=== PATIENT | female | born 1945 | race Caucasian/White ===

== ENCOUNTER → 2023-05-02 09:58 | Outpatient (REF) | payer OTHER, SELFPAY | LOC: HWRAD 09:58 | PROVIDERS: ATTENDING PHYSICIAN Internal Medicine Gastroenterology; FAMILY PHYSICIAN Family Medicine | DX: Z86.010 Personal history of colon polyps (principal) | CPT/HCPCS: 74261 ==

== ENCOUNTER 2023-11-13 16:24 | Emergency (ER) | payer OTHER, SELFPAY ==
[2023-11-13 16:24] VITALS: BMI 27.8
[2023-11-13 16:26] VITALS: BP 142/65
[2023-11-13 17:31] LABS: % Basophils 0.5 % (0-2); % Eosinophils 1.9 % (0-6); % Immature Granulocytes 0.4 % (0-0.5); % Lymphocytes 13.2 % (20.5-51.1); % Monocytes 11.1 % (1.7-9.3); % Neutrophils 72.9 % (42.2-75.2); Absolute Eosinophils 0.2 10^3/uL (0-0.7); Absolute Lymphocytes 1.1 10^3/uL (1.2-3.4); Absolute Monocytes 0.9 10^3/uL (0.1-0.6); Absolute Neutrophils 5.8 10^3/uL (1.4-6.5); Hematocrit 42.3 % (37.0-47.0); Hemoglobin 14.8 g/dL (12.0-16.0); Mean Corpuscular Volume 94.2 fL (81.0-99.0); Mean Platelet Volume 9.8 fL (7.4-10.4); Nucleated Red Blood Cells % 0 %; Platelet Count 271 10^3/uL (130-400); Red Blood Cell Count 4.49 10^6/uL (4.20-5.40); Red Cell Dist. Width 13.4 % (11.5-14.5)
[2023-11-13 17:45] LABS: INR 2.34; PT 25.5 Sec (11.4-14.6)
[2023-11-13 17:49] LABS: ALT (SGPT) 33 U/L (0-35); AST (SGOT) 46 U/L (14-36); Albumin 4.8 g/dl (3.5-5.0); Alkaline Phosphatase 160 U/L (38-126); Blood Urea Nitrogen 30 mg/dl (7-17); Calcium 9.7 mg/dl (8.4-10.2); Carbon Dioxide 32 mmol/L (22-30); Chloride 94 mmol/L (98-107); Estimated Creatinine Clearance 32 ml/min; Glucose 100 mg/dl (70-99); Potassium 4.8 mmol/L (3.5-5.1); Sodium 139 mmol/L (135-145); Total Bilirubin 1.2 mg/dl (0.2-1.3); Total Protein 7.6 g/dl (6.3-8.2); eGFR 46.33
[2023-11-13 17:52] LABS: NT-proBNP 2400 pg/ml
[2023-11-13 18:00] VITALS: BP 130/47
[2023-11-13 18:30] VITALS: BP 130/47
--- NOTE | 2023-11-13 23:07 | ED.MUSCINJ ---
HPI-Injury
General
Chief Complaint: Musculo-Skeletal Complaint
Source: patient and family
Exam Limitations: none
Time Seen by Provider: 11/13/23 16:37
Nursing documentation reviewed up to this point in time: agreed with
History of Present Illness-Injury
Is this injury a work related problem?: No
Is pt an associate of [facility]/[place]?: No
Initial Injury comments:
Patient to ED for eval of pain and swelling to her right knee. States she had a trip and fall 1 week ago. Fell onto right knee on carpeted floor. Developed a hematoma and swelling to site but improved as week progressed. States this week she
had her INR checked and it was greater than 5. TOld to hold coumadin x 5 days. Sustained another trip and fall yesterday and now has increased swelling and bruising to her right knee. She was evaluated at today and sent to ED for further
workup. NO fx on xray. No other complaints. No history of head injury.
Past History
Past History
ED Past Medical History: Arrthythmia (Atrial fib), Asthma, CHF, GERD, Seizures, Valvular disease, Hypothyroidism, Psychiatric (Depression) and Other (Migraines, pulmonary embolism, sleep apnea, PNA, Pul Hypertension, rheumatic heart disease,
H-pylori, renal calculus)
ED Past Surgical History: Cardiac (Pacemaker, Tricuspid and mitral replaced, Ablation for SVT), Cholecystectomy and Other (Abdominal wall abscess, IVC filter)
Social History
Tobacco: Non-smoker
Alcohol: None
Drug: None
Personal:
Living: alone
Employment: Retired
Family History
Family History: Other
Review of Systems
Review of Systems
Allergies reviewed?: Yes
All Other Systems: ROS reviewed and negative except as documented in HPI and ROS
Constitutional: Reports no symptoms
EENT: Reports no symptoms
Respiratory: Reports no symptoms
Cardiac: Reports no symptoms
ABD/GI: Reports no symptoms
Musculoskeletal: Reports joint pain (Pain bruising and swelling to right knee)
Skin: Reports other (swelling and bruising to right knee)
Neurological: Reports no symptoms
Psychiatric: Reports no symptoms
Musculoskeletal Injury Exam
Musculoskeletal Injury Exam
Right Knee:
Pain with Movement?: Moderate
Tender to palpation?: Moderate
Soft tissue swelling?: Moderate
External deformity and angulation?: None
Contusion?: Moderate
Hematoma-local bleeding into tissue?: Moderate
Strain- Sprain- Tear (Connective tissue injury)?: Moderate
Crepitus with movement?: No
Joint instability?: No
Malalignment/deformity?: No
Range of motion: Limited
Distal skin color and temperature: normal-warm & good color
Capillary Refill: normal
Normal distal neurovascular exam?: Yes
Peripheral Pulses: posterior tibial (right): 3+ and dorsalis pedis (right): 3+
Phy Exam
General Physical Exam
General Presentation: well appearing and no apparent distress
General age: appears stated age
General Skin: warm and dry
General Habitus: normal
General Mental: alert
Neurological Exam
Neurological Exam: alert, oriented x3, CN II-XII intact, no motor deficits, no sensory deficits and speech normal
Musculoskeletal Exam
Musculoskeletal Exam: neuro vasc intact and other (Swelling and bruising to right ant. knee. No evidence of compartment syndrome to RLE. Limited bending due to swelling. No fx on xray. Uriah wrap and knee immobilizer applied.)
Skin Exam
Skin Exam: warm/dry and no rash
Psychiatric Exam
Psychiatric Exam: normal mood/affect
Injury Course
Orders/Labs/Results
Orders:
Orders
11/13/23 17:23
Electrocardiogram (*1) Urgent
Reason for Study: Fatigue / Weakness
11/13/23 17:24
EKG- Treatment ONCE
11/13/23 17:25
Complete Blood Count/With Diff Urgent
Comprehensive Metabolic Panel Urgent
Pro-BNP [NT-proBNP] Urgent
Prothrombin Time Urgent
11/13/23 18:13
Uriah Wrap Right-Treatment ONCE
Knee Immobilizer Right-Treatme ONCE
Abnormal Lab Results
11/13/23
17:25
MCH 33.0 H pg
(27.0-31.0)
Absolute Lymphs (auto) 1.1 L 10^3/uL
(1.2-3.4)
Absolute Monos (auto) 0.9 H 10^3/uL
(0.1-0.6)
Lymphocytes % 13.2 L %
(20.5-51.1)
Monocytes % 11.1 H %
(1.7-9.3)
PT 25.5 H Sec
(11.4-14.6)
Chloride 94 L mmol/L
(98-107)
Carbon Dioxide 32 H mmol/L
(22-30)
BUN 30 H mg/dl
(7-17)
Creatinine 1.2 H mg/dL
(0.6-1.0)
Glucose 100 H mg/dl
(70-99)
AST 46 H U/L
(14-36)
Alkaline Phosphatase 160 H U/L
(38-126)
11/13/23 17:25
11/13/23 17:25
*Radiology
Radiology exam reviewed: radiology read reviewed
*Pulse Oximetry
Patient hypoxic: no
*Critical Care Note
Total Time (30-74mins, 75-104mins- exclusive of procedures): Not Applicable
ED Attending Note
-
Portions of this chart may have been created with voice recognition software.� Occasional wrong word or��sound alike� substitutions may have occurred due to the inherent limitations of voice recognition software.
Discharge Plan
Departure
Patient Disposition: Home (Routine Discharge)
Date of Disposition: 11/13/23
Time of Disposition: 18:14
Patient with high blood pressure during this ER visit?: No
Condition: Good
Covid-19: Not Applicable
Discharge Problem:
Contusion of knee, Hematoma and contusion
Instructions: Knee Immobilizer (DC), Hematoma, RICE Therapy
Prescriptions:
No Action
levothyroxine 88 MCG tablet
88 mcg PO DAILY
digoxin 0.125 MG tablet
0.125 mg PO SUTUTHSA@1200
albuterol sulfate [Ventolin HFA] 90 MCG/PUFF HFA aerosol inhaler
2 puff inhalation R Q6HPRN PRN (Reason: SOB)
omeprazole 40 MG capsule,delayed release(DR/EC)
40 mg PO DAILY
Arnuity Ellipta 100 MCG blister with device
1 inh inhalation R DAILY
allopurinol 100 mg tablet
100 mg PO QPM
aspirin 81 mg Tablet,Delayed Release (Dr/Ec)
81 mg PO DAILY
calcium carbonate [Calcium 600] 600 mg calcium (1,500 mg) Tablet
600 mg PO DAILY
colchicine 0.6 mg Tablet
0.6 mg PO DAILY
cholecalciferol (vitamin D3) 50 mcg (2,000 unit) Tablet
50 mcg PO DAILY
warfarin 1 mg tablet
1.5 mg PO QPM
torsemide 20 mg tablet
20 mg PO DAILY Qty: 0 0RF
potassium chloride [Klor-Con M20] 20 MEQ tablet,ER particles/crystals
1 meq PO DAILY Qty: 0 0RF
Activity Restrictions/Additional Instructions:
FOllow up with your family doctor. Please have your kidney function labs repeated next week.
Interventions
Interventions:
*Risk Screen - Suicide Last Done: 11/13/23 18:54
*General Assessment Last Done: 11/13/23 18:54
*Neglect/Abuse Screening Last Done: 11/13/23 18:54
ED- Fall Risk Assessment Last Done: 11/13/23 16:50
*ED COVID-19 Vaccine History Last Done: 11/13/23 18:54
*Nursing Disposition Last Done: 11/13/23 18:54
ED-Musculoskeletal Assessment Last Done: 11/13/23 16:50
Discharge Date and Time
Discharge Date/Time: 11/13/23 18:57
Print Language: ARABIC
== END 2023-11-13 18:57 | disposition home or self-care (01) ==
LOC: EMR 16:24
PROVIDERS: Nurse Practitioner; EMERGENCY PHYSICIAN Emergency Medicine; FAMILY PHYSICIAN Family Medicine
DX: S80.01XA Contusion of right knee, initial encounter (principal); W01.0XXA Fall on same level from slipping, tripping and stumbling without subsequent striking against object, initial encounter; Z79.01 Long term (current) use of anticoagulants
CPT/HCPCS: 99284; 29505; 80053; 83880; 85025; 85610; 93005

== ENCOUNTER → 2023-12-09 08:07 | Outpatient (REF) | payer OTHER, SELFPAY | LOC: RCS 08:07 | PROVIDERS: ATTENDING PHYSICIAN Internal Medicine Cardiovascular Disease; FAMILY PHYSICIAN Family Medicine | DX: I35.0 Nonrheumatic aortic (valve) stenosis (principal) | CPT/HCPCS: 93306 ==

== ENCOUNTER → 2024-01-09 15:47 | Outpatient (REF) | payer OTHER, SELFPAY | LOC: WDC 15:47 | PROVIDERS: ATTENDING PHYSICIAN Family Medicine | DX: Z12.31 Encounter for screening mammogram for malignant neoplasm of breast (principal) | CPT/HCPCS: 77063; 77067 ==

== ENCOUNTER → 2024-04-27 16:35 | Outpatient (REF) | payer OTHER, SELFPAY ==
[2024-04-27 17:54] LABS: INR 2.87
[2024-04-27 17:55] LABS: Blood Urea Nitrogen 35 mg/dl (7-17); Calcium 9.3 mg/dl (8.4-10.2); Carbon Dioxide 30 mmol/L (22-30); Chloride 96 mmol/L (98-107); Glucose 91 mg/dl (70-99); Potassium 4.3 mmol/L (3.5-5.1); Sodium 137 mmol/L (135-145); eGFR 51.43
[2024-04-27 18:01] LABS: % Basophils 0.9 % (0-2); % Eosinophils 3.4 % (0-6); % Immature Granulocytes 0.4 % (0-0.5); % Lymphocytes 15.8 % (20.5-51.1); % Neutrophils 68.5 % (42.2-75.2); Absolute Basophils 0.1 10^3/uL (0-0.2); Absolute Eosinophils 0.2 10^3/uL (0-0.7); Absolute Lymphocytes 0.9 10^3/uL (1.2-3.4); Absolute Monocytes 0.6 10^3/uL (0.1-0.6); Absolute Neutrophils 3.9 10^3/uL (1.4-6.5); Hematocrit 40.4 % (37.0-47.0); Hemoglobin 13.6 g/dL (12.0-16.0); Mean Corp Hgb Conc. 33.7 g/dL (33.0-37.0); Mean Corpuscular Hgb 33.1 pg (27.0-31.0); Mean Corpuscular Volume 98.3 fL (81.0-99.0); Mean Platelet Volume 9.9 fL (7.4-10.4); Nucleated Red Blood Cells % 0 %; Platelet Count 245 10^3/uL (130-400); Red Blood Cell Count 4.11 10^6/uL (4.20-5.40); Red Cell Dist. Width 14.3 % (11.5-14.5); White Blood Cell Count 5.6 10^3/uL (4.8-10.8)
== END ==
LOC: RAD 16:35
PROVIDERS: ATTENDING PHYSICIAN Hospitalist
DX: M25.462 Effusion, left knee (principal); Z79.01 Long term (current) use of anticoagulants
CPT/HCPCS: 36415; 73701; 80048; 85025; 85610; Q9967

== ENCOUNTER 2024-06-14 12:33 | Emergency (ER) | payer OTHER, SELFPAY ==
[2024-06-14 12:37] VITALS: BP 140/56; BMI 26.9
[2024-06-14 12:40] VITALS: BP 140/56
[2024-06-14 13:01] VITALS: BP 130/60
--- NOTE | 2024-06-14 13:01 | ED.GENMED ---
History of Present Illness
General
Chief Complaint: Swelling
Source: patient
Exam Limitations: none
Time Seen by Provider: 06/14/24 12:43
Nursing documentation reviewed up to this point in time: agreed with
History of Present Illness
History of Present Illness:
The patient is a pleasant 78-year-old female on Coumadin for heart valve replacement and A-fib, who reports left knee pain that developed last night and has been constant. Patient reports it is painful to bear weight on her left leg and to bend at
her left knee. Patient denies recent trauma. She reports that about 3 months ago she did fall and hit that knee but otherwise there has been no trauma since then. She denies fever and rash.
Past History
Past History
ED Past Medical History: Arrthythmia (Atrial fib), Asthma, CHF, GERD, Seizures, Valvular disease, Hypothyroidism, Psychiatric (Depression) and Other (Migraines, pulmonary embolism, sleep apnea, PNA, Pul Hypertension, rheumatic heart disease,
H-pylori, renal calculus)
ED Past Surgical History: Cardiac (Pacemaker, Tricuspid and mitral replaced, Ablation for SVT), Cholecystectomy and Other (Abdominal wall abscess, IVC filter)
Social History
Tobacco: Non-smoker
Alcohol: None
Drug: None
Personal:
Living: alone
Employment: Retired
Family History
Family History: Other
Review of Systems
Review of Systems
Allergies reviewed?: Yes
All Other Systems: ROS reviewed and negative except as documented in HPI and ROS
Constitutional: Reports no symptoms
EENT: Reports no symptoms
Respiratory: Reports no symptoms
Cardiac: Reports no symptoms
ABD/GI: Reports no symptoms
: Reports no symptoms
Musculoskeletal: Reports joint pain and joint swelling
Skin: Reports no symptoms
Neurological: Reports no symptoms
Endocrine: Reports no symptoms
Hematologic/Lymphatic: Reports no symptoms
Psychiatric: Reports no symptoms
Phy Exam
Physical Exam
Physical Exam:
Physical Exam
General: no apparent distress, not acutely ill
Neck: supple. no meningeal signs. normal psoterior pharynx
Heart: s1/s2 regular rate and rhythm, murmur present
Lungs: no acute respiratory distress. clear bilaterally
Abdomen: Soft, nontender
Neuro: alert and oriented. no focal neurological deficits. 5 out of 5 strength in all extremities. Equal sensation in legs bilaterally
Skin: No warmth or skin erythema of left knee area.
Psychiatric: well kept. interactive and cooperative
Extremities: Extensive varicose veins of bilateral lower extremities. Strong pulses in bilateral feet. Left knee has a small effusion, however, no deformity of left knee. No warmth or no erythema of left knee. Patient has
pain with flexion at left knee. Patient has mild tenderness of left calf. No tenderness of right lower extremity. No ecchymoses of left knee or left lower extremity
Scores
Heart Failure Risk
Heart Failure Risk Score: Not Applicable
Course
Orders/Labs/Results
Orders:
Orders
06/14/24 13:01
US Legs, Left [US Periph Venous LOWER Ext LT] Urgent
Comment:
Reason For Exam: left knee swelling
06/14/24 13:02
Knee, Left 4 or More Views [CR Knee - Left 4 Or More View*] Urgent
Comment:
Reason For Exam: left knee swelling, atraumatic
06/14/24 13:05
Tramadol HCl [Ultram] 75 mg PO NOW STA
06/14/24 13:06
Complete Blood Count/With Diff Urgent
ESR [Erythrocyte Sed Rate] Urgent
PTT Urgent
Prothrombin Time Urgent
06/14/24 13:35
Comprehensive Metabolic Panel Urgent
Uric Acid Urgent
06/14/24 14:04
C-Reactive Protein Urgent
06/14/24 15:23
Oxycodone [Roxicodone] 5 mg PO NOW STA
Abnormal Lab Results
06/14/24 06/14/24
13:06 14:04
RBC 4.08 L 10^6/uL
(4.20-5.40)
MCV 100.0 H fL
(81.0-99.0)
MCH 33.3 H pg
(27.0-31.0)
Absolute Lymphs (auto) 0.6 L 10^3/uL
(1.2-3.4)
Neutrophils % 80.3 H %
(42.2-75.2)
Lymphocytes % 8.6 L %
(20.5-51.1)
PT 38.9 H Sec
(11.4-14.6)
APTT 52.6 H Sec
(23.4-35.0)
C-Reactive Protein 20.90 H mg/L
(0.0-10.00)
06/14/24 13:06
Vital Signs
Initial and Last Documented VS:
Initial Vital Signs
Temp Pulse Resp BP Pulse Ox
98.7 F 74 16 140/56 96
06/14/24 12:37 06/14/24 12:37 06/14/24 12:37 06/14/24 12:37 06/14/24 12:37
Last Documented Vital Signs
Temp Pulse Resp BP Pulse Ox
98.7 F 71 15 130/60 93
06/14/24 12:37 06/14/24 13:30 06/14/24 13:30 06/14/24 13:01 06/14/24 13:30
MDM/Problems Addressed
Differential Diagnosis Includes:
Acute gouty arthritis of left knee, osteoarthritis of left knee, septic joint of left knee, spontaneous hemarthrosis of left knee due to Coumadin use, left leg DVT
MDM/Problems Addressed:
Patient presents with acute left knee pain
Chronic conditions affecting care:
Given patient is on chronic anticoagulation so she could have a spontaneous hemarthrosis of left knee
Acute Exacerbation and/or Progression of Chronic Illness:
Patient is acutely hypertensive, however, there is no sign of stroke or CHF. I suspect that she is in pain and is anxious
Acute Exacerbation and/or Progression of Chronic Illness: HTN
*Radiology
Radiology exam reviewed: preliminary read by ED provider (Left knee x-ray reviewed by me. No acute fracture. Effusion seen.) and radiology read reviewed
*Pulse Oximetry
Patient hypoxic: no
*EKG
Interpreted by ED Provider?: NA
*Truck Driver Instructor Interpretation
Rate: Truck Driver Instructor- N/A
*Critical Care Note
Total Time (30-74mins, 75-104mins- exclusive of procedures): Not Applicable
Data Reviewed
Review of Other/Old Records Reveals: Radiology Studies (CAT scan reviewed from April 2024 of patient's left knee which showed mild to moderate effusion)
Patient Management
Social determinants of health affecting care: Living situation and Strong social support
Update Note
Update Note:
Patient's left knee continues to not be warm or red. She has no fever. She has no elevated white blood cell count. It is very doubtful she has a septic joint given how she looks clinically. Patient may have a joint effusion from osteoarthritis.
Additionally, it is possible that she has a a small amount of bleeding within the joint space due to being on Coumadin. Patient will be encouraged to ice and elevate her left leg. Patient will also be placed in an Uriah wrap around her left knee.
Patient reports that she has had a wood setter in the past that she could call for follow-up.
ED Attending Note
-
Portions of this chart may have been created with voice recognition software.� Occasional wrong word or��sound alike� substitutions may have occurred due to the inherent limitations of voice recognition software.
Discharge Plan
Departure
Patient Disposition: Home (Routine Discharge)
Date of Disposition: 06/14/24
Time of Disposition: 16:05
Patient with high blood pressure during this ER visit?: Yes
Condition: Good
Covid-19: Not Applicable
Discharge Problem:
Effusion of left knee joint
Instructions: Swollen Joints, BLOOD PRESSURE
Prescriptions:
New
oxycodone 5 mg tablet
5 mg PO TID PRN (Reason: Pain) Qty: 7 0RF
No Action
levothyroxine 88 MCG tablet
88 mcg PO DAILY
digoxin 0.125 MG tablet
0.125 mg PO SUTUTHSA@1200
albuterol sulfate [Ventolin HFA] 90 MCG/PUFF HFA aerosol inhaler
2 puff inhalation R Q6HPRN PRN (Reason: SOB)
omeprazole 40 MG capsule,delayed release(DR/EC)
40 mg PO DAILY
Arnuity Ellipta 100 MCG blister with device
1 inh inhalation R DAILY
allopurinol 100 mg tablet
100 mg PO QPM
aspirin 81 mg Tablet,Delayed Release (Dr/Ec)
81 mg PO DAILY
calcium carbonate [Calcium 600] 600 mg calcium (1,500 mg) Tablet
600 mg PO DAILY
colchicine 0.6 mg Tablet
0.6 mg PO DAILY
cholecalciferol (vitamin D3) 50 mcg (2,000 unit) Tablet
50 mcg PO DAILY
warfarin 1 mg tablet
1.5 mg PO QPM
torsemide 20 mg tablet
20 mg PO DAILY Qty: 0 0RF
potassium chloride [Klor-Con M20] 20 MEQ tablet,ER particles/crystals
1 meq PO DAILY Qty: 0 0RF
Referrals:
Salima Alanis MD [Active] - (If you are unable to get in touch with your own wood setter, please give Dr. Alanis's office a call to try to set up an appointment)
Geneva Angelo MD [Family Provider] -
Activity Restrictions/Additional Instructions:
Elevate and apply an ice pack multiple times a day to your left leg to help reduce pain and swelling. Please call and follow-up with your wood setter soon as possible. Return for any redness of the left knee or fever.
Interventions
Interventions:
*Risk Screen - Suicide Last Done: 06/14/24 12:37
*General Assessment Last Done: 06/14/24 12:37
*Neglect/Abuse Screening Last Done: 06/14/24 12:37
*ED COVID-19 Vaccine History Last Done: 06/14/24 12:37
ED- Cardiac Assessment Last Done: 06/14/24 12:46
ED- Pulmonary Assessment Last Done: 06/14/24 12:46
ED-Skin Assessment Last Done: 06/14/24 12:46
Discharge Date and Time
Print Language: THAI
[2024-06-14] MEDS: ULTRAM 75 MG PO (13:16)
[2024-06-14 13:21] LABS: % Basophils 0.8 % (0-2); % Eosinophils 0.9 % (0-6); % Immature Granulocytes 0.2 % (0-0.5); % Lymphocytes 8.6 % (20.5-51.1); % Monocytes 9.2 % (1.7-9.3); % Neutrophils 80.3 % (42.2-75.2); Absolute Basophils 0.1 10^3/uL (0-0.2); Absolute Eosinophils 0.1 10^3/uL (0-0.7); Absolute Lymphocytes 0.6 10^3/uL (1.2-3.4); Absolute Monocytes 0.6 10^3/uL (0.1-0.6); Absolute Neutrophils 5.3 10^3/uL (1.4-6.5); Hematocrit 40.8 % (37.0-47.0); Hemoglobin 13.6 g/dL (12.0-16.0); Mean Corp Hgb Conc. 33.3 g/dL (33.0-37.0); Mean Corpuscular Hgb 33.3 pg (27.0-31.0); Mean Platelet Volume 10.3 fL (7.4-10.4); Nucleated Red Blood Cells % 0 %; Platelet Count 196 10^3/uL (130-400); Red Blood Cell Count 4.08 10^6/uL (4.20-5.40); Red Cell Dist. Width 14.1 % (11.5-14.5); White Blood Cell Count 6.5 10^3/uL (4.8-10.8)
[2024-06-14 13:29] LABS: Erythrocyte Sed Rate 15 mm/hour (0-20)
[2024-06-14 13:32] LABS: INR 3.96; PT 38.9 Sec (11.4-14.6)
[2024-06-14 13:33] LABS: APTT 52.6 Sec (23.4-35.0)
[2024-06-14 15:00] VITALS: BP 138/46
[2024-06-14] MEDS: ROXICODONE 5 MG PO (15:37)
[2024-06-14 16:00] VITALS: BP 135/54
[2024-06-14 20:18] LABS: ALT (SGPT) 20 U/L (0-35); AST (SGOT) 36 U/L (14-36); Albumin 4.1 g/dl (3.5-5.0); Alkaline Phosphatase 120 U/L (38-126); Blood Urea Nitrogen 20 mg/dl (7-17); Calcium 8.9 mg/dl (8.4-10.2); Carbon Dioxide 33 mmol/L (22-30); Chloride 103 mmol/L (98-107); Estimated Creatinine Clearance 38 ml/min; Glucose 102 mg/dl (70-99); Potassium 4.7 mmol/L (3.5-5.1); Sodium 140 mmol/L (135-145); Total Bilirubin 1.1 mg/dl (0.2-1.3); Total Protein 6.8 g/dl (6.3-8.2); Uric Acid 3.9 mg/dl (2.5-6.2); eGFR 57.66
== END 2024-06-14 17:16 | disposition home or self-care (01) ==
LOC: EMR 12:33
PROVIDERS: EMERGENCY PHYSICIAN Emergency Medicine; FAMILY PHYSICIAN Hospitalist
DX: M25.462 Effusion, left knee (principal); R03.0 Elevated blood-pressure reading, without diagnosis of hypertension; I48.91 Unspecified atrial fibrillation
CPT/HCPCS: 99285; 73564; 80053; 84550; 85025; 85610; 85652; 85730; 86140; 93971

== ENCOUNTER 2024-06-16 08:51 | Emergency (ER) | payer OTHER, SELFPAY ==
[2024-06-16 08:52] VITALS: BP 130/60
--- NOTE | 2024-06-16 10:18 | ED.GENMED ---
History of Present Illness
General
Chief Complaint: Musculo-Skeletal Complaint
Source: patient, records and family
Exam Limitations: none
Time Seen by Provider: 06/16/24 09:43
Nursing documentation reviewed up to this point in time: agreed with
History of Present Illness
History of Present Illness:
78-year-old female with history as noted presents to the emergency room with her daughter for evaluation of left knee pain and swelling. Patient has had recurrent knee pain and swelling in the left knee for the past few months since a fall in
January. She is on Coumadin for atrial fibrillation. She says that this episode started 3 days ago (Tuesday night) when she started to notice pain and swelling in the left knee. She denies any recent fall or trauma. She says that she had
trouble sleeping Tuesday night into morning due to the pain and so she came to the emergency room 06/14/24 for evaluation. At that time she had an x-ray of the knee which showed a joint effusion. She had a DVT study which was negative.
It was felt that joint effusion could be from osteoarthritis or spontaneous hemarthrosis given that she is on Coumadin. Recommended for conservative measures. Despite these measures pain and swelling has persisted which prompted return visit to
the emergency room. She denies any fevers or chills. She denies any other joint pains or swelling. She said she has a distant history of gout in her right ankle.
Past History
Past History
ED Past Medical History: Arrthythmia (Atrial fib), Asthma, CHF, GERD, Seizures, Valvular disease, Hypothyroidism, Psychiatric (Depression) and Other (Migraines, pulmonary embolism, sleep apnea, PNA, Pul Hypertension, rheumatic heart disease,
H-pylori, renal calculus)
ED Past Surgical History: Cardiac (Pacemaker, Tricuspid and mitral replaced, Ablation for SVT), Cholecystectomy and Other (Abdominal wall abscess, IVC filter)
Social History
Tobacco: Non-smoker
Alcohol: None
Drug: None
Personal:
Living: alone
Employment: Retired
Family History
Family History: Other
Review of Systems
Review of Systems
All Other Systems: ROS reviewed and negative except as documented in HPI and ROS
Constitutional: Denies fever or chills
Cardiac: Denies chest pain
Musculoskeletal: Reports joint pain and joint swelling
Phy Exam
Physical Exam
Physical Exam:
General: Well appearing and non-toxic
HEENT: protecting airway
Neck: appears supple
CV: No evidence of cyanosis
Resp: No accessory muscle use
Abd: Non-distended
Extremities: Patient has suprapatellar left knee effusion; he has no tenderness of the patella or along the medial or lateral joint line, no tenderness in the popliteal region, no erythema of the joint, no warmth of the joint; no significant edema
in the left calf or calf tenderness, good strong distal pulses right lower extremity DP and PT; right lower extremity shows no knee effusion or other acute abnormalities
Neuro: Alert
Psych: Normal affect
Skin: Intact
Scores
Heart Failure Risk
Heart Failure Risk Score: Not Applicable
Heart Score for Chest Pain Patients
STEMI patient?: Not applicable
Withdrawal Assessment of Alcohol
Withdrawal Assessment Completed?: Not applicable
Course
Orders/Labs/Results
Orders:
Orders
06/16/24 10:17
Body Fluid Cell Count Urgent
What is the Body Fluid: joint
Date Specimen was Collected: 06/16/24
Time Specimen was Collected: 09:53
Comment: with DIFF
Body Fluid Crystals Urgent
What is the Body Fluid: joint
Date Specimen was Collected: 06/16/24
Time Specimen was Collected: 09:53
Body Fluid Glucose Urgent
Fluid Source: Other
Other Source: left knee
Date Specimen was Collected: 06/16/24
Time Specimen was Collected: 09:53
CRP [C-Reactive Protein] Urgent
Complete Blood Count/With Diff Urgent
Comprehensive Metabolic Panel Urgent
ESR [Erythrocyte Sed Rate] Urgent
Prothrombin Time Urgent
Uric Acid Urgent
Fluid Culture with Gram Stain Urgent
PEGGY Source: Joint Fluid
Specimen Description:
Date Specimen was Collected: 06/16/24
Time Specimen was Collected: 09:53
Abnormal Lab Results
06/16/24
10:17
RBC 3.96 L 10^6/uL
(4.20-5.40)
MCV 99.5 H fL
(81.0-99.0)
MCH 32.8 H pg
(27.0-31.0)
Absolute Lymphs (auto) 0.9 L 10^3/uL
(1.2-3.4)
Absolute Monos (auto) 0.8 H 10^3/uL
(0.1-0.6)
Lymphocytes % 12.2 L %
(20.5-51.1)
Monocytes % 11.2 H %
(1.7-9.3)
ESR 26 H mm/hour
(0-20)
PT 41.4 H Sec
(11.4-14.6)
BUN 28 H mg/dl
(7-17)
Creatinine 1.3 H mg/dL
(0.6-1.0)
Glucose 102 H mg/dl
(70-99)
AST 198 H U/L
(14-36)
ALT 216 H U/L
(0-35)
Alkaline Phosphatase 231 H U/L
(38-126)
C-Reactive Protein 30.00 H mg/L
(0.0-10.00)
06/16/24 10:17
06/16/24 10:17
Vital Signs
Initial and Last Documented VS:
Initial Vital Signs
Temp Pulse Resp BP Pulse Ox
36.4 C 92 16 130/60 98
06/16/24 08:52 06/16/24 08:52 06/16/24 08:52 06/16/24 08:52 06/16/24 08:52
Last Documented Vital Signs
Temp Pulse Resp BP Pulse Ox
36.4 C 92 16 114/42 93
06/16/24 08:52 06/16/24 08:52 06/16/24 08:52 06/16/24 11:00 06/16/24 11:30
Procedures
Incision/Drainage/Joint Aspiration
Left Knee:
Anethesia: 1% Lidocaine with Epi
Preparation: cleaned with Betadine
Type of procedure: aspiration
Nature of site: other (joint effusion)
How much fluid was obtained?: number in mls (30)
Fluid description: bloody
Treatment: bandaid applied
MDM/Problems Addressed
Differential Diagnosis Includes:
Septic arthritis, inflammatory arthritis (gout/pseudogout), osteoarthritis, hemarthrosis
MDM/Problems Addressed:
78-year-old female returns to the emergency room with left knee pain and swelling in the absence of acute trauma. She is on Coumadin for A-fib. He does have distant history of gout. No fever, well-appearing patient. Physical exam as
above�notably no warmth or erythema of the joint. She had DVT study and x-ray 2 days ago�no DVT, x-ray showed joint effusion no acute abnormalities otherwise. Check labs including a CBC with ESR/CRP, uric acid level, INR. Proceed with
arthrocentesis to rule out septic arthritis. Hold on repeat imaging. Reassess after the above.
Labs reviewed: CBC shows no leukocytosis, inflammatory markers marginal, CMP shows mild CORI and no other clinically significant abnormalities. Joint fluid analysis shows WBC less than 2000 with negative Gram stain, negative fluid analysis.
Inconsistent with diagnosis of septic arthritis. Suspect spontaneous hemarthrosis. Her INR is 4.39 today. Advised to hold Coumadin tonight. Compression, ice, elevation. Tylenol as needed will prescribe oxycodone for breakthrough pain.
Follow-up with PCP and orthopedist. Patient comfortable this plan. All questions answered.
Chronic conditions affecting care:
A-fib on Coumadin
*Radiology
Radiology exam reviewed: radiology read reviewed (Reviewed reports from prior visit)
*Pulse Oximetry
Patient hypoxic: no
*Critical Care Note
Total Time (30-74mins, 75-104mins- exclusive of procedures): Not Applicable
Data Reviewed
Source: patient, records and family
ED Attending Note
-
Portions of this chart may have been created with voice recognition software.� Occasional wrong word or��sound alike� substitutions may have occurred due to the inherent limitations of voice recognition software.
Discharge Plan
Departure
Patient Disposition: Home (Routine Discharge)
Date of Disposition: 06/16/24
Time of Disposition: 11:57
Patient with high blood pressure during this ER visit?: No
Discharge Problem:
Hemarthrosis
Instructions: Hemarthrosis (DC)
Prescriptions:
New
oxycodone 5 mg tablet
5 mg PO TID PRN (Reason: Pain) Qty: 14 0RF
No Action
levothyroxine 88 MCG tablet
88 mcg PO DAILY
digoxin 0.125 MG tablet
0.125 mg PO SUTUTHSA@1200
albuterol sulfate [Ventolin HFA] 90 MCG/PUFF HFA aerosol inhaler
2 puff inhalation R Q6HPRN PRN (Reason: SOB)
omeprazole 40 MG capsule,delayed release(DR/EC)
40 mg PO DAILY
Arnuity Ellipta 100 MCG blister with device
1 inh inhalation R DAILY
allopurinol 100 mg tablet
100 mg PO QPM
aspirin 81 mg Tablet,Delayed Release (Dr/Ec)
81 mg PO DAILY
calcium carbonate [Calcium 600] 600 mg calcium (1,500 mg) Tablet
600 mg PO DAILY
colchicine 0.6 mg Tablet
0.6 mg PO DAILY
cholecalciferol (vitamin D3) 50 mcg (2,000 unit) Tablet
50 mcg PO DAILY
warfarin 1 mg tablet
1.5 mg PO QPM
torsemide 20 mg tablet
20 mg PO DAILY Qty: 0 0RF
potassium chloride [Klor-Con M20] 20 MEQ tablet,ER particles/crystals
1 meq PO DAILY Qty: 0 0RF
oxycodone 5 mg tablet
5 mg PO TID PRN (Reason: Pain) Qty: 7 0RF
Referrals:
Geneva Angelo MD [Family Provider] - Follow up in 5-7 days
Dean Clayton MD [Active] - Call in 1-3 days for appt (Orthopedist)
Activity Restrictions/Additional Instructions:
Thank you for visiting the Emergency Department at [facility].
1. Please schedule a follow up appointment as directed. Call first thing tomorrow morning to make an appointment.
2. If indicated, please take your medications as instructed and indicated on discharge paperwork.
3. If any of your symptoms do not improve, or persist, or become more severe within 6-12 hours, please return to the emergency department for further care.
4. Please return to the emergency department if you develop a headache, neck pain/stiffness, fever greater than 100.4F, chest pain, shortness of breath, persistent nausea, vomiting, slurred speech, difficulty walking, numbness/tingling, weakness,
signs of infection or any other symptoms that are worrisome to you.
Please call [phone] if you have any questions.
Interventions
Interventions:
*Risk Screen - Suicide Last Done: 06/16/24 08:57
*General Assessment Last Done: 06/16/24 10:23
*Neglect/Abuse Screening Last Done: 06/16/24 08:57
*ED- Fall Risk Assessment Last Done: 06/16/24 10:23
*ED COVID-19 Vaccine History Last Done: 06/16/24 10:23
ED-Musculoskeletal Assessment Last Done: 06/16/24 10:23
Discharge Date and Time
Print Language: [place]
[2024-06-16 10:24] VITALS: BP 105/50
[2024-06-16 10:49] LABS: Body Fluid Glucose 87 mg/dl
[2024-06-16 11:00] VITALS: BP 114/42
[2024-06-16 11:01] LABS: Body Fluid Polymorphonuclear 78.1 %; Body Fluid WBC 1820 /CUMM
[2024-06-16 11:02] LABS: Body Fluid Mononuclear 21.9 %
[2024-06-16 11:11] LABS: INR 4.39; PT 41.4 Sec (11.4-14.6)
[2024-06-16 11:41] LABS: Body Fluid Second Tech HB
[2024-06-16 11:44] LABS: Erythrocyte Sed Rate 26 mm/hour (0-20)
[2024-06-16 11:48] LABS: % Basophils 0.7 % (0-2); % Eosinophils 3.2 % (0-6); % Immature Granulocytes 0.4 % (0-0.5); % Lymphocytes 12.2 % (20.5-51.1); % Monocytes 11.2 % (1.7-9.3); % Neutrophils 72.3 % (42.2-75.2); Absolute Basophils 0.1 10^3/uL (0-0.2); Absolute Eosinophils 0.2 10^3/uL (0-0.7); Absolute Lymphocytes 0.9 10^3/uL (1.2-3.4); Absolute Monocytes 0.8 10^3/uL (0.1-0.6); Hematocrit 39.4 % (37.0-47.0); Mean Corpuscular Hgb 32.8 pg (27.0-31.0); Mean Corpuscular Volume 99.5 fL (81.0-99.0); Mean Platelet Volume 10.3 fL (7.4-10.4); Nucleated Red Blood Cells % 0 %; Platelet Count 194 10^3/uL (130-400); Red Blood Cell Count 3.96 10^6/uL (4.20-5.40); Red Cell Dist. Width 14.2 % (11.5-14.5)
[2024-06-16 11:50] LABS: ALT (SGPT) 216 U/L (0-35); AST (SGOT) 198 U/L (14-36); Alkaline Phosphatase 231 U/L (38-126); Blood Urea Nitrogen 28 mg/dl (7-17); Carbon Dioxide 30 mmol/L (22-30); Chloride 101 mmol/L (98-107); Glucose 102 mg/dl (70-99); Potassium 4.4 mmol/L (3.5-5.1); Sodium 138 mmol/L (135-145); Total Bilirubin 0.9 mg/dl (0.2-1.3); Total Protein 6.6 g/dl (6.3-8.2); eGFR 42.09
== END 2024-06-16 12:35 | disposition home or self-care (01) ==
LOC: EMR 08:51
PROVIDERS: EMERGENCY PHYSICIAN Emergency Medicine; FAMILY PHYSICIAN Hospitalist
DX: M25.062 Hemarthrosis, left knee (principal); I11.0 Hypertensive heart disease with heart failure; I50.9 Heart failure, unspecified; E03.9 Hypothyroidism, unspecified; G47.30 Sleep apnea, unspecified; I48.91 Unspecified atrial fibrillation; J45.909 Unspecified asthma, uncomplicated; I27.20 Pulmonary hypertension, unspecified; Z79.01 Long term (current) use of anticoagulants; Z86.711 Personal history of pulmonary embolism; Z87.442 Personal history of urinary calculi; Z90.49 Acquired absence of other specified parts of digestive tract; Z95.0 Presence of cardiac pacemaker
CPT/HCPCS: 99283; 80053; 82945; 84550; 85025; 85610; 85652; 86140; 87015; 87070; 87205; 89051; 89060

== ENCOUNTER 2024-06-25 08:27 | Inpatient (IN) | payer OTHER, SELFPAY ==
[2024-06-22 13:41] VITALS: BP 159/68
--- NOTE | 2024-06-22 15:02 | ED.GENMED ---
History of Present Illness
General
Chief Complaint: Musculo-Skeletal Complaint
Source: patient and records
Exam Limitations: none
Time Seen by Provider: 06/22/24 14:40
Nursing documentation reviewed up to this point in time: agreed with
History of Present Illness
History of Present Illness:
78-year-old female with history as documented presents to the ER at once again for evaluation of left knee pain and swelling. This is patient's third emergency room visit with the symptoms. Previously seen and diagnosed with spontaneous
hemarthrosis had therapeutic arthrocentesis but joint effusion reaccumulated shortly thereafter. She has been home with assistance from her daughter, today was making her bed and says that she once again felt a pop in her knee and started having
significant pain and swelling thereafter. Unable to ambulate due to pain and so she came back to the emergency room. She is on Coumadin has history of A-fib and artificial tricuspid and mitral valve, sees Dr. Justin Dave for cardiology.
Past History
Past History
ED Past Medical History: Arrthythmia (Atrial fib), Asthma, CHF, GERD, Seizures, Valvular disease, Hypothyroidism, Psychiatric (Depression) and Other (Migraines, pulmonary embolism, sleep apnea, PNA, Pul Hypertension, rheumatic heart disease,
H-pylori, renal calculus)
ED Past Surgical History: Cardiac (Pacemaker, Tricuspid and mitral replaced, Ablation for SVT), Cholecystectomy and Other (Abdominal wall abscess, IVC filter)
Social History
Tobacco: Non-smoker
Alcohol: None
Drug: None
Personal:
Living: alone
Employment: Retired
Family History
Family History: Other
Review of Systems
Review of Systems
All Other Systems: ROS reviewed and negative except as documented in HPI and ROS
Musculoskeletal: Reports joint pain and joint swelling
Phy Exam
Physical Exam
Physical Exam:
General: Well appearing and non-toxic
HEENT: protecting airway
Neck: appears supple
CV: No evidence of cyanosis
Resp: No accessory muscle use
Abd: Non-distended
Extremities: Patient has bruising both medial and lateral aspect of the left knee; patient has large left knee effusion; tenderness along the joint line bilaterally, no tenderness in the popliteal region, no erythema of the joint, no warmth of the
joint; no significant edema in the left calf or calf tenderness, good strong distal pulses right lower extremity DP and PT; right lower extremity shows no knee effusion or other acute abnormalities
Neuro: Alert
Psych: Normal affect
Skin: Intact
Scores
Heart Failure Risk
Heart Failure Risk Score: Not Applicable
Heart Score for Chest Pain Patients
STEMI patient?: Not applicable
Withdrawal Assessment of Alcohol
Withdrawal Assessment Completed?: Not applicable
Course
Orders/Labs/Results
Orders:
Orders
06/22/24 15:01
Case Management Consult ONCE
Case Management Consult: Jail Placement
Knee Immobilizer Left-Treatmen ONCE
Pt Eval And Treat Urgent
Treatment: NWB LLE
Activity Level: With Assistance
06/22/24 15:30
Oxycodone [Roxicodone] 5 mg PO NOW STA
06/22/24 15:46
Prothrombin Time Urgent
Abnormal Lab Results
06/22/24
15:46
PT 34.6 H Sec
(11.4-14.6)
Vital Signs
Initial and Last Documented VS:
Initial Vital Signs
Temp Pulse Resp BP Pulse Ox
36.4 C 84 18 159/68 98
06/22/24 13:41 06/22/24 13:41 06/22/24 13:41 06/22/24 13:41 06/22/24 13:41
Last Documented Vital Signs
Temp Pulse Resp BP Pulse Ox
36.4 C 84 18 159/68 98
06/22/24 13:41 06/22/24 13:41 06/22/24 13:41 06/22/24 13:41 06/22/24 13:41
MDM/Problems Addressed
Differential Diagnosis Includes:
Recurrent hemarthrosis�spontaneous versus traumatic
MDM/Problems Addressed:
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 Vitals and exam as above. Hesitant to repeat therapeutic
arthrocentesis�previously reaccumulated relatively quickly after therapeutic arthrocentesis and in my judgment risk of infection with repeated procedure outweigh benefits. Hold off on additional imaging without any traumatic mechanism and with
normal x-rays recently. Discussed case with orthopedics recommended conservative measures, rest. I think at this point we will plan to place in a knee immobilizer, nonweightbearing left lower extremity. Treat symptomatically. Ice and elevation.
She will need placement in rehab. Discussed with PT and case management.
PT recommending rehab. Case management assessed patient and unfortunately unable to place out of the emergency room this evening. Will admit for monitoring pending placement in rehab. Discussed with hospitalist.
Chronic conditions affecting care:
Cardiac history on Coumadin complicates hemarthrosis
Acute Exacerbation and/or Progression of Chronic Illness: HTN
*Pulse Oximetry
Patient hypoxic: no
*Critical Care Note
Total Time (30-74mins, 75-104mins- exclusive of procedures): Not Applicable
Data Reviewed
Source: patient and records
Patient Management
Discussion with other providers: Hospitalist (Discussed with hospitalist), Bowstring Maker (Discussed with orthopedist) and Other (Discussed with telecommunication lines repairer)
Escalation/DeEscalation of care consider admission/obs:
Admission indicated
ED Attending Note
-
Portions of this chart may have been created with voice recognition software.� Occasional wrong word or��sound alike� substitutions may have occurred due to the inherent limitations of voice recognition software.
Discharge Plan
Departure
Patient Disposition: Admit
Date of Disposition: 06/22/24
Time of Disposition: 15:35
Admit to doctor: Cathryn
Presentation/result/management discussed w/ accepting MD/DO: Hospitalist
Discharge Problem:
Hemarthrosis of left knee
Prescriptions:
No Action
levothyroxine 88 MCG tablet
88 mcg PO DAILY
digoxin 0.125 MG tablet
0.125 mg PO SUTUTHSA@1200
albuterol sulfate [Ventolin HFA] 90 MCG/PUFF HFA aerosol inhaler
2 puff inhalation R Q6HPRN PRN (Reason: SOB)
omeprazole 40 MG capsule,delayed release(DR/EC)
40 mg PO DAILY
Arnuity Ellipta 100 MCG blister with device
1 inh inhalation R DAILY
allopurinol 100 mg tablet
100 mg PO QPM
aspirin 81 mg Tablet,Delayed Release (Dr/Ec)
81 mg PO DAILY
calcium carbonate [Calcium 600] 600 mg calcium (1,500 mg) Tablet
600 mg PO DAILY
colchicine 0.6 mg Tablet
0.6 mg PO DAILY
cholecalciferol (vitamin D3) 50 mcg (2,000 unit) Tablet
50 mcg PO DAILY
warfarin 1 mg tablet
1.5 mg PO QPM
torsemide 20 mg tablet
20 mg PO DAILY Qty: 0 0RF
potassium chloride [Klor-Con M20] 20 MEQ tablet,ER particles/crystals
1 meq PO DAILY Qty: 0 0RF
oxycodone 5 mg tablet
5 mg PO TID PRN (Reason: Pain) Qty: 7 0RF
oxycodone 5 mg tablet
5 mg PO TID PRN (Reason: Pain) Qty: 14 0RF
Referrals:
Geneva Angelo MD [Family Provider] -
Interventions
Interventions:
*Risk Screen - Suicide Last Done: 06/22/24 13:41
*General Assessment Last Done: 06/22/24 13:41
*Neglect/Abuse Screening Last Done: 06/22/24 13:41
ED-Musculoskeletal Assessment Last Done: 06/22/24 14:10
Discharge Date and Time
Print Language: [place]
[2024-06-22] MEDS: ROXICODONE 5 MG PO ×2 (15:38→21:42)
[2024-06-22 16:09] LABS: INR 3.46; PT 34.6 Sec (11.4-14.6)
--- NOTE | 2024-06-22 16:38 | HPS.HSE ---
Addendum entered and electronically signed by Christopher Bryant MD 06/22/24 18:49:
I saw and examined the patient.
The SALES RECEPTIONIST or PA's note was reviewed and I agree with the note.
Comment:
78-year-old female with extensive history including atrial fibrillation, asthma, CHF, GERD, seizure, valve disease, hypothyroidism, depression, history of sleep apnea, PE, rheumatic heart disease, H. pylori, tricuspid and mitral replacement,
cholecystectomy, IVC filter now presents for left knee pain and swelling.� Patient did have similar symptoms of spontaneous hemarthrosis and had therapeutic arthrocentesis although joint effusion reaccumulated soon after.� Patient felt a pop in her
knee today, with subsequent pain and swelling.� Patient was able to ambulate due to pain and therefore prompted hospital evaluation.� Patient is on Coumadin for blood thinners and history of atrial fibrillation and artificial tricuspid and mitral
valve disease.� Patient otherwise mildly hypertensive with blood pressure 139/68, pulse 84, afebrile, respiratory rate 18, 98% on room air.� INR 3.46.� Mild still pending.� Plan�can obtain pulmonary imaging in acute setting, ED had discussed with
orthopedics, recommended conservative measures, rest. �Plan: Imaging; knee immobilizer, nonweightbearing left lower extremity, ice, elevation, placement. F/u ortho outpt. continue coumadin for appropriate INR range
Original Note:
Family Physician
-
Family Physician: Geneva Angelo MD
Chief Complaint
-
left knee pain and swelling
History of Present Illness
Patient is a 78-year-old female with past medical history significant for HFpEF with RV dysfunction, anemia, permanent atrial fibrillation/atrial tachycardia with history of ablation 2011, sinus syndrome status post pacemaker, restrictive lung
disease and obstructive sleep apnea on CPAP who presented to [facility] ED for evaluation of left knee pain and swelling. Patient with previous diagnosis of spontaneous hemarthrosis had therapeutic arthrocentesis but joint effusion reaccumulated shortly
thereafter. Patient reports making bed this morning when she felt a 'pop' in the knee and observed swelling start. Patient states she is unable to ambulate and weight bear to that leg related to the pain.
Medical History
Past Medical History
Past Medical History: Reports Other
Additional Past Medical History:
Saint Arturo mechanical mitral valve
HFpEF with RV dysfunction
Mild aortic stenosis
Mild tricuspid stenosis/severe tricuspid regurgitation
Pulmonary hypertension
Anemia
Permanent atrial fibrillation/atrial tachycardia with history of ablation 2011
Sinus syndrome status post pacemaker
History of PE and IVC filter
Restrictive lung disease
Hypothyroidism
Gout
Obstructive sleep apnea on CPAP
Lymphedema/venous insufficiency/varicose veins
History of rheumatic heart disease
Past Surgical History: Reports Other
Additional Past Surgical History:
Mechanical Saint Arturo mitral valve replacement 2002
cardiac catheterization
cardiac pacemaker 2010 and 2015
laparoscopic cholecystectomy 2019
cataract surgery
vein stripping
tubal ligation
IVC filter placement
A. fib/A. tach ablation 2011
exploration of an abdominal wall abscess on
Social History
Tobacco: Non-smoker
Alcohol: None
Drug: None
Personal: Single
Living: With Family
Family History
Family History: Not pertinent
Allergies / Home Medications
Allergies reflects when Allergies were last updated in [employer].
Home Medications with original date entered in [employer]
Allergy/Medication List:
Allergies
Allergy/AdvReac Type Severity Reaction Status Date / Time
adhesive Allergy redness Verified 06/22/24 13:40
and itching
amiodarone Allergy pulmonary Verified 06/22/24 13:40
issues
dofetilide Allergy SEE BELOW Verified 06/22/24 13:40
enoxaparin [From Lovenox] Allergy excessive Verified 06/22/24 13:40
bleeding
sotalol [Sotalol] Allergy dizziness Verified 06/22/24 13:40
Home Medications
levothyroxine 88 mcg tablet 88 mcg PO DAILY Thyroid 05/18/12
digoxin 125 mcg (0.125 mg) tablet 0.125 mg PO SUTUTHSA@1200 Heart Failure 07/05/14
albuterol sulfate 90 mcg/actuation aerosol inhaler (Ventolin HFA) 2 puff inhalation R Q6HPRN PRN SOB 08/09/16
omeprazole 40 mg capsule,delayed release 40 mg PO DAILY Gastrointestinal issue 02/17/18
fluticasone furoate 100 mcg/actuation blister powder for inhalation (Arnuity Ellipta) 1 inh inhalation R DAILY Lung/breathing issues 04/13/19
calcium carbonate (Calcium 600) 600 mg PO DAILY Supplement 02/11/22
cholecalciferol (vitamin D3) 50 mcg (2,000 unit) tablet 50 mcg PO DAILY Supplement 02/11/22
colchicine 0.6 mg tablet 0.6 mg PO DAILY Gout 02/11/22
warfarin 1 mg tablet 2 mg PO QPM Blood clot prevention/tx 04/12/22
potassium chloride 20 mEq tablet,extended release(part/cryst) (Klor-Con M) 1 meq (0.05 x 20 mEq) PO DAILY Electrolyte Repletion #0 tabs 04/15/22
torsemide 20 mg tablet 20 mg PO DAILY Heart Failure #0 tabs 04/15/22
carvedilol 3.125 mg tablet 3.125 mg PO DAILY 06/22/24
famotidine 40 mg tablet 40 mg PO DAILY 06/22/24
metolazone 2.5 mg tablet 2.5 mg PO DAILY 06/22/24
spironolactone 25 mg tablet (Aldactone) 25 mg PO DAILY 06/22/24
venlafaxine 75 mg tablet 75 mg PO DAILY 06/22/24
Review of Systems
-
History Source: Patient
Constitutional: Reports No Symptoms
EENT: Reports No Symptoms
Respiratory: Reports No Symptoms
Cardiac: Reports No Symptoms
Abdomen/GI: Reports No Symptoms
: Reports No Symptoms
Musculoskeletal: Reports Joint Pain (left knee ) and Joint Swelling (left knee )
Skin: Reports No Symptoms
Neurological: Reports No Symptoms
Endocrine: Reports No Symptoms
Hematologic/Lymphatic: Reports No Symptoms
Psych: Reports No Symptoms
Physical Exam
Vital Signs
Vital Signs
Temp Pulse Resp BP Pulse Ox
97.6 F 84 18 159/68 98
06/22/24 13:41 06/22/24 13:41 06/22/24 13:41 06/22/24 13:41 06/22/24 13:41
Physical Exam
General: Well Developed, Well Nourished, No Apparent Distress and Conversant
HEENT: NormoCephalic, Moist mucous membranes, Atraumatic, [place] Conjunctivae, Nose Appears Normal and Ears Appear Normal
Respiratory: Clear
Cardiac: S1/S2 and Regular Rhythm; No Murmur or Rub
Breast: Deferred by me
GI: Soft, Non Tender, Non Distended and Normal Bowel Sounds; No Organomegaly
Rectal: Deferred by Provider
Genito-urinary: Deferred by me
Musculoskeletal: No Clubbing, No Cyanosis and Edema, Left Lower Extremity (left knee edema and left knee tender)
Skin: No Rash
Neuro: Awake, Alert, AO x 3 and Nonfocal/grossly intact
Psych: Anxious and Depressed
Laboratory Results
-
Laboratory Results
PT 34.6 Sec (11.4-14.6) H 06/22/24 15:46
INR 3.46 06/22/24 15:46
Data Reviewed
-
Lab Data: Labs Reviewed by me
Impression/Plan
-
IMPRESSION/PLAN:
#left knee pain
spontaneous hemarthrosis with therapeutic arthrocentesis
left knee x-ray: pending
- Admit to med/surg
- case management consult
- PT consult
#Saint Arturo mechanical mitral valve
patient reports INR goal 2.5-3.0, follow with Dr. Dave cardiology
- INR daily
- continue Coumadin
#HFpEF with RV dysfunction
ECHO (12/09/2023): 1. Normal left ventricular size and wall thickness with apical, inferoapical, mid and apical anterior, mid and apical septal, and apical lateral hypokinesis, EF 50-55%
2. Mechanical Saint Arturo mitral valve with peak/mean gradient of 18 and 6 mmHg with mild mitral regurgitation and dilated left atrium
3. Moderate to severe aortic stenosis, peak/mean gradient 34/21 mmHg, aortic valve area 0.9 cm 2 with mild aortic regurgitation
4. Right ventricular hypertrophy with RV hypokinesis, pacing wire, normal RV size, dilated left atrium bioprosthetic tricuspid valve with moderate tricuspid regurgitation,
peak and mean gradients 13/8 mmHg with pulmonary artery systolic pressure 50-55 mmHg
- daily weights
- continue carvedilol, digoxin, spironolactone and torsemide
#Anemia
Hgb 12.3, Hct 37.1
- monitor H/H
#Permanent atrial fibrillation/atrial tachycardia
with history of ablation 2011
- continue carvedilol and Coumadin
#Restrictive lung disease
- continue Albuterol and Ellipta
#Hypothyroidism
- continue levothyroxine
#Gout
Churn Drill Operator recently stopped Allopurinol
- continue colchicine
#Obstructive sleep apnea on CPAP
Code status: full code
DVT prophylaxis: Coumadin
--- NOTE | 2024-06-22 17:04 | CM ---
Addendum entered by Lizette Diamond 06/22/24 17:16:
[employer]AT[employer] form explained; form signed @ 1632
Original Note:
Met with patient in the ED; initial assessment completed
pharmacy verified: [facility] @ [address], [place] [employer]
Lives alone in a 1st floor apartment; but currently staying at daughter's home; 1st floor set up; sleeping in recliner
PLOF: reported she was independent w/ ADLs and ambulated with a rolling walker
NO SNF utilization history; HH/VN for PT with [facility] in the past
Explained that PT recommended SNF when stable for discharge; patient agreeable; facility options reviewed; preferences identified and referrals sent
Plan: discharge to SNF pending bed availability and AUTH approval
[2024-06-22] MEDS: TYLENOL 1000 MG PO (17:06)
[2024-06-22 17:41] LABS: APTT 60.4 Sec (23.4-35.0)
[2024-06-22 17:54] VITALS: BMI 27.5
[2024-06-22 18:00] VITALS: BP 155/58
[2024-06-22 18:07] LABS: Hematocrit 37.1 % (37.0-47.0); Hemoglobin 12.3 g/dL (12.0-16.0); Mean Corp Hgb Conc. 33.2 g/dL (33.0-37.0); Mean Corpuscular Hgb 33.4 pg (27.0-31.0); Mean Corpuscular Volume 100.8 fL (81.0-99.0); Mean Platelet Volume 9.9 fL (7.4-10.4); Platelet Count 225 10^3/uL (130-400); Red Blood Cell Count 3.68 10^6/uL (4.20-5.40); Red Cell Dist. Width 14.2 % (11.5-14.5)
[2024-06-22 18:23] LABS: ALT (SGPT) 49 U/L (0-35); AST (SGOT) 39 U/L (14-36); Albumin 4.4 g/dl (3.5-5.0); Alkaline Phosphatase 216 U/L (38-126); Blood Urea Nitrogen 23 mg/dl (7-17); Calcium 8.8 mg/dl (8.4-10.2); Carbon Dioxide 30 mmol/L (22-30); Chloride 100 mmol/L (98-107); Direct Bilirubin 0.3 mg/dl (0.0-0.4); Estimated Creatinine Clearance 41 ml/min; Glucose 103 mg/dl (70-99); Potassium 4.6 mmol/L (3.5-5.1); Sodium 139 mmol/L (135-145); Total Bilirubin 1.2 mg/dl (0.2-1.3); Total Protein 6.9 g/dl (6.3-8.2); eGFR > 60.00
[2024-06-22 20:00] VITALS: BP 147/59; BMI 28.1
[2024-06-22] MEDS: COUMADIN 2 MG PO (21:39)
[2024-06-22] MEDS: TYLENOL 650 MG PO (21:42)
[2024-06-22 22:05] VITALS: PULSE 78
[2024-06-22 22:52] VITALS: BMI 28.1
[2024-06-22 23:23] VITALS: BP 139/57
[2024-06-23 06:00] VITALS: BMI 27.8
[2024-06-23] MEDS: SYNTHROID 88 MCG PO (06:05)
[2024-06-23] MEDS: FLOVENT 44 MCG INHALER 2 PUFF INH ×2 (07:29→19:38)
[2024-06-23 07:31] LABS: Hematocrit 30.2 % (37.0-47.0); Hemoglobin 10.2 g/dL (12.0-16.0); Mean Corp Hgb Conc. 33.8 g/dL (33.0-37.0); Mean Corpuscular Hgb 33.6 pg (27.0-31.0); Mean Corpuscular Volume 99.3 fL (81.0-99.0); Mean Platelet Volume 9.8 fL (7.4-10.4); Platelet Count 233 10^3/uL (130-400); Red Blood Cell Count 3.04 10^6/uL (4.20-5.40); Red Cell Dist. Width 14.3 % (11.5-14.5); White Blood Cell Count 6.5 10^3/uL (4.8-10.8)
--- NOTE | 2024-06-23 07:32 | PTCARENOTE ---
Patient arrived from ED to floor. Patient oriented to room, call wyman within reach, bed in lowest position. Will continue to monitor.
[2024-06-23 07:40] LABS: INR 3.69; PT 36.3 Sec (11.4-14.6)
[2024-06-23 08:02] VITALS: BP 118/58
[2024-06-23] MEDS: PROTONIX 40 MG PO (08:14)
[2024-06-23] MEDS: KCL 20 MEQ PO (08:15)
[2024-06-23] MEDS: COLCHICINE 0.6 MG PO (08:15)
[2024-06-23] MEDS: DEMADEX 20 MG PO ×2 (08:15→16:26)
[2024-06-23] MEDS: VITAMIN D3 (cholecalciferol) 50 MCG PO (08:15)
[2024-06-23] MEDS: PEPCID 20 MG PO (08:15)
[2024-06-23] MEDS: EFFEXOR 75 MG PO (08:15)
[2024-06-23] MEDS: ZAROXOLYN 2.5 MG PO (08:16)
[2024-06-23] MEDS: OSCAL CAL 500 500 MG PO (08:16)
[2024-06-23] MEDS: ALDACTONE 12.5 MG PO (08:16)
[2024-06-23] MEDS: COREG 3.125 MG PO (08:16)
[2024-06-23] MEDS: ROXICODONE 5 MG PO ×2 (09:26→14:39)
[2024-06-23] MEDS: MORPHINE SULFATE 1 MG IV (12:07)
[2024-06-23] MEDS: LANOXIN 125 MCG PO (12:12)
--- NOTE | 2024-06-23 13:44 | W.PN.HOSP.TC ---
Today's Communication/Plan
-
reduce coumadin dosing
placement
pain control
RLE US
Assessment / Plan
Assessment / Plan
Physical Exam
General: Well Developed, Well Nourished, No Apparent Distress and Conversant
HEENT: NormoCephalic, Moist mucous membranes, Atraumatic, [place] Conjunctivae, Nose Appears Normal and Ears Appear Normal
Respiratory: Clear
Cardiac: S1/S2 and Regular Rhythm; No Murmur or Rub
Breast: Deferred by me
GI: Soft, Non Tender, Non Distended and Normal Bowel Sounds; No Organomegaly
Rectal: Deferred by Provider
Genito-urinary: Deferred by me
Musculoskeletal: No Clubbing, No Cyanosis and Edema, Left Lower Extremity (left knee edema and left knee tender) immobilizer in place
Skin: No Rash
Neuro: Awake, Alert, AO x 3 and Nonfocal/grossly intact
Psych: Anxious and Depressed
#Left knee pain
#Spontaneous hemarthrosis status post therapeutic arthrocentesis, recurrent effusion
� No evidence of fracture, moderate joint effusion, slightly decreased in size from prior neck�spoke to orthopedics, conservative management at this time
� Would at this point avoid recurrent arthrocentesis due to risk of infection
� Knee immobilizer
� Nonweightbearing left lower extremity
� Ice
�elevation
�PT/OT
��follow-up Ortho outpatient for possible intra-articular steroids
� Reduce Coumadin dosing for goal INR
#Saint Arturo mechanical mitral valve
#Supratherapeutic INR
- INR goal 2.5-3.0 - Confirmed with Cardiology, follows with Dr. Dave cardiology
- INR daily
- Reduce Coumadin
- continue Coumadin
- Would strongly prefer not to hold anticoagulation. And if anticoagulation were held, she would need heparin bridging.
#HFpEF with RV dysfunction
- daily weights
- continue carvedilol, digoxin, spironolactone and torsemide
-RLE US
-may need to be placed on increased dose of diuretic
#Anemia, Chronic
monitor and replete
#Permanent atrial fibrillation/atrial tachycardia
with history of ablation 2011
- continue carvedilol and Coumadin
#Restrictive lung disease
- continue Albuterol and Ellipta
#Hypothyroidism
- continue levothyroxine
#Gout
Plumber'S Assistant recently stopped Allopurinol
- continue colchicine
#Obstructive sleep apnea on CPAP
Code status: full code
DVT prophylaxis: Coumadin
Anticipated Discharge: 24 - 48 hours
Subjective/Interval History
-
Date of Service: June 23, 2024
Still with pain in the knee, no other acute events overnight
Objective Data
-
Labs:
Laboratory Results
06/23/24
06:53
WBC 6.5
Hgb 10.2 L
Hct 30.2 L
Plt Count 233
PT 36.3 H
INR 3.69
APTT 78.0 H
Vital Signs:
Vital Signs
Temp Pulse Resp BP Pulse Ox
98.1 F 80 21 118/58 94
06/23/24 08:02 06/23/24 12:12 06/23/24 08:02 06/23/24 08:02 06/23/24 08:02
I&O
06/22/24 06/23/24 06/24/24
06:59 06:59 06:59
Intake Total 960 / 960
Balance 960 / 960
Review of Systems
-
History Source: Patient
All other systems: Not reviewed unless documented
Physical Exam
-
General: No Apparent Distress
HEENT: Moist Mucous Membranes and PERRLA
Respiratory: Clear to Auscultation
Cardiac: Regular Rhythm and S1/S2; Negative Murmur, Rub or JVD
GI: Soft, Nontender, Nondistended and Normal Bowel Sounds
Musculoskeletal: No Clubbing, No Cyanosis and No Edema
Neuro: Awake, Alert, Oriented, No Motor Deficits and Nonfocal/Grossly Intact
Data Reviewed
-
Diagnostic Radiology: Report Reviewed by me
Labs: Labs Reviewed by me
--- NOTE | 2024-06-23 14:47 | CM ---
PT rec SNF
Referrals sent in [facility], await responses for acceptance
will need auth
PLAN: SNF, awaiting acceptance, pending bed availability, will need auth
--- NOTE | 2024-06-23 14:55 | CM ---
Patient seen at bedside.
IA completed
Lives in 2 story home with , 2 steps to enter, 7 steps to bedroom
PLOF: wALKER
DME: Walker, wheelchair, cane, grab bars throughout house
[facility] in past, [facility] in past
PT/OT to eval
PCP: Chilango Hinkle
Pharmacy: [facility]
PLAN: await PT/OT NATHANAEL pemberton to follow for needs
[2024-06-23 15:55] VITALS: BP 118/56
[2024-06-23] MEDS: MORPHINE SULFATE 2 MG IV ×2 (16:32→20:45)
[2024-06-23] MEDS: COUMADIN 1.5 MG PO (17:58)
[2024-06-23 23:00] VITALS: BP 119/52
[2024-06-24 06:00] VITALS: BMI 27.9
[2024-06-24] MEDS: SYNTHROID 88 MCG PO (06:08)
[2024-06-24] MEDS: MORPHINE SULFATE 2 MG IV ×2 (06:10→10:36)
[2024-06-24] MEDS: FLOVENT 44 MCG INHALER 2 PUFF INH ×2 (07:36→19:35)
[2024-06-24 07:57] LABS: ALT (SGPT) 111 U/L (0-35); AST (SGOT) 134 U/L (14-36); Albumin 3.9 g/dl (3.5-5.0); Alkaline Phosphatase 285 U/L (38-126); Blood Urea Nitrogen 24 mg/dl (7-17); Calcium 8.7 mg/dl (8.4-10.2); Carbon Dioxide 30 mmol/L (22-30); Chloride 99 mmol/L (98-107); Estimated Creatinine Clearance 37 ml/min; Glucose 111 mg/dl (70-99); Potassium 3.7 mmol/L (3.5-5.1); Sodium 138 mmol/L (135-145); Total Bilirubin 1.2 mg/dl (0.2-1.3); Total Protein 6.4 g/dl (6.3-8.2); eGFR 57.66
[2024-06-24 08:26] LABS: Hematocrit 26.3 % (37.0-47.0); Hemoglobin 8.8 g/dL (12.0-16.0); Mean Corp Hgb Conc. 33.5 g/dL (33.0-37.0); Mean Corpuscular Hgb 33.2 pg (27.0-31.0); Mean Corpuscular Volume 99.2 fL (81.0-99.0); Mean Platelet Volume 10.1 fL (7.4-10.4); Platelet Count 290 10^3/uL (130-400); Red Blood Cell Count 2.65 10^6/uL (4.20-5.40); Red Cell Dist. Width 14.2 % (11.5-14.5); White Blood Cell Count 8.2 10^3/uL (4.8-10.8)
[2024-06-24 08:33] VITALS: BP 115/45
[2024-06-24] MEDS: VITAMIN D3 (cholecalciferol) 50 MCG PO (09:53)
[2024-06-24] MEDS: PEPCID 20 MG PO (09:53)
[2024-06-24] MEDS: PROTONIX 40 MG PO (09:53)
[2024-06-24] MEDS: ALDACTONE 12.5 MG PO (09:54)
[2024-06-24] MEDS: EFFEXOR 75 MG PO (09:54)
[2024-06-24] MEDS: OSCAL CAL 500 500 MG PO (09:54)
[2024-06-24] MEDS: COREG 3.125 MG PO (09:54)
[2024-06-24] MEDS: DEMADEX 20 MG PO (09:54)
[2024-06-24] MEDS: KCL 20 MEQ PO (09:55)
[2024-06-24] MEDS: COLCHICINE PO (09:55)
[2024-06-24] MEDS: ZAROXOLYN 2.5 MG PO (09:56)
[2024-06-24 11:07] LABS: INR 3.11; PT 31.9 Sec (11.4-14.6)
[2024-06-24] MEDS: LANOXIN 125 MCG PO (12:46)
--- NOTE | 2024-06-24 13:51 | W.PN.HOSP.TC ---
Today's Communication/Plan
-
IV lasix
pain control, conservative measures for knee
Assessment / Plan
Assessment / Plan
Physical Exam
General: Well Developed, Well Nourished, No Apparent Distress and Conversant
HEENT: NormoCephalic, Moist mucous membranes, Atraumatic, [place] Conjunctivae, Nose Appears Normal and Ears Appear Normal
Respiratory: Clear
Cardiac: S1/S2 and Regular Rhythm; No Murmur or Rub
Breast: Deferred by me
GI: Soft, Non Tender, Non Distended and Normal Bowel Sounds; No Organomegaly
Rectal: Deferred by Provider
Genito-urinary: Deferred by me
Musculoskeletal: No Clubbing, No Cyanosis and Edema, Left Lower Extremity (left knee edema and left knee tender) immobilizer in place
Skin: No Rash
Neuro: Awake, Alert, AO x 3 and Nonfocal/grossly intact
Psych: Anxious and Depressed
#Left knee pain
#Spontaneous hemarthrosis status post therapeutic arthrocentesis, recurrent effusion
� No evidence of fracture, moderate joint effusion, slightly decreased in size from prior neck�spoke to orthopedics, conservative management at this time
� Would at this point avoid recurrent arthrocentesis due to risk of infection
� Knee immobilizer
� Nonweightbearing left lower extremity
� Ice
�elevation
�PT/OT
��follow-up Ortho outpatient for possible intra-articular steroids
� Reduce Coumadin dosing for goal INR
#Saint Arturo mechanical mitral valve
#Supratherapeutic INR
- INR goal 2.5-3.0 - Confirmed with Cardiology, follows with Dr. Dave cardiology
- INR daily
- Reduce Coumadin dosing
- Would strongly prefer not to hold anticoagulation. And if anticoagulation were held, she would need heparin bridging.
#Acute HFpEF with RV dysfunction
#LE edema
- daily weights
- continue carvedilol, digoxin, spironolactone; hold torsemide while on IV lasix
-RLE US - no dvt
-Initiate 40mg IV Lasix daily
#Anemia, Chronic
monitor and replete
#Permanent atrial fibrillation/atrial tachycardia
with history of ablation 2011
- continue carvedilol and Coumadin
#Restrictive lung disease
- continue Albuterol and Ellipta
#Hypothyroidism
- continue levothyroxine
#Gout
Client Resolution Specialist recently stopped Allopurinol
- continue colchicine
#Obstructive sleep apnea on CPAP
Code status: full code
DVT prophylaxis: Coumadin
Anticipated Discharge: 24 - 48 hours
Subjective/Interval History
-
Date of Service: June 24, 2024
still with left knee pain
Objective Data
-
Labs:
Laboratory Results
06/24/24 06/24/24
06:51 10:38
WBC 8.2
Hgb 8.8 L
Hct 26.3 L
Plt Count 290 D
PT 31.9 H
INR 3.11
Sodium 138
Potassium 3.7
Chloride 99
Carbon Dioxide 30
BUN 24 H
Creatinine 1.0
Glucose 111 H
Calcium 8.7
Total Bilirubin 1.2
AST 134 H
ALT 111 H
Alkaline Phosphatase 285 H
Vital Signs:
Vital Signs
Temp Pulse Resp BP Pulse Ox
97.9 F 75 19 115/45 92
06/24/24 08:33 06/24/24 12:46 06/24/24 08:33 06/24/24 08:33 06/24/24 08:33
I&O
06/23/24 06/24/24 06/25/24
06:59 06:59 06:59
Intake Total 960 / 960 1200 / 1200
Output Total 300 / 300
Balance 960 / 960 900 / 900
Review of Systems
-
History Source: Patient
All other systems: Not reviewed unless documented
Data Reviewed
-
Diagnostic Radiology: Report Reviewed by me
Labs: Labs Reviewed by me
[2024-06-24] MEDS: LASIX 40 MG IV (14:22)
[2024-06-24 16:07] VITALS: BP 113/47
--- NOTE | 2024-06-24 16:47 | PTCARENOTE ---
patient continues with left knee pain, less edema and less tenderness per patient. PRN Morphine administered this am (see MAY) with good relief, tolerating diet, but intake poor, turns with assist x1, left knee in immobilizer, vss, will continue to
monitor.
[2024-06-24] MEDS: COUMADIN 1.5 MG PO (17:23)
[2024-06-24 23:32] VITALS: BP 128/46
[2024-06-25 03:43] VITALS: BP 105/57
[2024-06-25 06:00] VITALS: BMI 27.6
[2024-06-25 06:34] LABS: Hematocrit 23.9 % (37.0-47.0); Hemoglobin 8.2 g/dL (12.0-16.0); Mean Corp Hgb Conc. 34.3 g/dL (33.0-37.0); Mean Corpuscular Hgb 33.5 pg (27.0-31.0); Mean Corpuscular Volume 97.6 fL (81.0-99.0); Mean Platelet Volume 9.9 fL (7.4-10.4); Platelet Count 298 10^3/uL (130-400); Red Blood Cell Count 2.45 10^6/uL (4.20-5.40); Red Cell Dist. Width 14.2 % (11.5-14.5); White Blood Cell Count 9.3 10^3/uL (4.8-10.8)
[2024-06-25 06:47] LABS: INR 3.99; PT 38.5 Sec (11.4-14.6)
[2024-06-25] MEDS: SYNTHROID 88 MCG PO (06:52)
[2024-06-25 07:18] LABS: ALT (SGPT) 96 U/L (0-35); AST (SGOT) 85 U/L (14-36); Alkaline Phosphatase 292 U/L (38-126); Blood Urea Nitrogen 41 mg/dl (7-17); Calcium 8.8 mg/dl (8.4-10.2); Carbon Dioxide 28 mmol/L (22-30); Chloride 97 mmol/L (98-107); Estimated Creatinine Clearance 25 ml/min; Glucose 115 mg/dl (70-99); Potassium 3.5 mmol/L (3.5-5.1); Sodium 136 mmol/L (135-145); Total Protein 6.4 g/dl (6.3-8.2); eGFR 35.45
[2024-06-25] MEDS: FLOVENT 44 MCG INHALER 2 PUFF INH ×2 (07:42→19:18)
[2024-06-25 07:44] VITALS: BP 114/45
[2024-06-25] MEDS: ROXICODONE 5 MG PO ×2 (07:54→12:03)
[2024-06-25] MEDS: PROTONIX 40 MG PO (07:55)
[2024-06-25] MEDS: OSCAL CAL 500 500 MG PO (07:56)
[2024-06-25] MEDS: KCL 20 MEQ PO (07:56)
[2024-06-25] MEDS: PEPCID 20 MG PO (07:56)
[2024-06-25] MEDS: ZAROXOLYN 2.5 MG PO (07:56)
[2024-06-25] MEDS: EFFEXOR 75 MG PO (07:56)
[2024-06-25] MEDS: VITAMIN D3 (cholecalciferol) 50 MCG PO (07:56)
[2024-06-25] MEDS: ALDACTONE 12.5 MG PO (07:57)
[2024-06-25] MEDS: LASIX 40 MG IV (07:57)
[2024-06-25] MEDS: COLCHICINE 0.6 MG PO (07:57)
[2024-06-25] MEDS: COREG 3.125 MG PO (07:58)
[2024-06-25 09:15] VITALS: BP 103/39; BP 105/38; BP 114/48; PULSE 69; O2SAT 92
[2024-06-25] MEDS: MIRALAX 17 GRAMS PO (09:27)
[2024-06-25 10:08] VITALS: BP 103/39; BP 114/48; BP 132/51; PULSE 71; PULSE 75; O2SAT 93
--- NOTE | 2024-06-25 11:26 | CON.ORTHO ---
Consultation
-
Date/Time Consultation Requested: July 06/0815
Date/Time Consultation Performed: June/1214
Requesting Provider: Corrina
Performing Provider: Vu Noble
Reason for Consultation: Left knee pain/swelling
Consultation - Orthopedics
History
History of Present Illness:
Patient is a 78-year-old female with a H significant for HFpEF with RV dysfunction, anemia, permanent atrial fibrillation/atrial tachycardia with history of ablation 2011 on Coumadin (2mg QHS), sinus syndrome status post pacemaker, restrictive
lung disease and obstructive sleep apnea on CPAP who presented to [facility] ED for evaluation of left knee pain and swelling. No trauma reported. Patient with previous diagnosis of spontaneous hemarthrosis and had therapeutic arthrocentesis in the ED [address] Rivera. Infection and gout were ruled out. Working diagnosis was spontaneous hemarthrosis. x-rays were also negative for any acute findings, although moderate to severe lateral compartment OA was noted. On 16 June 2024 her INR was
4.3. She was instructed to hold her Coumadin. Per cardiology she was instructed to resume her Coumadin on 17 June 2024 at 2.5 mg, followed by a dose of 2 mg on 18 June 2024, and again 2 mg on 19 June 2024. She was then seen by her PCP, Geneva
Petey, on 20 June 2024. She denies any bloody stool, hematuria, nosebleeds, or any other evidence of bleeding. Unfortunately joint effusion reaccumulated shortly thereafter. Patient reports making bed on Tuesday AM when she felt a 'pop' in the knee
and observed swelling. Upon presentation at the ED she was having difficulty ambulating. she has been admitted since 22 June 2024, but we have been requested in consultation today given her left knee pain and swelling. Current INR score 3.99
Past Medical History:
Saint Arturo mechanical mitral valve
HFpEF with RV dysfunction
Mild aortic stenosis
Mild tricuspid stenosis/severe tricuspid regurgitation
Pulmonary hypertension
Anemia
Permanent atrial fibrillation/atrial tachycardia with history of ablation 2011
Sinus syndrome status post pacemaker
History of PE and IVC filter
Restrictive lung disease
Hypothyroidism
Gout
Obstructive sleep apnea on CPAP
Lymphedema/venous insufficiency/varicose veins
History of rheumatic heart disease
Past Surgical History:
Mechanical Saint Arturo mitral valve replacement 2002
cardiac catheterization
cardiac pacemaker 2010 and 2015
laparoscopic cholecystectomy 2019
cataract surgery
vein stripping
tubal ligation
IVC filter placement
A. fib/A. tach ablation 2011
exploration of an abdominal wall abscess on
Social History:
Tobacco: Non-smoker
Alcohol: None
Drug: None
Personal: Single
Living: With Family
Family History:
Family History: Not pertinent
ROS:
12 point negative except those mentioned in the HPI
Allergies / Home Medications
Allergy/AdvReac Type Severity Reaction Status Date / Time
adhesive Allergy redness Verified 06/22/24 13:40
and itching
amiodarone Allergy pulmonary Verified 06/22/24 13:40
issues
dofetilide Allergy SEE BELOW Verified 06/22/24 13:40
enoxaparin [From Lovenox] Allergy excessive Verified 06/22/24 13:40
bleeding
sotalol [Sotalol] Allergy dizziness Verified 06/22/24 13:40
�Medication �Instructions �Recorded
levothyroxine 88 mcg tablet 88 mcg PO DAILY Thyroid 05/18/12
digoxin 125 mcg (0.125 mg) tablet 0.125 mg PO SUTUTHSA@1200 Heart 07/05/14
Failure
albuterol sulfate 90 mcg/actuation 2 puff inhalation R Q6HPRN PRN SOB 08/09/16
aerosol inhaler (Ventolin HFA)
omeprazole 40 mg capsule,delayed 40 mg PO DAILY Gastrointestinal 02/17/18
release issue
fluticasone furoate 100 1 inh inhalation R DAILY 04/13/19
mcg/actuation blister powder for Lung/breathing issues
inhalation (Arnuity Ellipta)
calcium carbonate (Calcium 600) 600 mg PO DAILY Supplement 02/11/22
cholecalciferol (vitamin D3) 50 50 mcg PO DAILY Supplement 02/11/22
mcg (2,000 unit) tablet
colchicine 0.6 mg tablet 0.6 mg PO DAILY Gout 02/11/22
warfarin 1 mg tablet 2 mg PO QPM Blood clot 04/12/22
prevention/tx
potassium chloride 20 mEq 1 meq (0.05 x 20 mEq) PO DAILY 04/15/22
tablet,extended Electrolyte Repletion #0 tabs
release(part/cryst) (Klor-Con M)
torsemide 20 mg tablet 20 mg PO DAILY Heart Failure #0 04/15/22
tabs
carvedilol 3.125 mg tablet 3.125 mg PO DAILY 06/22/24
famotidine 40 mg tablet 40 mg PO DAILY 06/22/24
metolazone 2.5 mg tablet 2.5 mg PO DAILY 06/22/24
spironolactone 25 mg tablet 25 mg PO DAILY 06/22/24
(Aldactone)
venlafaxine 75 mg tablet 75 mg PO DAILY 06/22/24
Vital Signs / Lab Results
Temp Pulse Resp BP Pulse Ox
98.0 F 70 16 114/45 97
06/25/24 07:44 06/25/24 07:44 06/25/24 07:44 06/25/24 07:44 06/25/24 07:44
06/25/24 06:10
06/25/24 06:10
Assessment / Plan
Afeb. Left knee skin intact. No erythema or significant warmth. With a moderate intra-articular effusion, but also a considerable amount of extra-articular swelling as well. Generalized pain about the left knee, currently in immobilizer. Passive
ranging of the knee, due to discomfort to 70 degrees. Hip nontender. Calf soft, nontender. DNVI LLE
Xrays: Left knee with moderate to severe lateral compartment OA. Mild medial and PF disease as well. No acute findings
Lab:
Left knee aspirate from July 06
WBC 1820
CX negative @ 72 hours
No crystals
Impression: Spontaneous hemarthrosis Left knee
Plan: At length bedside discussion with the patient yields her understanding. Current INR 3.99, with max INR of 4.3 last week. Continue Tx per primary team/cards to lower INR goal (2.5-3.0 per patient). We discussed the role of repeat aspiration. At
this point Cx are negative, and risk of introducing infection to the joint with recurrent aspiration attempts elevated. Additionally, at this point her hemarthrosis may be too coagulated to provide any yield. Lastly, repeat aspiration could always
worsen her hemarthrosis with a current INR of 3.99. I suggest supportive measures for now, and reassured her, with time, that this will resorb. Immobilizer for comfort, but may work with PT/OT and be WBAT on a walker as tolerated. Gentle ranging of
the knee would also be beneficial, if tolerable. Continue ice an elevation, considering debra compression as well. Orthopaedics, at this juncture, will sign off. Please re-engage with any additional pertinent questions. Once medically optimized and
D/c may follow-up outpatient with Dr. Noble. Discussed with attending hospitalist, Dr. Houser.
--- NOTE | 2024-06-25 12:37 | W.PN.HOSP.TC ---
Today's Communication/Plan
-
Stop Lasix
Hold warfarin
INR, BMP, CBC in the morning
Bowel regimen
Assessment / Plan
Assessment / Plan
Gen-AAOx3, NAD
HEENT-NC, AT, anicteric, clear oral mm
Neck-supple
CV-reg, no M, +S1/S2
Lungs-clear B/L
Abd-soft, NT, ND
Ext-no edema
Musculoskeletal-no cyanosis, clubbing
Skin-warm and dry
Neuro-grossly non-focal
Psych-calm, cooperative
Spontaneous Left Knee hemarthrosis -due to anticoagulation with warfarin, supratherapeutic INR. Status post therapeutic arthrocentesis, recurrent effusion
� No evidence of fracture, moderate joint effusion, slightly decreased in size from prior neck�spoke to orthopedics, conservative management at this time
Previous CT of the knee done in April of this year was negative for fracture.
� Would at this point avoid recurrent arthrocentesis due to risk of infection
� Knee immobilizer
Orthopedics consulted. Recommend conservative management.
[facility] [employer] mechanical mitral valve/porcine tricuspid valve replacement
Supratherapeutic INR
- INR goal 2.5-3.0 - Confirmed with Cardiology, follows with Dr. Dave cardiology.
Warfarin dose reduced from 2 mg down to 1.5 mg daily, received 2 doses so far.
INR rising, 3.99 today. Hold warfarin tonight, INR in the morning.
CORI -suspect related to IV Lasix use, will discontinue.
Elevated liver enzymes -check GGT, LDH. Unclear etiology. Repeat labs in the morning.
Chronic heart failure with preserved EF -no evidence of acute exacerbation. Hold further diuretics given CORI.
Acute anemia -presumably acute blood loss anemia due to hemarthrosis. Rule out other etiology. Admission hemoglobin was 12.3, down to 8.2 this morning.
Heme check stools.
Permanent atrial fibrillation/atrial tachycardia
with history of ablation 2011
Restrictive lung disease
- continue Albuterol and Ellipta
Hypothyroidism
- continue levothyroxine
Gout
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
- continue colchicine
Obstructive sleep apnea on CPAP
Full code
Dispo -SNF when medically stable.
Anticipated Discharge: Within 24 hours
Subjective/Interval History
-
Date of Service: June 25, 2024
Patient seen and examined. Complaining of left knee pain. Denies shortness of breath.
Objective Data
-
Labs:
Laboratory Results
06/25/24
06:10
WBC 9.3
Hgb 8.2 L
Hct 23.9 L
Plt Count 298
PT 38.5 H
INR 3.99
Sodium 136
Potassium 3.5
Chloride 97 L
Carbon Dioxide 28
BUN 41 H
Creatinine 1.5 H
Glucose 115 H
Calcium 8.8
Total Bilirubin 1.0
AST 85 H
ALT 96 H
Alkaline Phosphatase 292 H
Vital Signs:
Vital Signs
Temp Pulse Resp BP Pulse Ox
98.0 F 70 16 114/45 97
06/25/24 07:44 06/25/24 07:44 06/25/24 07:44 06/25/24 07:44 06/25/24 07:44
I&O
06/24/24 06/25/24 06/26/24
06:59 06:59 06:59
Intake Total 1200 / 1200 1620 / 1620
Output Total 300 / 300
Balance 900 / 900 1620 / 1620
Review of Systems
-
History Source: Patient
All other systems: Reviewed and negative
--- NOTE | 2024-06-25 13:40 | CM ---
Addendum entered by Honey Schmitt 06/25/24 15:23:
[facility] contact Ze [phone]
[facility]
Dr Lou [phone]
Addendum entered by Honey Schmitt 06/25/24 15:02:
Bed is available tomorrow at [facility] if patient is stable for discharge. Updated clinicals along with PASRR faxed to [facility].
Original Note:
Chart reviewed and patient is not stable for discharge today, rehabilitation caseworker spoke with admissions at [facility] and they have accepted patient and patient's
daughter has selected [facility].
Plan; Skilled placement [facility].
[2024-06-25 13:49] LABS: LDH 333 U/L (120-246)
[2024-06-25 15:25] VITALS: BP 110/45
[2024-06-25 17:15] LABS: GGTP 129 U/L (12-43)
[2024-06-25 22:54] VITALS: BP 107/52
[2024-06-26] VITALS (11 sets, daily range): BP systolic 106–128; BP diastolic 38–46; BMI 28.0
[2024-06-26] MEDS: ROXICODONE 5 MG PO ×3 (02:59→21:36)
[2024-06-26] MEDS: SYNTHROID 88 MCG PO (06:03)
[2024-06-26 06:53] LABS: INR 4.58; PT 42.8 Sec (11.4-14.6)
[2024-06-26 06:54] LABS: Hematocrit 18.1 % (37.0-47.0); Hemoglobin 6.2 g/dL (12.0-16.0); Mean Corp Hgb Conc. 34.3 g/dL (33.0-37.0); Mean Corpuscular Hgb 33.5 pg (27.0-31.0); Mean Corpuscular Volume 97.8 fL (81.0-99.0); Mean Platelet Volume 9.8 fL (7.4-10.4); Platelet Count 331 10^3/uL (130-400); Red Blood Cell Count 1.85 10^6/uL (4.20-5.40); Red Cell Dist. Width 14.2 % (11.5-14.5); White Blood Cell Count 9.1 10^3/uL (4.8-10.8)
[2024-06-26 07:04] LABS: ALT (SGPT) 69 U/L (0-35); AST (SGOT) 52 U/L (14-36); Albumin 3.8 g/dl (3.5-5.0); Alkaline Phosphatase 263 U/L (38-126); Blood Urea Nitrogen 50 mg/dl (7-17); Calcium 8.6 mg/dl (8.4-10.2); Carbon Dioxide 31 mmol/L (22-30); Chloride 94 mmol/L (98-107); Estimated Creatinine Clearance 23 ml/min; Glucose 110 mg/dl (70-99); Potassium 3.9 mmol/L (3.5-5.1); Sodium 135 mmol/L (135-145); Total Bilirubin 1.1 mg/dl (0.2-1.3); Total Protein 6.3 g/dl (6.3-8.2); eGFR 32.81
[2024-06-26] MEDS: FLOVENT 44 MCG INHALER 2 PUFF INH ×2 (07:25→19:51)
--- NOTE | 2024-06-26 08:00 | W.PN.HOSP.TC ---
Today's Communication/Plan
-
Transfuse
Bowel regimen
Assessment / Plan
Assessment / Plan
Gen-AAOx3, NAD
HEENT-NC, AT, anicteric, clear oral mm
Neck-supple
CV-reg, no M, +S1/S2
Lungs-clear B/L
Abd-soft, NT, ND
Ext-no edema
Musculoskeletal-no cyanosis, clubbing
Skin-warm and dry
Neuro-grossly non-focal
Psych-calm, cooperative
Acute blood loss anemia -due to large left knee hematoma. Hemoglobin down to 6.2. Transfused 2 units of blood today. Hemodynamically stable. Patient agreeable to transfusion.
Heme check stools, no bowel movement so far. Bowel regimen ordered.
Spontaneous Left Knee hemarthrosis -due to anticoagulation with warfarin, supratherapeutic INR. INR was 4.39 June 16, 6 days prior to admission.
Status post therapeutic arthrocentesis, recurrent effusion
� No evidence of fracture, moderate joint effusion, slightly decreased in size from prior neck�spoke to orthopedics, conservative management at this time
Previous CT of the knee done in April of this year was negative for fracture.
� Would at this point avoid recurrent arthrocentesis due to risk of infection
� Knee immobilizer
Orthopedics consulted. Recommend conservative management.
[facility] [employer] mechanical mitral valve/porcine tricuspid valve replacement
Supratherapeutic INR
- INR goal 2.5-3.0 - Confirmed with Cardiology, follows with Dr. Dave cardiology.
INR rising, 4.58 today despite holding warfarin last night. Continue to hold.
CORI -suspect multifactorial etiology including acute anemia, Lasix use, etc.
Creatinine 1.6 today, BUN 50.
Elevated liver enzymes -elevated GGT, LDH noted. Patient states she has a history of fatty liver disease. I recommend outpatient follow-up.
Chronic heart failure with preserved EF -no evidence of acute exacerbation. Hold further diuretics given CORI.
Permanent atrial fibrillation/atrial tachycardia
with history of ablation 2011
Restrictive lung disease
- continue Albuterol and Ellipta
Hypothyroidism
- continue levothyroxine
Gout
[employer] recently stopped Allopurinol
- continue colchicine
Obstructive sleep apnea on CPAP
Full code
Dispo -SNF when medically stable.
Updated patient's daughter Obdulia on the phone. All questions answered.
Anticipated Discharge: > 48 hours
Subjective/Interval History
-
Date of Service: June 26, 2024
Patient seen and examined. No complaints currently.
Objective Data
-
Labs:
Laboratory Results
06/26/24
06:13
WBC 9.1
Hgb 6.2 L* D
Hct 18.1 L*
Plt Count 331
PT 42.8 H
INR 4.58
Sodium 135
Potassium 3.9
Chloride 94 L
Carbon Dioxide 31 H
BUN 50 H
Creatinine 1.6 H
Glucose 110 H
Calcium 8.6
Total Bilirubin 1.1
AST 52 H
ALT 69 H
Alkaline Phosphatase 263 H
Vital Signs:
Vital Signs
Temp Pulse Resp BP Pulse Ox
98.6 F 74 17 106/42 95
06/26/24 07:39 06/26/24 07:39 06/26/24 07:39 06/26/24 07:39 06/26/24 07:39
I&O
06/25/24 06/26/24 06/27/24
06:59 06:59 06:59
Intake Total 1620 / 1620 1140 / 1140
Balance 1620 / 1620 1140 / 1140
Review of Systems
-
History Source: Patient
All other systems: Reviewed and negative
[2024-06-26] MEDS: KCL 20 MEQ PO (08:29)
[2024-06-26] MEDS: OSCAL CAL 500 500 MG PO (08:30)
[2024-06-26] MEDS: PROTONIX 40 MG PO (08:30)
[2024-06-26] MEDS: EFFEXOR 75 MG PO (08:31)
[2024-06-26] MEDS: ALDACTONE 12.5 MG PO (08:31)
[2024-06-26] MEDS: MIRALAX 17 GRAMS PO ×2 (08:31→21:32)
[2024-06-26] MEDS: DULCOLAX 10 MG PO (08:31)
[2024-06-26] MEDS: VITAMIN D3 (cholecalciferol) 50 MCG PO (08:31)
[2024-06-26] MEDS: COREG 3.125 MG PO (08:32)
--- NOTE | 2024-06-26 12:04 | STATUS ---
SITUATION:
BACKGROUND:
ASSESSMENT:
RECOMMENDATION:
[2024-06-26] MEDS: TYLENOL 650 MG PO (12:33)
[2024-06-26] MEDS: LANOXIN 125 MCG PO (12:33)
--- NOTE | 2024-06-26 13:08 | CM ---
Addendum entered by Sheree Suazo 06/26/24 13:12:
will require insurance authorization
Original Note:
Patient seen at bedside.
Referral in [facility] for Cristin Benitez
Hgb 6.2, transfusion today
PLAN: Cristin Benitez, pending bed availability when medically stable.
[2024-06-26 17:41] LABS: Urine Albumin 1+ (Neg - Trace); Urine Bilirubin Negative (Negative); Urine Character Clear (Clear); Urine Color Yellow; Urine Glucose Negative (Negative); Urine Ketone Negative (Negative); Urine Leukocyte 1+ (Negative); Urine Nitrite Negative (Negative); Urine Occult Blood Negative (Negative); Urine Specific Gravity 1.015 (<1.030); Urine Urobilinogen Negative (Neg - 1+)
[2024-06-26 18:02] LABS: Urine Sodium 10 mmol/L (30-90)
[2024-06-26 18:03] LABS: Urine Hyaline Cast >15 /LPF (0-2); Urine Red Blood Cell 0-2 /HPF (0-2); Urine Squamous Cell 21-25 /LPF (Few)
[2024-06-26 18:04] LABS: Urine Bacteria Few (Negative)
[2024-06-26] MEDS: COLACE 100 MG PO (21:32)
[2024-06-26] MEDS: NSS 1000 IV (21:37)
[2024-06-27] VITALS (12 sets, daily range): BP systolic 107–126; BP diastolic 36–49; BMI 28.0
[2024-06-27] MEDS: ROXICODONE 10 MG PO (06:15)
[2024-06-27] MEDS: SYNTHROID 88 MCG PO (06:16)
[2024-06-27 06:45] LABS: INR 4.18; PT 39.9 Sec (11.4-14.6)
[2024-06-27 06:51] LABS: Hemoglobin 6.5 g/dL (12.0-16.0); Mean Corp Hgb Conc. 34.2 g/dL (33.0-37.0); Mean Corpuscular Volume 93.6 fL (81.0-99.0); Mean Platelet Volume 9.9 fL (7.4-10.4); Platelet Count 368 10^3/uL (130-400); Red Blood Cell Count 2.03 10^6/uL (4.20-5.40); Red Cell Dist. Width 17.2 % (11.5-14.5); White Blood Cell Count 9.8 10^3/uL (4.8-10.8)
[2024-06-27] MEDS: FLOVENT 44 MCG INHALER 2 PUFF INH ×2 (07:19→20:24)
--- NOTE | 2024-06-27 07:44 | W.PN.HOSP.TC ---
Today's Communication/Plan
-
Vitamin K 2.5 mg oral
Transfuse 2 units of blood
Monitor hemoglobin closely
Orthopedics reconsult
Assessment / Plan
Assessment / Plan
Gen-AAOx3, NAD
HEENT-NC, AT, anicteric, clear oral mm
Neck-supple
CV-reg, no M, +S1/S2
Lungs-clear B/L
Abd-soft, NT, ND
Ext-no edema
Musculoskeletal-no cyanosis, clubbing
Skin-warm and dry
Neuro-grossly non-focal
Psych-calm, cooperative
Acute blood loss anemia -due to large left knee hematoma. Hemoglobin down to 6.5 today despite 2 units of blood transfused yesterday. Will transfuse 2 additional units of blood today. Hemodynamically stable. Patient agreeable to transfusion.
Heme check stools, no bowel movement so far. Bowel regimen ordered.
Spontaneous Left Knee hemarthrosis -due to anticoagulation with warfarin, supratherapeutic INR. INR was 4.39 June 16, 6 days prior to admission.
Status post therapeutic arthrocentesis, recurrent effusion
� No evidence of fracture, moderate joint effusion, slightly decreased in size from prior neck�spoke to orthopedics, conservative management at this time
Previous CT of the knee done in April of this year was negative for fracture.
� Would at this point avoid recurrent arthrocentesis due to risk of infection
� Knee immobilizer
I asked orthopedics to revisit her today for reassessment given ongoing anemia and need for transfusion.
[facility] [employer] mechanical mitral valve/porcine tricuspid valve replacement
Supratherapeutic INR
- INR goal 2.5-3.0 - Confirmed with Cardiology, follows with Dr. Dave cardiology.
INR still elevated at 4.1 this morning despite holding warfarin. Suspect anorexia and poor oral intake as a contributing factor to persistent INR elevation. Last dose of warfarin was 06/24.
Will order vitamin K 2.5 mg oral x 1. INR in the morning.
CORI -suspect multifactorial etiology including acute anemia, Lasix use, etc.
Labs pending for today. Spironolactone and diuretics on hold. She takes torsemide, metolazone, spironolactone at home.
Elevated liver enzymes -elevated GGT, LDH noted. Patient states she has a history of fatty liver disease. I recommend outpatient follow-up.
Chronic heart failure with preserved EF -no evidence of acute exacerbation. Hold further diuretics given CORI.
Permanent atrial fibrillation/atrial tachycardia
with history of ablation 2011
Restrictive lung disease
- continue Albuterol and Ellipta
Hypothyroidism
- continue levothyroxine
Gout
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
- continue colchicine
Obstructive sleep apnea on CPAP
Full code
Dispo -SNF when medically stable.
Anticipated Discharge: > 48 hours
Subjective/Interval History
-
Date of Service: June 27, 2024
Patient seen and examined. Complaining of some left leg pain.
Objective Data
-
Labs:
Laboratory Results
06/27/24 06/27/24
06:01 19:00
WBC 9.8
Hgb 6.5 L* Pending
Hct 19.0 L* Pending
Plt Count 368
PT 39.9 H
INR 4.18
Sodium Pending
Potassium Pending
Chloride Pending
Carbon Dioxide Pending
BUN Pending
Creatinine Pending
Glucose Pending
Calcium Pending
Total Bilirubin Pending
AST Pending
ALT Pending
Alkaline Phosphatase Pending
Vital Signs:
Vital Signs
Temp Pulse Resp BP Pulse Ox
97.8 F 68 16 112/45 96
06/26/24 23:00 06/27/24 07:28 06/27/24 07:28 06/26/24 23:00 06/26/24 23:00
I&O
06/26/24 06/27/24 06/28/24
06:59 06:59 06:59
Intake Total 1140 / 1140 860 / 860
Balance 1140 / 1140 860 / 860
Review of Systems
-
History Source: Patient
All other systems: Reviewed and negative
--- NOTE | 2024-06-27 08:05 | W.PN.UPDATE ---
Update Note
Progress Note Update
I saw patient on morning rounds. She is resting comfortably in bed, but reports she continues to experience significant discomfort in her knee. She reports increased pain with any attempt at ROM or ambulating.
Directed exam of her left lower extremity reveals large effusion about the left knee, and significant ecchymosis throughout the left lower extremity. The hematoma about her lateral knee is firm when palpated. Her thigh and calf are otherwise soft.
Neurovascularly intact distally.
Unfortunately, Shavon continues with significant ecchymosis and swelling about her left lower extremity and left knee. Her hemoglobin has also continued trending down, requiring transfusion. Her INR is 4.18 which is certainly contributing. I am not
overly concerned for any infection given lack of fever or white count. While her knee is ecchymotic, I do not appreciate any erythema. At this point, I do not feel our recommendations are changed, but I have reached out to Dr. Noble to discuss
further. Risk of introducing infection to the joint with recurrent aspiration attempts elevated. Additionally, at this point her hemarthrosis may be too coagulated to provide any yield. Lastly, repeat aspiration could always worsen her hemarthrosis
with a current INR of 4.18. I recommend continued supportive measures. Immobilizer for comfort, but may work with PT/OT and be WBAT on a walker as tolerated. Gentle ranging of the knee would also be beneficial, if tolerable. Continue ice an
elevation, considering debra compression as well.
[2024-06-27 08:07] LABS: ALT (SGPT) 53 U/L (0-35); AST (SGOT) 40 U/L (14-36); Albumin 3.4 g/dl (3.5-5.0); Alkaline Phosphatase 242 U/L (38-126); Blood Urea Nitrogen 57 mg/dl (7-17); Calcium 8.7 mg/dl (8.4-10.2); Carbon Dioxide 28 mmol/L (22-30); Chloride 98 mmol/L (98-107); Estimated Creatinine Clearance 27 ml/min; Glucose 106 mg/dl (70-99); Potassium 4.3 mmol/L (3.5-5.1); Sodium 135 mmol/L (135-145); Total Bilirubin 2.1 mg/dl (0.2-1.3); Total Protein 5.9 g/dl (6.3-8.2); eGFR 38.51
[2024-06-27] MEDS: MEPHYTON 2.5 MG PO (08:17)
[2024-06-27] MEDS: EFFEXOR 75 MG PO (08:17)
[2024-06-27] MEDS: DULCOLAX 10 MG PO (08:18)
[2024-06-27] MEDS: OSCAL CAL 500 500 MG PO (08:18)
[2024-06-27] MEDS: COLACE 100 MG PO ×2 (08:18→20:54)
[2024-06-27] MEDS: VITAMIN D3 (cholecalciferol) 50 MCG PO (08:18)
[2024-06-27] MEDS: COLCHICINE 0.6 MG PO (08:18)
[2024-06-27] MEDS: PEPCID 20 MG PO (08:18)
[2024-06-27] MEDS: PROTONIX 40 MG PO (08:18)
[2024-06-27] MEDS: MIRALAX 17 GRAMS PO ×2 (08:19→20:55)
[2024-06-27] MEDS: COREG 3.125 MG PO (08:19)
--- NOTE | 2024-06-27 11:48 | CM ---
Patient seen at bedside
patient being transfused today
Updated Ze at [facility]
will need ins auth
PLAN: SNF, pending bed availability, when medically stable, will need ins auth
[2024-06-27] MEDS: ROXICODONE 5 MG PO (14:44)
--- NOTE | 2024-06-27 18:00 | PTCARENOTE ---
Pt extremely drowsy today, falling asleep mid-conversation with this RN and during meals throughout the day. Pt is AAOx3 and arousable to voice but states that she feels very lethargic. Swelling in leg increased and dark purple in color. Now,
lateral aspect of L knee presents with a blood-filled blister which was seen with MD @bedside. MD discussed getting out of bed with this RN. PT/OT agreed with this RN that pt unable to get OOB to chair given status. hgb 6.5. hct 19.0. 2 units PRBC
administered. Md notified of pt's status. No orders at this time. Will continue to monitor.
[2024-06-27 20:47] LABS: Hematocrit 19.5 % (37.0-47.0)
[2024-06-28] VITALS (29 sets, daily range): BP systolic 70–135; BP diastolic 29–71; BMI 29.1
[2024-06-28] MEDS: SYNTHROID 88 MCG PO (06:29)
[2024-06-28 06:57] LABS: INR 1.66; PT 20.1 Sec (11.4-14.6)
[2024-06-28 07:03] LABS: Hematocrit 19.3 % (37.0-47.0); Hemoglobin 6.7 g/dL (12.0-16.0); Mean Corp Hgb Conc. 34.7 g/dL (33.0-37.0); Mean Corpuscular Hgb 32.1 pg (27.0-31.0); Mean Corpuscular Volume 92.3 fL (81.0-99.0); Mean Platelet Volume 9.8 fL (7.4-10.4); Platelet Count 381 10^3/uL (130-400); Red Blood Cell Count 2.09 10^6/uL (4.20-5.40); Red Cell Dist. Width 17.5 % (11.5-14.5); White Blood Cell Count 10.9 10^3/uL (4.8-10.8)
[2024-06-28 07:19] LABS: ALT (SGPT) 44 U/L (0-35); AST (SGOT) 40 U/L (14-36); Albumin 3.3 g/dl (3.5-5.0); Alkaline Phosphatase 231 U/L (38-126); Blood Urea Nitrogen 61 mg/dl (7-17); Calcium 8.4 mg/dl (8.4-10.2); Carbon Dioxide 29 mmol/L (22-30); Chloride 102 mmol/L (98-107); Estimated Creatinine Clearance 32 ml/min; Glucose 112 mg/dl (70-99); Potassium 4.5 mmol/L (3.5-5.1); Sodium 139 mmol/L (135-145); Total Bilirubin 2.2 mg/dl (0.2-1.3); Total Protein 5.9 g/dl (6.3-8.2); eGFR 46.33
[2024-06-28] MEDS: FLOVENT 44 MCG INHALER 2 PUFF INH ×2 (07:35→20:11)
--- NOTE | 2024-06-28 07:52 | W.PN.HOSP.TC ---
Addendum entered and electronically signed by Deuce Houser DO 06/28/24 16:23:
Patient underwent lower extremity arteriogram and selective embolization by IR today. Discussed with Dr. Guan.
Given hemodynamic instability in IR with hypotension, will transfer to ICU and order Levophed.
Consult candy cutter hand.
Updated daughter on the phone.
Addendum entered and electronically signed by Deuce Houser DO 06/28/24 08:12:
Consult IR for left lower extremity angiogram and possible embolization of bleed. Discussed with Dr. Guan.
Keep n.p.o. for now.
Updated patient's daughter on the phone. All questions answered.
Original Note:
Today's Communication/Plan
-
Transfuse
Cardiology consult
Assessment / Plan
Assessment / Plan
Gen-AAOx3, NAD
HEENT-NC, AT, anicteric, clear oral mm
Neck-supple
CV-reg, no M, +S1/S2
Lungs-clear B/L
Abd-soft, NT, ND
Ext-no edema
Musculoskeletal-no cyanosis, clubbing
Skin-warm and dry
Neuro-grossly non-focal
Psych-calm, cooperative
Acute blood loss anemia -due to large left knee hematoma. Hemoglobin 6.7 this morning. Transfused 4 units of blood so far. Will give 2 additional units of blood today.
Heme check stools, no bowel movement so far. Bowel regimen ordered.
Spontaneous Left Knee hemarthrosis -due to anticoagulation with warfarin, supratherapeutic INR. INR was 4.39 June 16, 6 days prior to admission. She has a home INR monitor but was only checking it once per week.
Status post therapeutic arthrocentesis, recurrent effusion
� No evidence of fracture, moderate joint effusion, slightly decreased in size from prior neck�spoke to orthopedics, conservative management at this time
Previous CT of the knee done in April of this year was negative for fracture.
� Would at this point avoid recurrent arthrocentesis due to risk of infection
� Knee immobilizer
Orthopedics recommends conservative management.
[employer] mechanical mitral valve/porcine tricuspid valve replacement
Supratherapeutic INR on admission.
- INR goal 2.5-3.0 - Confirmed with Cardiology, follows with Dr. Dave cardiology.
INR still elevated at 4.1 this morning despite holding warfarin. Suspect anorexia and poor oral intake as a contributing factor to persistent INR elevation. Last dose of warfarin was 06/24.
Received 2.5 mg of oral vitamin K 06/27, INR down to 1.66 today. Ideally needs IV heparin but unfortunately with large hematoma and acute blood loss anemia this would be contraindicated. Consult cardiology for assistance as well. Discussed with
Dr. Dave.
CORI -suspect multifactorial etiology including acute anemia, Lasix use, etc. Spironolactone and diuretics on hold. She takes torsemide, metolazone, spironolactone at home. Creatinine improved to 1.2 today.
Elevated liver enzymes -elevated GGT, LDH noted. Patient states she has a history of fatty liver disease. I recommend outpatient follow-up.
Chronic heart failure with preserved EF -no evidence of acute exacerbation. Hold further diuretics given CORI.
Permanent atrial fibrillation/atrial tachycardia
with history of ablation 2011
Restrictive lung disease
- continue Albuterol and Ellipta
Hypothyroidism
- continue levothyroxine
Gout
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
- continue colchicine
Obstructive sleep apnea on CPAP
Full code
Dispo -SNF when medically stable.
Anticipated Discharge: > 48 hours
Subjective/Interval History
-
Date of Service: June 28, 2024
Patient seen and examined. Complaining of soreness of left leg.
Objective Data
-
Labs:
Laboratory Results
06/27/24 06/28/24
20:26 06:28
WBC 10.9 H
Hgb 7.0 L 6.7 L*
Hct 19.5 L* 19.3 L*
Plt Count 381
PT 20.1 H
INR 1.66 D
Sodium 139
Potassium 4.5
Chloride 102
Carbon Dioxide 29
BUN 61 H
Creatinine 1.2 H
Glucose 112 H
Calcium 8.4
Total Bilirubin 2.2 H
AST 40 H
ALT 44 H
Alkaline Phosphatase 231 H
Vital Signs:
Vital Signs
Temp Pulse Resp BP Pulse Ox
98.4 F 70 16 127/41 95
06/28/24 07:12 06/28/24 07:38 06/28/24 07:38 06/28/24 07:13 06/28/24 07:38
I&O
06/27/24 06/28/24 06/29/24
06:59 06:59 06:59
Intake Total 860 / 860 980 / 980
Balance 860 / 860 980 / 980
Review of Systems
-
History Source: Patient
All other systems: Reviewed and negative
--- NOTE | 2024-06-28 09:35 | CON.CAR ---
Addendum entered and electronically signed by Taurus Bravo MD 06/28/24 16:05:
I saw and examined the patient.
The Offset Second Press Operator's note was reviewed and I agree with the note.
Comment: Briefly, 78-year-old woman past medical history of mechanical mitral valve on chronic warfarin therapy who presents with approximately 1 week of worsening left lower extremity swelling and pain found to have large hematoma and transfusion
dependent anemia in the setting of supratherapeutic INR. Patient was given oral vitamin K yesterday and INR now down to 1.66.
Underwent evaluation and arterial embolization by interventional radiology earlier today
If she remains stable hopefully can resume anticoagulation with heparin drip w/out bolus tonight and monitor hemoglobin
Rest per Coby Zhu
Original Note:
Consultation
Consultation Request
Date/Time Consultation Performed: 06/28/24
Requesting Provider: Dr. Houser
Performing Provider: Coby Zhu PA-C for Dr. Bravo
Reason for Consultation: leg hematoma on coumadin
Medical History
-
Chief Complaint: L knee pain
History of Present Illness:
Patient is a 76 yo F with complex PMH as below with history of [place] mechanical mitral valve on chronic Coumadin therapy managed by [facility] Coumadin clinic reports recently her INRs have been very labile as an outpatient. She initially presented
to the ER on 06/14 due to left knee swelling and sent home with plan for ice and elevation. She then presented back on 06 16 due to persistent symptoms and underwent arthrocentesis which was negative for evidence of septic arthritis and felt to be
spontaneous hemarthrosis with INR of 4.39. They instructed her to hold her Coumadin for 1 night and follow-up with her primary. She then presented back on 06/22 due to reaccumulation of joint effusion and was admitted. Hemoglobin was 12.3 on
arrival and drifted down to 6.2 on 06/26. She has undergone transfusion and hemoglobin remains low today at 6.7. She was given 2.5 mg p.o. vitamin K yesterday as INR remained elevated at 4.18 and today INR is 1.66. Cardiology consulted for
assistance with anticoagulation management in setting of mechanical mitral valve.
PMH:
Mild tricuspid stenosis/severe tricuspid regurgitation s/p #33 Epic TV replacement via right heart port thoracotomy at [facility] 01/28/22
Saint Arturo mechanical mitral valve
Chronic warfarin OAC, managed by [facility] Coumadin clinic
Chronic HFpEF
Mild aortic stenosis
Pulmonary hypertension
Anemia
Permanent atrial fibrillation/atrial tachycardia with history of ablation 2011
Sinus syndrome status post Medtronic pacemaker
History of PE and IVC filter
Abdominal Wall Hematoma s/p Abdominal wall exploratory surgery for abdominal abscess and gallstone 07/2021
Restrictive lung disease
Obstructive sleep apnea on CPAP
Lymphedema/venous insufficiency/varicose veins
History of rheumatic heart disease
Past Medical History
Past Medical History: Other (in HPI)
Social History
Tobacco: Non-Smoker
Alcohol: None
Living: With Family
Employment: Retired
Family History
Family History: Diabetes, Hypertension and Other (CVA)
Allergies / Home Medications
Allergy/AdvReac Type Severity Reaction Status Date / Time
adhesive Allergy redness Verified 06/22/24 13:40
and itching
amiodarone Allergy pulmonary Verified 06/22/24 13:40
issues
dofetilide Allergy SEE BELOW Verified 06/22/24 13:40
enoxaparin [From Lovenox] Allergy excessive Verified 06/22/24 13:40
bleeding
sotalol [Sotalol] Allergy dizziness Verified 06/22/24 13:40
�Medication �Instructions �Recorded �Confirmed �Type
levothyroxine 88 mcg tablet 88 mcg PO DAILY Thyroid 05/18/12 06/22/24 History
digoxin 125 mcg (0.125 mg) tablet 0.125 mg PO SUTUTHSA@1200 Heart 07/05/14 06/22/24 History
Failure
albuterol sulfate 90 mcg/actuation 2 puff inhalation R Q6HPRN PRN SOB 08/09/16 06/22/24 History
aerosol inhaler (Ventolin HFA)
omeprazole 40 mg capsule,delayed 40 mg PO DAILY Gastrointestinal 02/17/18 06/22/24 History
release issue
fluticasone furoate 100 1 inh inhalation R DAILY 04/13/19 06/22/24 History
mcg/actuation blister powder for Lung/breathing issues
inhalation (Arnuity Ellipta)
calcium carbonate (Calcium 600) 600 mg PO DAILY Supplement 02/11/22 06/22/24 History
cholecalciferol (vitamin D3) 50 50 mcg PO DAILY Supplement 02/11/22 06/22/24 History
mcg (2,000 unit) tablet
colchicine 0.6 mg tablet 0.6 mg PO DAILY Gout 02/11/22 06/22/24 History
warfarin 1 mg tablet 2 mg PO QPM Blood clot 04/12/22 06/22/24 History
prevention/tx
potassium chloride 20 mEq 1 meq (0.05 x 20 mEq) PO DAILY 04/15/22 06/22/24 Rx
tablet,extended Electrolyte Repletion #0 tabs
release(part/cryst) (Klor-Con M)
torsemide 20 mg tablet 20 mg PO DAILY Heart Failure #0 04/15/22 06/22/24 Rx
tabs
carvedilol 3.125 mg tablet 3.125 mg PO DAILY Blood Pressure 06/22/24 06/22/24 History
famotidine 40 mg tablet 40 mg PO DAILY Gastrointestinal 06/22/24 06/22/24 History
Issue
metolazone 2.5 mg tablet 2.5 mg PO DAILY Fluid 06/22/24 06/22/24 History
Retention/Swelling
spironolactone 25 mg tablet 25 mg PO DAILY Fluid 06/22/24 06/22/24 History
(Aldactone) Retention/Swelling
venlafaxine 75 mg tablet 75 mg PO DAILY depression/anxiety 06/22/24 06/22/24 History
Review of Systems
-
History Source: Patient
All other systems: Negative unless noted
Physical Exam
Vital Signs
Temp Pulse Resp BP Pulse Ox
98.4 F 70 16 127/41 95
06/28/24 07:12 06/28/24 07:38 06/28/24 07:38 06/28/24 07:13 06/28/24 07:38
Lab Results
06/28/24 06:28
06/28/24 06:28
Physical Exam
General: Other (chronically ill/frail appearing. )
HEENT: Normocephalic, Anicteric and Moist Mucous Membranes
Respiratory: Clear and Non Labored Respirations
Cardiac: S1/S2, Irregular Rhythm and Murmur
GI: Soft, Non Tender, Non Distended and Normal Bowel Sounds
Musculoskeletal: No Clubbing, No Cyanosis and Edema (4+ edema with ecchymoses of LLE. in brace)
Skin: Warm and Dry
Neuro: AO x 3
Impression / Plan
-
Primary Content Administrator: Dr. RAFAEL Dave
Assessment:
Presentation with LLE pain and swelling
ER visit with arthrocentesis 06/16/24
Recurrent suspected spontaneous LLE hematoma
Supratherapeutic INR
Acute anemia
CORI
Elevated LFTs
Mild tricuspid stenosis/severe tricuspid regurgitation s/p #33 Epic TV replacement via right heart port thoracotomy at [facility] 01/28/22
Saint Arturo mechanical mitral valve
Chronic warfarin OAC, managed by [facility] coumadin clinic, has home monitor
Chronic HFpEF
Mild aortic stenosis
Pulmonary hypertension
Anemia
Permanent atrial fibrillation/atrial tachycardia with history of ablation 2011
Sinus syndrome status post Medtronic pacemaker
History of PE and IVC filter
Abdominal Wall Hematoma s/p Abdominal wall exploratory surgery for abdominal abscess and gallstone 07/2021
Restrictive lung disease
Obstructive sleep apnea on CPAP
Lymphedema/venous insufficiency/varicose veins
History of rheumatic heart disease
ECHO 12/09/23: EF 50 to 55%, apical, inferoapical, mid and apical anterior, mid and apical septal, apical lateral hypokinesis, mechanical [place] MVR with peak/mean gradients 18/6 mmHg, mild MR, dilated LA, moderate to severe with peak/mean
gradients 30/21 mmHg, YOLANDA 0.9 cm�, mild AR, RVH with RV hypokinesis, dilated LA, bioprosthetic tricuspid valve with moderate TR, peak and mean gradients 13/8 mmHg, PAP 50 to 55 mmHg
Plan:
-patient with recurrent LLE hematoma with associated anemia requiring transfusion. imaging without evidence of fracture or DVT.
-follow hgb closely, 6.7 on 06/28. s/p 4U PRBCs this admission. continue to transfuse as needed, for 2 U today
-plan for IRAD eval today for LLE angiogram and possible embolization. NPO
-INR persistently supratherapeutic since admission. given 2.5mg po Vit K 06/27 and INR now 1.66 06/28.
-would plan to start IV heparin without bolus tonight post IRAD procedure given [facility] MVR pending findings
-goal INR 2.5-3.
-OP spironolactone and diuretics on hold for now. follow volume status and Cr and resume as able
-high risk situation. would have low threshold to transfer to higher level of care
Data Reviewed
-
EKG: Tracing Personally Visualized and interpreted
Radiology: Report Reviewed by me
Ultrasound: Report Reviewed by me
Medical Tests (Nuc Med, Echo etc): Report Reviewed by me
Labs: Labs Reviewed by me
Old Records: Reviewed
[2024-06-28] MEDS: OSCAL CAL 500 500 MG PO (10:29)
[2024-06-28] MEDS: EFFEXOR 75 MG PO (10:29)
[2024-06-28] MEDS: VITAMIN D3 (cholecalciferol) 50 MCG PO (10:30)
[2024-06-28] MEDS: COREG 3.125 MG PO (10:30)
[2024-06-28] MEDS: COLACE 100 MG PO ×2 (10:30→20:25)
[2024-06-28] MEDS: PROTONIX 40 MG PO (10:31)
[2024-06-28] MEDS: MIRALAX 17 GRAMS PO ×2 (10:32→20:25)
[2024-06-28] MEDS: TYLENOL 650 MG PO (11:03)
[2024-06-28] MEDS: LANOXIN 125 MCG PO (11:31)
--- NOTE | 2024-06-28 12:14 | W.PN.UPDATE ---
Update Note
Progress Note Update
Patient seen and examined earlier today. Pain about her LLE. Admitted last weekend for spontaneous hemarthrosis and thigh hematoma. 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 INR was supratherapeutic in the 4 range
until today which is 1.66. Patient has been transfused 4 units of PRBC during this admission with 2 more scheduled for today. Patient scheduled for LLE angiogram with possible embolizaton procedure today in IR. Cardiology consulted. On PE: LLE:
Calf soft but swollen. Thigh swollen and soft. Significantly ecchymotic thigh and knee. Limited ROM of the knee. Bandaid over lateral distal thigh removed with skin slough. NVI distally. Plan: Will follow. No signs of compartment syndrome.
Knee immobilizer not necessary and removed. Would not place adhesive to left swollen leg as skin is fragile. Spontaneous hematoma may be from extensive varicosities. Could consider MRI in the future to determine if a definitive collection is
evident.
--- NOTE | 2024-06-28 15:27 | CM ---
Patient in IR currently
Hgb today 6.7, transfused
Updated Ze from Cristin Benitez
PLAN: SNF, pending bed availability, when medically stable, will need to obtain ins auth
--- NOTE | 2024-06-28 15:36 | W.PN.UPDATE ---
Update Note
Progress Note Update
US was performed preprocedure, which showed a large complex left knee joint effusion. Large soft tissue hematoma extended to the upper thigh, in the region of multiple varicose veins.
Left knee arteriogram performed. There was hyperemia, most pronounced in the lateral knee. Superselective arteriogram and embolization of two small lateral geniculate branches, with cessation of hyperemia.
If bleeding continues, consider CTA or noncontrast CT of the left LE to evaluate for bleeding varicosities. Continue LEW compression of the left knee and thigh.
Bedrest for 2 hours.
--- NOTE | 2024-06-28 15:59 | PTCARENOTE ---
patient returned to IR holdind. Dr Houser made aware of low MAPs. most recent (48). Dr houser placing orders. patient remaines responsive when spoken to. see Post angio interventions.
[2024-06-28] MEDS: LEVOPHED 250 IV (16:10)
--- NOTE | 2024-06-28 16:19 | W.PN.UPDATE ---
Update Note
Progress Note Update
arterial embolization in IRAD today noted. d/w hospitalist and infrastructure tech. difficult situation. will plan to monitor overnight for serial stability of hgb and hopefully can start IV heparin without bolus 06/29. with mechanical MVR she is felt to
be high risk for clotting while off OAC with subtherapeutic INR. will follow.
[2024-06-28 17:14] LABS: Glucose - Point of Care 130 mg/dl (70-99)
--- NOTE | 2024-06-28 17:38 | CON.INTV ---
Addendum entered and electronically signed by Star Ariza MD 06/28/24 18:52:
Additional problem:
#Hemorrhagic shock due to acute blood loss involving left lower extremity, mainly soft tissue bleed and not hemarthrosis considering recent left knee XR showed the knee effusion was decreasing in size
Original Note:
Consultation
Consultation Request
Date/Time Consultation Requested: 06/28/2024 - 1734
Date/Time Consultation Performed: 1735
Requesting Provider: Dr. Houser
Performing Provider: Dr. Ariza
Reason for Consultation: Shock/Anemia/LLE Bleed
Medical History
-
Chief Complaint: Left knee pain + swelling
History of Present Illness:
78-year-old female with complex cardiac + pulmonary history including chronic HFpEF, A-fib s/p ablation now essentially 100% paced, HIRA on CPAP at 12 cmH2O, history of rheumatic heart disease which subsequently led to mitral valve disease s/p
mechanical mitral valve prosthesis ([facility]) in 2002 now on Coumadin, aortic valve stenosis, tricuspid valve replacement, asthma, history of hemoptysis, history of recurrent infections in the lung with history of chronic bronchitis, depression
and gout who presents with left knee pain and swelling. Of note she was recently here in the ER on 06/16/2024 and 06/14/2024 due to left knee pain/swelling, which was recurrent over the last several months since she fell in January 2024. Knee XR on
06/14 showed a moderate-sized suprapatellar joint effusion, with LLE duplex US negative for DVT. WBC count was normal on both these ER visits, with Hb stable at 13 � 13.6. Cr was slightly elevated at 1.3 on 06/16/2024. Given that she has a history of
gout, arthrocentesis was performed which was negative for crystals, and labs were not consistent with septic arthritis. She was diagnosed with spontaneous hemarthrosis as her INR was 4.39, and she was advised to hold her Coumadin. Sent home with
oxycodone. She now comes back to the ER on 06/22/2024 as she is unable to walk around due to this pain. Knee XR was done on 06/22 showing no evidence of acute fracture and her joint effusion had actually decreased compared to prior XR on 06/14/2024.
Labs showed normal WBC at 7, Hb 12.3, platelets 225, INR initially 3.46, glucose 103 and T. bili 1.2. She was admitted to [facility] under the Hospitalist. She was treated with pain medications. Orthopedic surgery was consulted who recommended
supportive measures initially with more risk than benefit for repeat joint aspiration of her left knee. Her hemoglobin started to decrease on 06/23, and then on 06/26 it dropped to 6.2 from 8.2 the day prior. She was given 2 units PRBC on 06/26 and
then anothet 2 units PRBC on 06/27, but her Hb continued to remain low and did not rise appropriately. INR continued to be high and was 4.18 on 06/27. She was given 2.5 mg PO phytonadione on 06/27 and now as of 06/28 her INR is 1.66. She then went to
IR for an angiogram with embolization when her blood pressure dropped further. She was then started on Levophed at the procedure was performed and now being transferred to the ICU for closer monitoring and continued blood pressure management.
Metal Roofing Mechanic services consulted for additional management/recommendations.
When I saw the patient, she was resting in bed in no acute distress. Currently on room air breathing comfortably with SpO2 97%. Heart rate 70 (V-paced) and BP is 106/38 on Levophed at 4 mcg/min. She is awake, alert, in good spirits and has a
pleasant mood. She still has some pain on her left leg near her thigh/knee but it is much more manageable at the moment. She feels like she has to have a bowel movement. Otherwise she denies chest pain, SOB, abdominal pain, nausea, vomiting,
diarrhea, fevers or chills.
Of note she follows with us in the office, usually with Dr. Handy (last visit with him on 02/08/2023). She otherwise sees the J[facility], with last visit on 01/11/2024 with JIMENA Renteria. She has excellent compliance with her CPAP. Continues to
use Arnuity daily. Has not had hemoptysis for several years. Last full PFT on 01/11/2024 showing no evidence of obstruction, mild-moderate restriction with TLC 60% predicted, vital capacity 73%, with a severely reduced DLco at 33% predicted
although only mild�borderline moderately reduced when accounting for alveolar volume involved in gas exchange (DLco/VA: 60%).
PMHx: Chronic HFpEF, permanent A-fib s/p ablation (2011) now s/p PPM, pulmonary hypertension, HIRA on CPAP, history of rheumatic heart disease, aortic valve stenosis, mitral valve disease s/p mechanical mitral valve replacement ([facility]) on
coumadin, history of tricuspid valve replacement (performed at [facility] � 01/2022), mild intermittent asthma, history of massive hemoptysis requiring mechanical ventilation (2016), history of mixed simple/mucopurulent chronic bronchitis with a
history of MRSA, Pseudomonas, Aspergillus fumigatus/niger + RASTA, history of left lingular bronchiectasis, history of robotic cholecystectomy complicated by abdominal wall abscess/hematoma (2021), urge incontinence, history of hematuria, depression
and gout
PSHx: Mechanical mitral valve replacement (2002), tubal ligation, cataract surgery, cardiac pacemaker (May 2015 + February 2011), laparoscopic cholecystectomy (March 2019), gallstone removal complicated by abdominal wall abscess + hematoma (July
2021), tricuspid valve replacement (January 2022), history of IVC filter (placed in [place] 2012 then removed at [place] in July 2014 with fragment removed from left pulmonary arterial tree without complication), history of bronchoscopy (last one in
August 2016), vein stripping
Past Medical History
Past Medical History: Other (Above as per HPI)
Past Surgical History: Other (Above as per HPI)
Social History
Tobacco: Non-smoker
Alcohol: Other (Rarely)
Drug: None
Personal: Single
Living: With Family
Family History
Family History: Cancer (Paternal grandfather: prostate cancer; Maternal grandmother: uterine cancer), Diabetes (Mother), Hypertension (Mother) and Other (Father: COPD/emphysema, osteoporosis + tobacco use; mother: History of CVA; daughter: GERD;
grandson: Lyme disease)
Allergies / Home Medications
Allergies
Allergy/AdvReac Type Severity Reaction Status Date / Time
adhesive Allergy redness Verified 06/22/24 13:40
and itching
amiodarone Allergy pulmonary Verified 06/22/24 13:40
issues
dofetilide Allergy SEE BELOW Verified 06/22/24 13:40
enoxaparin [From Lovenox] Allergy excessive Verified 06/22/24 13:40
bleeding
sotalol [Sotalol] Allergy dizziness Verified 06/22/24 13:40
Home Medications
�Medication �Instructions �Recorded �Confirmed �Last Taken �Type
levothyroxine 88 mcg tablet 88 mcg PO DAILY Thyroid 05/18/12 06/22/24 04/12/22 History
digoxin 125 mcg (0.125 mg) tablet 0.125 mg PO SUTUTHSA@1200 Heart 07/05/14 06/22/24 04/11/22 History
Failure
albuterol sulfate 90 mcg/actuation 2 puff inhalation R Q6HPRN PRN SOB 08/09/16 06/22/24 04/13/19 07:15 History
aerosol inhaler (Ventolin HFA)
omeprazole 40 mg capsule,delayed 40 mg PO DAILY Gastrointestinal 02/17/18 06/22/24 04/12/22 History
release issue
fluticasone furoate 100 1 inh inhalation R DAILY 04/13/19 06/22/24 04/12/22 History
mcg/actuation blister powder for Lung/breathing issues
inhalation (Arnuity Ellipta)
calcium carbonate (Calcium 600) 600 mg PO DAILY Supplement 02/11/22 06/22/24 04/12/22 History
cholecalciferol (vitamin D3) 50 50 mcg PO DAILY Supplement 02/11/22 06/22/24 04/12/22 History
mcg (2,000 unit) tablet
colchicine 0.6 mg tablet 0.6 mg PO DAILY Gout 02/11/22 06/22/24 04/12/22 History
warfarin 1 mg tablet 2 mg PO QPM Blood clot 04/12/22 06/22/24 04/11/22 History
prevention/tx
potassium chloride 20 mEq 1 meq (0.05 x 20 mEq) PO DAILY 04/15/22 06/22/24 04/12/22 Rx
tablet,extended Electrolyte Repletion #0 tabs
release(part/cryst) (Klor-Con M)
torsemide 20 mg tablet 20 mg PO DAILY Heart Failure #0 04/15/22 06/22/24 04/12/22 Rx
tabs
carvedilol 3.125 mg tablet 3.125 mg PO DAILY Blood Pressure 06/22/24 06/22/24 Unknown History
famotidine 40 mg tablet 40 mg PO DAILY Gastrointestinal 06/22/24 06/22/24 Unknown History
Issue
metolazone 2.5 mg tablet 2.5 mg PO DAILY Fluid 06/22/24 06/22/24 Unknown History
Retention/Swelling
spironolactone 25 mg tablet 25 mg PO DAILY Fluid 06/22/24 06/22/24 Unknown History
(Aldactone) Retention/Swelling
venlafaxine 75 mg tablet 75 mg PO DAILY depression/anxiety 06/22/24 06/22/24 Unknown History
Review of Systems
-
History Source: Patient
All other systems: Negative unless noted (12 point ROS performed and is negative unless mentioned above.)
Vitals / Labs / Diagnostic Testing
Vital Signs
Temp Pulse Resp BP Pulse Ox
97.8 F 70 25 128/40 100
06/28/24 15:36 06/28/24 16:30 06/28/24 16:30 06/28/24 16:30 06/28/24 16:30
Lab Data
06/28/24 06:28
Laboratory Results
06/28/24
06:28
PT 20.1 H
INR 1.66 D
Diagnostic Testing:
Physical Exam
-
HEENT: Normocephalic and Anicteric
Cardiovascular: S1/S2, Murmur (Loud systolic murmur heard best at left 5th ICS) and Peripheral Edema (+3 bilateral lower extremities (L>R))
Respiratory: Wheeze (negative), Rhonchi (negative), Non-Labored Respirations and Other (Coarse breath sounds heard bilaterally)
GI: Soft, Distended (Abdominal obesity), Non Tender and Normal Bowel Sounds
Neurology: AO x 3 and Tremors (negative)
Skin: Warm and Dry
General: Respiratory Distress (negative), Comfortable, Pain (Left thigh + knee), Chills (negative), Sweats (negative), Good Appetite and Other (Bandage across left lower extremity which is covering a large bruise on the lateral side of her mid-left
lower extremity)
Assessment
-
Assessment: 78-year-old female with complex cardiac + pulmonary history including chronic HFpEF, A-fib s/p ablation now essentially 100% paced, HIRA on CPAP at 12 cmH2O, history of rheumatic heart disease which subsequently led to mitral valve
disease s/p mechanical mitral valve prosthesis ([facility]) in 2002 now on Coumadin, aortic valve stenosis, tricuspid valve replacement, asthma, history of hemoptysis, history of recurrent infections in the lung with history of chronic bronchitis,
depression and gout who presents with left knee pain and swelling. She has been dealing with left knee pain/swelling over the last several months since she fell in January 2024. She also appeared to have fallen in November 2023 per the ER
records, but that was onto her right knee. She had been to the ER on 06/14+ 06/16/2024 due to the same complaint of left knee swelling/pain. She underwent an arthrocentesis on 06/16 which was negative for crystals, culture showed NGTD she was diagnosed
with spontaneous hemarthrosis as her INR was 4.39 on 06/16. She was advised to hold her Coumadin which she did and her INR unfortunately continued to remain elevated and was 4 on 06/20/2024. She came back to the ER on 06/22 as she was unable to
ambulate due to pain and knee XR showed no acute fracture and her joint effusion had decreased compared to prior XR on 06/14/2024. She was admitted to the hospitalist service and treated with pain medications with orthopedic surgery consulted. She
started to become more anemic on 06/23 and then required multiple blood transfusions from 06/26 through 06/27, when she was treated with vitamin K and then IR was consulted. IR brought her to an angiogram/embolization on 06/28 and during the procedure
she became hypotensive. She then was started on Levophed and then was transferred to the ICU for further care with annealing furnace tender services consulted for additional management/recommendations.
Chronic conditions CORRECTIONAL TREATMENT SPECIALIST: Chronic HFpEF, permanent A-fib s/p ablation (2011) now s/p PPM, pulmonary hypertension, HIRA on CPAP, history of rheumatic heart disease, aortic valve stenosis, mitral valve disease s/p mechanical mitral valve replacement
([facility]) on coumadin, history of tricuspid valve replacement (performed at [facility] � 01/2022), mild intermittent asthma, history of massive hemoptysis requiring mechanical ventilation (2016), history of mixed simple/mucopurulent chronic
bronchitis with a history of MRSA, Pseudomonas, Aspergillus fumigatus/niger + RASTA, history of left lingular bronchiectasis, history of robotic cholecystectomy complicated by abdominal wall abscess/hematoma (2021), urge incontinence, history of
hematuria, depression and gout
Impression:
#Left lower extremity large soft tissue hematoma in the upper thigh + large complex left knee joint effusion (recent admission for spontaneous hemarthrosis and thigh hematoma involving LLE)
#Acute blood loss anemia due to spontaneous left thigh bleed suspected to be arterial/arteriole as the source based on angiogram on 06/28/2024
#CORI (baseline Cr: 1)
#Severe varicose veins in left lateral thigh
#Coagulopathy with supratherapeutic INR
#Mechanical mitral valve replacement due to Hx of rheumatic mitral valve disease
#Hx of rheumatic heart disease
#Moderate to severe aortic stenosis with peak/mean gradients of 34/21 mmHg with YOLANDA 0.9 cm� with mild AI per TTE from 12/09/2023
#Pulmonary HTN likely group II and III
#HIRA on CPAP at [id number] with history of EDS (none recently)
#Asthma on Arnuity with prn albuterol
#Restrictive lung disease (mild-moderate with T% and VC: 73% via PFT from 01/11/2024)
#History of chronic bronchitis with waxing/waning infiltrates and history of MRSA infection, Pseudomonas, RASTA and Aspergillus fumigatus/niger (no flare ups in several years, since around 2019)
#Hypothyroidism
#Depression
#GERD
Plan:
- Patient presented on 06/22/2024 with left knee pain and swelling after she says she stood up and turned and felt severe pain in her left knee
- She has been struggling with a supratherapeutic INR which was 4.0 on 06/20/2024 which likely caused her bleeding diathesis for this current situation
- She has received a total of 4 units PRBC since 06/26/2024 and your H&H continues to be unstable and now she is becoming hypotensive after going to IR today
- Orthopedic Surgery on board and their recs are appreciated, which include: avoiding adhesives to left leg as her skin is fragile, and no need for knee immobilizer. Orthopedic surgery thought the spontaneous LLE thigh hematoma was due to
extensive varicosities, although left knee arteriogram performed today (06/28) showed hyperemia in the lateral knee with cessation of hyperemia after selective arteriogram and embolization of 2 small lateral geniculate arterial branches
- Continue to trend H&H and transfuse to keep Hb >7
- Keep platelet count >50 K
- Ideally, INR should be 2.5�3.5 however in the setting of her active bleed which is becoming life-threatening in the setting of her hypotension now on vasopressors, we are unable to safely start anticoagulation at this time
- Continue vasopressors, currently on Levophed at 4 mcg/min
- Titrate to keep MAP>65
- Hopefully IR has stopped the bleed s/p angio/embolization of her 2 small lateral geniculate arterial branches of her LLE, so any additional blood transfusions should continue to improve her BP
- I discussed anticoagulation with cardiology as well as the primary hospitalist and IR, and we have agreed to continue trending H&H for now and consider starting heparin drip tomorrow depending on her clinical course tonight and stability of Hb,
platelets and INR
- Trend LFTs - T. bili may be high from her large left sided lg bruise which is breaking down
- Continue to monitor for cardiac arrhythmias as she has a history of A-fib although currently appears to be NSR
- Continue with digoxin but need to be careful given she is in an CORI
- Check dig level tomorrow AM
- Goal HR <110 when she is in A-fib, although she is essentially 100% V-paced
- Maintain SpO2 >90-94% - thankfully she is on room air as of now
- Continue aspiration precautions
- Continue flovent with prn albuterol
- She does use CPAP at home at 12 cmH2O, however she has been refusing CPAP here in the hospital as she does not like her mask. She did say that she was going to have someone bring in her machine from home, which she was reinforced to still do
- prn nebulized bronchodilators - not currently bronchospastic
- Incentive spirometer encouraged 10x per hour for at least 4 hrs a day
- Renally dose all meds and continue to trend UOP, sCr and I/O
- Replete electrolytes with K>4, Mg>2
- Maintain euglycemia with goal BG 140-180 (last HbA1c: 6 on 08/17/2021) recheck A1C now
- Continue PPI (home med)
- DVT ppx: SCDs for now; continue to hold coumadin; if H/H remains stable by tomorrow with no worsening bruising in LLE then will consider starting heparin gtt without bolus
Continue ICU level care for this critically ill patient.
Critical care statement: A total of 46 minutes of critical care time was provided for this patient today. This includes management of unstable vital signs, evaluation of the patient at bedside, reviewing the patient's pertinent medical records
including radiographs, microbiology, laboratory evaluations, and discussion with primary team, consultants, pharmacy, nutrition, physical therapy, case management, charge nurse, critical care nursing, and respiratory therapy.
Data:
Arteriogram + embolization via IR 06/28/2024:
1. Arteriogram of the left SFA demonstrated hyperemia within the lateral compartment of the left knee
2. Superselective arteriogram of multiple branches of the lateral geniculate artery demonstrated hyperemia within the lateral compartment. Both the superior and inferior lateral lingula branches were embolized
Right lower extremity duplex US 06/24/2024: No evidence of deep venous thrombosis of the right lower extremity
Left knee XR 06/22/2024: There is no evidence of an acute fracture; moderate joint effusion, slightly decreased in size from prior XR on 06/14/2024; moderate tricompartment osteoarthritis
--- NOTE | 2024-06-28 17:38 | PTCARENOTE ---
First unit of blood being administered when transported to IR with this RN. Babcock sheet tubed to IR for documentation of blood. Pt transferred to ICU after procedure. Report called to Chong. PCT took pt belongings to room 3364.
--- NOTE | 2024-06-28 17:55 | PTCARENOTE ---
Pt rec'd from IR at 16:55, pulled over to bed, pt required to keep leg straight until 17:15, bedrest until 18:00. Lev infusing at 2 mcg/ min, see flowsheet for titration to keep MAP>65. PRBCs infusing upon arrival, unit finished at 17:10.
Documented on pink sheet and sent back to blood bank. Orders reviewed, pt updated on plan of care, discussed with airconditioning engineer To at bedside, diet reordered. Pt now on bedpan attempting BM. Safe environment maintained.
--- NOTE | 2024-06-28 18:15 | PTCARENOTE ---
Pt with large formed hard bm on bedpan along with large amount urine. Pt had difficult time passing stool. Pericare and CHG wipe bath completed. Pt's lungs sounds auscultated posteriorly with fine crackles noted left base. 94% on room air, levo
uptitrated again to 6 mc/min for MAP-see flowsheet. Dinner ordered.
--- NOTE | 2024-06-28 20:00 | PTCARENOTE ---
rec`d pt at 1900 AAOx3 eating dinner. pedal pulses checked with previous shift RN. levo gtt going through right hand PIV. bleeding and leaking blood. looks to be infiltrated. d/c that right hand PIV, levo changed over to the left AC PIV. Pacemaker-V
paced. room air. left knee covered with debra wrap. assessment as documented. call wyman in reach. safe environment maintained.
[2024-06-28 20:11] LABS: Hematocrit 26.2 % (37.0-47.0); Hemoglobin 9.1 g/dL (12.0-16.0)
[2024-06-29] VITALS (47 sets, daily range): BP systolic 94–140; BP diastolic 40–95; PULSE 70–72; BMI 29.0
[2024-06-29] MEDS: LEVOPHED 250 IV (02:28)
--- NOTE | 2024-06-29 04:00 | PTCARENOTE ---
no changes in pt assessment. titrating levo down. call wyman in reach, safe environment maintained.
[2024-06-29 04:29] LABS: % Basophils 0.4 % (0-2); % Eosinophils 1.5 % (0-6); % Immature Granulocytes 0.8 % (0-0.5); % Lymphocytes 6.9 % (20.5-51.1); % Monocytes 15.7 % (1.7-9.3); % Neutrophils 74.7 % (42.2-75.2); Absolute Eosinophils 0.2 10^3/uL (0-0.7); Absolute Immature Granulocytes 0.1 10^3/uL (0-0.05); Absolute Lymphocytes 0.7 10^3/uL (1.2-3.4); Absolute Monocytes 1.6 10^3/uL (0.1-0.6); Absolute Neutrophils 7.5 10^3/uL (1.4-6.5); Hematocrit 25.9 % (37.0-47.0); Hemoglobin 8.8 g/dL (12.0-16.0); Mean Corpuscular Hgb 31.3 pg (27.0-31.0); Mean Corpuscular Volume 92.2 fL (81.0-99.0); Nucleated Red Blood Cells % 0 %; Red Blood Cell Count 2.81 10^6/uL (4.20-5.40); Red Cell Dist. Width 15.8 % (11.5-14.5)
[2024-06-29 04:40] LABS: INR 1.34; PT 17.1 Sec (11.4-14.6)
[2024-06-29 04:41] LABS: APTT 29.7 Sec (23.4-35.0)
[2024-06-29] MEDS: SYNTHROID 88 MCG PO (05:17)
[2024-06-29 05:26] LABS: ALT (SGPT) 40 U/L (0-35); AST (SGOT) 39 U/L (14-36); Albumin 3.1 g/dl (3.5-5.0); Alkaline Phosphatase 233 U/L (38-126); Blood Urea Nitrogen 54 mg/dl (7-17); Calcium 8.4 mg/dl (8.4-10.2); Carbon Dioxide 28 mmol/L (22-30); Chloride 102 mmol/L (98-107); Digoxin 0.7 ng/ml (0.8-2.0); Estimated Creatinine Clearance 38 ml/min; GGTP 93 U/L (12-43); Glucose 133 mg/dl (70-99); Magnesium 2.9 mg/dl (1.6-2.3); Potassium 4.1 mmol/L (3.5-5.1); Sodium 138 mmol/L (135-145); Total Bilirubin 2.9 mg/dl (0.2-1.3); Total Protein 5.7 g/dl (6.3-8.2); eGFR 57.66
[2024-06-29 07:42] LABS: Mean Platelet Volume 9.7 fL (7.4-10.4); Platelet Count 331 10^3/uL (130-400)
--- NOTE | 2024-06-29 07:46 | W.PN.HOSP.TC ---
Today's Communication/Plan
-
IV heparin, no bolus
Warfarin to start tonight
Monitor INR and hemoglobin closely
Direct bilirubin
Liver ultrasound
Assessment / Plan
Assessment / Plan
Gen-AAOx3, NAD
HEENT-NC, AT, anicteric, clear oral mm
Neck-supple
CV-reg, no M, +S1/S2
Lungs-clear B/L
Abd-soft, NT, ND
Ext-diffuse left lateral leg hematoma extending from lower leg to mid thigh.
Musculoskeletal-no cyanosis, clubbing
Skin-warm and dry
Neuro-grossly non-focal
Psych-calm, cooperative
Hemorrhagic shock -due to large left leg, knee hematoma. Transferred to ICU June 28, vasopressor started. Still on low-dose Levophed. Internet Developer input appreciated. Wean down pressors as able.
Acute blood loss anemia -due to large left knee/leg hematoma. Has extensive varicose veins of the left leg. Hemoglobin improved to 9.1 last night, 8.8 this morning. Has had 6 units of blood transfused so far.
Spontaneous Left Knee hemarthrosis -due to anticoagulation with warfarin, supratherapeutic INR. INR was 4.39 June 16, 6 days prior to admission. She has a home INR monitor but was only checking it once per week.
Status post therapeutic arthrocentesis, recurrent effusion
� No evidence of fracture, moderate joint effusion, slightly decreased in size from prior neck�spoke to orthopedics, conservative management at this time
Previous CT of the knee done in April 2024 was negative for fracture.
Underwent left lower extremity arteriogram by IR 06/28 demonstrating hyperemia within the lateral compartment of the left knee.
Superselective arteriogram of the multiple branches of the lateral geniculate artery performed, demonstrated hyperemia within the lateral compartment. Both the superior and inferior lateral lingular branches were embolized. After repeat
arteriogram there was significantly improved hyperemia within the lateral compartment.
Symptomatically patient feels better today, less pain.
[facility] mechanical mitral valve/porcine tricuspid valve replacement
Supratherapeutic INR on admission.
- INR goal 2.5-3.0 - Confirmed with Cardiology, follows with Dr. Dave cardiology.
INR 1.3 this morning. IV heparin ordered this morning without bolus, warfarin to start tonight. Monitor closely for any further bleeding. Discussed with patient and other providers.
Received 2.5 mg of oral vitamin K 06/27.
CORI -suspect multifactorial etiology including acute anemia, Lasix use, etc. Spironolactone and diuretics on hold. She takes torsemide, metolazone, spironolactone at home. Creatinine improved to 1.0 today.
Elevated liver enzymes -elevated GGT, LDH noted. Patient states she has a history of fatty liver disease. I recommend outpatient follow-up.
Elevated total bilirubin noted, 2.9. Direct bilirubin ordered. Bilirubin and transaminases were normal in early June.
Will check liver ultrasound.
Constipation -improving, had 2 bowel movements in the past 24 hours. Continue bowel regimen.
Chronic heart failure with preserved EF -no evidence of acute exacerbation. Hold diuretics given CORI, hypotension.
Permanent atrial fibrillation/atrial tachycardia
with history of ablation 2011
Restrictive lung disease
- continue Albuterol and Ellipta
Hypothyroidism
- continue levothyroxine
Gout
Vehicle Dynamics Engineer recently stopped Allopurinol
- continue colchicine
Obstructive sleep apnea -on CPAP
Full code
Dispo -SNF when medically stable.
Anticipated Discharge: > 48 hours
Subjective/Interval History
-
Date of Service: June 29, 2024
Patient seen and examined. Leg is feeling better, less pain. No complaints.
Objective Data
-
Labs:
Laboratory Results
06/28/24 06/29/24 06/29/24
20:01 03:56 07:40
WBC 10.0 Pending
Hgb 9.1 L D 8.8 L Pending
Hct 26.2 L 25.9 L Pending
Plt Count 331 Pending
PT 17.1 H
INR 1.34
APTT 29.7
Sodium 138
Potassium 4.1
Chloride 102
Carbon Dioxide 28
BUN 54 H
Creatinine 1.0
Glucose 133 H
Calcium 8.4
Total Bilirubin 2.9 H
AST 39 H
ALT 40 H
Alkaline Phosphatase 233 H
Vital Signs:
Vital Signs
Temp Pulse Resp BP Pulse Ox
97.9 F 70 21 115/95 96
06/29/24 07:27 06/29/24 04:15 06/29/24 04:15 06/29/24 04:00 06/28/24 20:15
I&O
06/28/24 06/29/24 06/30/24
06:59 06:59 06:59
Intake Total 980 / 980 135.0 / 135.0
Balance 980 / 980 135.0 / 135.0
Review of Systems
-
History Source: Patient
All other systems: Reviewed and negative
--- NOTE | 2024-06-29 07:58 | W.PN.INTV ---
Today's Communication / Plan
Recommendations
Start heparin drip today and Coumadin tonight
Considering she was supratherapeutic recently, would only give 2 mg Coumadin tonight and then after that give between 1 to 1.5 mg to avoid a similar situation
Pain control
PT/OT
Maintain MAP >65
Continue to trend H&H and transfuse to keep Hb >7, platelets >50 K and goal INR 2.5�3.5 in the setting of her mechanical mitral valve prosthesis
Continue to wean down Levophed as tolerated
Continue ICU level care
Assessment
-
Assessment: 78-year-old female with complex cardiac + pulmonary history including chronic HFpEF, A-fib s/p ablation now essentially 100% paced, HIRA on CPAP at 12 cmH2O, history of rheumatic heart disease which subsequently led to mitral valve
disease s/p mechanical mitral valve prosthesis ([facility]) in 2002 now on Coumadin, aortic valve stenosis, tricuspid valve replacement, asthma, history of hemoptysis, history of recurrent infections in the lung with history of chronic bronchitis,
depression and gout who presents with left knee pain and swelling. She has been dealing with left knee pain/swelling over the last several months since she fell in January 2024. She also appeared to have fallen in November 2023 per the ER
records, but that was onto her right knee. She had been to the ER on 06/14+ 06/16/2024 due to the same complaint of left knee swelling/pain. She underwent an arthrocentesis on 06/16 which was negative for crystals, culture showed NGTD she was diagnosed
with spontaneous hemarthrosis as her INR was 4.39 on 06/16. She was advised to hold her Coumadin which she did and her INR unfortunately continued to remain elevated and was 4 on 06/20/2024. She came back to the ER on 06/22 as she was unable to
ambulate due to pain and knee XR showed no acute fracture and her joint effusion had decreased compared to prior XR on 06/14/2024. She was admitted to the hospitalist service and treated with pain medications with orthopedic surgery consulted. She
started to become more anemic on 06/23 and then required multiple blood transfusions from 06/26 through 06/27, when she was treated with vitamin K and then IR was consulted. IR brought her to an angiogram/embolization on 06/28 and during the procedure
she became hypotensive. She then was started on Levophed and then was transferred to the ICU for further care with soil expert services consulted for additional management/recommendations.
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
([facility]) on coumadin, history of tricuspid valve replacement (performed at [facility] � 01/2022), mild intermittent asthma, history of massive hemoptysis requiring mechanical ventilation (2016), history of mixed simple/mucopurulent chronic
bronchitis with a history of MRSA, Pseudomonas, Aspergillus fumigatus/niger + RASTA, history of left lingular bronchiectasis, history of robotic cholecystectomy complicated by abdominal wall abscess/hematoma (2021), urge incontinence, history of
hematuria, depression and gout
Impression:
#Left lower extremity large soft tissue hematoma in the upper thigh + large complex left knee joint effusion (recent admission for spontaneous hemarthrosis and thigh hematoma involving LLE)
#Acute blood loss anemia due to spontaneous left thigh bleed suspected to be arterial/arteriole as the source based on angiogram on 06/28/2024
#CORI (baseline Cr: 1)
#Severe varicose veins in left lateral thigh
#Coagulopathy with supratherapeutic INR
#Mechanical mitral valve replacement due to Hx of rheumatic mitral valve disease
#Hx of rheumatic heart disease
#Moderate to severe aortic stenosis with peak/mean gradients of 34/21 mmHg with YOLANDA 0.9 cm� with mild AI per TTE from 12/09/2023
#Pulmonary HTN likely group II and III
#HIRA on CPAP at [id number] with history of EDS (none recently)
#Asthma on Arnuity with prn albuterol
#Restrictive lung disease (mild-moderate with T% and VC: 73% via PFT from 01/11/2024)
#History of chronic bronchitis with waxing/waning infiltrates and history of MRSA infection, Pseudomonas, RASTA and Aspergillus fumigatus/niger (no flare ups in several years, since around 2019)
#Hypothyroidism
#Depression
#GERD
Plan:
- Patient presented on 06/22/2024 with left knee pain and swelling after she says she stood up and turned and felt severe pain in her left knee
- She has been struggling with a supratherapeutic INR which was 4.0 on 06/20/2024 which likely caused her bleeding diathesis for this current situation
- She has received a total of 6 units PRBC since 06/26/2024, with last 2 U PRBC given on 06/28
- Orthopedic Surgery on board and their recs are appreciated, which include: avoiding adhesives to left leg as her skin is fragile, and no need for knee immobilizer. Orthopedic surgery thought the spontaneous LLE thigh hematoma was due to
extensive varicosities, although left knee arteriogram performed on 06/28 that showed hyperemia in the lateral knee with cessation of hyperemia after selective arteriogram and embolization of 2 small lateral geniculate arterial branches
- It seems that the instability of her H&H has markedly improved since the embolization on 06/28
- I advised to the RN to outline the left thigh hematoma with a marker so that we know if it is expanding or not
- Continue to trend H&H and transfuse to keep Hb >7
- Keep platelet count >50 K
- Now that H&H is more stable, we will cautiously start heparin drip without bolus given her history of a mechanical mitral valve prosthesis; starting coumadin tonight as well
- Ideally, INR should be 2.5�3.5
- Try to limit blood draws to help avoid iatrogenic anemia; if she starts to develop another bleed then her anticoagulation will need to be stopped and she will need to be reversed again and consult IR again or speak to surgery
- Continue vasopressors, currently on Levophed at 2 mcg/min
- Titrate to keep MAP>65
- IR seemingly stopped the bleed s/p angio/embolization of her 2 small lateral geniculate arterial branches of her LLE
- I discussed anticoagulation with cardiology as well as the primary hospitalist and IR, and we have agreed to resume heparin drip today with coumadin tonight and continue to trend H/H, INR and platelet counts
- Trend LFTs - T. bili may be high from her large left sided lg bruise which is breaking down
- Continue to monitor for cardiac arrhythmias as she has a history of A-fib although currently is V-paced
- Continue with digoxin but need to be careful given she is in an CORI
- Dig level today is 0.7
- Goal HR <110 when she is in A-fib, although she is essentially 100% V-paced
- Maintain SpO2 >90-94% - thankfully she is on room air as of now
- Continue aspiration precautions
- Continue flovent with prn albuterol
- She does use CPAP at home at 12 cmH2O, however she has been refusing CPAP here in the hospital as she does not like her mask. She did say that she was going to have someone bring in her machine from home, which she was reinforced to still do
- prn nebulized bronchodilators - not currently bronchospastic
- Incentive spirometer encouraged 10x per hour for at least 4 hrs a day
- Renally dose all meds and continue to trend UOP, sCr and I/O
- Replete electrolytes with K>4, Mg>2
- Maintain euglycemia with goal BG 140-180 (last HbA1c: 6 on 08/17/2021) recheck A1C now
- Continue PPI (home med)
- DVT ppx: Heparin drip without bolus starting today and Coumadin tonight for now
Continue ICU level care for this critically ill patient.
Critical care statement: A total of 41 minutes of critical care time was provided for this patient today. This includes management of unstable vital signs, evaluation of the patient at bedside, reviewing the patient's pertinent medical records
including radiographs, microbiology, laboratory evaluations, and discussion with primary team, consultants, pharmacy, nutrition, physical therapy, case management, charge nurse, critical care nursing, and respiratory therapy.
Data:
Arteriogram + embolization via IR 06/28/2024:
1. Arteriogram of the left SFA demonstrated hyperemia within the lateral compartment of the left knee
2. Superselective arteriogram of multiple branches of the lateral geniculate artery demonstrated hyperemia within the lateral compartment. Both the superior and inferior lateral lingula branches were embolized
Right lower extremity duplex US 06/24/2024: No evidence of deep venous thrombosis of the right lower extremity
Left knee XR 06/22/2024: There is no evidence of an acute fracture; moderate joint effusion, slightly decreased in size from prior XR on 06/14/2024; moderate tricompartment osteoarthritis
Abdominal ultrasound 06/29/2024: Prior cholecystectomy. There is no evidence of biliary duct dilation; 3.8 cm cyst in the lower pole of the left kidney.
Subjective Dataa
Subjective Data
Date of Service:
Date of Service: June 29, 2024
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
Subjective:
Pt was seen and evaluated this AM. Remains on levophed at 2mcg/min. Left leg is still painful but not worse than yesterday. Heparin gtt being started now. Hb 8.8 this AM. She was working with physical therapy this morning. Heart rate 72, BP
115/59 and she is saturating 95% on room air. She denies DAVIS, chest pain, nausea, fevers or chills.
Review of Systems
General: Other (Negative unless mentioned above)
Objective Data
Data Reviewed
Vital Signs / I&O / Oxygen:
Vital Signs
Temp Pulse Resp BP Pulse Ox
97.9 F 70 20 115/40 96
06/29/24 07:27 06/29/24 08:00 06/29/24 08:00 06/29/24 08:00 06/28/24 20:15
Intake and Output
06/28/24 06/29/24 06/30/24
06:59 06:59 06:59
Intake Total 980 / 980 135.0 / 150.0 26.3 / 26.3
Output Total 250 / 250
Balance 980 / 980 135.0 / -100.0 -223.7 / -223.7
SaO2 96
Nasal Cannula flow liters per 2
minute
Physical Exam
General: Respiratory Distress (negative), Comfortable, Chills (negative) and Sweats (negative)
HEENT: Normocephalic and Anicteric
Cardiovascular: S1-S2, Murmur (JABARI heard best at the left 5th ICS) and Peripheral Edema (+2 lower extremity pitting edema bilaterally)
Respiratory: Wheeze (negative), Crackles (Left posterior base), Rhonchi (negative), Non-Labored Respirations and Stridor (negative)
GI: Soft, Distended (Abdominal obesity), Non Tender and Normal Bowel Sounds
Neurology: AO x 3 and Tremors (negative)
Skin: Warm, Dry, Cyanosis (negative), Jaundice (negative) and Bruising (Bandage across left lower extremity which is covering a large bruise on the lateral side of her mid-left lower extremity)
Labs/Micro/Reports
Lab Data
06/29/24 03:56
Laboratory Results
06/29/24
03:56
PT 17.1 H
INR 1.34
APTT 29.7
[2024-06-29] MEDS: COREG PO (08:12)
[2024-06-29 08:38] LABS: Direct Bilirubin 0.8 mg/dl (0.0-0.4)
[2024-06-29] MEDS: HEPARIN 25000 UNITS/250 ML IV (08:58)
[2024-06-29] MEDS: FLOVENT 44 MCG INHALER 2 PUFF INH ×2 (09:01→21:11)
[2024-06-29] MEDS: COLCHICINE 0.6 MG PO (09:05)
[2024-06-29] MEDS: EFFEXOR 75 MG PO (09:06)
[2024-06-29] MEDS: OSCAL CAL 500 500 MG PO (09:06)
[2024-06-29] MEDS: VITAMIN D3 (cholecalciferol) 50 MCG PO (09:06)
[2024-06-29] MEDS: PROTONIX 40 MG PO (09:06)
[2024-06-29] MEDS: COLACE 100 MG PO ×2 (09:06→19:52)
[2024-06-29] MEDS: MIRALAX 17 GRAMS PO ×2 (09:06→19:52)
[2024-06-29] MEDS: PEPCID 20 MG PO (09:06)
[2024-06-29 09:19] LABS: Glycohemoglobin (HgbA1c) 4.9 % (4.0-5.6)
--- NOTE | 2024-06-29 11:16 | W.PN.CARDCBS ---
Addendum entered and electronically signed by Tank Sibley MD 06/29/24 11:34:
I saw and examined the patient.
The ACTUARIAL INTERN or PA's note was reviewed and I agree with the note.
Comment: General: Well developed, well nourished in NAD.
Neck: Supple, no JVD, HJR, carotids +2 B/L, no bruits bilaterally.
Heart: Non displaced PMI, RRR, 3/6 systolic murmur left sternal border, No S3, S4, no rubs.
Lungs: Clear to auscultation bilaterally, no wheeze, rhonchi, rubs bilaterally,
normal expiratory phase.
Extremities: No clubbing, cyanosis or edema bilaterally.
Neuro: Grossly nonfocal, awake, alert and oriented x3.
Stable cardiology status. Heparin to start without bolus. Continue IV heparin to Coumadin. May need higher dose of Coumadin. goal of INR greater than 2.5. Not a candidate for Lovenox due to prior hematoma. Discussed with nursing at bedside as
well.
Original Note:
Today's Communication / Plan
-
IV heparin no bolus
Follow serial hemoglobins
Eventual IV heparin to Coumadin
Follow volume status
Impression / Plan
-
Primary Senior Oracle Database Administrator: Dr. RAFAEL Dave
Assessment:
Presentation with LLE pain and swelling
ER visit with arthrocentesis 06/16/24
Recurrent suspected spontaneous LLE hematoma
Supratherapeutic INR
Acute anemia
CORI
Elevated LFTs
Mild tricuspid stenosis/severe tricuspid regurgitation s/p #33 Epic TV replacement via right heart port thoracotomy at [facility] 01/28/22
[facility] mechanical mitral valve
Chronic warfarin OAC, managed by [facility] coumadin clinic, has home monitor
Chronic HFpEF
Mild aortic stenosis
Pulmonary hypertension
Anemia
Permanent atrial fibrillation/atrial tachycardia with history of ablation 2011
Sinus syndrome status post Medtronic pacemaker
History of PE and IVC filter
Abdominal Wall Hematoma s/p Abdominal wall exploratory surgery for abdominal abscess and gallstone 07/2021
Restrictive lung disease
Obstructive sleep apnea on CPAP
Lymphedema/venous insufficiency/varicose veins
History of rheumatic heart disease
ECHO 12/09/23: EF 50 to 55%, apical, inferoapical, mid and apical anterior, mid and apical septal, apical lateral hypokinesis, mechanical [facility] MVR with peak/mean gradients 18/6 mmHg, mild MR, dilated LA, moderate to severe with peak/mean
gradients 30/21 mmHg, YOLANDA 0.9 cm�, mild AR, RVH with RV hypokinesis, dilated LA, bioprosthetic tricuspid valve with moderate TR, peak and mean gradients 13/8 mmHg, PAP 50 to 55 mmHg
Plan:
- patient with recurrent LLE hematoma with associated anemia requiring transfusion. imaging without evidence of fracture or DVT.
- Status post arterial embolization in IRad 06/28
- Hemoglobin was as low as 6.2 on 06/26. Thus far has received 6 units packed red blood cells this admission. Hemoglobin up to 8.8 as of this morning
- IV heparin GTT without bolus started 06/29. Follow serial hemoglobins
- Eventual IV heparin to Coumadin. Goal INR 2.5-3 given mechanical MVR.
- Blood pressures presently marginal, on levo at 2, wean as able
- OP spironolactone and diuretics on hold for now. follow volume status and Cr and resume as able.
- High risk situation
Progress Note - Senior Oracle Database Administrator
Subjective
Date of Service: June 29, 2024
Reports left lower extremity soreness
Objective
Labs:
06/29/24 03:56
Labs
Hgb 8.8 g/dL (12.0-16.0) L 06/29/24 03:56
Hct 25.9 % (37.0-47.0) L 06/29/24 03:56
Plt Count 331 10^3/uL (130-400) 06/29/24 03:56
PT 17.1 Sec (11.4-14.6) H 06/29/24 03:56
INR 1.34 06/29/24 03:56
APTT 29.7 Sec (23.4-35.0) 06/29/24 03:56
Sodium 138 mmol/L (135-145) 06/29/24 03:56
Potassium 4.1 mmol/L (3.5-5.1) 06/29/24 03:56
BUN 54 mg/dl (7-17) H 06/29/24 03:56
Creatinine 1.0 mg/dL (0.6-1.0) 06/29/24 03:56
Glucose 133 mg/dl (70-99) H 06/29/24 03:56
Digoxin 0.7 ng/ml (0.8-2.0) L 06/29/24 03:56
Vital Signs and I&O:
Vital Signs
Temp Pulse Resp BP Pulse Ox
97.9 F 71 16 96/51 96
06/29/24 07:27 06/29/24 09:04 06/29/24 09:04 06/29/24 09:03 06/28/24 20:15
Vital Signs
Temp Pulse Resp BP Pulse Ox
97.9 F 71 16 96/51 96
06/29/24 07:27 06/29/24 09:04 06/29/24 09:04 06/29/24 09:03 06/28/24 20:15
Intake & Output
06/27/24 06/28/24 06/29/24 06/30/24
07:59 07:59 07:59 07:59
Intake Total 860 / 860 980 / 980 150.0 / 161.3 41.9 / 41.9
Output Total 250 / 250
Balance 860 / 860 980 / 980 -100.0 / -88.7 41.9 / 41.9
Physical Exam
Physical Exam
GEN: No distress, awake, alert, oriented x3
HEENT: supple, anicteric, mmm, eomi
LUNGS: CTA B/L, no wheezes
CV: Irreg, S1/S2, 3/6 syst LSB
ABD: soft, BS+, NT/ND
EXT: No cyanosis, clubbing. 4+ edema and ecchymoses of LLE
NEURO: Gross non-focal
SKIN: Warm, pink, dry. No rash. Uriah wrap in place LLE
[2024-06-29] MEDS: ROXICODONE 5 MG PO (11:20)
--- NOTE | 2024-06-29 12:00 | PTCARENOTE ---
Levophed weaned off. Heparin gtt started. All other assessments unchanged.
--- NOTE | 2024-06-29 14:50 | CM ---
CM following re: discharge planning.
Reviewed pt's chart, met with pt.
PT and OT evaluations noted - SNF level of care recommended.
Pt is aware, expressed her agreement. A lsit of SNFs provided, pt preferred [facility] or [facility]. A referral to above SNFs made. Awaiting for determination.
D/C plan: preferred SNF.
CM will follow to assist pt with discharge to a preferred SNF.
[2024-06-29 15:09] LABS: APTT 75.2 Sec (23.4-35.0)
[2024-06-29 15:13] LABS: Hematocrit 25.3 % (37.0-47.0); Hemoglobin 8.7 g/dL (12.0-16.0); Mean Corp Hgb Conc. 34.4 g/dL (33.0-37.0); Mean Corpuscular Hgb 31.8 pg (27.0-31.0); Mean Corpuscular Volume 92.3 fL (81.0-99.0); Mean Platelet Volume 9.4 fL (7.4-10.4); Platelet Count 304 10^3/uL (130-400); Red Blood Cell Count 2.74 10^6/uL (4.20-5.40); Red Cell Dist. Width 16.4 % (11.5-14.5); White Blood Cell Count 10.1 10^3/uL (4.8-10.8)
[2024-06-29] MEDS: COUMADIN 2 MG PO (17:44)
[2024-06-29] MEDS: ROXICODONE 10 MG PO (19:52)
--- NOTE | 2024-06-29 20:00 | PTCARENOTE ---
Received pt. at 1900. Pt. currently in bed. Awake, alert, and oriented. C/o pain in L knee. PRN medication given, see MAR. Afebrile. Heart rhythm paced. Blood pressure normotensive. Currently on room air. Lungs sound diminished. PO diet, good
appetite. Voiding without issue. Skin as documented. Discussed plan of care with patient. Vital signs stable at this time.
[2024-06-29 21:42] LABS: APTT 60.5 Sec (23.4-35.0)
[2024-06-30] VITALS (13 sets, daily range): BP systolic 110–134; BP diastolic 42–67; BMI 29.0
--- NOTE | 2024-06-30 | PTCARENOTE ---
Pt. assessment unchanged. Heparin gtt adjusted per ordered protocol. Vital signs stable at this time.
--- NOTE | 2024-06-30 04:15 | PTCARENOTE ---
Pt. assessment remains unchanged. AM labs drawn. Vital signs stable at this time.
[2024-06-30 04:36] LABS: % Basophils 0.5 % (0-2); % Eosinophils 3.5 % (0-6); % Immature Granulocytes 0.6 % (0-0.5); % Lymphocytes 10.5 % (20.5-51.1); % Monocytes 15.8 % (1.7-9.3); % Neutrophils 69.1 % (42.2-75.2); Absolute Eosinophils 0.3 10^3/uL (0-0.7); Absolute Immature Granulocytes 0.1 10^3/uL (0-0.05); Absolute Lymphocytes 0.9 10^3/uL (1.2-3.4); Absolute Monocytes 1.4 10^3/uL (0.1-0.6); Hematocrit 24.1 % (37.0-47.0); Hemoglobin 8.1 g/dL (12.0-16.0); Mean Corp Hgb Conc. 33.6 g/dL (33.0-37.0); Mean Corpuscular Hgb 31.6 pg (27.0-31.0); Mean Corpuscular Volume 94.1 fL (81.0-99.0); Mean Platelet Volume 9.8 fL (7.4-10.4); Nucleated Red Blood Cells % 0 %; Platelet Count 311 10^3/uL (130-400); Red Blood Cell Count 2.56 10^6/uL (4.20-5.40); Red Cell Dist. Width 16.5 % (11.5-14.5); White Blood Cell Count 8.7 10^3/uL (4.8-10.8)
[2024-06-30 04:42] LABS: PT 16.5 Sec (11.4-14.6)
[2024-06-30 05:30] LABS: ALT (SGPT) 35 U/L (0-35); AST (SGOT) 41 U/L (14-36); Alkaline Phosphatase 230 U/L (38-126); Blood Urea Nitrogen 56 mg/dl (7-17); Calcium 8.2 mg/dl (8.4-10.2); Carbon Dioxide 27 mmol/L (22-30); Chloride 101 mmol/L (98-107); Estimated Creatinine Clearance 32 ml/min; Glucose 96 mg/dl (70-99); Potassium 4.1 mmol/L (3.5-5.1); Sodium 134 mmol/L (135-145); Total Bilirubin 2.5 mg/dl (0.2-1.3); Total Protein 5.5 g/dl (6.3-8.2); eGFR 46.33
[2024-06-30] MEDS: SYNTHROID 88 MCG PO (06:02)
--- NOTE | 2024-06-30 07:25 | W.PN.HOSP.TC ---
Today's Communication/Plan
-
Continue IV heparin
Warfarin
Monitor hemoglobin
PT/OT
Transfer out of ICU
Assessment / Plan
Assessment / Plan
Gen-AAOx3, NAD
HEENT-NC, AT, anicteric, clear oral mm
Neck-supple
CV-reg, systolic murmur, +S1/S2
Lungs-clear B/L
Abd-soft, NT, ND
Ext-diffuse left lateral leg hematoma extending from lower leg to mid thigh.
Musculoskeletal-no cyanosis, clubbing
Skin-warm and dry
Neuro-grossly non-focal
Psych-calm, cooperative
Hemorrhagic shock -due to large left leg, knee hematoma. Transferred to ICU June 28. Hemodynamically improved. Off Levophed since yesterday. Can transfer out of ICU today. Discussed with nursing.
Acute blood loss anemia -due to large left knee/leg hematoma. Has extensive varicose veins of the left leg. Hemoglobin down slightly to 8.1 today, monitor closely on anticoagulation. Has had 6 units of blood transfused so far.
Spontaneous Left Knee hemarthrosis -due to anticoagulation with warfarin, supratherapeutic INR since June 14. Admitted to the hospital June 22. She has a home INR monitor but was only checking it once per week.
Status post therapeutic arthrocentesis, recurrent effusion
� No evidence of fracture, moderate joint effusion, slightly decreased in size from prior neck�spoke to orthopedics, conservative management at this time
Previous CT of the knee done in April 2024 was negative for fracture.
Underwent left lower extremity arteriogram by IR 06/28 demonstrating hyperemia within the lateral compartment of the left knee.
Superselective arteriogram of the multiple branches of the lateral geniculate artery performed, demonstrated hyperemia within the lateral compartment. Both the superior and inferior lateral lingular branches were embolized. After repeat
arteriogram there was significantly improved hyperemia within the lateral compartment.
Symptomatically patient feels better today, less pain. Continue Uriah wraps for comfort. Immobilizer removed.
[facility] mechanical mitral valve/porcine tricuspid valve replacement
Supratherapeutic INR on admission.
- INR goal 2.5-3.0 - Confirmed with Cardiology, follows with Dr. Dave cardiology.
Received 2.5 mg of oral vitamin K 06/27.
Started IV heparin and warfarin June 29, INR 1.3 today. Would continue warfarin 2 mg nightly for now given recent administration of vitamin K. Anticipate lowering dose of warfarin when INR at therapeutic range, as I suspect 2 mg made her
supratherapeutic.
CORI -suspect multifactorial etiology including acute anemia, Lasix use, etc. Spironolactone and diuretics on hold. She takes torsemide, metolazone, spironolactone at home. Creatinine back up to 1.2 today, possible contrast-induced nephropathy
given contrast exposure June 28 from angiogram.
Elevated liver enzymes -elevated GGT, LDH noted. Patient states she has a history of fatty liver disease. I recommend outpatient follow-up.
Elevated total bilirubin noted, 2.9. Direct bilirubin ordered. Bilirubin and transaminases were normal in early June.
Liver ultrasound shows normal echogenicity with no focal hepatic lesion, prior cholecystectomy, no evidence of biliary ductal dilation, 3.8 cm cyst in the lower pole of the left kidney.
Constipation -improving, had 2 bowel movements in the past 24 hours. Continue bowel regimen.
Chronic heart failure with preserved EF -no evidence of acute exacerbation. Hold diuretics given CORI, hypotension.
Permanent atrial fibrillation/atrial tachycardia
with history of ablation 2011
Restrictive lung disease
- continue Albuterol and Ellipta
Hypothyroidism
- continue levothyroxine
Gout
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
- continue colchicine
Obstructive sleep apnea -on CPAP
Full code
Dispo -SNF when medically stable.
Anticipated Discharge: > 48 hours
Subjective/Interval History
-
Date of Service: June 30, 2024
Patient seen and examined. Pain is under control. No new complaints.
Objective Data
-
Labs:
Laboratory Results
06/29/24 06/30/24 06/30/24
21:20 04:13 10:15
WBC 8.7
Hgb 8.1 L
Hct 24.1 L
Plt Count 311
PT 16.5 H
INR 1.30
APTT 60.5 H 78.0 H Pending
Sodium 134 L
Potassium 4.1
Chloride 101
Carbon Dioxide 27
BUN 56 H
Creatinine 1.2 H
Glucose 96
Calcium 8.2 L
Total Bilirubin 2.5 H
AST 41 H
ALT 35
Alkaline Phosphatase 230 H
Vital Signs:
Vital Signs
Temp Pulse Resp BP Pulse Ox
97.6 F 70 17 125/45 95
06/30/24 03:36 06/30/24 06:30 06/30/24 06:30 06/30/24 06:00 06/29/24 20:00
I&O
06/29/24 06/30/24 07/01/24
06:59 06:59 06:59
Intake Total 135.0 / 150.0 782.4 / 782.4
Output Total 250 / 250
Balance 135.0 / -100.0 532.4 / 532.4
Review of Systems
-
History Source: Patient
All other systems: Reviewed and negative
[2024-06-30] MEDS: FLOVENT 44 MCG INHALER 2 PUFF INH ×2 (07:34→20:31)
[2024-06-30] MEDS: COREG PO (07:51)
[2024-06-30] MEDS: MIRALAX 17 GRAMS PO (07:51)
[2024-06-30] MEDS: OSCAL CAL 500 500 MG PO (07:52)
[2024-06-30] MEDS: EFFEXOR 75 MG PO (07:52)
[2024-06-30] MEDS: VITAMIN D3 (cholecalciferol) 50 MCG PO (07:52)
[2024-06-30] MEDS: COLACE 100 MG PO (07:54)
[2024-06-30] MEDS: PROTONIX 40 MG PO (07:54)
--- NOTE | 2024-06-30 09:48 | PTCARENOTE ---
Rec'd pt at 0700. Pt AAOx3, follows commands, DE LEON with BLE weakness. Monitor V-paced with occas PVC's. Lungs dim. +BS, abd soft/nt. Left knee debra wrap removed per MD left NARINDER. Open blisters and closed blisters noted to left lateral knee. Right
groin bandaid intact. Heparin gtts at 1000units/hr.
--- NOTE | 2024-06-30 09:51 | W.PN.CARDCBS ---
Today's Communication / Plan
-
IV heparin to Coumadin
Goal 2.5-3.5
Will follow with you
Eventual resuming outpatient spironolactone and diuretic
Impression / Plan
-
Primary Scheduling Specialist: Dr. RAFAEL Dave
Assessment:
Presentation with LLE pain and swelling
ER visit with arthrocentesis 06/16/24
Recurrent suspected spontaneous LLE hematoma
Supratherapeutic INR
Acute anemia
CORI
Elevated LFTs
Mild tricuspid stenosis/severe tricuspid regurgitation s/p #33 Epic TV replacement via right heart port thoracotomy at [facility] 01/28/22
Saint Arturo mechanical mitral valve
Chronic warfarin OAC, managed by [facility] coumadin clinic, has home monitor
Chronic HFpEF
Mild aortic stenosis
Pulmonary hypertension
Anemia
Permanent atrial fibrillation/atrial tachycardia with history of ablation 2011
Sinus syndrome status post Medtronic pacemaker
History of PE and IVC filter
Abdominal Wall Hematoma s/p Abdominal wall exploratory surgery for abdominal abscess and gallstone 07/2021
Restrictive lung disease
Obstructive sleep apnea on CPAP
Lymphedema/venous insufficiency/varicose veins
History of rheumatic heart disease
ECHO 12/09/23: EF 50 to 55%, apical, inferoapical, mid and apical anterior, mid and apical septal, apical lateral hypokinesis, mechanical [place] Arturo MVR with peak/mean gradients 18/6 mmHg, mild MR, dilated LA, moderate to severe with peak/mean
gradients 30/21 mmHg, YOLANDA 0.9 cm�, mild AR, RVH with RV hypokinesis, dilated LA, bioprosthetic tricuspid valve with moderate TR, peak and mean gradients 13/8 mmHg, PAP 50 to 55 mmHg
Plan:
- patient with recurrent LLE hematoma with associated anemia requiring transfusion. imaging without evidence of fracture or DVT.
- Status post arterial embolization in IRad 06/28
- Hemoglobin was as low as 6.2 on 06/26. Thus far has received 6 units packed red blood cells this admission. Hemoglobin remained relatively stable
- IV heparin to Coumadin. Goal INR 2.5-3 given mechanical MVR.
-She is slowly but surely recovering hemodynamically
- OP spironolactone and diuretic can be eventually resumed as her blood pressure allows
We will follow with you
Progress Note - Scheduling Specialist
Subjective
Date of Service: June 30, 2024
Pain is a little improved in the left lower extremity today
Objective
Labs:
06/30/24 04:13
06/30/24 04:13
Labs
Hgb 8.1 g/dL (12.0-16.0) L 06/30/24 04:13
Hct 24.1 % (37.0-47.0) L 06/30/24 04:13
Plt Count 311 10^3/uL (130-400) 06/30/24 04:13
PT 16.5 Sec (11.4-14.6) H 06/30/24 04:13
INR 1.30 06/30/24 04:13
APTT 78.0 Sec (23.4-35.0) H 06/30/24 04:13
Sodium 134 mmol/L (135-145) L 06/30/24 04:13
Potassium 4.1 mmol/L (3.5-5.1) 06/30/24 04:13
BUN 56 mg/dl (7-17) H 06/30/24 04:13
Creatinine 1.2 mg/dL (0.6-1.0) H 06/30/24 04:13
Glucose 96 mg/dl (70-99) 06/30/24 04:13
Digoxin 0.7 ng/ml (0.8-2.0) L 06/29/24 03:56
Vital Signs and I&O:
Vital Signs
Temp Pulse Resp BP Pulse Ox
98.1 F 70 18 110/47 96
06/30/24 08:20 06/30/24 09:00 06/30/24 09:00 06/30/24 09:00 06/30/24 07:36
Vital Signs
Temp Pulse Resp BP Pulse Ox
98.1 F 70 18 110/47 96
06/30/24 08:20 06/30/24 09:00 06/30/24 09:00 06/30/24 09:00 06/30/24 07:36
Intake & Output
06/28/24 06/29/24 06/30/24 07/01/24
06:59 06:59 06:59 06:59
Intake Total 980 / 980 135.0 / 150.0 782.4 / 792.4
Output Total 250 / 250
Balance 980 / 980 135.0 / -100.0 532.4 / 542.4
Physical Exam
Physical Exam
����Physical Exam
���������������������General:��no apparent distress, not acutely ill
���������������������������Neck:��supple. no meningeal signs. normal psoterior pharynx
������������������������
���������������������������Heart:��s1/s2 regular rate and rhythm, no murmur. equal radial pulses.
��������������������������Lungs: ��no acute respiratory distress. clear bilaterally
����������������������Abdomen:�normal bowel sounds. not tender. no CVAT
��������������������������Neuro:��alert and oriented. no focal neurological deficits
������������������������������Skin: ��no rash
�����������������������Psychiatric:�well kept. interactive and cooperative
�����������������������Extremities:��no edema. no calf tenderness. negative homans. good distal pulses
��
�
[2024-06-30 10:42] LABS: APTT 123.8 Sec (23.4-35.0)
[2024-06-30] MEDS: LANOXIN 125 MCG PO (11:24)
[2024-06-30] MEDS: HEPARIN 25000 UNITS/250 ML IV (14:33)
--- NOTE | 2024-06-30 16:55 | PTCARENOTE ---
Pt OOB to BSC, voiding roxy urine. Pt tehn assisted to recliner chair with assist of 2 and rolling walker, gait unsteady.
[2024-06-30] MEDS: COUMADIN 2 MG PO (17:22)
[2024-06-30 17:50] LABS: APTT 67.9 Sec (23.4-35.0)
[2024-06-30] MEDS: MIRALAX PO (21:21)
[2024-06-30] MEDS: COLACE PO (21:21)
[2024-07-01] VITALS (8 sets, daily range): BP systolic 109–125; BP diastolic 44–50; BMI 28.3
[2024-07-01 01:57] LABS: APTT 176.2 Sec (23.4-35.0)
[2024-07-01] MEDS: ROXICODONE 10 MG PO (02:38)
[2024-07-01 04:31] LABS: % Basophils 0.4 % (0-2); % Eosinophils 3.2 % (0-6); % Immature Granulocytes 0.9 % (0-0.5); % Lymphocytes 9.6 % (20.5-51.1); % Monocytes 16.5 % (1.7-9.3); % Neutrophils 69.4 % (42.2-75.2); Absolute Eosinophils 0.3 10^3/uL (0-0.7); Absolute Immature Granulocytes 0.1 10^3/uL (0-0.05); Absolute Lymphocytes 0.8 10^3/uL (1.2-3.4); Absolute Monocytes 1.3 10^3/uL (0.1-0.6); Absolute Neutrophils 5.6 10^3/uL (1.4-6.5); Hematocrit 23.4 % (37.0-47.0); Hemoglobin 7.7 g/dL (12.0-16.0); Mean Corp Hgb Conc. 32.9 g/dL (33.0-37.0); Mean Corpuscular Hgb 31.6 pg (27.0-31.0); Mean Corpuscular Volume 95.9 fL (81.0-99.0); Mean Platelet Volume 9.5 fL (7.4-10.4); Nucleated Red Blood Cells % 0 %; Platelet Count 293 10^3/uL (130-400); Red Blood Cell Count 2.44 10^6/uL (4.20-5.40); Red Cell Dist. Width 16.4 % (11.5-14.5); White Blood Cell Count 8.1 10^3/uL (4.8-10.8)
[2024-07-01 04:38] LABS: ALT (SGPT) 29 U/L (0-35); AST (SGOT) 35 U/L (14-36); Albumin 2.9 g/dl (3.5-5.0); Alkaline Phosphatase 217 U/L (38-126); Blood Urea Nitrogen 51 mg/dl (7-17); Calcium 8.1 mg/dl (8.4-10.2); Carbon Dioxide 27 mmol/L (22-30); Chloride 99 mmol/L (98-107); Estimated Creatinine Clearance 35 ml/min; Glucose 96 mg/dl (70-99); Potassium 3.9 mmol/L (3.5-5.1); Sodium 132 mmol/L (135-145); Total Bilirubin 2.2 mg/dl (0.2-1.3); Total Protein 5.3 g/dl (6.3-8.2); eGFR 51.43
[2024-07-01 04:46] LABS: INR 1.29; PT 16.4 Sec (11.4-14.6)
[2024-07-01] MEDS: SYNTHROID 88 MCG PO (05:55)
--- NOTE | 2024-07-01 07:18 | W.PN.HOSP.TC ---
Today's Communication/Plan
-
Continue IV heparin, warfarin
Transfuse 1 unit
Continue PT/OT
Assessment / Plan
Assessment / Plan
Gen-AAOx3, NAD
HEENT-NC, AT, anicteric, clear oral mm
Neck-supple
CV-reg, systolic murmur, +S1/S2
Lungs-clear B/L
Abd-soft, NT, ND
Ext-diffuse left lateral leg hematoma extending from lower leg to mid thigh. Dressing intact.
Musculoskeletal-no cyanosis, clubbing
Skin-warm and dry
Neuro-grossly non-focal
Psych-calm, cooperative
Hemorrhagic shock -due to large left leg, knee hematoma. Transferred to ICU June 28. Hemodynamically improved. Off Levophed since yesterday. Discussed with nursing.
Acute blood loss anemia -due to large left knee/leg hematoma. Has extensive varicose veins of the left leg. Hemoglobin down to 7.7 today, will give 1 unit of blood today given ongoing need for anticoagulation and mild bleeding last night from
blister over hematoma. Has had 6 units of blood transfused so far.
Spontaneous Left Knee hemarthrosis -due to anticoagulation with warfarin, supratherapeutic INR since June 14. Admitted to the hospital June 22. She has a home INR monitor but was only checking it once per week.
Status post therapeutic arthrocentesis, recurrent effusion
� No evidence of fracture, moderate joint effusion, slightly decreased in size from prior neck�spoke to orthopedics, conservative management at this time
Previous CT of the knee done in April 2024 was negative for fracture.
Underwent left lower extremity arteriogram by IR 06/28 demonstrating hyperemia within the lateral compartment of the left knee.
Superselective arteriogram of the multiple branches of the lateral geniculate artery performed, demonstrated hyperemia within the lateral compartment. Both the superior and inferior lateral lingular branches were embolized. After repeat
arteriogram there was significantly improved hyperemia within the lateral compartment.
Symptomatically patient feels better today, less pain. Continue Uriah wraps for comfort. Immobilizer removed.
Saint Arturo mechanical mitral valve/porcine tricuspid valve replacement
Supratherapeutic INR on admission.
- INR goal 2.5-3.0 - Confirmed with Cardiology, follows with Dr. Dave cardiology.
Received 2.5 mg of oral vitamin K 06/27.
Started IV heparin and warfarin June 29, INR 1.29 today. Has received 2 doses of warfarin 2 mg so far. Would continue warfarin 2 mg nightly for now given recent administration of vitamin K. Anticipate lowering dose of warfarin when INR at
therapeutic range, as I suspect 2 mg made her supratherapeutic.
CORI -suspect multifactorial etiology including acute anemia, Lasix use, etc. Spironolactone and diuretics on hold. She takes torsemide, metolazone, spironolactone at home. Creatinine improved to 1.1.
Elevated liver enzymes -elevated GGT, LDH noted. Patient states she has a history of fatty liver disease. I recommend outpatient follow-up.
Elevated total bilirubin noted, 2.9. Direct bilirubin ordered. Bilirubin and transaminases were normal in early June.
Liver ultrasound shows normal echogenicity with no focal hepatic lesion, prior cholecystectomy, no evidence of biliary ductal dilation, 3.8 cm cyst in the lower pole of the left kidney.
Constipation -continue bowel regimen. Last BM 06/30.
Chronic heart failure with preserved EF -no evidence of acute exacerbation. Hold diuretics given CORI, hypotension.
Permanent atrial fibrillation/atrial tachycardia
with history of ablation 2011
Restrictive lung disease
- continue Albuterol and Ellipta
Hypothyroidism
- continue levothyroxine
Gout
Psychiatric Nurse Practitioner recently stopped Allopurinol
- continue colchicine
Obstructive sleep apnea -on CPAP
Full code
Dispo -SNF when medically stable. Goal is INR over 2.5 prior to discharge. Currently MedSurg level although she is located in the ICU.
Anticipated Discharge: > 48 hours
Subjective/Interval History
-
Date of Service: July 01, 2024
Patient seen and examined. Complaining of bleeding from her hematoma site.
Objective Data
-
Labs:
Laboratory Results
07/01/24 07/01/24 07/01/24
01:24 04:11 09:00
WBC 8.1
Hgb 7.7 L
Hct 23.4 L
Plt Count 293
PT 16.4 H
INR 1.29
APTT 176.2 H* Pending
Sodium 132 L
Potassium 3.9
Chloride 99
Carbon Dioxide 27
BUN 51 H
Creatinine 1.1 H
Glucose 96
Calcium 8.1 L
Total Bilirubin 2.2 H
AST 35
ALT 29
Alkaline Phosphatase 217 H
Vital Signs:
Vital Signs
Temp Pulse Resp BP Pulse Ox
97.9 F 76 16 134/48 96
07/01/24 03:31 06/30/24 20:37 06/30/24 20:37 06/30/24 22:47 06/30/24 22:51
I&O
06/30/24 07/01/24 07/02/24
06:59 06:59 06:59
Intake Total 782.4 / 792.4
Output Total 250 / 250
Balance 532.4 / 542.4
Review of Systems
-
History Source: Patient
All other systems: Reviewed and negative
[2024-07-01] MEDS: FLOVENT 44 MCG INHALER 2 PUFF INH ×2 (07:28→19:27)
[2024-07-01] MEDS: COLCHICINE 0.6 MG PO (07:59)
[2024-07-01] MEDS: MIRALAX 17 GRAMS PO ×2 (07:59→19:12)
[2024-07-01] MEDS: EFFEXOR 75 MG PO (07:59)
[2024-07-01] MEDS: PROTONIX 40 MG PO (07:59)
[2024-07-01] MEDS: PEPCID 20 MG PO (07:59)
[2024-07-01] MEDS: VITAMIN D3 (cholecalciferol) 50 MCG PO (07:59)
[2024-07-01] MEDS: COLACE 100 MG PO ×2 (07:59→19:12)
[2024-07-01] MEDS: OSCAL CAL 500 500 MG PO (07:59)
[2024-07-01] MEDS: COREG PO (08:06)
--- NOTE | 2024-07-01 08:49 | W.PN.CARDCBS ---
Today's Communication / Plan
-
Heparin to Coumadin
Impression / Plan
-
Primary Electronic Gluing Machine Operator: Dr. RAFAEL Dave
Assessment:
Presentation with LLE pain and swelling
ER visit with arthrocentesis 06/16/24
Recurrent suspected spontaneous LLE hematoma
Supratherapeutic INR
Acute anemia
CORI
Elevated LFTs
Mild tricuspid stenosis/severe tricuspid regurgitation s/p #33 Epic TV replacement via right heart port thoracotomy at [facility] 01/28/22
Saint Arturo mechanical mitral valve
Chronic warfarin OAC, managed by [facility] coumadin clinic, has home monitor
Chronic HFpEF
Mild aortic stenosis
Pulmonary hypertension
Anemia
Permanent atrial fibrillation/atrial tachycardia with history of ablation 2011
Sinus syndrome status post Medtronic pacemaker
History of PE and IVC filter
Abdominal Wall Hematoma s/p Abdominal wall exploratory surgery for abdominal abscess and gallstone 07/2021
Restrictive lung disease
Obstructive sleep apnea on CPAP
Lymphedema/venous insufficiency/varicose veins
History of rheumatic heart disease
ECHO 12/09/23: EF 50 to 55%, apical, inferoapical, mid and apical anterior, mid and apical septal, apical lateral hypokinesis, mechanical [place] Arturo MVR with peak/mean gradients 18/6 mmHg, mild MR, dilated LA, moderate to severe with peak/mean
gradients 30/21 mmHg, YOLANDA 0.9 cm�, mild AR, RVH with RV hypokinesis, dilated LA, bioprosthetic tricuspid valve with moderate TR, peak and mean gradients 13/8 mmHg, PAP 50 to 55 mmHg
Plan:
- patient with recurrent LLE hematoma with associated anemia requiring transfusion. imaging without evidence of fracture or DVT.
- Status post arterial embolization in IRad 06/28
- Hemoglobin was as low as 6.2 on 06/26. Thus far has received 6 units packed red blood cells this admission. Hemoglobin remained relatively stable
- IV heparin to Coumadin. Goal INR 2.5-3 given mechanical MVR.
- About the same today
- OP spironolactone and diuretic can be eventually resumed as her blood pressure allows
We will follow with you
Progress Note - Electronic Gluing Machine Operator
Subjective
Date of Service: July 01, 2024
Objective
Labs:
07/01/24 04:11
07/01/24 04:11
Labs
Hgb 7.7 g/dL (12.0-16.0) L 07/01/24 04:11
Hct 23.4 % (37.0-47.0) L 07/01/24 04:11
Plt Count 293 10^3/uL (130-400) 07/01/24 04:11
PT 16.4 Sec (11.4-14.6) H 07/01/24 04:11
INR 1.29 07/01/24 04:11
APTT 176.2 Sec (23.4-35.0) H* 07/01/24 01:24
Sodium 132 mmol/L (135-145) L 07/01/24 04:11
Potassium 3.9 mmol/L (3.5-5.1) 07/01/24 04:11
BUN 51 mg/dl (7-17) H 07/01/24 04:11
Creatinine 1.1 mg/dL (0.6-1.0) H 07/01/24 04:11
Glucose 96 mg/dl (70-99) 07/01/24 04:11
Digoxin 0.7 ng/ml (0.8-2.0) L 06/29/24 03:56
Vital Signs and I&O:
Vital Signs
Temp Pulse Resp BP Pulse Ox
98.2 F 72 16 109/45 97
07/01/24 08:05 07/01/24 07:31 07/01/24 07:31 07/01/24 08:03 07/01/24 08:03
Vital Signs
Temp Pulse Resp BP Pulse Ox
98.2 F 72 16 109/45 97
07/01/24 08:05 07/01/24 07:31 07/01/24 07:31 07/01/24 08:03 07/01/24 08:03
Intake & Output
06/29/24 06/30/24 07/01/24 07/02/24
06:59 06:59 06:59 06:59
Intake Total 135.0 / 150.0 782.4 / 792.4
Output Total 250 / 250
Balance 135.0 / -100.0 532.4 / 542.4
Physical Exam
Physical Exam
����Physical Exam
���������������������General:��no apparent distress, not acutely ill
���������������������������Neck:��supple. no meningeal signs. normal psoterior pharynx
������������������������
���������������������������Heart:��s1/s2 regular rate and rhythm, no murmur. equal radial pulses.
Bennett S2
��������������������������Lungs: ��no acute respiratory distress. clear bilaterally
����������������������Abdomen:�normal bowel sounds. not tender. no CVAT
��������������������������Neuro:��alert and oriented. no focal neurological deficits
������������������������������Skin: ��no rash
�����������������������Psychiatric:�well kept. interactive and cooperative
�����������������������Extremities:��no edema. no calf tenderness. negative homans. good distal pulses
��
�
[2024-07-01 09:47] LABS: APTT 97.3 Sec (23.4-35.0)
[2024-07-01] MEDS: LANOXIN 125 MCG PO (11:05)
--- NOTE | 2024-07-01 12:44 | PTCARENOTE ---
Rec'd pt at 0700. Pt sleeping, easily awakens, orientedx3. Follows commands, DE LEON with BLE weakness. Medsurg LOC. Lungs dim. +BS, abd soft/nt. Vdg roxy urine via bedpan. Left lateral knee with dressing intact, ecchymotic. +pulses. 1 unit PRBCs
ordered and infusing at this time. Heparin gtts at 800units/hr.
[2024-07-01 16:31] LABS: APTT 63.3 Sec (23.4-35.0)
[2024-07-01] MEDS: COUMADIN 2 MG PO (17:07)
[2024-07-01] MEDS: HEPARIN 25000 UNITS/250 ML IV (20:46)
--- NOTE | 2024-07-01 21:10 | TRANSFER ---
Pt transferred to [address] [place] [address] [id number] via bed w/ personal belongings. Report given to [address] [place] [address] RNDinora.
[2024-07-01 23:28] LABS: APTT 77.5 Sec (23.4-35.0)
[2024-07-02 05:28] LABS: % Basophils 0.4 % (0-2); % Eosinophils 3.6 % (0-6); % Monocytes 14.9 % (1.7-9.3); % Neutrophils 71.1 % (42.2-75.2); Absolute Eosinophils 0.3 10^3/uL (0-0.7); Absolute Immature Granulocytes 0.1 10^3/uL (0-0.05); Absolute Lymphocytes 0.7 10^3/uL (1.2-3.4); Absolute Monocytes 1.1 10^3/uL (0.1-0.6); Absolute Neutrophils 5.1 10^3/uL (1.4-6.5); Hematocrit 25.1 % (37.0-47.0); Hemoglobin 8.3 g/dL (12.0-16.0); Mean Corp Hgb Conc. 33.1 g/dL (33.0-37.0); Mean Corpuscular Hgb 31.7 pg (27.0-31.0); Mean Corpuscular Volume 95.8 fL (81.0-99.0); Mean Platelet Volume 9.8 fL (7.4-10.4); Nucleated Red Blood Cells % 0 %; Platelet Count 278 10^3/uL (130-400); Red Blood Cell Count 2.62 10^6/uL (4.20-5.40); Red Cell Dist. Width 15.8 % (11.5-14.5); White Blood Cell Count 7.2 10^3/uL (4.8-10.8)
[2024-07-02 05:35] LABS: INR 1.49; PT 18.2 Sec (11.4-14.6)
[2024-07-02 05:37] LABS: APTT 116.8 Sec (23.4-35.0)
[2024-07-02] MEDS: SYNTHROID 88 MCG PO (05:38)
[2024-07-02 06:00] VITALS: BMI 28.6
[2024-07-02 07:32] VITALS: BP 113/41
[2024-07-02] MEDS: FLOVENT 44 MCG INHALER 2 PUFF INH ×2 (07:37→19:51)
[2024-07-02] MEDS: COLACE 100 MG PO ×2 (09:06→20:24)
[2024-07-02] MEDS: COREG 3.125 MG PO (09:06)
[2024-07-02] MEDS: EFFEXOR 75 MG PO (09:07)
[2024-07-02] MEDS: MIRALAX 17 GRAMS PO ×2 (09:07→20:24)
[2024-07-02] MEDS: VITAMIN D3 (cholecalciferol) 50 MCG PO (09:07)
[2024-07-02] MEDS: PROTONIX 40 MG PO (09:07)
[2024-07-02] MEDS: OSCAL CAL 500 500 MG PO (09:07)
--- NOTE | 2024-07-02 09:35 | W.PN.CARDCBS ---
Addendum entered and electronically signed by Justin Dave MD 07/02/24 11:10:
Patient feels a little bit better. Still with some leg discomfort. No dyspnea.
Medications: IV heparin, carvedilol 3.125 daily, digoxin 125 mcg Tuesday, Tuesday, , Tuesday Flovent, levothyroxine 88 mcg daily, pantoprazole 40 mg a day, potassium 20 meq daily, Effexor 75 mg daily, colchicine 0.6 mg every 48 hours,
famotidine 20 mg every 48 hours, Colace, MiraLAX 17 twice daily, warfarin 2 mg a day, metolazone 2.5 mg daily on hold, spironolactone 25 mg daily on hold, torsemide 20 mg daily on hold
113/41, pulse 70, respiratory 15, afebrile, sats 97%, weight is 64.12 kg, was 61.7 kg on admission, appears worn down and uncomfortable, lungs are clear with limited exam, regular rate and rhythm, soft systolic murmur at base, JVD probably 10,
abdomen benign, bilateral ecchymoses in lower extremities, severe edema of entire left leg with marked ecchymoses, leg does not appear compromised however
Hemoglobin 8.3, white count 7.2 platelets 278, BUN and creatinine 51 and 1.1, potassium 3.9, sodium 132, PT is 1.49, had been 1.29, creatinine peaked at 1.6 June 26
Impression:
Hemarthrosis of the left knee in the setting of coagulopathy, status post 6 units of PRBC and IR embolism of geniculate branches of left SFA/popliteal
Other diagnoses as below
Plan:
Overall, she seems to have stabilized with regards to hemarthrosis following embolization of the geniculate branches of the left lower extremity, and her hemoglobin is improved today.
Her acute kidney injury has resolved, creatinine is 1.1. Still very azotemic.
No evidence of left heart failure on exam, lower extremity edema and large measure probably result of bleeding on left. Will continue to hold torsemide, metolazone and spironolactone for now given absence of evidence of heart failure combined with
azotemia. Restart diuretics and potassium over the next day or 2.
INR is starting to rise, continue warfarin, continue heparin. Can probably discontinue heparin in 24 to 48 hours.
Hemoglobin is improving. Continue to follow.
Original Note:
Today's Communication / Plan
-
Continue to follow INR, Hgb.
Heparin to coumadin
Resume diuretics as BP allows, appears euvolemic.
Impression / Plan
-
Primary Security Professional: Dr. RAFAEL Dave
Assessment:
Presentation with LLE pain and swelling
ER visit with arthrocentesis 06/16/24
Recurrent suspected spontaneous LLE hematoma
Supratherapeutic INR
Acute anemia
CORI
Elevated LFTs
Mild tricuspid stenosis/severe tricuspid regurgitation s/p #33 Epic TV replacement via right heart port thoracotomy at [facility] 01/28/22
Saint Arturo mechanical mitral valve
Chronic warfarin OAC, managed by [facility] coumadin clinic, has home monitor
Chronic HFpEF
Mild aortic stenosis
Pulmonary hypertension
Anemia
Permanent atrial fibrillation/atrial tachycardia with history of ablation 2011
Sinus syndrome status post Medtronic pacemaker
History of PE and IVC filter
Abdominal Wall Hematoma s/p Abdominal wall exploratory surgery for abdominal abscess and gallstone 07/2021
Restrictive lung disease
Obstructive sleep apnea on CPAP
Lymphedema/venous insufficiency/varicose veins
History of rheumatic heart disease
ECHO 12/09/23: EF 50 to 55%, apical, inferoapical, mid and apical anterior, mid and apical septal, apical lateral hypokinesis, mechanical [place] Arturo MVR with peak/mean gradients 18/6 mmHg, mild MR, dilated LA, moderate to severe with peak/mean
gradients 30/21 mmHg, YOLANDA 0.9 cm�, mild AR, RVH with RV hypokinesis, dilated LA, bioprosthetic tricuspid valve with moderate TR, peak and mean gradients 13/8 mmHg, PAP 50 to 55 mmHg
Plan:
-Presented with recurrent LLE hematoma. s/p arterial embolization in IR 06/28
-Acute blood loss anemia noted, has required 7 units PRBCs so far this admission, most recently on 07/01.
-Hgb stable at 8.3 07/02, continue to follow.
-Continue IV heparin to coumadin. Goal INR 2.5-3 given mechanical MVR. INR 1.49 on 07/02.
-Torsemide, metolazone, and spironolactone remain on hold. Appears euvolemic, weight overall stable at 141 lbs. Resume as BP allows.
-Continue Coreg, digoxin.
Progress Note - Security Professional
Subjective
Date of Service: July 02, 2024
No complaints, feeling well.
Objective
Labs:
07/02/24 05:09
07/01/24 04:11
Labs
Hgb 8.3 g/dL (12.0-16.0) L 07/02/24 05:09
Hct 25.1 % (37.0-47.0) L 07/02/24 05:09
Plt Count 278 10^3/uL (130-400) 07/02/24 05:09
PT 18.2 Sec (11.4-14.6) H 07/02/24 05:09
INR 1.49 07/02/24 05:09
APTT 116.8 Sec (23.4-35.0) H 07/02/24 05:09
Sodium 132 mmol/L (135-145) L 07/01/24 04:11
Potassium 3.9 mmol/L (3.5-5.1) 07/01/24 04:11
BUN 51 mg/dl (7-17) H 07/01/24 04:11
Creatinine 1.1 mg/dL (0.6-1.0) H 07/01/24 04:11
Glucose 96 mg/dl (70-99) 07/01/24 04:11
Digoxin 0.7 ng/ml (0.8-2.0) L 06/29/24 03:56
Vital Signs and I&O:
Vital Signs
Temp Pulse Resp BP Pulse Ox
98.0 F 72 15 116/48 97
07/02/24 07:32 07/02/24 09:06 07/02/24 07:43 07/02/24 09:06 07/02/24 07:43
Vital Signs
Temp Pulse Resp BP Pulse Ox
98.0 F 72 15 116/48 97
07/02/24 07:32 07/02/24 09:06 07/02/24 07:43 07/02/24 09:06 07/02/24 07:43
Intake & Output
06/30/24 07/01/24 07/02/24 07/03/24
06:59 06:59 06:59 06:59
Intake Total 782.4 / 792.4 1070 / 1070
Output Total 250 / 250 1300 / 1300
Balance 532.4 / 542.4 -230 / -230
Physical Exam
Physical Exam
GEN: No distress, awake, alert, oriented x3
HEENT: supple, anicteric, mmm
LUNGS: CTA b/l, no wheezes
CV: Reg, S1/S2, 3/6 syst LSB
ABD: soft, BS+, NT/ND
EXT: No cyanosis, clubbing. 2+ nonpitting edema and ecchymoses of LLE
NEURO: Gross non-focal
SKIN: Warm, pink, dry. No rash
[2024-07-02 13:17] LABS: APTT 117.8 Sec (23.4-35.0)
--- NOTE | 2024-07-02 13:52 | W.PN.HOSP.TC ---
Today's Communication/Plan
-
hep ggt, coumadin bridging
holding diuretics for now
Assessment / Plan
Assessment / Plan
Gen-AAOx3, NAD
HEENT-NC, AT, anicteric, clear oral mm
Neck-supple
CV-reg, systolic murmur, +S1/S2
Lungs-clear B/L
Abd-soft, NT, ND
Ext-diffuse left lateral leg hematoma extending from lower leg to mid thigh. Dressing intact.
Musculoskeletal-no cyanosis, clubbing
Skin-warm and dry
Neuro-grossly non-focal
Psych-calm, cooperative
Hemorrhagic shock -due to large left leg, knee hematoma. Transferred to ICU June 28. Hemodynamically improved. Off Levophed since yesterday. Discussed with nursing.
Acute blood loss anemia -due to large left knee/leg hematoma. Has extensive varicose veins of the left leg. 7 units of blood transfused so far. Monitor; Hast transfusion 07/01
Spontaneous Left Knee hemarthrosis -due to anticoagulation with warfarin, supratherapeutic INR since June 14. Admitted to the hospital June 22. She has a home INR monitor but was only checking it once per week.
Status post therapeutic arthrocentesis, recurrent effusion
� No evidence of fracture, moderate joint effusion, slightly decreased in size from prior neck�spoke to orthopedics, conservative management at this time
Previous CT of the knee done in April 2024 was negative for fracture.
Underwent left lower extremity arteriogram by IR 06/28 demonstrating hyperemia within the lateral compartment of the left knee.
Superselective arteriogram of the multiple branches of the lateral geniculate artery performed, demonstrated hyperemia within the lateral compartment. Both the superior and inferior lateral lingular branches were embolized. After repeat
arteriogram there was significantly improved hyperemia within the lateral compartment.
Symptomatically patient feels better today, less pain. Continue Uriah wraps for comfort. Immobilizer removed.
Saint Arturo mechanical mitral valve/porcine tricuspid valve replacement
Supratherapeutic INR on admission.
- INR goal 2.5-3.0 - Confirmed with Cardiology, follows with Dr. Dave cardiology.
Received 2.5 mg of oral vitamin K 06/27.
Started IV heparin and warfarin June 29, INR 1.29 today. Has received 2 doses of warfarin 2 mg so far. Would continue warfarin 2 mg nightly for now given recent administration of vitamin K. Anticipate lowering dose of warfarin when INR at
therapeutic range, as I suspect 2 mg made her supratherapeutic.
CORI -suspect multifactorial etiology including acute anemia, Lasix use, etc. Spironolactone and diuretics on hold. She takes torsemide, metolazone, spironolactone at home. Creatinine improved to 1.1.
Elevated liver enzymes -elevated GGT, LDH noted. Patient states she has a history of fatty liver disease. I recommend outpatient follow-up.
Elevated total bilirubin noted, 2.9. Direct bilirubin ordered. Bilirubin and transaminases were normal in early June.
Liver ultrasound shows normal echogenicity with no focal hepatic lesion, prior cholecystectomy, no evidence of biliary ductal dilation, 3.8 cm cyst in the lower pole of the left kidney.
Constipation -continue bowel regimen. Last BM 06/30.
Chronic heart failure with preserved EF -no evidence of acute exacerbation. Hold diuretics given CORI, hypotension.
Permanent atrial fibrillation/atrial tachycardia
with history of ablation 2011
Restrictive lung disease
- continue Albuterol and Ellipta
Hypothyroidism
- continue levothyroxine
Gout
Rubber Insulator recently stopped Allopurinol
- continue colchicine
Obstructive sleep apnea -on CPAP
Full code
Dispo -SNF when medically stable. Goal is INR over 2.5 prior to discharge.
Anticipated Discharge: 24 - 48 hours
Subjective/Interval History
-
Date of Service: July 02, 2024
no acute events
Objective Data
-
Labs:
Laboratory Results
07/02/24 07/02/24 07/02/24
05:09 12:57 19:25
WBC 7.2
Hgb 8.3 L
Hct 25.1 L
Plt Count 278
PT 18.2 H
INR 1.49
APTT 116.8 H 117.8 H Pending
Vital Signs:
Vital Signs
Temp Pulse Resp BP Pulse Ox
98.0 F 72 15 116/48 97
07/02/24 07:32 07/02/24 09:06 07/02/24 07:43 07/02/24 09:06 07/02/24 07:43
I&O
07/01/24 07/02/24 07/03/24
06:59 06:59 06:59
Intake Total 206 / 214 1070 / 1070
Output Total 1300 / 1300
Balance 206 / 214 -230 / -230
Review of Systems
-
History Source: Patient
All other systems: Not reviewed unless documented
Physical Exam
-
General: No Apparent Distress
HEENT: Moist Mucous Membranes and PERRLA
Respiratory: Clear to Auscultation
Cardiac: Regular Rhythm and S1/S2; Negative Murmur, Rub or JVD
GI: Soft, Nontender, Nondistended and Normal Bowel Sounds
Musculoskeletal: No Clubbing, No Cyanosis and No Edema
Neuro: Awake, Alert, Oriented, No Motor Deficits and Nonfocal/Grossly Intact
Data Reviewed
-
Diagnostic Radiology: Report Reviewed by me
Labs: Labs Reviewed by me
[2024-07-02 15:47] VITALS: BP 125/55
[2024-07-02 16:16] VITALS: BP 109/45; PULSE 70; O2SAT 97
[2024-07-02] MEDS: COUMADIN 2 MG PO (17:26)
[2024-07-02 23:24] VITALS: BP 119/78
[2024-07-02 23:41] VITALS: BMI 28.6
[2024-07-03] VITALS (7 sets, daily range): BP systolic 86–120; BP diastolic 44–59; O2SAT 92; BMI 28.8
[2024-07-03] MEDS: HEPARIN 25000 UNITS/250 ML IV (00:10)
[2024-07-03] MEDS: ROXICODONE 10 MG PO ×2 (01:46→12:17)
[2024-07-03 03:24] LABS: APTT 58.1 Sec (23.4-35.0)
[2024-07-03 05:23] LABS: % Basophils 0.4 % (0-2); % Eosinophils 4.1 % (0-6); % Lymphocytes 10.3 % (20.5-51.1); % Monocytes 16.5 % (1.7-9.3); % Neutrophils 66.7 % (42.2-75.2); Absolute Eosinophils 0.3 10^3/uL (0-0.7); Absolute Immature Granulocytes 0.1 10^3/uL (0-0.05); Absolute Lymphocytes 0.7 10^3/uL (1.2-3.4); Absolute Monocytes 1.2 10^3/uL (0.1-0.6); Absolute Neutrophils 4.7 10^3/uL (1.4-6.5); Hematocrit 25.7 % (37.0-47.0); Hemoglobin 8.4 g/dL (12.0-16.0); Mean Corp Hgb Conc. 32.7 g/dL (33.0-37.0); Mean Corpuscular Hgb 31.8 pg (27.0-31.0); Mean Corpuscular Volume 97.3 fL (81.0-99.0); Mean Platelet Volume 9.5 fL (7.4-10.4); Nucleated Red Blood Cells % 0 %; Platelet Count 302 10^3/uL (130-400); Red Blood Cell Count 2.64 10^6/uL (4.20-5.40); Red Cell Dist. Width 15.9 % (11.5-14.5); White Blood Cell Count 7.1 10^3/uL (4.8-10.8)
[2024-07-03] MEDS: SYNTHROID 88 MCG PO (05:24)
[2024-07-03 05:36] LABS: INR 1.78; PT 20.9 Sec (11.4-14.6)
[2024-07-03 05:51] LABS: Blood Urea Nitrogen 34 mg/dl (7-17); Calcium 7.7 mg/dl (8.4-10.2); Carbon Dioxide 26 mmol/L (22-30); Chloride 103 mmol/L (98-107); Estimated Creatinine Clearance 47 ml/min; Glucose 106 mg/dl (70-99); Potassium 3.9 mmol/L (3.5-5.1); Sodium 135 mmol/L (135-145); eGFR > 60.00
[2024-07-03] MEDS: FLOVENT 44 MCG INHALER 2 PUFF INH ×2 (07:33→20:08)
[2024-07-03] MEDS: VITAMIN D3 (cholecalciferol) 50 MCG PO (09:29)
[2024-07-03] MEDS: COLACE 100 MG PO ×2 (09:29→20:45)
[2024-07-03] MEDS: COREG 3.125 MG PO (09:29)
[2024-07-03] MEDS: PROTONIX 40 MG PO (09:29)
[2024-07-03] MEDS: EFFEXOR 75 MG PO (09:29)
[2024-07-03] MEDS: COLCHICINE 0.6 MG PO (09:29)
[2024-07-03] MEDS: OSCAL CAL 500 500 MG PO (09:29)
[2024-07-03] MEDS: MIRALAX 17 GRAMS PO (09:29)
[2024-07-03] MEDS: PEPCID 20 MG PO (09:30)
[2024-07-03] MEDS: COLCHICINE PO (10:50)
--- NOTE | 2024-07-03 12:09 | CM ---
CM following re: discharge planning.
Reviewed pt's chart, met with pt.
Pt has been notified that [facility] and [facility] offered a bed based on bed availability on the day of discharge and pt stated she preferred [facility].
IMM reviewed, placed on chart, pt has a copy.
D/C plan: preferred [facility] for a short term rehab
CM will follow to assist pt with discharge to [facility] when medically stable.
[2024-07-03] MEDS: LANOXIN 125 MCG PO (12:17)
--- NOTE | 2024-07-03 12:43 | W.PN.CARDCBS ---
Today's Communication / Plan
-
Stable cardiology status
Continue IV heparin to Coumadin until INR is greater than 2
Torsemide, metolazone, spironolactone on hold with hypotension
Impression / Plan
-
Primary Processing Specialist: Dr. RAFAEL Dave
Assessment:
Presentation with LLE pain and swelling
ER visit with arthrocentesis 06/16/24
Recurrent suspected spontaneous LLE hematoma
Supratherapeutic INR
Acute anemia
CORI
Elevated LFTs
Mild tricuspid stenosis/severe tricuspid regurgitation s/p #33 Epic TV replacement via right heart port thoracotomy at [facility] 01/28/22
Saint Arturo mechanical mitral valve
Chronic warfarin OAC, managed by [facility] coumadin clinic, has home monitor
Chronic HFpEF
Mild aortic stenosis
Pulmonary hypertension
Anemia
Permanent atrial fibrillation/atrial tachycardia with history of ablation 2011
Sinus syndrome status post Medtronic pacemaker
History of PE and IVC filter
Abdominal Wall Hematoma s/p Abdominal wall exploratory surgery for abdominal abscess and gallstone 07/2021
Restrictive lung disease
Obstructive sleep apnea on CPAP
Lymphedema/venous insufficiency/varicose veins
History of rheumatic heart disease
ECHO 12/09/23: EF 50 to 55%, apical, inferoapical, mid and apical anterior, mid and apical septal, apical lateral hypokinesis, mechanical [place] Arturo MVR with peak/mean gradients 18/6 mmHg, mild MR, dilated LA, moderate to severe with peak/mean
gradients 30/21 mmHg, YOLANDA 0.9 cm�, mild AR, RVH with RV hypokinesis, dilated LA, bioprosthetic tricuspid valve with moderate TR, peak and mean gradients 13/8 mmHg, PAP 50 to 55 mmHg
Plan:
Continue IV heparin to Coumadin
INR 1.8
Should be stable for discharge when INR greater than 2. Goal INR 2.5-3 given mechanical MVR.
Torsemide, metolazone, and spironolactone remain on hold. Appears euvolemic, weight overall stable at 142 lbs. Resume as BP allows.
Continue Coreg, digoxin.
Progress Note - Processing Specialist
Subjective
Date of Service: July 03, 2024
No complaints
Objective
Labs:
07/03/24 04:46
07/03/24 04:46
Labs
Hgb 8.4 g/dL (12.0-16.0) L 07/03/24 04:46
Hct 25.7 % (37.0-47.0) L 07/03/24 04:46
Plt Count 302 10^3/uL (130-400) 07/03/24 04:46
PT 20.9 Sec (11.4-14.6) H 07/03/24 04:46
INR 1.78 07/03/24 04:46
APTT 75.0 Sec (23.4-35.0) H 07/03/24 08:26
Sodium 135 mmol/L (135-145) 07/03/24 04:46
Potassium 3.9 mmol/L (3.5-5.1) 07/03/24 04:46
BUN 34 mg/dl (7-17) H 07/03/24 04:46
Creatinine 0.8 mg/dL (0.6-1.0) 07/03/24 04:46
Glucose 106 mg/dl (70-99) H 07/03/24 04:46
Digoxin 0.7 ng/ml (0.8-2.0) L 06/29/24 03:56
Vital Signs and I&O:
Vital Signs
Temp Pulse Resp BP Pulse Ox
97.9 F 71 16 96
07/03/24 07:03 07/03/24 12:25 07/03/24 12:25 07/03/24 12:25 07/03/24 07:36
Vital Signs
Temp Pulse Resp BP Pulse Ox
97.9 F 71 16 96
07/03/24 07:03 07/03/24 12:25 07/03/24 12:25 07/03/24 12:25 07/03/24 07:36
Intake & Output
07/01/24 07/02/24 07/03/24 07/04/24
06:59 06:59 06:59 06:59
Intake Total 206 / 214 1070 / 1070 600 / 600
Output Total 1300 / 1300
Balance 206 / 214 -230 / -230 600 / 600
Physical Exam
Physical Exam
General: Well developed, well nourished in NAD.
Neck: Supple, no JVD, HJR, carotids +2 B/L, no bruits bilaterally.
Heart: Non displaced PMI, irregular, 3/6 apical systolic murmur no S3, S4, no rubs.
Lungs: Clear to auscultation bilaterally, no wheeze, rhonchi, rubs bilaterally,
normal expiratory phase.
Extremities: No clubbing, cyanosis or edema bilaterally.
Neuro: Grossly nonfocal, awake, alert and oriented x3.
--- NOTE | 2024-07-03 12:59 | W.PN.HOSP.TC ---
Today's Communication/Plan
-
hep ggt, coumadin bridging
holding diuretics for now
Assessment / Plan
Assessment / Plan
Gen-AAOx3, NAD
HEENT-NC, AT, anicteric, clear oral mm
Neck-supple
CV-reg, systolic murmur, +S1/S2
Lungs-clear B/L
Abd-soft, NT, ND
Ext-diffuse left lateral leg hematoma extending from lower leg to mid thigh. Dressing intact.
Musculoskeletal-no cyanosis, clubbing
Skin-warm and dry
Neuro-grossly non-focal
Psych-calm, cooperative
Hemorrhagic shock -due to large left leg, knee hematoma. Transferred to ICU June 28. Hemodynamically improved. Off Levophed. Discussed with nursing.
Acute blood loss anemia -due to large left knee/leg hematoma. Has extensive varicose veins of the left leg. 7 units of blood transfused so far. Monitor; Hast transfusion 07/01
Spontaneous Left Knee hemarthrosis -due to anticoagulation with warfarin, supratherapeutic INR since June 14. Admitted to the hospital June 22. She has a home INR monitor but was only checking it once per week.
Status post therapeutic arthrocentesis, recurrent effusion
� No evidence of fracture, moderate joint effusion, slightly decreased in size from prior neck�spoke to orthopedics, conservative management at this time
-Previous CT of the knee done in April 2024 was negative for fracture.
-Underwent left lower extremity arteriogram by IR 06/28 demonstrating hyperemia within the lateral compartment of the left knee.
-Superselective arteriogram of the multiple branches of the lateral geniculate artery performed, demonstrated hyperemia within the lateral compartment. Both the superior and inferior lateral lingular branches were embolized. After repeat
arteriogram there was significantly improved hyperemia within the lateral compartment.
-Symptomatically patient feels better today, less pain. Continue Uriah wraps for comfort. Immobilizer removed.
Saint Arturo mechanical mitral valve/porcine tricuspid valve replacement
Supratherapeutic INR on admission.
- INR goal 2.5-3.0 - Confirmed with Cardiology, follows with Dr. Dave cardiology.
Received 2.5 mg of oral vitamin K 06/27.
-Started IV heparin and warfarin June 29, INR 1.29 today. warfarin 2 mg so far. Would continue warfarin 2 mg nightly for now given recent administration of vitamin K. Anticipate lowering dose of warfarin when INR at therapeutic range, as I
suspect 2 mg made her supratherapeutic.
CORI -suspect multifactorial etiology including acute anemia, Lasix use, etc. Spironolactone and diuretics on hold. She takes torsemide, metolazone, spironolactone at home. Creatinine improved to 1.1.
Elevated liver enzymes -elevated GGT, LDH noted. Patient states she has a history of fatty liver disease. I recommend outpatient follow-up.
Elevated total bilirubin noted, 2.9. Direct bilirubin ordered. Bilirubin and transaminases were normal in early June.
Liver ultrasound shows normal echogenicity with no focal hepatic lesion, prior cholecystectomy, no evidence of biliary ductal dilation, 3.8 cm cyst in the lower pole of the left kidney.
Constipation -continue bowel regimen. Last BM 06/30.
Chronic heart failure with preserved EF -no evidence of acute exacerbation. Hold diuretics given CORI, hypotension.
Permanent atrial fibrillation/atrial tachycardia
with history of ablation 2011
Restrictive lung disease
- continue Albuterol and Ellipta
Hypothyroidism
- continue levothyroxine
Gout
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
- continue colchicine
Obstructive sleep apnea -on CPAP
Full code
Dispo -SNF when medically stable. Goal is INR over 2.5 prior to discharge.
Anticipated Discharge: 24 - 48 hours
Subjective/Interval History
-
Date of Service: July 03, 2024
No acute events overnight
Objective Data
-
Labs:
Laboratory Results
07/03/24 07/03/24 07/03/24
02:16 04:46 08:26
WBC 7.1
Hgb 8.4 L
Hct 25.7 L
Plt Count 302
PT 20.9 H
INR 1.78
APTT 58.1 H 75.0 H
Sodium 135
Potassium 3.9
Chloride 103
Carbon Dioxide 26
BUN 34 H
Creatinine 0.8
Glucose 106 H
Calcium 7.7 L
07/03/24
14:30
WBC
Hgb
Hct
Plt Count
PT
INR
APTT Pending
Sodium
Potassium
Chloride
Carbon Dioxide
BUN
Creatinine
Glucose
Calcium
Vital Signs:
Vital Signs
Temp Pulse Resp BP Pulse Ox
97.9 F 73 16 110/44 96
07/03/24 07:03 07/03/24 12:49 07/03/24 12:25 07/03/24 12:49 07/03/24 07:36
I&O
07/02/24 07/03/24 07/04/24
06:59 06:59 06:59
Intake Total 1070 / 1070 600 / 600
Output Total 1300 / 1300
Balance -230 / -230 600 / 600
Review of Systems
-
History Source: Patient
All other systems: Not reviewed unless documented
Physical Exam
-
General: No Apparent Distress
HEENT: Moist Mucous Membranes and PERRLA
Respiratory: Clear to Auscultation
Cardiac: Regular Rhythm and S1/S2; Negative Murmur, Rub or JVD
GI: Soft, Nontender, Nondistended and Normal Bowel Sounds
Musculoskeletal: No Clubbing, No Cyanosis and No Edema
Neuro: Awake, Alert, Oriented, No Motor Deficits and Nonfocal/Grossly Intact
Data Reviewed
-
Diagnostic Radiology: Report Reviewed by me
Labs: Labs Reviewed by me
[2024-07-03] MEDS: COUMADIN 2 MG PO (17:36)
[2024-07-03] MEDS: MIRALAX PO (20:45)
[2024-07-03 23:50] LABS: APTT 187.5 Sec (23.4-35.0)
[2024-07-04] MEDS: HEPARIN 25000 UNITS/250 ML IV (05:16)
[2024-07-04] MEDS: SYNTHROID 88 MCG PO (05:33)
[2024-07-04 06:00] VITALS: BMI 29.0
[2024-07-04 06:22] LABS: % Basophils 0.8 % (0-2); % Eosinophils 4.6 % (0-6); % Immature Granulocytes 2.9 % (0-0.5); % Lymphocytes 9.3 % (20.5-51.1); % Monocytes 15.3 % (1.7-9.3); % Neutrophils 67.1 % (42.2-75.2); Absolute Basophils 0.1 10^3/uL (0-0.2); Absolute Eosinophils 0.3 10^3/uL (0-0.7); Absolute Immature Granulocytes 0.2 10^3/uL (0-0.05); Absolute Lymphocytes 0.6 10^3/uL (1.2-3.4); Absolute Neutrophils 4.4 10^3/uL (1.4-6.5); Hematocrit 26.1 % (37.0-47.0); Hemoglobin 8.5 g/dL (12.0-16.0); Mean Corp Hgb Conc. 32.6 g/dL (33.0-37.0); Mean Corpuscular Hgb 32.1 pg (27.0-31.0); Mean Corpuscular Volume 98.5 fL (81.0-99.0); Mean Platelet Volume 9.8 fL (7.4-10.4); Nucleated Red Blood Cells % 0 %; Platelet Count 333 10^3/uL (130-400); Red Blood Cell Count 2.65 10^6/uL (4.20-5.40); White Blood Cell Count 6.5 10^3/uL (4.8-10.8)
[2024-07-04 06:31] LABS: INR 2.02
[2024-07-04 06:48] LABS: Blood Urea Nitrogen 40 mg/dl (7-17); Calcium 8.1 mg/dl (8.4-10.2); Carbon Dioxide 28 mmol/L (22-30); Chloride 104 mmol/L (98-107); Estimated Creatinine Clearance 48 ml/min; Glucose 100 mg/dl (70-99); Potassium 4.3 mmol/L (3.5-5.1); Sodium 138 mmol/L (135-145); eGFR > 60.00
[2024-07-04 08:00] VITALS: BP 114/45
[2024-07-04] MEDS: FLOVENT 44 MCG INHALER 2 PUFF INH (08:01)
[2024-07-04] MEDS: MIRALAX PO (09:13)
[2024-07-04] MEDS: COLACE PO (09:13)
[2024-07-04] MEDS: COLCHICINE 0.6 MG PO (09:14)
[2024-07-04] MEDS: VITAMIN D3 (cholecalciferol) 50 MCG PO (09:14)
[2024-07-04] MEDS: OSCAL CAL 500 500 MG PO (09:14)
[2024-07-04] MEDS: COREG 3.125 MG PO (09:15)
[2024-07-04] MEDS: EFFEXOR 75 MG PO (09:15)
[2024-07-04] MEDS: PROTONIX 40 MG PO (09:15)
--- NOTE | 2024-07-04 09:57 | W.PN.CARDCBS ---
Addendum entered and electronically signed by Tank Sibley MD 07/04/24 10:15:
I saw and examined the patient.
The INDUSTRIAL CLEANING TECHNICIAN or PA's note was reviewed and I agree with the note.
Comment: General: Well developed, well nourished in NAD.
Neck: Supple, no JVD, HJR, carotids +2 B/L, no bruits bilaterally.
Heart: Non displaced PMI, irregular, 3/6 apical systolic murmur, No S3, S4, no rubs.
Lungs: Scattered rhonchi
Extremities: No clubbing, cyanosis or edema bilaterally.
Neuro: Grossly nonfocal, awake, alert and oriented x3
INR 2.0. Continue IV heparin while hospitalized her INR is greater than 2.5. Stable cardiology for discharge to rehab with INR of 2.0. Will resume torsemide with weight increasing. Continue to hold metolazone and spironolactone.
Original Note:
Today's Communication / Plan
-
stop IV heparin. continue coumadin. goal INR 2.5-3
consider resuming torsemide
will arrange OP cardiac follow up
ambulate
Impression / Plan
-
Primary Food Demonstrator: Dr. RAFAEL Dave
Assessment:
Presentation with LLE pain and swelling
ER visit with arthrocentesis 06/16/24
Recurrent suspected spontaneous LLE hematoma
Supratherapeutic INR
Acute anemia
CORI
Elevated LFTs
Mild tricuspid stenosis/severe tricuspid regurgitation s/p #33 Epic TV replacement via right heart port thoracotomy at [facility] 01/28/22
Saint Arturo mechanical mitral valve
Chronic warfarin OAC, managed by [facility] coumadin clinic, has home monitor
Chronic HFpEF
Mild aortic stenosis
Pulmonary hypertension
Anemia
Permanent atrial fibrillation/atrial tachycardia with history of ablation 2011
Sinus syndrome status post Medtronic pacemaker
History of PE and IVC filter
Abdominal Wall Hematoma s/p Abdominal wall exploratory surgery for abdominal abscess and gallstone 07/2021
Restrictive lung disease
Obstructive sleep apnea on CPAP
Lymphedema/venous insufficiency/varicose veins
History of rheumatic heart disease
ECHO 12/09/23: EF 50 to 55%, apical, inferoapical, mid and apical anterior, mid and apical septal, apical lateral hypokinesis, mechanical [place]uro MVR with peak/mean gradients 18/6 mmHg, mild MR, dilated LA, moderate to severe with peak/mean
gradients 30/21 mmHg, YOLANDA 0.9 cm�, mild AR, RVH with RV hypokinesis, dilated LA, bioprosthetic tricuspid valve with moderate TR, peak and mean gradients 13/8 mmHg, PAP 50 to 55 mmHg
Plan:
- She presented with left lower extremity hematoma in the setting of supratherapeutic INR. She required 6 units PRBCs for acute anemia and underwent arterial embolization and iRad 06/28/2024.
- Given mechanical MVR she is being bridged with IV heparin to Coumadin. INR 2 today. Can stop IV heparin. Goal INR 2.5-3. Hemoglobin stable
- Outpatient torsemide, metolazone, spironolactone remain on hold due to hypotension. Weights uptrending if accurate. Would consider resuming torsemide within 24 hours
- Continue outpatient Coreg, digoxin. has permanent afib with paced rhythm.
- encouraged OOB
- will arrange OP cardiac follow up
- d/w nursing
Progress Note - Food Demonstrator
Subjective
Date of Service: July 04, 2024
complains of diarrhea and fatigue.
Objective
Labs:
07/04/24 05:57
07/04/24 05:57
Labs
Hgb 8.5 g/dL (12.0-16.0) L 07/04/24 05:57
Hct 26.1 % (37.0-47.0) L 07/04/24 05:57
Plt Count 333 10^3/uL (130-400) 07/04/24 05:57
PT 23.0 Sec (11.4-14.6) H 07/04/24 05:57
INR 2.02 07/04/24 05:57
APTT Cancelled 07/04/24 12:45
Sodium 138 mmol/L (135-145) 07/04/24 05:57
Potassium 4.3 mmol/L (3.5-5.1) 07/04/24 05:57
BUN 40 mg/dl (7-17) H 07/04/24 05:57
Creatinine 0.8 mg/dL (0.6-1.0) 07/04/24 05:57
Glucose 100 mg/dl (70-99) H 07/04/24 05:57
Digoxin 0.7 ng/ml (0.8-2.0) L 06/29/24 03:56
Vital Signs and I&O:
Vital Signs
Temp Pulse Resp BP Pulse Ox
98.1 F 73 16 114/45 95
07/04/24 08:00 07/04/24 08:04 07/04/24 08:04 07/04/24 08:00 07/04/24 08:04
Vital Signs
Temp Pulse Resp BP Pulse Ox
98.1 F 73 16 114/45 95
07/04/24 08:00 07/04/24 08:04 07/04/24 08:04 07/04/24 08:00 07/04/24 08:04
Intake & Output
07/02/24 07/03/24 07/04/24 07/05/24
07:59 07:59 07:59 07:59
Intake Total 1062 / 1062 600 / 600 240 / 240
Output Total 1300 / 1300
Balance -238 / -238 600 / 600 240 / 240
Physical Exam
Physical Exam
GEN: No distress, awake, alert, oriented x3
HEENT: supple, anicteric, mmm, eomi
LUNGS: CTA B/L, no wheezes
CV: Irreg, S1/S2, 3/6 syst LSB
ABD: soft, BS+, NT/ND
EXT: No cyanosis, clubbing. 2+ edema and ecchymoses of LLE, less tight than last week. dressing in place
NEURO: Gross non-focal
SKIN: Warm, pink, dry. No rash.
--- NOTE | 2024-07-04 12:22 | W.PN.HOSP.TC ---
Addendum entered and electronically signed by Christopher Bryant MD 07/05/24 15:50:
[id number]
Original Note:
Today's Communication/Plan
-
DC ready
DC hep ggt
Cont Coumadin, goal INR 2.5-3
Resume torsemide, hold metolazone and aldactone
F/u BMP in 1 week with pcp
F/u Cardiology, Ortho, PCP outpatient
Assessment / Plan
Assessment / Plan
Gen-AAOx3, NAD
HEENT-NC, AT, anicteric, clear oral mm
Neck-supple
CV-reg, systolic murmur, +S1/S2
Lungs-clear B/L
Abd-soft, NT, ND
Ext-diffuse left lateral leg hematoma extending from lower leg to mid thigh. Dressing intact.
Musculoskeletal-no cyanosis, clubbing
Skin-warm and dry
Neuro-grossly non-focal
Psych-calm, cooperative
Hemorrhagic shock -due to large left leg, knee hematoma. Transferred to ICU June 28. Hemodynamically improved. Off Levophed. Discussed with nursing.
Acute blood loss anemia -due to large left knee/leg hematoma. Has extensive varicose veins of the left leg. 7 units of blood transfused so far. Monitor; Hast transfusion 07/01
Spontaneous Left Knee hemarthrosis -due to anticoagulation with warfarin, supratherapeutic INR since June 14. Admitted to the hospital June 22. She has a home INR monitor but was only checking it once per week.
Status post therapeutic arthrocentesis, recurrent effusion
� No evidence of fracture, moderate joint effusion, slightly decreased in size from prior neck�spoke to orthopedics, conservative management at this time
-Previous CT of the knee done in April 2024 was negative for fracture.
-Underwent left lower extremity arteriogram by IR 06/28 demonstrating hyperemia within the lateral compartment of the left knee.
-Superselective arteriogram of the multiple branches of the lateral geniculate artery performed, demonstrated hyperemia within the lateral compartment. Both the superior and inferior lateral lingular branches were embolized. After repeat
arteriogram there was significantly improved hyperemia within the lateral compartment.
-Symptomatically patient feels better today, less pain. Continue Uriah wraps for comfort. Immobilizer removed.
Saint Arturo mechanical mitral valve/porcine tricuspid valve replacement
Supratherapeutic INR on admission.
- INR goal 2.5-3.0 - Confirmed with Cardiology, follows with Dr. Dave cardiology.
Received 2.5 mg of oral vitamin K 06/27.
-Started IV heparin and warfarin June 29. warfarin 2 mg so far. Would continue warfarin 2 mg nightly for now given recent administration of vitamin K. Goal INR 2.5-3. Stop hep ggt
CORI -suspect multifactorial etiology including acute anemia, Lasix use, etc. resume torsemide with weight increasing. Metolazone and Spironolactone on hold. She takes torsemide, metolazone, spironolactone at home. Creatinine improved to 1.1.
Elevated liver enzymes -elevated GGT, LDH noted. Patient states she has a history of fatty liver disease. I recommend outpatient follow-up.
Elevated total bilirubin noted, 2.9. Direct bilirubin ordered. Bilirubin and transaminases were normal in early June.
Liver ultrasound shows normal echogenicity with no focal hepatic lesion, prior cholecystectomy, no evidence of biliary ductal dilation, 3.8 cm cyst in the lower pole of the left kidney.
Improving - F/u outpt
Constipation -continue bowel regimen. Last 06/30.
Chronic heart failure with preserved EF -no evidence of acute exacerbation. resume torsemide; hold metolazone, spironolactone. f/u bmp outpt
Permanent atrial fibrillation/atrial tachycardia
with history of ablation 2011
Restrictive lung disease
- continue Albuterol and Ellipta
Hypothyroidism
- continue levothyroxine
Gout
Entry Level Buyer recently stopped Allopurinol
- continue colchicine
Obstructive sleep apnea -on CPAP
Full code
Dispo -DC to SNF; Ready for DC; Goal is INR over 2.5 -3
Anticipated Discharge: Within 24 hours
Subjective/Interval History
-
Date of Service: July 04, 2024
Objective Data
-
Labs:
Laboratory Results
07/04/24 07/04/24
05:57 12:45
WBC 6.5
Hgb 8.5 L
Hct 26.1 L
Plt Count 333
PT 23.0 H
INR 2.02
APTT 67.0 H Cancelled
Sodium 138
Potassium 4.3
Chloride 104
Carbon Dioxide 28
BUN 40 H
Creatinine 0.8
Glucose 100 H
Calcium 8.1 L
Vital Signs:
Vital Signs
Temp Pulse Resp BP Pulse Ox
98.1 F 73 16 114/45 95
07/04/24 08:00 07/04/24 08:04 07/04/24 08:04 07/04/24 08:00 07/04/24 08:04
I&O
07/03/24 07/04/24 07/05/24
06:59 06:59 06:59
Intake Total 600 / 600 240 / 240
Balance 600 / 600 240 / 240
Review of Systems
-
History Source: Patient
All other systems: Not reviewed unless documented
Physical Exam
-
General: No Apparent Distress
HEENT: Moist Mucous Membranes and PERRLA
Respiratory: Clear to Auscultation
Cardiac: Regular Rhythm and S1/S2; Negative Murmur, Rub or JVD
GI: Soft, Nontender, Nondistended and Normal Bowel Sounds
Musculoskeletal: No Clubbing, No Cyanosis and No Edema
Neuro: Awake, Alert, Oriented, No Motor Deficits and Nonfocal/Grossly Intact
--- NOTE | 2024-07-04 12:37 | CM ---
Addendum entered by Chelsi Medina RN 07/04/24 13:04:
IBC Auth
[id number]
NRD 07/09
Call review to [phone]
Original Note:
Patient is ready for discharge.
Cristin Benitez
Report
[phone]

CM will call for authorization.
[2024-07-04] MEDS: DEMADEX 20 MG PO (12:52)
--- NOTE | 2024-07-04 13:22 | W.DS.TRANS ---
DC Summary - Manager Terminal
-
Discharge Instructions:
Discharge Diagnosis/Procedures
Hemorrhagic shock
Acute blood loss anemia -due to large left knee/
leg hematoma.
Spontaneous Left Knee hemarthrosis
Status post therapeutic arthrocentesis,
recurrent effusion
Supratherapeutic INR on admission.
CORI
Diet Low Fat,Low Cholesterol,Restrict fluids to 48 oz
,2 Gram Sodium
Blood Work f/u cbc and cmp in 3-5 days; F/u INR closely;
INR Goal 2.5-3; F/u LFTs outpatient
Instructions:
Stand-Alone Forms:
Changes to Home Medications: Yes
Discharge Medications:
DC Medications w/original date entered in [employer]
levothyroxine 88 mcg tablet 88 mcg PO DAILY Thyroid 05/18/12
digoxin 125 mcg (0.125 mg) tablet 0.125 mg PO SUTUTHSA@1200 Heart Failure 07/05/14
albuterol sulfate 90 mcg/actuation aerosol inhaler (Ventolin HFA) 2 puff inhalation R Q6HPRN PRN SOB 08/09/16
omeprazole 40 mg capsule,delayed release 40 mg PO DAILY Gastrointestinal issue 02/17/18
fluticasone furoate 100 mcg/actuation blister powder for inhalation (Arnuity Ellipta) 1 inh inhalation R DAILY Lung/breathing issues 04/13/19
calcium carbonate (Calcium 600) 600 mg PO DAILY Supplement 02/11/22
cholecalciferol (vitamin D3) 50 mcg (2,000 unit) tablet 50 mcg PO DAILY Supplement 02/11/22
colchicine 0.6 mg tablet 0.6 mg PO DAILY Gout 02/11/22
warfarin 1 mg tablet 2 mg PO QPM Blood clot prevention/tx 04/12/22
torsemide 20 mg tablet 20 mg PO DAILY Heart Failure #0 tabs 04/15/22
carvedilol 3.125 mg tablet 3.125 mg PO DAILY Blood Pressure 06/22/24
famotidine 40 mg tablet 40 mg PO DAILY Gastrointestinal Issue 06/22/24
venlafaxine 75 mg tablet 75 mg PO DAILY depression/anxiety 06/22/24
Home Medication Changes
Hold metolazone, aldactone
Pending Results: No
[2024-07-04 15:20] VITALS: BP 121/55
--- NOTE | 2024-07-05 07:47 | PTCARENOTE ---
documenting end of transfusion [id number] from 06/28/24 in [facility] to reconcile with documentation completed on Unit Issue/Transfusion form.
== END 2024-07-04 16:15 | DRG 981 ==
LOC: 2 SOUTH 08:27
PROVIDERS: Hospitalist; Nurse Practitioner Family; Radiology Vascular & Interventional Radiology; ADMITTING PHYSICIAN Internal Medicine; CONSULT PHYSICIAN Internal Medicine Cardiovascular Disease; CONSULT PHYSICIAN Orthopaedic Surgery; EMERGENCY PHYSICIAN Emergency Medicine; FAMILY PHYSICIAN Hospitalist; OTHER PHYSICIAN Internal Medicine Critical Care Medicine
PROC: 5A09357 Assistance with Respiratory Ventilation, Less than 24 Consecutive Hours, Continuous Positive Airway Pressure (ICD-10-PCS; 2024-06-22)
PROC: 30233N1 Transfusion of Nonautologous Red Blood Cells into Peripheral Vein, Percutaneous Approach (ICD-10-PCS; 2024-06-26)
PROC: 04LL3DZ Occlusion of Left Femoral Artery with Intraluminal Device, Percutaneous Approach (ICD-10-PCS; 2024-06-28)
PROC: B41G1ZZ Fluoroscopy of Left Lower Extremity Arteries using Low Osmolar Contrast (ICD-10-PCS; 2024-06-28)
DX: M25.062 Hemarthrosis, left knee (principal); R57.8 Other shock; D62 Acute posthemorrhagic anemia; I48.21 Permanent atrial fibrillation; N17.9 Acute kidney failure, unspecified; I50.32 Chronic diastolic (congestive) heart failure; D68.32 Hemorrhagic disorder due to extrinsic circulating anticoagulants; E03.9 Hypothyroidism, unspecified; F32.A Depression, unspecified; G47.33 Obstructive sleep apnea (adult) (pediatric); K21.9 Gastro-esophageal reflux disease without esophagitis; J45.20 Mild intermittent asthma, uncomplicated; I27.22 Pulmonary hypertension due to left heart disease; J98.4 Other disorders of lung; I89.0 Lymphedema, not elsewhere classified; R74.8 Abnormal levels of other serum enzymes; I83.892 Varicose veins of left lower extremity with other complications; K76.0 Fatty (change of) liver, not elsewhere classified; I87.2 Venous insufficiency (chronic) (peripheral); M10.9 Gout, unspecified; D64.89 Other specified anemias; K59.00 Constipation, unspecified; S80.02XA Contusion of left knee, initial encounter; X58.XXXA Exposure to other specified factors, initial encounter; Y93.9 Activity, unspecified; Y92.9 Unspecified place or not applicable; Z79.01 Long term (current) use of anticoagulants; Z95.0 Presence of cardiac pacemaker; Z95.828 Presence of other vascular implants and grafts; Z90.49 Acquired absence of other specified parts of digestive tract; Z86.711 Personal history of pulmonary embolism; Z87.01 Personal history of pneumonia (recurrent); Z87.442 Personal history of urinary calculi; Z86.79 Personal history of other diseases of the circulatory system; Z79.890 Hormone replacement therapy; Z79.51 Long term (current) use of inhaled steroids; Z79.82 Long term (current) use of aspirin; Z88.8 Allergy status to other drugs, medicaments and biological substances; Z91.048 Other nonmedicinal substance allergy status; Z95.3 Presence of xenogenic heart valve; Z91.81 History of falling; Z86.14 Personal history of Methicillin resistant Staphylococcus aureus infection; Z83.3 Family history of diabetes mellitus; Z82.49 Family history of ischemic heart disease and other diseases of the circulatory system; Z82.3 Family history of stroke
CPT/HCPCS: 29505; 36245; 37244; 71045; 73560; 75710; 76700; 76937; 80048; 80053; 80076; 80162; 81003; 81015; 82248; 82570; 82962; 82977; 83036; 83615; 83735; 84100; 84300; 85014; 85018; 85025; 85027; 85610; 85730; 86850; 86870; 86900; 86901; 86902; 86920; 86922; 93005; 93971; 94640; 94660; 97116; 97166; 97530; 97535; 99284; C1769; P9016

== ENCOUNTER → 2024-07-09 10:37 | Outpatient (REF) | payer OTHER, SELFPAY ==
[2024-07-09 12:41] LABS: % Basophils 0.7 % (0-2); % Eosinophils 4.4 % (0-6); % Immature Granulocytes 0.9 % (0-0.5); % Lymphocytes 10.8 % (20.5-51.1); % Monocytes 12.2 % (1.7-9.3); Absolute Eosinophils 0.3 10^3/uL (0-0.7); Absolute Immature Granulocytes 0.1 10^3/uL (0-0.05); Absolute Lymphocytes 0.6 10^3/uL (1.2-3.4); Absolute Monocytes 0.7 10^3/uL (0.1-0.6); Hematocrit 28.3 % (37.0-47.0); Hemoglobin 8.8 g/dL (12.0-16.0); Mean Corp Hgb Conc. 31.1 g/dL (33.0-37.0); Mean Corpuscular Volume 102.9 fL (81.0-99.0); Mean Platelet Volume 9.9 fL (7.4-10.4); Nucleated Red Blood Cells % 0 %; Platelet Count 322 10^3/uL (130-400); Red Blood Cell Count 2.75 10^6/uL (4.20-5.40); Red Cell Dist. Width 16.3 % (11.5-14.5); White Blood Cell Count 5.7 10^3/uL (4.8-10.8)
[2024-07-09 13:03] LABS: ALT (SGPT) 16 U/L (0-35); AST (SGOT) 26 U/L (14-36); Alkaline Phosphatase 126 U/L (38-126); Blood Urea Nitrogen 23 mg/dl (7-17); Calcium 8.1 mg/dl (8.4-10.2); Carbon Dioxide 30 mmol/L (22-30); Chloride 104 mmol/L (98-107); Direct Bilirubin 0.5 mg/dl (0.0-0.4); Glucose 86 mg/dl (70-99); Potassium 4.2 mmol/L (3.5-5.1); Sodium 140 mmol/L (135-145); Total Bilirubin 1.9 mg/dl (0.2-1.3); Total Protein 5.6 g/dl (6.3-8.2); eGFR > 60.00
== END ==
LOC: OLABN 10:37
PROVIDERS: ATTENDING PHYSICIAN Student in an Organized Health Care Education/Training Program
DX: D64.9 Anemia, unspecified (principal); I50.9 Heart failure, unspecified
CPT/HCPCS: 36415; 80053; 82248; 85025

== ENCOUNTER → 2024-07-13 10:42 | Outpatient (REF) | payer OTHER, SELFPAY ==
[2024-07-13 11:32] LABS: % Basophils 0.6 % (0-2); % Eosinophils 1.2 % (0-6); % Immature Granulocytes 0.6 % (0-0.5); % Lymphocytes 4.5 % (20.5-51.1); % Monocytes 9.9 % (1.7-9.3); % Neutrophils 83.2 % (42.2-75.2); Absolute Eosinophils 0.1 10^3/uL (0-0.7); Absolute Lymphocytes 0.3 10^3/uL (1.2-3.4); Absolute Monocytes 0.7 10^3/uL (0.1-0.6); Absolute Neutrophils 5.6 10^3/uL (1.4-6.5); Hematocrit 27.3 % (37.0-47.0); Hemoglobin 8.5 g/dL (12.0-16.0); Mean Corp Hgb Conc. 31.1 g/dL (33.0-37.0); Mean Corpuscular Hgb 32.1 pg (27.0-31.0); Mean Platelet Volume 9.9 fL (7.4-10.4); Nucleated Red Blood Cells % 0 %; Platelet Count 247 10^3/uL (130-400); Red Blood Cell Count 2.65 10^6/uL (4.20-5.40); Red Cell Dist. Width 17.6 % (11.5-14.5); White Blood Cell Count 6.7 10^3/uL (4.8-10.8)
== END ==
LOC: OLABN 10:42
PROVIDERS: ATTENDING PHYSICIAN Student in an Organized Health Care Education/Training Program
DX: D64.9 Anemia, unspecified (principal)
CPT/HCPCS: 36415; 85025

== ENCOUNTER → 2024-07-13 12:43 | Outpatient (REF) | payer OTHER, SELFPAY | LOC: WOUND 12:43 | PROVIDERS: ATTENDING PHYSICIAN Surgery; FAMILY PHYSICIAN Hospitalist | DX: L97.129 Non-pressure chronic ulcer of left thigh with unspecified severity (principal); I50.22 Chronic systolic (congestive) heart failure; I49.5 Sick sinus syndrome; I48.0 Paroxysmal atrial fibrillation; S70.12XA Contusion of left thigh, initial encounter; Z79.01 Long term (current) use of anticoagulants; Z95.2 Presence of prosthetic heart valve; Z95.828 Presence of other vascular implants and grafts; Z95.3 Presence of xenogenic heart valve; X58.XXXA Exposure to other specified factors, initial encounter | CPT/HCPCS: 99205 ==

== ENCOUNTER 2024-07-13 17:53 | Inpatient (IN) | payer OTHER, SELFPAY ==
[2024-07-13 13:33] VITALS: BP 100/48
--- NOTE | 2024-07-13 16:09 | ED.GENMED ---
History of Present Illness
General
Chief Complaint: Skin Problem
Source: patient and records
Exam Limitations: none
Time Seen by Provider: 07/13/24 15:40
History of Present Illness
History of Present Illness:
78yoF with a history of mechanical heart valve on Coumadin, CHF, and atrial fibrillation presenting from the wound care clinic for further care of a left leg hematoma. Patient was recently hospitalized for a hemarthrosis of the L knee and a L thigh
hematoma. She underwent arteriogram during her hospitalization and had an embolization performed. She was discharged on 07/04/24 and has been at [facility]. She reports intermittent bleeding from the hematoma since being discharged. She went
to the wound care office today and was sent to the ED for admission and surgical debridement.
Past History
Past History
ED Past Medical History: Arrthythmia (Atrial fib), Asthma, CHF, GERD, Seizures, Valvular disease, Hypothyroidism, Psychiatric (Depression) and Other (Migraines, pulmonary embolism, sleep apnea, PNA, Pul Hypertension, rheumatic heart disease,
H-pylori, renal calculus)
ED Past Surgical History: Cardiac (Pacemaker, Tricuspid and mitral replaced, Ablation for SVT), Cholecystectomy and Other (Abdominal wall abscess, IVC filter)
Social History
Tobacco: Non-smoker
Alcohol: None
Drug: None
Personal:
Living: alone
Employment: Retired
Family History
Family History: Other
Phy Exam
General Physical Exam
General Presentation: well appearing and no apparent distress
General age: appears stated age
General Skin: warm and dry
General Habitus: normal
General Mental: alert
ENT Exam
ENT Exam: normocephalic
Pulmonary Exam
Pulmonary Exam: no respiratory distress
Neurological Exam
Neurological Exam: alert
Jessica Coma Scale
Eye Opening: Spontaneous
Verbal Response: Oriented
Motor Response: Obeys Commands
GCS Total Score: 15
Musculoskeletal Exam
Musculoskeletal Exam: other (Large wound noted to the lateral aspect of the L thigh. Small amount of bloody drainage on dressing. No active bleeding noted. Compartment soft. Scattered areas of ecchymosis to L leg.)
Psychiatric Exam
Psychiatric Exam: normal mood/affect
Course
Orders/Labs/Results
Orders:
Orders
07/13/24 Breakfast
Cholesterol Lowering
At Your Request: Full Participation
Cholesterol Lowering: Sodium, 2 Gram
07/13/24 16:42
Prothrombin Time Urgent
07/13/24 17:02
EKG [Electrocardiogram (*1)] Stat
Reason for Study: Atrial Fibrillation
07/13/24 17:10
Admit/Transfer Patient As Directed
Co-Sign Provider:
Level of Care: Inpatient admission
Assign to:: Telemetry
Physician / Group: saeed
Diagnosis: ehmarhtrosis
Reason for Telemetry: Arrhythmia
Date to Stop Telemetry: 07/16/24
Time to Stop Telemetry: 11:00
Reason for Hospitalization: hemarthrosis
Expected length of stay greater than two midnights?: Yes
ELOS- Estimated Length of Stay in days: 3
I certify the patient meets the requirements for IP care: Yes
PRN Pain Medication Management As Directed
May give lesser potent ordered pain med per pt: Yes
preference::
Protocol:: Medication orders for pain may be administered in a
manner that supports deferring to patient preference
when the pt is:
- Requesting an ordered lesser potent pain medication.
Least to most potent pain medications are defined
as: acetaminophen < NSAID < tramadol < opioids
(morphine, oxycodone, hydromorphone).
- Requesting a lesser dose of the same medication IF
ORDERED.
- Requesting a less intrusive route of administration
if both routes are prescribed by the provider (PO <
IV).
05/02/25 17:12
Code Status As Directed
Resuscitation Status: Full Code
07/13/24 17:19
COVID-19 Antigen Stat
Source: Nasal Swab
Influenza A+B Rapid Molecular Stat
PEGGY Source: Nasal Swab
Specimen Description:
07/13/24 19:29
Acetaminophen [Tylenol/Feverall] 650 mg RECTAL Q4HPRN PRN
Acetaminophen [Tylenol] 650 mg PO Q4HPRN PRN
Albuterol [ProAIR HFA INHALER] 2 puff INH R Q6HPRN PRN
CeFAZolin 2 GRAM [Ancef] 2 grams in 10 ml IV NOW
Magnesium Hydroxide [Milk of Magnesia] DOSE ml PO HSPRN PRN
07/13/24 19:29
SURGICAL CONSULT Routine
Consulting Provider: Herbert King
Was physician already notified: Yes
WOUND/OSTOMY CONSULT Routine
Reason for Consult: left knee wound
Activity As Directed
Activity Level: Out of Bed-Early Mobility
Intake/ Output As Directed
Frequency: Per unit guidelines
Pneumatic Compression Sleeves As Directed
Type: Thigh high
Vital Signs As Directed
Frequency: Per unit guidelines
Cpap [RESP] Routine
Patient to use own unit?: No
Set Pressure (cm H2O): 12
Ot Eval And Treat Routine
Pt Eval And Treat Routine
Activity Level: As Tolerated
DX Deep Vein Thrombosis Video Routine
07/14/24 04:00
CeFAZolin 2 GRAM [Ancef] 2 grams in 10 ml IV Q8H
07/14/24 06:00
Basic Metabolic Panel IN AM
Complete Blood Count/No Diff IN AM
CR Chest - 2 Views Routine
Comment:
Reason For Exam: sob
07/14/24 08:00
Carvedilol [Coreg] 3.125 mg PO DAILY
Cholecalciferol (Vitamin D3) [VITAMIN D3 (cholecalciferol)] 50 mcg PO DAILY
Colchicine 0.6 mg PO DAILY
Famotidine [Pepcid] 40 mg PO DAILY
Levothyroxine [Synthroid] 88 mcg PO DAILY
Torsemide [Demadex] 20 mg PO DAILY
Venlafaxine Extended Release [Effexor Xr] 75 mg PO DAILY
calcium carbonate [Calcium 600] 600 mg PO DAILY
fluticasone furoate [Arnuity Ellipta] 1 inh INH R DAILY
omeprazole 40 mg PO DAILY
07/14/24 12:00
Digoxin [Lanoxin] DOSE mcg PO SUTUTHSA@1200
07/15/24 06:00
Basic Metabolic Panel IN AM
Complete Blood Count/No Diff IN AM
07/16/24 06:00
Basic Metabolic Panel IN AM
Complete Blood Count/No Diff IN AM
07/16/24 11:00
DC Protocol for Telemetry ONCE
Abnormal Lab Results
07/13/24 07/13/24
16:42 17:19
PT 18.2 H Sec
(11.4-14.6)
SARS-CoV-2 Antigen Positive A
(Negative)
Vital Signs
Initial and Last Documented VS:
Initial Vital Signs
Temp Pulse Resp BP Pulse Ox
98.7 F 73 18 100/48 94
07/13/24 13:33 07/13/24 13:33 07/13/24 13:33 07/13/24 13:33 07/13/24 13:33
Last Documented Vital Signs
Temp Pulse Resp BP Pulse Ox
99.3 F 70 18 111/32 92
07/13/24 18:40 07/13/24 19:15 07/13/24 13:33 07/13/24 19:00 07/13/24 19:15
MDM/Problems Addressed
Differential Diagnosis Includes:
78yoF presenting from the wound care clinic for a L thigh wound from a recent hematoma. Sent in for surgical debridement. VSS. Large wound noted to L lateral thigh on exam. No active bleeding or signs of infection. Differential diagnosis includes:
nonhealing wound, hematoma
Patient had outpatient labs done this morning which were reviewed. Hemoglobin 8.5 which is stable from prior labs. INR ordered and patient admitted for further management.
*Critical Care Note
Total Time (30-74mins, 75-104mins- exclusive of procedures): Not Applicable
ED Attending Note
-
Portions of this chart may have been created with voice recognition software.� Occasional wrong word or��sound alike� substitutions may have occurred due to the inherent limitations of voice recognition software.
Discharge Plan
Departure
Patient Disposition: Admit
Date of Disposition: 07/13/24
Time of Disposition: 16:16
Presentation/result/management discussed w/ accepting MD/DO: Hospitalist
Discharge Problem:
Hematoma of left thigh
Interventions
Interventions:
*Risk Screen - Suicide Last Done: 07/13/24 13:33
*General Assessment Last Done: 07/13/24 13:33
*Neglect/Abuse Screening Last Done: 07/13/24 13:33
*ED- Fall Risk Assessment Last Done: 07/13/24 16:30
*ED COVID-19 Vaccine History Last Done: 07/13/24 16:30
*Nursing Disposition Last Done: 07/13/24 19:24
ED-Skin Assessment Last Done: 07/13/24 16:30
Discharge Date and Time
Discharge Date/Time: 07/13/24 19:24
--- NOTE | 2024-07-13 16:34 | HPS.HSE ---
Addendum entered and electronically signed by JIMENA Falk 07/13/24 19:02:
started on heparin drip.
Addendum entered and electronically signed by JIMENA Falk 07/13/24 18:30:
patient is COVID positive
continue to monitor
Original Note:
Family Physician
-
Family Physician: NOT KNOW UNKNOWN - PT DOES
Chief Complaint
-
left leg wound
History of Present Illness
78yoF with a history of mechanical heart valve on Coumadin, CHF, and atrial fibrillation, pulmonary hypertension, obstructive sleep apnea, gout, hypothyroidism, interstitial pulmonary disease depression, left knee effusion presenting from the wound
care clinic for further care of a left leg hematoma. Patient was recently hospitalized for a hemarthrosis of the L knee and a L thigh hematoma. She underwent arteriogram during her hospitalization and had an embolization performed. She was
discharged on 07/04/[address] [facility]. She reports intermittent bleeding from the hematoma since being discharged. She went to the wound care office today and was sent to the ED for admission and surgical debridement.
Patient stated nonproductive cough and chills since Tuesday. Patient complaining of headache patient denied dizzy or syncope. Patient denied fever. Patient denied abdominal pain, nausea, vomiting or diarrhea. Patient denied dysuria hematuria.
Medical History
Past Medical History
Past Medical History: Reports Other
Additional Past Medical History:
Hyperlipidemia low back pain, plantar fasciitis, asthma, GERD, colonic polyps, obstructive sleep apnea, pet[place] mall seizures, osteoporosis, pulmonary embolism, pulmonary hypertension, depression, gout, hypertension, hypothyroidism, diastolic heart
failure, sick sinus syndrome, emphysema, RASTA, colon calculus of gallbladder iron deficiency anemia bronchitis, rheumatic fever, Pseudomonas aeruginosa infection,
Past Surgical History: Reports Other
Additional Past Surgical History:
Tubularization, varicose vein stripping, mitral valve replacement, cataract surgery, pacemaker, cholecystectomy, gallstone removal, tricuspid valve cardiothoracic surgery,
Social History
Tobacco: Non-smoker
Alcohol: None
Drug: None
Living: Group Home
Family History
Family History: Not pertinent
Allergies / Home Medications
Allergies reflects when Allergies were last updated in [employer].
Home Medications with original date entered in [employer]
Allergy/Medication List:
Allergies
Allergy/AdvReac Type Severity Reaction Status Date / Time
adhesive Allergy redness Verified 07/13/24 13:32
and itching
amiodarone Allergy pulmonary Verified 07/13/24 13:32
issues
dofetilide Allergy SEE BELOW Verified 07/13/24 13:32
enoxaparin [From Lovenox] Allergy excessive Verified 07/13/24 13:32
bleeding
sotalol [Sotalol] Allergy dizziness Verified 07/13/24 13:32
Home Medications
levothyroxine 88 mcg tablet 88 mcg PO DAILY Thyroid 05/18/12
digoxin 125 mcg (0.125 mg) tablet 0.125 mg PO SUTUTHSA@1200 Heart Failure 07/05/14
albuterol sulfate 90 mcg/actuation aerosol inhaler (Ventolin HFA) 2 puff inhalation R Q6HPRN PRN SOB 08/09/16
omeprazole 40 mg capsule,delayed release 40 mg PO DAILY Gastrointestinal issue 02/17/18
fluticasone furoate 100 mcg/actuation blister powder for inhalation (Arnuity Ellipta) 1 inh inhalation R DAILY Lung/breathing issues 04/13/19
calcium carbonate (Calcium 600) 600 mg PO DAILY Supplement 02/11/22
cholecalciferol (vitamin D3) 50 mcg (2,000 unit) tablet 50 mcg PO DAILY Supplement 02/11/22
colchicine 0.6 mg tablet 0.6 mg PO DAILY Gout 02/11/22
torsemide 20 mg tablet 20 mg PO DAILY Heart Failure #0 tabs 04/15/22
carvedilol 3.125 mg tablet 3.125 mg PO DAILY Blood Pressure 06/22/24
famotidine 40 mg tablet 40 mg PO DAILY Gastrointestinal Issue 06/22/24
acetaminophen 325 mg tablet (Tylenol) 650 mg PO Q6HPRN PRN mild pain 07/13/24
bisacodyl 10 mg rectal suppository (Dulcolax (bisacodyl)) 10 mg TX [id number] PRN if no bm aftr mom 07/13/24
magnesium hydroxide 400 mg/5 mL oral suspension (Milk of Magnesia) 2,400 mg PO HSPRN PRN constipation 07/13/24
venlafaxine 75 mg capsule,extended release 24 hr (Effexor XR) 75 mg PO DAILY 07/13/24
Review of Systems
-
Constitutional: Reports No Symptoms
EENT: Reports No Symptoms
Respiratory: Reports No Symptoms
Cardiac: Reports No Symptoms
Abdomen/GI: Reports No Symptoms
: Reports No Symptoms
Musculoskeletal: Reports No Symptoms
Skin: Reports Other (Left leg wound with bloody drainage)
Neurological: Reports No Symptoms
Endocrine: Reports No Symptoms
Hematologic/Lymphatic: Reports No Symptoms
Psych: Reports No Symptoms
Physical Exam
Vital Signs
Vital Signs
Temp Pulse Resp BP Pulse Ox
98.7 F 73 18 100/48 94
07/13/24 13:33 07/13/24 13:33 07/13/24 13:33 07/13/24 13:33 07/13/24 13:33
Physical Exam
General: Well Developed, Well Nourished and No Apparent Distress
HEENT: NormoCephalic, Moist mucous membranes and Atraumatic
Respiratory: Clear
Cardiac: S1/S2 and Regular Rhythm; No Murmur or Rub
GI: Soft, Non Tender, Non Distended and Normal Bowel Sounds; No Organomegaly
Rectal: Deferred by Provider
Musculoskeletal: No Clubbing, No Cyanosis and No Edema
Skin: Rash and Other (Left lower extremity with blood drainage, swelling)
Neuro: AO x 3 and Nonfocal/grossly intact
Psych: Calm
Data Reviewed
-
Lab Data: Labs Reviewed by me
Impression/Plan
-
# left knee hemarthrosis and leg hematoma
- Underwent arteriogram and embolization
- Patient was evaluated by wound care today recommended debridement
-wound care consulted
-surgery consulted
-iv Ancef continued
# Cough/short of breath/headache likely viral
- Will obtain COVID, flu, chest x-ray
- Patient is oxygenating very well on room air
- Continue to monitor
# Anemia of chronic disease
# History of hemorrhagic shock due to large left knee hematoma
- Hemoglobin stable at 8.5
-Patient received total 7 units of blood previous admission due to acute blood loss anemia
- No active bleeding
- Continue to monitor
#[place] mechanical mitral valve/porcine tricuspid valve replacement
-hold Coumadin
#Chronic heart failure with preserved EF -no evidence of acute exacerbation
- Torsemide
- Strict OTONIEL, daily weight
# Depression/anxiety
-Effexor continued
#Permanent atrial fibrillation/atrial tachycardia
with history of ablation 2011
- Obtain EKG
- Coreg continued
- Digoxin continue
- Obtain dig level
# GERD
- Famotidine, omeprazole continued
#Restrictive lung disease
- continue Albuterol and Ellipta
#Hypothyroidism
- continue levothyroxine
#Gout
- continue colchicine
Obstructive sleep apnea -on CPAP
Full code
[2024-07-13 17:13] LABS: INR 1.48; PT 18.2 Sec (11.4-14.6)
[2024-07-13 17:54] LABS: COVID-19 Antigen Positive (Negative)
[2024-07-13 18:37] VITALS: BP 115/50
[2024-07-13 18:38] VITALS: BMI 30.1
[2024-07-13 19:00] VITALS: BP 111/32
--- NOTE | 2024-07-13 19:05 | W.PN.UPDATE ---
Update Note
Progress Note Update
This is an addendum to the H&P written by Mary Webb on 07/13/2024.� Patient seen and examined independently with [employer].
78-year-old female past medical history of [place] mechanical mitral valve/porcine tricuspid valve replacement, spontaneous left knee hemarthrosis, constipation, chronic HFpEF, permanent atrial fibrillation, restrictive lung disease,
hypothyroidism, gout, obstructive sleep apnea on CPAP, presenting from wound care for ongoing bloody drainage from posterior knee wound and consideration of surgical debridement.
Patient also with upper respiratory congestion and cough for the past day.
She was recently admitted from 06/25 to 07/04 for hemorrhagic shock and acute blood loss anemia secondary to left knee hematoma/hemarthrosis.� He underwent arteriogram and embolization of the knee.
Vital signs normal.� Hemoglobin stable at 8.5.
INR 1.48.�
Will hold Coumadin.� Start heparin drip due to patient's mechanical mitral valve.� Start empiric cefazolin although no clear signs of wound being infected..� General surgery consulted.� Wound care consulted.
Check COVID, influenza and chest x-ray due to respiratory symptoms.
--- NOTE | 2024-07-13 19:30 | PTCARENOTE ---
Patient arrived from ED via stetcher. Patient pulled over to bed. Patient aaox3 able to make needs known. IV flushed and patent.
[2024-07-13] MEDS: ANCEF 10 IV (19:43)
[2024-07-13 20:00] VITALS: BP 109/48; BMI 28.3
[2024-07-13 21:04] LABS: Hematocrit 28.2 % (37.0-47.0); Hemoglobin 9.2 g/dL (12.0-16.0); Mean Corp Hgb Conc. 32.6 g/dL (33.0-37.0); Mean Corpuscular Hgb 33.2 pg (27.0-31.0); Mean Corpuscular Volume 101.8 fL (81.0-99.0); Mean Platelet Volume 9.6 fL (7.4-10.4); Platelet Count 213 10^3/uL (130-400); Red Blood Cell Count 2.77 10^6/uL (4.20-5.40); Red Cell Dist. Width 17.3 % (11.5-14.5); White Blood Cell Count 4.9 10^3/uL (4.8-10.8)
[2024-07-13 21:12] LABS: APTT 43.8 Sec (23.4-35.0)
[2024-07-13] MEDS: HEPARIN 25000 UNITS/250 ML IV (21:22)
[2024-07-13 23:00] VITALS: BP 118/58
[2024-07-14] VITALS (17 sets, daily range): BP systolic 94–113; BP diastolic 35–48; PULSE 70; O2SAT 95; BMI 28.5
[2024-07-14] MEDS: ANCEF 10 IV ×2 (03:41→19:22)
[2024-07-14 04:17] LABS: Hematocrit 25.6 % (37.0-47.0); Hemoglobin 8.3 g/dL (12.0-16.0); Mean Corp Hgb Conc. 32.4 g/dL (33.0-37.0); Mean Corpuscular Hgb 33.2 pg (27.0-31.0); Mean Corpuscular Volume 102.4 fL (81.0-99.0); Mean Platelet Volume 9.7 fL (7.4-10.4); Platelet Count 201 10^3/uL (130-400); Red Cell Dist. Width 17.3 % (11.5-14.5); White Blood Cell Count 5.3 10^3/uL (4.8-10.8)
[2024-07-14 04:32] LABS: APTT 111.3 Sec (23.4-35.0)
[2024-07-14] MEDS: SYNTHROID 88 MCG PO (05:08)
[2024-07-14 05:12] LABS: Blood Urea Nitrogen 24 mg/dl (7-17); Calcium 7.9 mg/dl (8.4-10.2); Carbon Dioxide 29 mmol/L (22-30); Chloride 103 mmol/L (98-107); Digoxin 0.5 ng/ml (0.8-2.0); Estimated Creatinine Clearance 42 ml/min; Glucose 90 mg/dl (70-99); Potassium 3.9 mmol/L (3.5-5.1); Sodium 139 mmol/L (135-145); eGFR > 60.00
[2024-07-14] MEDS: FLOVENT 44 MCG INHALER 2 PUFF INH ×2 (08:26→18:05)
[2024-07-14] MEDS: COLCHICINE 0.6 MG PO (10:01)
[2024-07-14] MEDS: PEPCID 40 MG PO (10:01)
[2024-07-14] MEDS: EFFEXOR XR 75 MG PO (10:01)
[2024-07-14] MEDS: COREG 3.125 MG PO (10:02)
[2024-07-14] MEDS: OSCAL CAL 500 500 MG PO (10:02)
[2024-07-14] MEDS: PROTONIX 40 MG PO (10:02)
[2024-07-14] MEDS: DEMADEX 20 MG PO (10:04)
[2024-07-14] MEDS: VITAMIN D3 (cholecalciferol) 50 MCG PO (10:11)
--- NOTE | 2024-07-14 13:58 | W.IMMPOSTOP ---
Addendum entered and electronically signed by Herbert King MD 07/14/24 14:10:
Daughter updated by phone
Original Note:
Surgical Immed Post Op Note
-
Primary Surgeon: Christine
Pre-op Diagnosis: Left thigh hematoma
Post-op Diagnosis: Same
Procedure Performed: Irrigation and debridement of left thigh hematoma
Anesthesia Type: MAC
Specimen / Cultures: Left thigh hematoma cultures
Estimated Blood Loss: 20cc
Complications: None immediate
Operative Findings: Thick black eschar debrided sharply, saponified subcutaneous fat debrided sharply, cold coagulated hematoma manually evacuated, wound cavity tracking cephalad, 2 large saline moist kerlix tied together packed into wound
Restart hep gtt after 24 hrs, no bolus
Tentatively for RTOR Tuesday, possible wound vac application
--- NOTE | 2024-07-14 14:01 | OR.RPT ---
Addendum entered and electronically signed by Herbert King MD 07/19/24 12:21:
CDI query: excisional debridement
Original Note:
Operative Report
Operative Report
Primary Surgeon: Christine
Pre-op Diagnosis: Left thigh hematoma
Post-op Diagnosis: Same
Procedure Performed: Irrigation and debridement of left thigh hematoma
Anesthesia Type: MAC
Specimen / Cultures: Left thigh hematoma cultures
Estimated Blood Loss: 20cc
Complications: None immediate
Operative Findings: Thick black eschar debrided sharply, saponified subcutaneous fat debrided sharply, cold coagulated hematoma manually evacuated, wound cavity tracking cephalad, 2 large saline moist kerlix tied together packed into wound
Date of Surgery: 07/14/24
Indications: This 78F developed a large left thigh hematoma with thick black eschar and suspected infection. Plan for irrigation and debridement.
PROCEDURE: After informed consent was obtained, the patient was brought to the operative suite and placed supine on the operating table. The patient was sedated, prepped and draped in the usual sterile manner.
The eschar was sharply debrided with a #10 blade covering an area of 10cm x 8cm. This exposed saponified subcutaneous fat. Curved may karlo were used to debride the fat covering roughly the same area. The coagulated hematoma was then evacuated
manually revealing a large wound cavity tracking 15cm cephalad laterally in the subcutaneous space. Cultures were obtained. Undermining at the inferior aspect of the wound also noted about 5cm.
The wound was then irrigated with copious sterile saline, and hemostasis was obtained using Bovie electrocautery. The wound was packed with slaine moisteed kerlix x2, tied together and covred with 4x4s and abd pads and secured with debra wrap. All
surgical counts were reported as correct.
The patient tolerated the procedure well and was taken to the PACU in stable condition.
[2024-07-14] MEDS: ANCEF IV (14:35)
--- NOTE | 2024-07-14 15:05 | CON.GS ---
Consultation
-
Date/Time Consultation Performed: 07/14/24 1300
Medical History
-
Chief Complaint: left thigh hematoma
History of Present Illness:
78 yo female with a h/o mechanical MVR on warfarin (subtherapeutic INR), TVR, HF, AF s/p ablation 2011, HFpEF, pulm htn, DVT with prior IVC filter, robotic cholecystectomy in 2019 and recent admission from 06/25/24-07/04/24 for a spontaneous left knee
hemarthrosis with supratherapeutic INR. A left lower extremity arteriogram by IR with bleeding noted and embolization of the superior and inferior lateral lingular branches was preformed. She was discharged back to SNF after hemoglobin stabilized.
She presents this admission with intermittent bleeding to the hematoma with overlying eschar tissue. 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
Past Medical History
Past Medical History: Arrhythmias (s/p ablation 2011, PPM 2010, 2015), CHF, GERD, HTN, Hypercholesterolemia, Psychiatric (depression), Valvular Disease (rheumatic fever) and Other (dvt/pe with prior IVC filter which was removed in 2014, venous
disease, pulmonary HTN, HIRA, iron def anemia)
Past Surgical History: Cardiac (mechanical MVR 2002, TVR 2021), Cholecystectomy (2019 ([facility]), removal of retained gallstone resulting in abd wall abscess 2021), Gynecological (tubal) and Other (vein stripping)
Social History
Tobacco: Non-Smoker
Alcohol: None
Living: Care Home
Family History
Family History: Reviewed & Not Pertinent
Allergies / Home Medications
Allergy/AdvReac Type Severity Reaction Status Date / Time
adhesive Allergy redness Verified 07/13/24 13:32
and itching
amiodarone Allergy pulmonary Verified 07/13/24 13:32
issues
dofetilide Allergy SEE BELOW Verified 07/13/24 13:32
enoxaparin [From Lovenox] Allergy excessive Verified 07/13/24 13:32
bleeding
sotalol [Sotalol] Allergy dizziness Verified 07/13/24 13:32
�Medication �Instructions �Recorded �Confirmed �Type
levothyroxine 88 mcg tablet 88 mcg PO DAILY Thyroid 05/18/12 07/13/24 History
digoxin 125 mcg (0.125 mg) tablet 0.125 mg PO SUTUTHSA@1200 Heart 07/05/14 07/13/24 History
Failure
albuterol sulfate 90 mcg/actuation 2 puff inhalation R Q6HPRN PRN SOB 08/09/16 07/13/24 History
aerosol inhaler (Ventolin HFA)
omeprazole 40 mg capsule,delayed 40 mg PO DAILY Gastrointestinal 02/17/18 07/13/24 History
release issue
fluticasone furoate 100 1 inh inhalation R DAILY 04/13/19 07/13/24 History
mcg/actuation blister powder for Lung/breathing issues
inhalation (Arnuity Ellipta)
calcium carbonate (Calcium 600) 600 mg PO DAILY Supplement 02/11/22 07/13/24 History
cholecalciferol (vitamin D3) 50 50 mcg PO DAILY Supplement 02/11/22 07/13/24 History
mcg (2,000 unit) tablet
colchicine 0.6 mg tablet 0.6 mg PO DAILY Gout 02/11/22 07/13/24 History
torsemide 20 mg tablet 20 mg PO DAILY Heart Failure #0 04/15/22 07/13/24 Rx
tabs
carvedilol 3.125 mg tablet 3.125 mg PO DAILY Blood Pressure 06/22/24 07/13/24 History
famotidine 40 mg tablet 40 mg PO DAILY Gastrointestinal 06/22/24 07/13/24 History
Issue
acetaminophen 325 mg tablet 650 mg PO Q6HPRN PRN mild pain 07/13/24 07/13/24 History
(Tylenol)
bisacodyl 10 mg rectal suppository 10 mg SD [id number] PRN if no bm aftr 07/13/24 07/13/24 History
(Dulcolax (bisacodyl)) mom
magnesium hydroxide 400 mg/5 mL 2,400 mg PO HSPRN PRN constipation 07/13/24 07/13/24 History
oral suspension (Milk of Magnesia)
venlafaxine 75 mg capsule,extended 75 mg PO DAILY 07/13/24 07/13/24 History
release 24 hr (Effexor XR)
warfarin 2 mg tablet 2 mg PO DAILY 07/13/24 07/13/24 History
Review of Systems
-
History Source: Patient and Care Home
All other systems: Negative unless noted
A 10 point review of systems was completed, and was negative except as per HPI.
Physical Exam
Vital Signs
Temp Pulse Resp BP Pulse Ox
98.9 F 70 21 102/37 100
07/14/24 14:00 07/14/24 14:45 07/14/24 14:45 07/14/24 15:00 07/14/24 15:00
07/13/24 07/14/24 07/15/24
06:59 06:59 06:59
Actual Weight 63.594 kg
Body Mass Index (BMI) 28.3
Lab Results
07/14/24 03:53
07/14/24 03:53
WBC 5.3 10^3/uL (4.8-10.8) 07/14/24 03:53
Hgb 8.3 g/dL (12.0-16.0) L 07/14/24 03:53
Hct 25.6 % (37.0-47.0) L 07/14/24 03:53
Plt Count 201 10^3/uL (130-400) 07/14/24 03:53
Physical Exam
General: Well Developed and Well Nourished
HEENT: Moist Mucous Membranes
Respiratory: Non Labored Respirations
Cardiac: Peripheral Edema (BLLE with lymphedema/chronic venous stasis, palpable pulses)
GI: Soft and Non Tender
Skin: Warm, Dry and Other (large hematoma to left thigh with overlying eschar tissue)
Neuro: Awake, Alert and AO x 3
Psych: Calm
Data Reviewed
-
CT Scan: Image Personally Visualized and interpreted (from prior admission), Discussed with Physician and Discussed with Patient
Labs: Labs Reviewed by me, Discussed with Physician and Discussed with Patient
Old Records: Reviewed
Assessment / Plan
-
78 yo female with a h/o mechanical MVR on warfarin (subtherapeutic INR, started on heparin gtt on admission), TVR, HF, AF s/p ablation 2011, HFpEF, pulm htn, DVT with prior IVC filter, robotic cholecystectomy in 2019 and recent admission from
06/25/24-07/04/24 for a spontaneous left knee hemarthrosis with supratherapeutic INR. A left lower extremity arteriogram by IR with bleeding noted and embolization of the superior and inferior lateral lingular branches was preformed. Seen today in
evaluation for wound management as eschar tissue noted over hematoma site. Afebrile, VSS. H/H stable. No leukocytosis for debridement.
--NPO for OR today for I&D, will resume diet post operatively
--Wound care following, may require eventual wound vac given size of the wound
--Heparin placed on hold this AM at 0915 in anticipation of surgery. Ok to resume 24 hours post operatively.
[2024-07-14] MEDS: LANOXIN 125 MCG PO (15:42)
--- NOTE | 2024-07-14 16:16 | CM ---
redevelopment manager reviewed patient's chart and spoke with patient's daughter by phone, patient was admitted from [facility] skilled facility and plan is for madisyn to return to [facility] when stable, daughter did not hold the bed,
prior to skilled placement was staying with daughter and sleeping in a recliner, independent with adl's and use a walker with ambulation.
Plan; Plan is for patient to return to [facility] skilled unit when stable, daughter did not hold bed, new referral sent to [facility].
--- NOTE | 2024-07-14 18:16 | W.PN.HOSP.TC ---
Today's Communication/Plan
-
Ancef
Heparin once cleared by surgery to resume, request in 24 hrs post op
Assessment / Plan
Assessment / Plan
# left knee hemarthrosis and leg hematoma
- Underwent arteriogram and embolization
- Patient was evaluated by wound care on day of admission and recommended debridement
-wound care consulted
-surgery consulted
underwent irrigation and debridement of left thigh hematoma today
-iv Ancef continued
# Cough/short of breath/headache likely viral
- COVID +, neg flu,
- Patient is oxygenating very well on room air
- Continue to monitor
# Anemia of chronic disease
# History of hemorrhagic shock due to large left knee hematoma
- Hemoglobin stable at 8.5
-Patient received total 7 units of blood previous admission due to acute blood loss anemia
- No active bleeding
- Continue to monitor
#[facility] mechanical mitral valve/porcine tricuspid valve replacement
-hold Coumadin. INR 1.48 on admission
#Chronic heart failure with preserved EF -no evidence of acute exacerbation
- Torsemide
- Strict OTONIEL, daily weight
# Depression/anxiety
-Effexor continued
#Permanent atrial fibrillation/atrial tachycardia
with history of ablation 2011
- Obtain EKG
- Coreg continued
- Digoxin continue
- dig level 0.5
# GERD
- Famotidine, omeprazole continued
#Restrictive lung disease
- continue Albuterol and Ellipta
#Hypothyroidism
- continue levothyroxine
#Gout
- continue colchicine
Obstructive sleep apnea -on CPAP
Full code
Anticipated Discharge: > 48 hours
Subjective/Interval History
-
Date of Service: July 14, 2024
concerned about her knee
Objective Data
-
Labs:
Laboratory Results
05/06/0507/14/24 07/14/24
11:51 18:08 22:30
WBC Pending
Hgb Pending
Hct Pending
Plt Count Pending
APTT 52.0 H Pending
Vital Signs:
Vital Signs
Temp Pulse Resp BP Pulse Ox
97.8 F 71 24 104/37 98
07/14/24 16:43 07/14/24 16:43 07/14/24 16:43 07/14/24 16:43 07/14/24 16:43
I&O
07/13/24 07/14/24 07/15/24
06:59 06:59 06:59
Intake Total 240 / 240 100 / 100
Balance 240 / 240 100 / 100
Review of Systems
-
History Source: Patient and Coordinated Provider
Constitutional: Denies Fever
EENT: Reports No Symptoms Reported
Respiratory: Reports No Symptoms; Denies Cough
Cardiac: Reports No Symptoms; Denies Chest Pain
Abdomen/GI: Reports No Symptoms
Musculoskeletal: Reports Joint Pain (left knee)
Neuro: Reports No Symptoms
Physical Exam
-
General: Well Developed, Well Nourished and No Apparent Distress
HEENT: Normocephalic, Atraumatic and Moist Mucous Membranes
Respiratory: Clear to Auscultation; Negative Wheezes, Rales or Rhonchi
Cardiac: Regular Rhythm and S1/S2
GI: Soft, Nontender and Nondistended
Musculoskeletal: No Clubbing, No Cyanosis and No Edema
[2024-07-14 18:17] LABS: % Basophils 0.2 % (0-2); % Immature Granulocytes 0.4 % (0-0.5); % Lymphocytes 5.6 % (20.5-51.1); % Monocytes 4.1 % (1.7-9.3); % Neutrophils 89.7 % (42.2-75.2); Absolute Lymphocytes 0.3 10^3/uL (1.2-3.4); Absolute Monocytes 0.2 10^3/uL (0.1-0.6); Absolute Neutrophils 4.3 10^3/uL (1.4-6.5); Hematocrit 27.1 % (37.0-47.0); Hemoglobin 8.7 g/dL (12.0-16.0); Mean Corp Hgb Conc. 32.1 g/dL (33.0-37.0); Mean Corpuscular Hgb 33.2 pg (27.0-31.0); Mean Corpuscular Volume 103.4 fL (81.0-99.0); Mean Platelet Volume 9.8 fL (7.4-10.4); Nucleated Red Blood Cells % 0 %; Platelet Count 193 10^3/uL (130-400); Red Blood Cell Count 2.62 10^6/uL (4.20-5.40); Red Cell Dist. Width 17.2 % (11.5-14.5); White Blood Cell Count 4.8 10^3/uL (4.8-10.8)
[2024-07-15 03:46] VITALS: BP 106/44
[2024-07-15] MEDS: ANCEF 10 IV ×2 (05:00→13:58)
[2024-07-15] MEDS: SYNTHROID 88 MCG PO (05:00)
[2024-07-15 06:00] VITALS: BMI 28.3
[2024-07-15 07:00] VITALS: BP 117/49
[2024-07-15 07:08] LABS: Hematocrit 27.5 % (37.0-47.0); Hemoglobin 8.6 g/dL (12.0-16.0); Mean Corp Hgb Conc. 31.3 g/dL (33.0-37.0); Mean Corpuscular Hgb 32.3 pg (27.0-31.0); Mean Corpuscular Volume 103.4 fL (81.0-99.0); Mean Platelet Volume 9.6 fL (7.4-10.4); Platelet Count 218 10^3/uL (130-400); Red Blood Cell Count 2.66 10^6/uL (4.20-5.40); Red Cell Dist. Width 16.6 % (11.5-14.5); White Blood Cell Count 3.2 10^3/uL (4.8-10.8)
[2024-07-15 07:10] LABS: INR 1.81; PT 21.2 Sec (11.4-14.6)
[2024-07-15 07:16] LABS: Blood Urea Nitrogen 28 mg/dl (7-17); Calcium 7.4 mg/dl (8.4-10.2); Carbon Dioxide 31 mmol/L (22-30); Chloride 102 mmol/L (98-107); Estimated Creatinine Clearance 47 ml/min; Glucose 82 mg/dl (70-99); Potassium 4.1 mmol/L (3.5-5.1); Sodium 142 mmol/L (135-145); eGFR > 60.00
[2024-07-15] MEDS: FLOVENT 44 MCG INHALER 2 PUFF INH ×2 (08:34→19:32)
[2024-07-15] MEDS: VITAMIN D3 (cholecalciferol) 50 MCG PO (10:17)
[2024-07-15] MEDS: PEPCID 40 MG PO (10:17)
[2024-07-15] MEDS: COREG 3.125 MG PO (10:17)
[2024-07-15] MEDS: OSCAL CAL 500 500 MG PO (10:17)
[2024-07-15] MEDS: COLCHICINE 0.6 MG PO (10:17)
[2024-07-15] MEDS: DEMADEX 20 MG PO (10:17)
[2024-07-15] MEDS: PROTONIX 40 MG PO (10:17)
[2024-07-15] MEDS: EFFEXOR XR 75 MG PO (10:17)
--- NOTE | 2024-07-15 10:41 | W.PN.GS2 ---
Addendum entered and electronically signed by Herbert King MD 07/15/24 10:54:
I saw and examined the patient.
The Lump Inspector's note was reviewed and I agree with the note.
Comment: Feeling better after wound washout yesterday. Outer dressing changed. No odor, wound edges clean. No bleeding. Tentatively for OR tomorrow for dressing change, washout, possible vac application. She is OK for hep gtt today with no bolus.
Original Note:
Today's Communication / Plan
-
NPO midnight
OR tomorrow
dressing changed
Assessment / Plan
-
POD#1 Irrigation and debridement of left thigh hematoma
WBC 5.2. Hgb 8.6 (8.7)
Vitals normal
-Dressing changed today with Dr. King at bedside
-Okay for diet today, NPO at midnight.
-Plan to take back to the OR tomorrow
-Continue to hold blood thinning agents.
-Discussed above plan with patient who is in agreement.
Subjective Data
-
Date of Service: July 15, 2024
Patient states she feels well. She has no complaints.
Objective Data
-
Intake and Output
07/14/24 07/15/24 07/16/24
06:59 06:59 06:59
Intake Total 240 / 240 100 / 100
Balance 240 / 240 100 / 100
Intake:
Oral fluids 240 / 240
IV fluids (Total) 100 / 100
normosol 100 / 100
Other:
Number of approximated MODERATE 1 1
amounts of urine
Number of approximated LARGE 1
amounts of urine
How many times incontinent 1
MODERATE amount urine
How many times incontinent 2
SATURATED amount urine
Vital Signs
Temp Pulse Resp BP Pulse Ox
97.5 F 70 16 117/49 98
07/15/24 07:00 07/15/24 08:42 07/15/24 08:42 07/15/24 07:00 07/15/24 08:42
Lab Results
07/15/24 06:27
07/15/24 06:27
Calcium 7.4 mg/dl (8.4-10.2) L 07/15/24 06:27
Physical Exam
-
General: Well Developed and Well Nourished
HEENT: Moist Mucous Membranes
Respiratory: Non Labored Respirations
Cardiac: Peripheral Edema
GI: Soft and Non Tender
Skin: Warm, Dry and Other (left debra bandage with some blood - replaced dressing and applied 4x4s into wound). LLE edenamous around wound. Skin healthy and pink, no evidence of infection.
Neuro: Awake, Alert and AO x 3
Psych: Calm
[2024-07-15 11:00] VITALS: BP 115/79
[2024-07-15] MEDS: LANOXIN 125 MCG PO (13:58)
[2024-07-15 15:00] VITALS: BP 112/43
[2024-07-15] MEDS: HEPARIN 25000 UNITS/250 ML IV (15:26)
--- NOTE | 2024-07-15 16:46 | W.PN.HOSP.TC ---
Today's Communication/Plan
-
dc Ancef and start Zosyn, ID consult in morning
Dr. King will contact nursing when to stop Heparin prior to planned surgical intervention
Assessment / Plan
Assessment / Plan
# left knee hemarthrosis and leg hematoma
- Underwent arteriogram and embolization
- Patient was evaluated by wound care on day of admission and recommended debridement
-wound care consulted
-surgery consulted
underwent irrigation and debridement of left thigh hematoma today
-iv Ancef currently, cx showing Gm neg bacilli and Enterococcus, will change to Zosyn and consult ID
# Cough/short of breath/headache likely viral
- COVID +, neg flu,
- Patient is oxygenating very well on room air
- Continue to monitor
# Anemia of chronic disease
# History of hemorrhagic shock due to large left knee hematoma
- Hemoglobin stable at 8.5
-Patient received total 7 units of blood previous admission due to acute blood loss anemia
- No active bleeding
- Continue to monitor
#[facility] mechanical mitral valve/porcine tricuspid valve replacement
-hold Coumadin. INR 1.48 on admission
#Chronic heart failure with preserved EF -no evidence of acute exacerbation
- Torsemide
- Strict OTONIEL, daily weight
# Depression/anxiety
-Effexor continued
#Permanent atrial fibrillation/atrial tachycardia
with history of ablation 2011
- Obtain EKG
- Coreg continued
- Digoxin continue
- dig level 0.5
# GERD
- Famotidine, omeprazole continued
#Restrictive lung disease
- continue Albuterol and Ellipta
#Hypothyroidism
- continue levothyroxine
#Gout
- continue colchicine
Obstructive sleep apnea -on CPAP
Full code
Anticipated Discharge: > 48 hours
Subjective/Interval History
-
Date of Service: July 15, 2024
In good spirits, generally feeling better
Objective Data
-
Labs:
Laboratory Results
07/15/24 07/15/24
06:27 21:30
WBC 3.2 L
Hgb 8.6 L
Hct 27.5 L
Plt Count 218
PT 21.2 H
INR 1.81
APTT Pending
Sodium 142
Potassium 4.1
Chloride 102
Carbon Dioxide 31 H
BUN 28 H
Creatinine 0.8
Glucose 82
Calcium 7.4 L
Vital Signs:
Vital Signs
Temp Pulse Resp BP Pulse Ox
97.9 F 76 20 112/43 98
07/15/24 15:00 07/15/24 15:00 07/15/24 15:00 07/15/24 15:00 07/15/24 15:00
I&O
07/14/24 07/15/24 07/16/24
06:59 06:59 06:59
Intake Total 240 / 240 100 / 100
Balance 240 / 240 100 / 100
Review of Systems
-
History Source: Patient and Coordinated Provider
Constitutional: Denies Fever
EENT: Reports No Symptoms Reported
Respiratory: Reports No Symptoms; Denies Cough
Cardiac: Reports No Symptoms; Denies Chest Pain
Abdomen/GI: Reports No Symptoms
Musculoskeletal: Reports Joint Pain (left knee)
Neuro: Reports No Symptoms
Physical Exam
-
General: Well Developed, Well Nourished and No Apparent Distress
HEENT: Normocephalic, Atraumatic and Moist Mucous Membranes
Respiratory: Clear to Auscultation; Negative Wheezes, Rales or Rhonchi
Cardiac: Regular Rhythm and S1/S2
GI: Soft, Nontender and Nondistended
Musculoskeletal: No Clubbing, No Cyanosis and No Edema
[2024-07-15] MEDS: ZOSYN 50 IV ×2 (17:52→23:00)
[2024-07-15 19:32] VITALS: BP 104/90
[2024-07-15 21:55] LABS: APTT 137.8 Sec (23.4-35.0)
[2024-07-15 23:00] VITALS: BP 96/48
[2024-07-16] VITALS (12 sets, daily range): BP systolic 101–116; BP diastolic 40–54; BMI 28.7
[2024-07-16] MEDS: SYNTHROID 88 MCG PO (05:00)
[2024-07-16] MEDS: ZOSYN 50 IV ×3 (05:00→17:45)
[2024-07-16 05:52] LABS: Hematocrit 28.3 % (37.0-47.0); Hemoglobin 9.1 g/dL (12.0-16.0); Mean Corp Hgb Conc. 32.2 g/dL (33.0-37.0); Mean Corpuscular Hgb 32.9 pg (27.0-31.0); Mean Corpuscular Volume 102.2 fL (81.0-99.0); Mean Platelet Volume 9.7 fL (7.4-10.4); Platelet Count 215 10^3/uL (130-400); Red Blood Cell Count 2.77 10^6/uL (4.20-5.40); Red Cell Dist. Width 16.4 % (11.5-14.5); White Blood Cell Count 4.6 10^3/uL (4.8-10.8)
[2024-07-16 05:58] LABS: INR 1.72; PT 20.3 Sec (11.4-14.6)
[2024-07-16 06:00] LABS: APTT 82.1 Sec (23.4-35.0)
[2024-07-16 06:23] LABS: Blood Urea Nitrogen 28 mg/dl (7-17); Calcium 7.9 mg/dl (8.4-10.2); Carbon Dioxide 32 mmol/L (22-30); Chloride 99 mmol/L (98-107); Estimated Creatinine Clearance 42 ml/min; Glucose 84 mg/dl (70-99); Sodium 139 mmol/L (135-145); eGFR > 60.00
[2024-07-16] MEDS: FLOVENT 44 MCG INHALER 2 PUFF INH ×2 (07:49→19:35)
[2024-07-16] MEDS: EFFEXOR XR 75 MG PO (08:25)
[2024-07-16] MEDS: VITAMIN D3 (cholecalciferol) 50 MCG PO (08:25)
[2024-07-16] MEDS: COLCHICINE 0.6 MG PO (08:25)
[2024-07-16] MEDS: OSCAL CAL 500 500 MG PO (08:25)
[2024-07-16] MEDS: DEMADEX 20 MG PO (08:25)
[2024-07-16] MEDS: PEPCID 40 MG PO (08:25)
[2024-07-16] MEDS: COREG 3.125 MG PO (08:25)
[2024-07-16] MEDS: PROTONIX 40 MG PO (08:25)
[2024-07-16 11:59] LABS: APTT 61.9 Sec (23.4-35.0)
--- NOTE | 2024-07-16 12:09 | WOUNDNOTE ---
"[facility] RN note: L thigh dressing D+I. Patient going to OR today and confirmed with Dr. Kohli not to change dressing. He had requested 1/4 strength Dakin's solution be ordered. Left wound care supplies and Dakin's in patient's room. Discussed with RN "Ryan"Nakul. Skin on patient's sacrum and heels are intact. Heels blanchable mild red. Heels off bed with pillow. Patient has her wheelchair gel/foam cushion. She turns self in bed. Will follow peripherally as needed. "
[2024-07-16] MEDS: DAKIN'S SOLUTION 0.125% 1/4 STRENGTH TOPICAL (12:49)
--- NOTE | 2024-07-16 15:39 | PN.CDI ---
CDI
- -
CDI:
Physician Documentation Request
Admit Date: 07/13/24 17:53
Dear Doctor Christine,
07/14 patient underwent Irrigation and debridement of left thigh hematoma.
Could you provide, in the progress notes further clarification regarding the debridement.
Please specify the type of debridement performed:
1. Excisional Debridement - defined as removal by excision of devitalized tissue, necrosis or slough
2. Non-excisional debridement - defined as removal of devitalized tissue, necrosis or slough by such methods as irrigation, brushing, scrubbing or washing.
For excisional or non-excisional, please also include:
Depth of debridement (skin, subcutaneous tissue, fascia, muscle, bone etc)
Use of terms such as suspected, likely, concern for, or probable (associated with a specific diagnosis that is being evaluated, monitored, or treated as if it exists) are acceptable and can be coded in the inpatient setting, when documented at the
time of discharge.
Thank you,
Suzie Whitfield RN, BSN
CDI Specialist
tiger text
Please use your independent medical judgment in providing your response.
--- NOTE | 2024-07-16 16:20 | CM ---
CM reviewed chart, patient Covid +, for OR today.
Patient/family did not pay for bed hold at [facility], will need PT/OT, auth pending bed availability at [facility] once medically stable.
CM will continue to follow for all discharge planning needs.
Plan; for OR today, will need auth to return to [facility], no bed hold.
--- NOTE | 2024-07-16 16:31 | W.PN.HOSP.TC ---
Today's Communication/Plan
-
Assessment / Plan
Assessment / Plan
NAD
Scleral Anicteric
MMM
No JVD
CTABL
RRR, S1/S2, holosystolic murmur best heard at LLSB
Soft, NT, ND, BS+
Warm, Dry
AAOx3
Calm
Left knee hemarthrosis/leg hematoma
S/p arteriogram and embolization
Surgery following planning for OR 07/16, may require wound VAC application
Surgery okay to continue heparin drip
Wound culture growing gram-negative bacilli and Enterococcus species
Currently on Zosyn ID consulted
COVID-positive
Not requiring oxygen therefore no indication for steroids
We will continue to monitor closely may consider Paxlovid/remdesivir
[facility]'s mechanical mitral valve with last INR 1.7 as of 07/16, Porcine tricuspid valve replacement
Probably heparinization hold Coumadin
Chronic heart failure with preserved EF -no evidence of acute exacerbation
Torsemide
Strict OTONIEL, daily weight
Depression/anxiety
Effexor continued
Permanent atrial fibrillation/atrial tachycardia with history of ablation 2011
- Coreg continued
- Digoxin continue
- dig level 0.5
# GERD
- Famotidine, omeprazole continued
#Restrictive lung disease
- continue Albuterol and Ellipta
#Hypothyroidism
- continue levothyroxine
#Gout
- continue colchicine
Obstructive sleep apnea -on CPAP
Anticipated Discharge: 24 - 48 hours
Subjective/Interval History
-
Date of Service: July 16, 2024
Seen and examined. No new complaints. No acute overnight events.
Resting in bed comfortably.
Objective Data
-
Labs:
Laboratory Results
07/16/24 07/16/24
05:23 11:33
WBC 4.6 L
Hgb 9.1 L
Hct 28.3 L
Plt Count 215
PT 20.3 H
INR 1.72
APTT 82.1 H 61.9 H
Sodium 139
Potassium 4.0
Chloride 99
Carbon Dioxide 32 H
BUN 28 H
Creatinine 0.9
Glucose 84
Calcium 7.9 L
Vital Signs:
Vital Signs
Temp Pulse Resp BP Pulse Ox
98.2 F 72 18 112/40 95
07/16/24 15:00 07/16/24 15:00 07/16/24 15:00 07/16/24 15:00 07/16/24 15:00
I&O
07/15/24 07/16/24 07/17/24
06:59 06:59 06:59
Intake Total 100 / 100 1304 / 1304
Balance 100 / 100 1304 / 1304
--- NOTE | 2024-07-16 16:44 | CON.ID ---
Consultation
-
Date/Time Consultation Requested: 07/15/24 16:55
Date/Time Consultation Performed: 07/16/24 16:44
Requesting Provider: Dr Lange
Performing Provider: Dr Tadeo
Reason for Consultation: left leg wound
Chief Complaint / Past History
Chief Complaint
left leg wound
History of Present Illness
Ms Hanson is a 78 year old female with a history of mechanical heart valve on Coumadin, CHF, and atrial fibrillation, pulmonary hypertension/fibrosis, gout, who presented from the wound care clinic for a left leg hematoma. Note that patient was
recently hospitalized for a hemarthrosis of the L knee and a L thigh hematoma; a left lower extremity arteriogram by IR with bleeding noted and embolization of the superior and inferior lateral lingular branches was preformed. She was discharged on
07/04/24 and has been at [facility]. However she has noted intermittent bleeding from the hematoma since being discharged. She went to the wound care office today where bleeding and eschar was noted and was sent to the ED for admission and
surgical debridement. She reports nonproductive cough and chills since Tuesday. Patient complaining of headache patient denied dizzy or syncope. Patient denied fever. Patient denied abdominal pain, nausea, vomiting or diarrhea. Patient denied
dysuria hematuria.
Since arrival here she has been afebrile, bp stable, wbc initially 4.9 today 4.6, hgb 9.1, plt 215, L shift was noted when checked on 07/14, INR was 1.7, cr 0.9, FLTs were normal when last checked 07/09, 06/16 fluid wbc 1820 with 78% PMNs, no crystals,
covid ag was postiive 07/13, 07/14 CXR no infiltrates, mild pulmonary edema, superficial wound culture with GNR and enterococcus
Past History
Additional Past Medical History:
Hyperlipidemia low back pain, plantar fasciitis, asthma, GERD, colonic polyps, obstructive sleep apnea, petit mall seizures, osteoporosis, pulmonary embolism, pulmonary hypertension, depression, gout, hypertension, hypothyroidism, diastolic heart
failure, sick sinus syndrome, emphysema, RASTA, colon calculus of gallbladder iron deficiency anemia bronchitis, rheumatic fever, Pseudomonas aeruginosa infection,
Additional Past Surgical History:
Tubularization, varicose vein stripping, mitral valve replacement, cataract surgery, pacemaker, cholecystectomy, gallstone removal, tricuspid valve cardiothoracic surgery,
Allergy History:
adhesive Allergy (Verified 07/13/24 13:32)
redness and itching
amiodarone Allergy (Verified 07/13/24 13:32)
pulmonary issues
dofetilide Allergy (Verified 07/13/24 13:32)
SEE BELOW
enoxaparin [From Lovenox] Allergy (Verified 07/13/24 13:32)
excessive bleeding
sotalol [Sotalol] Allergy (Verified 07/13/24 13:32)
dizziness
Medications Reviewed: Yes
Social History
Tobacco: Non-Smoker
Alcohol: None
Drug: None
Family History
Family History: Not Pertinent
Review of Systems
Review of Systems
General: Negative Fever
All systems: All other systems were reviewed and were negative
Vital Signs
Temp Pulse Resp BP Pulse Ox
98.2 F 72 18 112/40 95
07/16/24 15:00 07/16/24 15:00 07/16/24 15:00 07/16/24 15:00 07/16/24 15:00
Physical Exam
Lab / Diagnostic Study Results
07/16/24 05:23
07/16/24 05:23
Abs Immat Gran (auto) 0.0 10^3/uL (0-0.05) 07/14/24 18:08
Absolute Neuts (auto) 4.3 10^3/uL (1.4-6.5) 07/14/24 18:08
Absolute Lymphs (auto) 0.3 10^3/uL (1.2-3.4) L 07/14/24 18:08
Absolute Monos (auto) 0.2 10^3/uL (0.1-0.6) 07/14/24 18:08
Absolute Basos (auto) 0.0 10^3/uL (0-0.2) 07/14/24 18:08
Immature Gran % 0.4 % (0-0.5) 07/14/24 18:08
Neutrophils % 89.7 % (42.2-75.2) H 07/14/24 18:08
Lymphocytes % 5.6 % (20.5-51.1) L 07/14/24 18:08
Monocytes % 4.1 % (1.7-9.3) 07/14/24 18:08
Eosinophils % 0.0 % (0-6) 07/14/24 18:08
Basophils % 0.2 % (0-2) 07/14/24 18:08
PT 20.3 Sec (11.4-14.6) H 07/16/24 05:23
INR 1.72 07/16/24 05:23
Microbiology Results
Micro:
07/14/24 13:49 Anaerobic Culture - Preliminary
Leg - Left Culture pending. Anaerobic cultures are examined after 3
days incubation. Additional information to follow.
07/14/24 13:49 Wound Culture - Preliminary
Leg - Left Gram negative bacilli
Enterococcus species
Gram Stain - Preliminary
07/13/24 17:19 Influenza Types A & B (KELSEY) - Final
Nasal Swab Negative for Influenza A & B, NAAT
Negative results must be combined with clinical observations
and patient history.
Nucleic Acid Amplification test (NAAT)performed on the
[employer] platform.
Assessment / Plan
Left knee Hemarthrosis and hematoma
Surgical Site infection
Mechanical heart valve on warfarin
- blood cultures x2
- wound culture from the OR with GNR and enterococcus, no evidence of invovlment of bone in the OR
- tentatively for the OR tomorrow for second look, washout, possible vac placement
- agree with zoisabel for present - follow up ID and sensitivities
- likely for eventual transition to oral therapy
COVID Infection
- isolation x10 days from obtaining swab 07/13-07/23
- would not recommend oral antivirals which decrease total duration of infection by about 1 day
Nonbillable note; patient in the OR during my rounds. Will preform physical exam tomorrow.
--- NOTE | 2024-07-16 17:06 | W.IMMPOSTOP ---
Surgical Immed Post Op Note
-
Primary Surgeon: Christine
Assisting: Layne GELLER
Pre-op Diagnosis: Left thigh wound
Post-op Diagnosis: Same
Procedure Performed: Irrigation and debridement left thigh wound
Anesthesia Type: GETA
Specimen / Cultures: None
Estimated Blood Loss: 2cc
Complications: None immediate
Operative Findings: No odor, wound clean, tiny area of devitalized skin taken with cold karlo at the inferomedial aspect (1 sq cm skin excisional debridement), large black sponge trimmed longitudinally and placed into cavity, vac applied with good
seal
Restart hep gtt after 24 hrs, no bolus
Daughter updated by phone
--- NOTE | 2024-07-16 18:26 | PTCARENOTE ---
Patient received back in room from OR s/p debridement of LLE hematoma. Wound vac in place. Pt resting comfortably, denying any complaints, stating 'I'm just tired'. Assisted pt with ordering dinner. Heparin gtt held per MD King's post-operative
note. Plan of care ongoing.
[2024-07-17] VITALS (8 sets, daily range): BP systolic 99–117; BP diastolic 39–60; O2SAT 97; BMI 27.3
[2024-07-17] MEDS: ZOSYN 50 IV ×5 (00:14→23:57)
[2024-07-17] MEDS: SYNTHROID 88 MCG PO (05:54)
[2024-07-17] MEDS: FLOVENT 44 MCG INHALER 2 PUFF INH ×2 (07:32→19:58)
[2024-07-17] MEDS: PEPCID 40 MG PO (08:51)
[2024-07-17] MEDS: OSCAL CAL 500 500 MG PO (08:52)
[2024-07-17] MEDS: VITAMIN D3 (cholecalciferol) 50 MCG PO (08:52)
[2024-07-17] MEDS: PROTONIX 40 MG PO (08:52)
[2024-07-17] MEDS: COREG 3.125 MG PO (08:52)
[2024-07-17] MEDS: EFFEXOR XR 75 MG PO (08:52)
[2024-07-17] MEDS: DEMADEX 20 MG PO (08:52)
[2024-07-17] MEDS: COLCHICINE 0.6 MG PO (08:52)
[2024-07-17 09:02] LABS: Hematocrit 27.5 % (37.0-47.0); Hemoglobin 8.8 g/dL (12.0-16.0); Mean Corpuscular Hgb 32.6 pg (27.0-31.0); Mean Corpuscular Volume 101.9 fL (81.0-99.0); Mean Platelet Volume 9.7 fL (7.4-10.4); Platelet Count 186 10^3/uL (130-400); Red Cell Dist. Width 16.8 % (11.5-14.5); White Blood Cell Count 3.1 10^3/uL (4.8-10.8)
[2024-07-17 09:11] LABS: INR 1.66; PT 19.8 Sec (11.4-14.6)
[2024-07-17] MEDS: DAKIN'S SOLUTION 0.125% 1/4 STRENGTH TOPICAL (09:11)
[2024-07-17 09:12] LABS: APTT 54.5 Sec (23.4-35.0)
--- NOTE | 2024-07-17 09:50 | W.PN.SURGUPD ---
Surgical Update
Surgical Update
Spoke with nursing. VAC holding suction. No concerns. Operative notes reviewed; no plans or need for further debridement procedures. Wound care orders placed. Plan for VAC change tomorrow.
--- NOTE | 2024-07-17 11:12 | OR.RPT ---
Operative Report
Operative Report
Primary Surgeon: Christine
Assisting: Layne GELLER
Pre-op Diagnosis: Left thigh wound
Post-op Diagnosis: Same
Procedure Performed: Irrigation and debridement left thigh wound
Anesthesia Type: GETA
Specimen / Cultures: None
Estimated Blood Loss: 2cc
Complications: None immediate
Operative Findings: No odor, wound clean, tiny area of devitalized skin taken with cold karlo at the inferomedial aspect (1 sq cm skin excisional debridement), large black sponge trimmed longitudinally and placed into cavity, vac applied with good
seal
Date of Surgery: 07/16/24
Indications: [id number] developed a large hematoma of the proximal lateral left thigh. She underwent irrigation and debridement in the OR two days ago. The plan today is for irrigation, debridement and wound vac application.
PROCEDURE: After informed consent was obtained, the patient was brought to the operative suite and placed supine on the operating table. The patient was sedated, the old dressing was removed, and she was prepped and draped in the usual sterile
manner.
The wound was thoroughly irrigated. The wound was inspected and no further hematoma nor necrotic tissue was noted. A small area at the inferomedial aspect of the wound showed nonviable skin, this was sharply debrided with karlo in excisional
fashion as noted above. The wound measured: 10cm x 6cm x 3cm with 9cm cephalad undermining and 6cm caudad undermining.
The sponge was trimmed as above and the vac was applied with good seal. All surgical counts were reported as correct.
The patient tolerated the procedure well and was taken to the PACU in stable condition.
[2024-07-17] MEDS: LANOXIN 125 MCG PO (11:39)
--- NOTE | 2024-07-17 16:23 | WOUNDNOTE ---
WILLEM RN NOTE: Updated [employer] with use of hospital vac machine. Will call [facility] for supplies for next vac change.
[2024-07-17] MEDS: HEPARIN 25000 UNITS/250 ML IV (17:00)
--- NOTE | 2024-07-17 19:46 | W.PN.ID1 ---
Date of Service
Date of Service: July 17, 2024
Today's Communication
- agree with zosyn for present - follow up ID and sensitivities
- add vancomycin
Assessment / Plan
Left knee Hemarthrosis and hematoma
Surgical Site infection
Mechanical heart valve on warfarin
- blood cultures x2
- wound culture from the OR with ESBL E coli, E faecalis, GNR, S aureus
- s/p vac placement
- agree with zosyn for present - follow up ID and sensitivities
- add vancomycin
- likely for eventual transition to oral therapy
COVID Infection
- isolation x10 days from obtaining swab 07/13-07/23
- would not recommend oral antivirals which decrease total duration of infection by about 1 day
Chief Complaint
-: Other (surgical site infection)
Subjective / Review of Systems
afebrile
bp stable
tolerating current therapies
s/p wound exploration in the OR and vac placement
no new complaints
Vital Signs / Physical Exam
Vital Signs
Vital Signs
Temp Pulse Resp BP Pulse Ox
98.6 F 71 18 105/39 95
07/17/24 15:00 07/17/24 15:00 07/17/24 15:00 07/17/24 15:00 07/17/24 15:00
Physical Exam
Constitutional: No Acute Distress
Cardiovascular: Regular Rate and S1/S2; Negative Murmur or Rub
Pulmonary: Clear and Symmetric; Negative Wheezes or Rales
Gastrointestinal: Soft, Non Tender, Non Distended and Normal Bowel Sounds
Skin: Warm and Dry; Negative Rash or Jaundice
Lines: Other (wound vac)
Objective Data
Lab Data
Lab Results
07/17/24 08:47
07/16/24 05:23
PT 19.8 Sec (11.4-14.6) H 07/17/24 08:46
INR 1.66 07/17/24 08:46
APTT 54.5 Sec (23.4-35.0) H 07/17/24 08:46
Estimated Creat Clear 42 ml/min 07/16/24 05:23
Most recent labs reviewed.
Micro Results:
07/14/24 13:49 Anaerobic Culture - Preliminary
Leg - Left Culture pending. Anaerobic cultures are examined after 3
days incubation. Additional information to follow.
07/14/24 13:49 Wound Culture - Preliminary
Leg - Left Escherichia coli - ESBL
Enterococcus faecalis
Gram negative bacilli
Staphylococcus aureus
Gram Stain - Preliminary
07/17/24 09:45 Blood Culture - Pending
Blood/Venous
07/17/24 08:46 Blood Culture - Pending
Blood/Venous
07/13/24 17:19 Influenza Types A & B (KELSEY) - Final
Nasal Swab Negative for Influenza A & B, NAAT
Negative results must be combined with clinical observations
and patient history.
Nucleic Acid Amplification test (NAAT)performed on the
[employer] platform.
--- NOTE | 2024-07-17 20:17 | PHA.VAN.IN ---
Assessment
- Assessment
Renal Function: Appears similar to baseline (07/15/24 BASELINE SCR: 0.8)
Concomitant Antimicrobials: ZOSYN
- Previous Dosing Experience
Previous Regimen: NONE
AUC Dosing Plan
- Dosing Variables
Dosing Weight (kg): 61.3
Dosing CrCl (ml/min): 41
Vd coefficient (L/kg): 0.7
- Empiric Dosing
Initial / Loading Dose: 1500MG
Maintenance Regimen: 750MG IV Q24H
Estimated AUC (mcg*h/mL): 464
Estimated Peak (mcg*h/mL): 29
Estimated Trough (mcg/ml): 12
Estimated Half Life (H): 18
Pharmacokinetics Vancomycin I
- -
Patient Age: 78
Patient Sex: Female
Vancomycin Day #: 1
Indication: Skin And Soft Tissue ([L] KNEE HEMIARTHROSIS)
Requesting Provider: JARET
Height / Weight:
Height 4 ft 11 in
Actual Weight 61.292 kg
- Vital Signs / Lab Results
Temp Pulse Resp BP Pulse Ox
98.6 F 71 16 105/39 93
07/17/24 15:00 07/17/24 20:01 07/17/24 20:01 07/17/24 15:00 07/17/24 20:01
Lab Results - Hematology
07/15/24 07/16/24 07/17/24
06:27 05:23 08:46
WBC 3.2 L 4.6 L 3.1 L
07/17/24
08:47
WBC Cancelled
Lab Results - Chemistry
07/15/24 07/16/24
06:27 05:23
BUN 28 H 28 H
Creatinine 0.8 0.9
Estimated Creat Clear 47 42
Microbiology Results
07/14/24 13:49 Anaerobic Culture - Preliminary
Leg - Left Culture pending. Anaerobic cultures are examined after 3
days incubation. Additional information to follow.
07/14/24 13:49 Wound Culture - Preliminary
Leg - Left Escherichia coli - ESBL
Enterococcus faecalis
Gram negative bacilli
Staphylococcus aureus
Gram Stain - Preliminary
[2024-07-17] MEDS: VANCOCIN 530 MG IV (21:11)
--- NOTE | 2024-07-17 21:54 | W.PN.HOSP.TC ---
Today's Communication/Plan
-
Assessment / Plan
Assessment / Plan
NAD
Scleral Anicteric
MMM
No JVD
CTABL
RRR, S1/S2, holosystolic murmur best heard at LLSB
Soft, NT, ND, BS+
Warm, Dry
Wound vac on and functioning over the left knee
AAOx3
Calm
Left knee hemarthrosis/leg hematoma
S/p arteriogram and embolization
Surgery following s/p wound vac placement along with irrigation and debridement left thigh wound
Surgery okay to continue heparin drip
Wound culture growing gram-negative bacilli and Enterococcus species, ESBL ecoli, Staph
Currently on Zosyn
Vanc added by ID, Appreciate input from ID
COVID-positive
Not requiring oxygen therefore no indication for steroids
We will continue to monitor closely may consider Paxlovid/remdesivir
[facility] mechanical mitral valve with last INR 1.6 as of 07/16, Porcine tricuspid valve replacement
Probably heparinization hold Coumadin
Chronic heart failure with preserved EF -no evidence of acute exacerbation
Torsemide
Strict OTONIEL, daily weight
Depression/anxiety
Effexor continued
Permanent atrial fibrillation/atrial tachycardia with history of ablation 2011
- Coreg continued
- Digoxin continue
- dig level 0.5
# GERD
- Famotidine, omeprazole continued
#Restrictive lung disease
- continue Albuterol and Ellipta
#Hypothyroidism
- continue levothyroxine
#Gout
- continue colchicine
Obstructive sleep apnea -on CPAP
Anticipated Discharge: > 48 hours
Subjective/Interval History
-
Date of Service: July 17, 2024
seen and examind. no new complaints. no acute overnight events
states that the sob and cough is improving
still feels weak and tired
Objective Data
-
Labs:
Laboratory Results
07/17/24
23:00
APTT Pending
Vital Signs:
Vital Signs
Temp Pulse Resp BP Pulse Ox
98.6 F 71 16 105/39 93
07/17/24 15:00 07/17/24 20:01 07/17/24 20:01 07/17/24 15:00 07/17/24 20:01
I&O
07/16/24 07/17/24 07/18/24
06:59 06:59 06:59
Intake Total 1304 / 1304 300 / 300 240 / 240
Balance 1304 / 1304 300 / 300 240 / 240
[2024-07-17 23:44] LABS: APTT 117.2 Sec (23.4-35.0)
[2024-07-18] MEDS: VANCOCIN 150 IV (05:25)
[2024-07-18] MEDS: ZOSYN 50 IV ×3 (05:25→17:05)
[2024-07-18] MEDS: SYNTHROID 88 MCG PO (05:25)
[2024-07-18 06:00] VITALS: BMI 28.2
[2024-07-18 07:00] VITALS: BP 114/48
[2024-07-18] MEDS: DEMADEX 20 MG PO (07:17)
[2024-07-18] MEDS: VITAMIN D3 (cholecalciferol) 50 MCG PO (07:17)
[2024-07-18] MEDS: PROTONIX 40 MG PO (07:17)
[2024-07-18] MEDS: COREG 3.125 MG PO (07:17)
[2024-07-18] MEDS: PEPCID 40 MG PO (07:18)
[2024-07-18] MEDS: COLCHICINE 0.6 MG PO (07:18)
[2024-07-18] MEDS: EFFEXOR XR 75 MG PO (07:18)
[2024-07-18] MEDS: OSCAL CAL 500 500 MG PO (07:18)
[2024-07-18] MEDS: DAKIN'S SOLUTION 0.125% 1/4 STRENGTH TOPICAL (07:20)
[2024-07-18 08:10] LABS: INR 1.76
[2024-07-18 08:12] LABS: APTT 68.1 Sec (23.4-35.0)
[2024-07-18] MEDS: FLOVENT 44 MCG INHALER 2 PUFF INH ×2 (08:29→19:57)
--- NOTE | 2024-07-18 08:37 | PN.CDI ---
CDI
- -
CDI:
Physician Documentation Request
Admit Date: 07/13/24 17:53
Dear Doctor Christine
07/14 patient underwent Irrigation and debridement of left thigh hematoma
Could you please provide, in the progress notes further clarification regarding the debridement.
Please specify the type of debridement performed:
1. Excisional Debridement - defined as removal by excision of devitalized tissue, necrosis or slough
2. Non-excisional debridement - defined as removal of devitalized tissue, necrosis or slough by such methods as irrigation, brushing, scrubbing or washing.
Use of terms such as suspected, likely, concern for, or probable (associated with a specific diagnosis that is being evaluated, monitored, or treated as if it exists) are acceptable and can be coded in the inpatient setting, when documented at the
time of discharge.
Thank you,
Suzie Whitfield RN, BSN
CDI Specialist
tiger text
Please use your independent medical judgment in providing your response.
--- NOTE | 2024-07-18 09:45 | PHA.VAN.FU ---
Vancomycin Assessment / Plan
- Assessment
Renal Function: Stable
WBC's are: Trending Down
In the past 24 hrs, patient has been: Afebrile
Concomitant Antimicrobials: piperacillin/tazobactam
- Dosing Plan
Continue: vancomycin 750 mg q12h
- Monitoring Plan
No level(s) ordered at this time: consider levels in next few days
- Follow Up
Pharmacy will continue to follow.
Vancomycin Follow UP
- -
Patient Age: 78
Patient Sex: Female
Vancomycin Day #: 2
Indication: Skin And Soft Tissue ([L] KNEE HEMIARTHROSIS)
Requesting Provider: JARET
Height / Weight:
Height 4 ft 11 in
Actual Weight 63.191 kg
- Vital Signs / Lab Results
Temp Pulse Resp BP Pulse Ox
98.0 F 71 14 114/48 100
07/18/24 07:00 07/18/24 07:00 07/18/24 08:38 07/18/24 07:00 07/18/24 08:38
Lab Results - Hematology
07/16/24 07/17/24 07/17/24
05:23 08:46 08:47
WBC 4.6 L 3.1 L Cancelled
Lab Results - Chemistry
07/16/24
05:23
BUN 28 H
Creatinine 0.9
Estimated Creat Clear 42
Microbiology Results
07/17/24 08:46 Blood Culture - Preliminary
Blood/Venous No Growth in 24 hours- Final report to follow
07/14/24 13:49 Anaerobic Culture - Preliminary
Leg - Left Culture pending. Anaerobic cultures are examined after 3
days incubation. Additional information to follow.
07/14/24 13:49 Wound Culture - Preliminary
Leg - Left Escherichia coli - ESBL
Enterococcus faecalis
Gram negative bacilli
Staphylococcus aureus
Gram Stain - Preliminary
--- NOTE | 2024-07-18 13:30 | WOUNDNOTE ---
WILLEM RN NOTE: Wound vac changed on L lateral thigh, patient premedicated for pain and tolerated procedure well. Spoke to Dr. King prior to vac change regarding direction on packing undermining using black foam. Updated nurse Sandra that vac is on.
Dr. King aware and confirmed he will notify Dr. Monge to start patient on Coumadin. Wound care will follow for next vac change if still here on Tuesday.
[2024-07-18] MEDS: DILAUDID 0.25 MG IV (13:33)
[2024-07-18 14:16] LABS: APTT 53.7 Sec (23.4-35.0)
--- NOTE | 2024-07-18 14:22 | CM ---
CM following re: discharge planning.
Reviewed pt's chart.
Pt is S/p arteriogram and embolization, s/p wound vac placement along with irrigation and debridement left thigh wound. Surgery following.
Per chart review, pt is admitted from [facility] where she was for a short term rehab, no bed hold. Family is requested pt returns back to [facility] to continue on skilled services.
A referral to [facility] noted. If accepted by [facility], pt will need an insurance auth.
D/C plan: [facility] for a short term rehab.
CM will follow with discharge plan updates as hospitalization progresses
--- NOTE | 2024-07-18 14:30 | W.PN.UPDATE ---
Update Note
Progress Note Update
Uneventful vac change per wound care. OK to restart coumadin
[2024-07-18 15:00] VITALS: BP 100/43
--- NOTE | 2024-07-18 15:07 | WOUNDNOTE ---
LEFT LATERAL THIGH
--- NOTE | 2024-07-18 15:41 | W.PN.HOSP.TC ---
Today's Communication/Plan
-
Assessment / Plan
Assessment / Plan
NAD
Scleral Anicteric
MMM
No JVD
CTABL
RRR, S1/S2, holosystolic murmur best heard at LLSB
Soft, NT, ND, BS+
Warm, Dry
Wound vac on and functioning over the left knee
AAOx3
Calm
Left knee hemarthrosis/leg hematoma
S/p arteriogram and embolization
Surgery following s/p wound vac placement along with irrigation and debridement left thigh wound
Surgery okay to continue heparin drip
Wound culture growing gram-negative bacilli and Enterococcus species, ESBL ecoli, Staph
Continue Zosyn vancomycin
ID following.
COVID-positive
Not requiring oxygen therefore no indication for steroids
We will continue to monitor closely may consider Paxlovid/remdesivir
[facility] mechanical mitral valve with last INR 1.7 as of 07/18, Porcine tricuspid valve replacement
Continue heparinization resume Coumadin per surgery. Will start with 2 mg at night as is his home dose
Chronic heart failure with preserved EF -no evidence of acute exacerbation
Torsemide
Strict OTONIEL, daily weight
Depression/anxiety
Effexor continued
Permanent atrial fibrillation/atrial tachycardia with history of ablation 2011
- Coreg continued
- Digoxin continue
- dig level 0.5
GERD
- Famotidine, omeprazole continued
Restrictive lung disease
- continue Albuterol and Ellipta
Hypothyroidism
- continue levothyroxine
Gout
- continue colchicine
Obstructive sleep apnea
- on CPAP
Anticipated Discharge: 24 - 48 hours
Subjective/Interval History
-
Date of Service: July 18, 2024
Seen and examined. No new complaints. No acute overnight events
Objective Data
-
Labs:
Laboratory Results
07/18/24 07/18/24 07/18/24
07:09 13:39 20:00
PT 21.0 H
INR 1.76
APTT 68.1 H 53.7 H Pending
Vital Signs:
Vital Signs
Temp Pulse Resp BP Pulse Ox
98.0 F 72 18 100/43 93
07/18/24 15:00 07/18/24 15:00 07/18/24 15:00 07/18/24 15:00 07/18/24 15:00
I&O
07/17/24 07/18/24 07/19/24
06:59 06:59 06:59
Intake Total 300 / 300 960 / 960
Balance 300 / 300 960 / 960
--- NOTE | 2024-07-18 16:27 | W.PN.ID1 ---
Date of Service
Date of Service: July 18, 2024
Today's Communication
- agree with zosyn for present - follow up ID and sensitivities of the Pseudomonas which is pending
- stop vancomycin
- will transition to oral therapy if a unifying regimen can be chosen once all sensi back, may consider OPAT
- on room air during my exam
Assessment / Plan
Left knee Hemarthrosis and hematoma
Surgical Site infection
Mechanical heart valve on warfarin
- blood cultures x2
- wound culture from the OR with ESBL E coli, E faecalis, Pseudomonas, MSSA
- s/p vac placement
- agree with zosyn for present - follow up ID and sensitivities of the Pseudomonas which is pending
- stop vancomycin
- will transition to oral therapy if a unifying regimen can be chosen once all sensi back, may consider OPAT
COVID Infection
- isolation x10 days from obtaining swab 07/13-07/23
- on room air during my exam
- would not recommend oral antivirals which decrease total duration of infection by about 1 day
Chief Complaint
-: Other (surgical site infection)
Subjective / Review of Systems
afebrile
bp stable
listed as on 2L with high O2 saturations; on room air on my evaluation
Vital Signs / Physical Exam
Vital Signs
Vital Signs
Temp Pulse Resp BP Pulse Ox
98.0 F 72 18 100/43 93
07/18/24 15:00 07/18/24 15:00 07/18/24 15:00 07/18/24 15:00 07/18/24 15:00
Physical Exam
Constitutional: No Acute Distress
Cardiovascular: Regular Rate and S1/S2; Negative Murmur or Rub
Pulmonary: Clear and Symmetric; Negative Wheezes or Rales
Gastrointestinal: Soft, Non Tender, Non Distended and Normal Bowel Sounds
Skin: Warm and Dry; Negative Rash or Jaundice
Lines: Other (wound vac)
Objective Data
Lab Data
Lab Results
07/17/24 08:47
07/16/24 05:23
PT 21.0 Sec (11.4-14.6) H 07/18/24 07:09
INR 1.76 07/18/24 07:09
APTT 53.7 Sec (23.4-35.0) H 07/18/24 13:39
Estimated Creat Clear 42 ml/min 07/16/24 05:23
Most recent labs reviewed.
Organism 1 Escherichia coli - ESBL
Organism 2 Enterococcus faecalis
EC-ESBL ENTFCL
M.I.C. RX M.I.C. RX
--------- --- --------- ---
Amoxicillin/Potas. Clavulanate 16/8 I
Ampicillin >16 R <=2 S
Ampicillin/Sulbactam >16/8 R
Aztreonam 16 R
Cefazolin >16 R
Cefepime >16 R
Ceftazidime 4 S
Ceftriaxone >2 R
Ertapenem <=0.5 S
Ciprofloxacin >2 R
Gentamicin <=2 S
Gentamicin Synergy Screen <=500 S
Meropenem <=1 S
Piperacillin/Tazobactam <=8 S
Tetracycline <=4 S
Tobramycin <=2 S
Trimethoprim/Sulfamethoxazole >2/38 R
Vancomycin 2 S
Micro Results:
07/14/24 13:49 Anaerobic Culture - Preliminary
Leg - Left Culture pending. Anaerobic cultures are examined after 3
days incubation. Additional information to follow.
07/14/24 13:49 Wound Culture - Preliminary
Leg - Left Escherichia coli - ESBL
Enterococcus faecalis
Pseudomonas aeruginosa
Gram Stain - Preliminary
07/17/24 09:45 Blood Culture - Preliminary
Blood/Venous No Growth in 24 hours- Final report to follow
07/17/24 08:46 Blood Culture - Preliminary
Blood/Venous No Growth in 24 hours- Final report to follow
07/13/24 17:19 Influenza Types A & B (KELSEY) - Final
Nasal Swab Negative for Influenza A & B, NAAT
Negative results must be combined with clinical observations
and patient history.
Nucleic Acid Amplification test (NAAT)performed on the
[employer] platform.
[2024-07-18] MEDS: COUMADIN 2 MG PO (17:04)
[2024-07-18 21:47] LABS: APTT 73.6 Sec (23.4-35.0)
[2024-07-18 22:48] VITALS: BP 105/46
[2024-07-19] MEDS: ZOSYN 50 IV ×4 (00:04→17:12)
[2024-07-19 04:46] LABS: APTT 181.7 Sec (23.4-35.0)
[2024-07-19] MEDS: SYNTHROID 88 MCG PO (05:31)
[2024-07-19 06:00] VITALS: BMI 28.1
[2024-07-19 07:30] VITALS: BP 115/51
[2024-07-19] MEDS: FLOVENT 44 MCG INHALER 2 PUFF INH ×2 (08:20→19:54)
[2024-07-19] MEDS: COREG 3.125 MG PO (09:03)
[2024-07-19] MEDS: DAKIN'S SOLUTION 0.125% 1/4 STRENGTH TOPICAL (09:04)
[2024-07-19] MEDS: COLCHICINE 0.6 MG PO (09:04)
[2024-07-19] MEDS: OSCAL CAL 500 500 MG PO (09:04)
[2024-07-19] MEDS: DEMADEX 20 MG PO (09:04)
[2024-07-19] MEDS: PEPCID 40 MG PO (09:04)
[2024-07-19] MEDS: EFFEXOR XR 75 MG PO (09:04)
[2024-07-19] MEDS: PROTONIX 40 MG PO (09:04)
[2024-07-19] MEDS: VITAMIN D3 (cholecalciferol) 50 MCG PO (09:04)
[2024-07-19 09:13] LABS: INR 2.15; PT 24.5 Sec (11.4-14.6)
[2024-07-19 09:15] LABS: Hematocrit 27.5 % (37.0-47.0); Hemoglobin 8.8 g/dL (12.0-16.0); Mean Corpuscular Hgb 32.5 pg (27.0-31.0); Mean Corpuscular Volume 101.5 fL (81.0-99.0); Platelet Count 183 10^3/uL (130-400); Red Blood Cell Count 2.71 10^6/uL (4.20-5.40); Red Cell Dist. Width 16.3 % (11.5-14.5); White Blood Cell Count 3.3 10^3/uL (4.8-10.8)
[2024-07-19] MEDS: HEPARIN 25000 UNITS/250 ML IV (10:28)
[2024-07-19 11:57] LABS: APTT 175.9 Sec (23.4-35.0)
[2024-07-19] MEDS: LANOXIN 125 MCG PO (12:02)
--- NOTE | 2024-07-19 14:10 | W.PN.ID1 ---
Date of Service
Date of Service: July 19, 2024
Today's Communication
- continue zosyn for 7 day course 07/14-07/20 - tomorrow will be final day
- covid isolation x10 days from obtaining swab 07/13-07/23
Diarrhea
- could be related to broad spectrum antibiotics, covid can also cause diarrhea, not gettting any cathartics
- no bloody diarrhea, abdominal pain, leukocytosis or fevers, C difficile is unlikely and do not recommend testing
- suspect that diarrhea may resolve after antibiotics are completed tomorrow is the final day
Assessment / Plan
Left knee Hemarthrosis and hematoma
Surgical Site infection of left thigh
Mechanical heart valve on warfarin
- blood cultures x2
- wound culture from the OR with ESBL E coli, E faecalis, Pseudomonas, MSSA
- s/p vac placement
- continue zosyn for 7 day course 07/14-07/20 - tomorrow will be final day
COVID Infection
- isolation x10 days from obtaining swab 07/13-07/23
- on 2L O2 overnight with high saturations - now back on room air again with high saturations
- would not recommend oral antivirals which decrease total duration of infection by about 1 day
Diarrhea
- could be related to broad spectrum antibiotics, covid can also cause diarrhea, not gettting any cathartics
- no bloody diarrhea, abdominal pain, leukocytosis or fevers, C difficile is unlikely and do not recommend testing
- suspect that diarrhea may resolve after antibiotics are completed tomorrow is the final day
Chief Complaint
-: Other (surgical site infection)
Subjective / Review of Systems
afebrile
bp stable
no events recorded overnight
had vac change yesterday
diarrhea today - she wasnt aware of it; no abdominal pain, no blood in the stool
Vital Signs / Physical Exam
Vital Signs
Vital Signs
Temp Pulse Resp BP Pulse Ox
98.1 F 70 16 115/51 97
07/19/24 07:30 07/19/24 08:30 07/19/24 08:30 07/19/24 07:30 07/19/24 08:30
Physical Exam
Constitutional: No Acute Distress
Cardiovascular: Regular Rate and S1/S2; Negative Murmur or Rub
Pulmonary: Clear and Symmetric; Negative Wheezes or Rales
Gastrointestinal: Soft, Non Tender, Non Distended and Normal Bowel Sounds
Skin: Warm and Dry; Negative Rash or Jaundice
Objective Data
Lab Data
Lab Results
07/19/24 08:05
07/16/24 05:23
PT 24.5 Sec (11.4-14.6) H 07/19/24 08:05
INR 2.15 07/19/24 08:05
APTT 175.9 Sec (23.4-35.0) H* 07/19/24 11:31
Estimated Creat Clear 42 ml/min 07/16/24 05:23
Most recent labs reviewed.
Wound/abscess/other Cult Preliminary 07/19/24-1044
Many Escherichia coli - ESBL*
Many Enterococcus faecalis
Moderate Pseudomonas aeruginosa
Few Coagulase neg. staphylococcus
*Resistance due to extended spectrum beta lactamase.
Decreased activity may occur with penicillins,
penicillin/inhibitor combinations, cephalosporins, and
monobactams.
Isolation Precautions Required
Organism 1 Escherichia coli - ESBL
Organism 2 Enterococcus faecalis
Organism 3 Pseudomonas aeruginosa
Organism 4 Staphylococcus intermedius
EC-ESBL ENTFCL P.AERU
M.I.C. RX M.I.C. RX M.I.C. RX
--------- --- --------- --- --------- ---
Amoxicillin/Potas. Clavulanate 16/8 I
Ampicillin >16 R <=2 S
Ampicillin/Sulbactam >16/8 R
Aztreonam 16 R 8 S
Cefazolin >16 R
Cefepime >16 R <=2 S
Ceftazidime 4 S 4 S
Ceftriaxone >2 R
Clindamycin
Ertapenem <=0.5 S
Ciprofloxacin >2 R <=0.25 S
Gentamicin <=2 S
Gentamicin Synergy Screen <=500 S
Erythromycin
Levofloxacin
Oxacillin
Meropenem <=1 S <=1 S
Piperacillin/Tazobactam <=8 S <=8 S
Tetracycline <=4 S
Tobramycin <=2 S <=2 S
Trimethoprim/Sulfamethoxazole >2/38 R
Vancomycin 2 S
S.INTER
M.I.C. RX
--------- ---
Amoxicillin/Potas. Clavulanate <=4/2 S
Ampicillin >8 R
Ampicillin/Sulbactam
Aztreonam
Cefazolin
Cefepime
Ceftazidime
Ceftriaxone
Clindamycin <=0.5 S
Ertapenem
Ciprofloxacin
Gentamicin <=4 S
Gentamicin Synergy Screen
Erythromycin <=0.5 S
Levofloxacin <=1 S
Oxacillin <=0.25 S
Meropenem
Piperacillin/Tazobactam
Tetracycline >8 R
Tobramycin
Trimethoprim/Sulfamethoxazole <=0.5/9.5 S
Vancomycin 1 S
Micro Results:
07/14/24 13:49 Wound Culture - Preliminary
Leg - Left Escherichia coli - ESBL
Enterococcus faecalis
Pseudomonas aeruginosa
Staphylococcus intermedius
Gram Stain - Preliminary
07/17/24 09:45 Blood Culture - Preliminary
Blood/Venous No Growth in 48 hours- Final report to follow
07/17/24 08:46 Blood Culture - Preliminary
Blood/Venous No Growth in 48 hours- Final report to follow
07/14/24 13:49 Anaerobic Culture - Preliminary
Leg - Left Culture pending. Anaerobic cultures are examined after 3
days incubation. Additional information to follow.
07/13/24 17:19 Influenza Types A & B (KELSEY) - Final
Nasal Swab Negative for Influenza A & B, NAAT
Negative results must be combined with clinical observations
and patient history.
Nucleic Acid Amplification test (NAAT)performed on the
[employer] platform.
Care Review
Plan reviewed with: Physician (Dr King - duration of antibiotics)
--- NOTE | 2024-07-19 14:22 | W.PN.HOSP.TC ---
Today's Communication/Plan
-
Check C. difficile
Assessment / Plan
Assessment / Plan
NAD
Scleral Anicteric
MMM
No JVD
CTABL
RRR, S1/S2, holosystolic murmur best heard at LLSB
Soft, NT, ND, BS+
Warm, Dry
Wound vac on and functioning over the left knee
AAOx3
Calm
Left knee hemarthrosis/leg hematoma
S/p arteriogram and embolization
Surgery following s/p wound vac placement along with irrigation and debridement left thigh wound
Surgery okay to continue heparin drip
Wound culture growing gram-negative bacilli and Enterococcus species, ESBL ecoli, Staph
Continue Zosyn vancomycin
ID following.
COVID-positive
Not requiring oxygen therefore no indication for steroids
We will continue to monitor closely may consider Paxlovid/remdesivir
Diarrhea
Check C. difficile
Could be related to COVID
If C. difficile negative then can likely start Imodium
[facility] mechanical mitral valve with last INR 1.7 as of 07/18, Porcine tricuspid valve replacement
Continue heparinization resume Coumadin per surgery. Will start with 2 mg at night as is his home dose
Chronic heart failure with preserved EF -no evidence of acute exacerbation
Torsemide
Strict OTONIEL, daily weight
Depression/anxiety
Effexor continued
Permanent atrial fibrillation/atrial tachycardia with history of ablation 2011
- Coreg continued
- Digoxin continue
- dig level 0.5
GERD
- Famotidine, omeprazole continued
Restrictive lung disease
- continue Albuterol and Ellipta
Hypothyroidism
- continue levothyroxine
Gout
- continue colchicine
Obstructive sleep apnea
- on CPAP
Anticipated Discharge: 24 - 48 hours
Subjective/Interval History
-
Date of Service: July 19, 2024
Seen and examined. No new complaints. No acute overnight events.
For nursing staff for which she did not tolerate this by her bedside nurse stated that she is having diarrhea multiple bouts. Liquid watery. Concern for C. difficile.
Objective Data
-
Labs:
Laboratory Results
07/19/24 07/19/24 07/19/24
03:36 08:05 11:31
WBC 3.3 L
Hgb 8.8 L
Hct 27.5 L
Plt Count 183
PT 24.5 H
INR 2.15
APTT 181.7 H* 175.9 H*
07/19/24
19:00
WBC
Hgb
Hct
Plt Count
PT
INR
APTT Pending
Vital Signs:
Vital Signs
Temp Pulse Resp BP Pulse Ox
98.1 F 70 16 115/51 97
07/19/24 07:30 07/19/24 08:30 07/19/24 08:30 07/19/24 07:30 07/19/24 08:30
I&O
07/18/24 07/19/24 07/20/24
06:59 06:59 06:59
Intake Total 960 / 960 1030 / 1030
Balance 960 / 960 1030 / 1030
[2024-07-19 15:00] VITALS: PULSE 69; O2SAT 100
[2024-07-19 15:12] VITALS: BP 103/47; O2SAT 100
[2024-07-19 15:29] VITALS: BP 104/42
--- NOTE | 2024-07-19 16:14 | WOUNDNOTE ---
[facility] RN note: Patient still on IV heparin. Confirmed with Dr. King for nursing to hold IV heparin for 4hrs prior to each vac dressing change. Next vac dressing change due tomorrow.
[2024-07-19] MEDS: COUMADIN 2 MG PO (19:59)
[2024-07-19 20:43] LABS: APTT > 200 Sec (23.4-35.0)
[2024-07-19 22:35] VITALS: BP 103/42
[2024-07-20] MEDS: ZOSYN 50 IV ×4 (01:05→16:56)
[2024-07-20] MEDS: DILAUDID 0.25 MG IV ×2 (02:21→10:01)
[2024-07-20] MEDS: SYNTHROID 88 MCG PO (05:30)
--- NOTE | 2024-07-20 07:23 | WOUNDNOTE ---
[facility] RN note: t/c Spoke with STARR Beal who confirmed patient's IV Heparin was turned off at 0630. Requested Emigdio turn vac pump off at 1000 and give patient pain med at 1000 for planned vac dressing change at 1030.
[2024-07-20 07:32] VITALS: BP 91/31
[2024-07-20] MEDS: FLOVENT 44 MCG INHALER 2 PUFF INH ×2 (07:53→20:02)
[2024-07-20 08:18] LABS: INR 1.89; PT 21.8 Sec (11.4-14.6)
[2024-07-20] MEDS: EFFEXOR XR 75 MG PO (09:09)
[2024-07-20] MEDS: COLCHICINE 0.6 MG PO (09:09)
[2024-07-20] MEDS: PROTONIX 40 MG PO (09:10)
[2024-07-20] MEDS: COREG 3.125 MG PO (09:10)
[2024-07-20] MEDS: OSCAL CAL 500 500 MG PO (09:10)
[2024-07-20] MEDS: VITAMIN D3 (cholecalciferol) 50 MCG PO (09:10)
[2024-07-20] MEDS: DEMADEX 20 MG PO (09:10)
[2024-07-20] MEDS: PEPCID 40 MG PO (09:10)
[2024-07-20] MEDS: DAKIN'S SOLUTION 0.125% 1/4 STRENGTH 473 ML TOPICAL (09:11)
--- NOTE | 2024-07-20 12:00 | WOUNDNOTE ---
L THIGH (PROXIMAL UNDERMINING)
--- NOTE | 2024-07-20 12:00 | WOUNDNOTE ---
L THIGH (LATERAL)(PROXIMAL UNDERMINING)
--- NOTE | 2024-07-20 12:00 | WOUNDNOTE ---
L THIGH (DISTAL UNDERMINING)
--- NOTE | 2024-07-20 12:00 | WOUNDNOTE ---
L THIGH (LATERAL) (undermines proximally and distally)
--- NOTE | 2024-07-20 12:10 | WOUNDNOTE ---
WOC RN note: Patient's L thigh wound vac changed. Patient tolerated dressing change. Wound pink with moderate yellow/christy slough. Updated Dr. King and Lulu Fuentes NP. Plan to to continue wound vac and Dr. King may evaluate wound on Tuesday.
Patient's sacral and heel skin intact. She can turn self in bed. Patient on a [employer] air bed and has an air chair cushion. Heels off bed with pillow. Air chair cushion placed under sacrum per patient request. Updated STARR Beal who plans to
restart IV Heparin after lab draw.
--- NOTE | 2024-07-20 12:17 | WOUNDNOTE ---
[facility] RN note: Patient's L thigh wound vac changed. Patient tolerated dressing change. Wound pink with moderate yellow/christy slough. Updated Dr. King and Lulu Fuentes NP. Plan to to continue wound vac and Dr. King may evaluate wound on Tuesday.
Patient's sacral and heel skin intact. She can turn self in bed. Patient on a [employer] air bed and has an air chair cushion. Heels off bed with pillow. Air chair cushion placed under sacrum per patient request. Updated STARR Beal.
--- NOTE | 2024-07-20 13:10 | CM ---
CM reviewed chart, spoke with admissions from [facility], do not anticipate any rehab beds for when patient is stable. CM spoke with patients daughter, Obdulia, in regards to discharge plan. Daughter reports patient would like to return home with
[facility] and not d/c to rehab. TT to [facility] liaison with referral. Patient current with wound vac. Per PT, patient declined therapy today. CM will continue to follow for all discharge planning needs, patient preference home with services rather than SNF.
Plan; home with [facility], wound vac, versus SNF
[2024-07-20 13:11] LABS: APTT 56.3 Sec (23.4-35.0)
--- NOTE | 2024-07-20 13:14 | WOUNDNOTE ---
L THIGH (PROXIMAL UNDERMINING)
--- NOTE | 2024-07-20 13:29 | VNURNOTE ---
Home Health Liaison spoke with patient's daughter Obdulia to discuss [facility] nurse/therapy, visits, schedule and homebound status. She stated she is not taking patient to her house, pt is planning on going back to pt's house in [place]. daughter [facility] and requested this author speak to the patient directly. Called patient. She is agreeable and understands that visits at home will be 2-3 x per week to assess and teach medical and wound vac management. Patient is aware that
[facility] will contact them for start of care in 1-2 days after discharge from . Will watch for final DC dispo. (PT, OT rec SNF, pt seems resistant to SNF now).
[facility] referral completed in [facility].
--- NOTE | 2024-07-20 13:32 | W.PN.HOSP.TC ---
Today's Communication/Plan
-
Assessment / Plan
Assessment / Plan
NAD
Scleral Anicteric
MMM
No JVD
CTABL
RRR, S1/S2, holosystolic murmur best heard at LLSB
Soft, NT, ND, BS+
Warm, Dry
Wound vac on and functioning over the left knee
AAOx3
Calm
Left knee hemarthrosis/leg hematoma
S/p arteriogram and embolization
Surgery following s/p wound vac placement along with irrigation and debridement left thigh wound
Surgery okay to continue heparin drip
Wound culture growing gram-negative bacilli and Enterococcus species, ESBL ecoli, Staph
Final day of Zosyn per ID
ID following.
COVID-positive
Not requiring oxygen therefore no indication for steroids
We will continue to monitor closely may consider Paxlovid/remdesivir
Diarrhea
Check C. difficile
Could be related to COVID
If C. difficile negative then can likely start Imodium
[facility] mechanical mitral valve with last INR 1.8 on 07/20 porcine tricuspid valve replacement
Continue heparinization resume Coumadin per surgery. Will start with 2 mg at night as is his home dose
Goal INR 2.5-3.5
Chronic heart failure with preserved EF -no evidence of acute exacerbation
Torsemide
Strict OTONIEL, daily weight
Depression/anxiety
Effexor continued
Permanent atrial fibrillation/atrial tachycardia with history of ablation 2011
- Coreg continued
- Digoxin continue
- dig level 0.5
GERD
- Famotidine, omeprazole continued
Restrictive lung disease
- continue Albuterol and Ellipta
Hypothyroidism
- continue levothyroxine
Gout
- continue colchicine
Obstructive sleep apnea
- on CPAP
Anticipated Discharge: > 48 hours
Subjective/Interval History
-
Date of Service: July 20, 2024
Seen and examined. Just received pain medication prior to wound VAC change. The time of my evaluation was nausea however was able to participate in the encounter
Objective Data
-
Labs:
Laboratory Results
07/20/24 07/20/24
07:04 12:52
PT 21.8 H
INR 1.89
APTT 56.3 H
Vital Signs:
Vital Signs
Temp Pulse Resp BP Pulse Ox
97.6 F 73 16 91/31 96
07/20/24 07:32 07/20/24 08:07 07/20/24 08:07 07/20/24 07:32 07/20/24 08:07
I&O
07/19/24 07/20/24 07/21/24
06:59 06:59 06:59
Intake Total 1030 / 1030 580 / 580
Balance 1030 / 1030 580 / 580
--- NOTE | 2024-07-20 14:46 | W.PN.ID1 ---
Date of Service
Date of Service: July 20, 2024
Today's Communication
final day of zosyn
Assessment / Plan
Left knee Hemarthrosis and hematoma
Surgical Site infection of left thigh
Mechanical heart valve on warfarin
- blood cultures x2
- wound culture from the OR with ESBL E coli, E faecalis, Pseudomonas, MSSA
- s/p vac placement
- continue zosyn for 7 day course 07/14-07/20 - today is final day
COVID Infection
- isolation x10 days from obtaining swab 07/13-07/23
- remains on room air again with high saturations
- would not recommend oral antivirals which decrease total duration of infection by about 1 day
Chief Complaint
-: Other (surgical site infection)
Subjective / Review of Systems
afebrile
bp overall stable
Vital Signs / Physical Exam
Vital Signs
Vital Signs
Temp Pulse Resp BP Pulse Ox
97.6 F 73 16 91/31 96
07/20/24 07:32 07/20/24 08:07 07/20/24 08:07 07/20/24 07:32 07/20/24 08:07
Physical Exam
Constitutional: No Acute Distress
Cardiovascular: Regular Rate and S1/S2; Negative Murmur or Rub
Pulmonary: Clear and Symmetric; Negative Wheezes or Rales
Gastrointestinal: Soft, Non Tender, Non Distended and Normal Bowel Sounds
Skin: Warm and Dry; Negative Rash or Jaundice
Wound: Other (wound vac in place)
Objective Data
Lab Data
Lab Results
07/19/24 08:05
07/16/24 05:23
PT 21.8 Sec (11.4-14.6) H 07/20/24 07:04
INR 1.89 07/20/24 07:04
APTT 56.3 Sec (23.4-35.0) H 07/20/24 12:52
Estimated Creat Clear 42 ml/min 07/16/24 05:23
Most recent labs reviewed.
Micro Results:
07/17/24 09:45 Blood Culture - Preliminary
Blood/Venous No Growth in 72 hours- Final report to follow
07/17/24 08:46 Blood Culture - Preliminary
Blood/Venous No Growth in 72 hours- Final report to follow
07/19/24 22:54 C. difficile GDH Antigen & Toxins - Final
Feces/Stool Negative for toxigenic C.difficile
07/14/24 13:49 Anaerobic Culture - Final
Leg - Left Clostridium perfringens
Bacteroides vulgatis
07/14/24 13:49 Wound Culture - Final
Leg - Left Escherichia coli - ESBL
Enterococcus faecalis
Pseudomonas aeruginosa
Staphylococcus intermedius
Gram Stain - Final
07/13/24 17:19 Influenza Types A & B (KELSEY) - Final
Nasal Swab Negative for Influenza A & B, NAAT
Negative results must be combined with clinical observations
and patient history.
Nucleic Acid Amplification test (NAAT)performed on the
[employer] platform.
[2024-07-20 16:50] VITALS: BP 123/71
[2024-07-20] MEDS: COUMADIN 2 MG PO (16:55)
[2024-07-20 20:40] LABS: APTT 76.5 Sec (23.4-35.0)
[2024-07-20] MEDS: ANESTHETIC LOZENGE 1 LOZENGE PO (21:56)
[2024-07-20 22:14] VITALS: BP 111/42
[2024-07-21] MEDS: SYNTHROID 88 MCG PO (05:39)
[2024-07-21 05:54] LABS: INR 2.16; PT 24.2 Sec (11.4-14.6)
[2024-07-21 05:56] LABS: APTT 95.1 Sec (23.4-35.0)
[2024-07-21 06:00] VITALS: BMI 26.9
[2024-07-21 07:00] VITALS: BP 107/38
[2024-07-21] MEDS: PEPCID 40 MG PO (08:50)
[2024-07-21] MEDS: PROTONIX 40 MG PO (08:50)
[2024-07-21] MEDS: COREG 3.125 MG PO (08:50)
[2024-07-21] MEDS: DEMADEX 20 MG PO (08:50)
[2024-07-21] MEDS: EFFEXOR XR 75 MG PO (08:50)
[2024-07-21] MEDS: COLCHICINE 0.6 MG PO (08:50)
[2024-07-21] MEDS: OSCAL CAL 500 500 MG PO (08:50)
[2024-07-21] MEDS: VITAMIN D3 (cholecalciferol) 50 MCG PO (08:50)
[2024-07-21] MEDS: DAKIN'S SOLUTION 0.125% 1/4 STRENGTH TOPICAL (08:53)
[2024-07-21] MEDS: FLOVENT 44 MCG INHALER 2 PUFF INH ×2 (09:30→20:12)
[2024-07-21 09:53] LABS: Hematocrit 28.2 % (37.0-47.0); Hemoglobin 9.1 g/dL (12.0-16.0); Mean Corp Hgb Conc. 32.3 g/dL (33.0-37.0); Mean Corpuscular Hgb 32.5 pg (27.0-31.0); Mean Corpuscular Volume 100.7 fL (81.0-99.0); Platelet Count 238 10^3/uL (130-400); Red Cell Dist. Width 16.5 % (11.5-14.5); White Blood Cell Count 3.5 10^3/uL (4.8-10.8)
--- NOTE | 2024-07-21 11:50 | W.PN.HOSP.TC ---
Today's Communication/Plan
-
Assessment / Plan
Assessment / Plan
NAD
Scleral Anicteric
MMM
No JVD
CTABL
RRR, S1/S2, holosystolic murmur best heard at LLSB
Soft, NT, ND, BS+
Warm, Dry
Wound vac on and functioning over the left knee
AAOx3
Calm
Left knee hemarthrosis/leg hematoma
S/p arteriogram and embolization
Surgery following s/p wound vac placement along with irrigation and debridement left thigh wound
Surgery okay to continue heparin drip
Wound culture growing gram-negative bacilli and Enterococcus species, ESBL ecoli, Staph
Final day of Zosyn per ID
ID following.
COVID-positive
Not requiring oxygen therefore no indication for steroids
We will continue to monitor closely may consider Paxlovid/remdesivir
Diarrhea
Check C. difficile
Could be related to COVID
If C. difficile negative then can likely start Imodium
[facility]'s mechanical mitral valve with last INR 2.1 on 07/21 porcine tricuspid valve replacement
Continue heparinization resume Coumadin per surgery. Will start with 2 mg at night as is his home dose
Goal INR 2.5-3.5
Chronic heart failure with preserved EF -no evidence of acute exacerbation
Torsemide
Strict OTONIEL, daily weight
Depression/anxiety
Effexor continued
Permanent atrial fibrillation/atrial tachycardia with history of ablation 2011
- Coreg continued
- Digoxin continue
- dig level 0.5
GERD
- Famotidine, omeprazole continued
Restrictive lung disease
- continue Albuterol and Ellipta
Hypothyroidism
- continue levothyroxine
Gout
- continue colchicine
Obstructive sleep apnea
- on CPAP
Had a paramjit discussion about disposition with Ms. Hanson her sister and her brother today.
Told her that she should go to a SNF she can choose 1 however she should not go home. I do not believe that she would do well at home and this would likely affect her life expectancy and overall disposition as this could cause her depression. She
has been in the bed for the past 9 days with minimal exerting herself. Therefore I am concerned that if she does go home she will become depressed because she was able to perform all of her IADLs/ADLs along with help others.
The biggest reason why she does not want to go to a facility as she is concerned of getting COVID or a different viral infection. I notified her that this can happen going grocery shopping or even being at home when visiting nurses come to the
house. A facility does not negate or increased risk of developing an infection.
Now they are open and willing to speak with a case management about placement
Anticipated Discharge: 24 - 48 hours
Subjective/Interval History
-
Date of Service: July 21, 2024
Seen and examined. No new complaints. No acute overnight events.
Sister and brother both at bedside
Objective Data
-
Labs:
Laboratory Results
07/21/24 07/21/24 07/21/24
05:34 05:34 08:23
WBC 3.5 L
Hgb 9.1 L
Hct 28.2 L
Plt Count 238 D
PT 24.2 H
INR 2.16
APTT 95.1 H Cancelled
Vital Signs:
Vital Signs
Temp Pulse Resp BP Pulse Ox
98.6 F 73 15 107/38 96
07/21/24 07:00 07/21/24 09:30 07/21/24 09:30 07/21/24 07:00 07/21/24 09:30
I&O
07/20/24 07/21/24 07/22/24
06:59 06:59 06:59
Intake Total 580 / 580
Balance 580 / 580
[2024-07-21] MEDS: LANOXIN 125 MCG PO (12:52)
--- NOTE | 2024-07-21 14:29 | CM ---
CM reviewed chart, reviewed with Hospitalist discharge planning, recommendation of SNF. Patient seen bedside with sister, discussed recommendation of SNF. Patient reports she has not been home in two months and would like to return home with [facility]
services, reports she lives alone but has two neighbors who are nurses who are supportive. Patient reports she feels comfortable going home with services and a wound vac. CM discussed that the Hospitalist and PT are recommending rehab, discussed
[facility] not [facility] any beds and would need to send additional referrals. Patient would like to work with PT before discussing sending additional referrals to SNF. PT will evaluate patient tomorrow, aware patient would like to return home
with services rather than SNF. CM will continue to follow for all discharge planning needs.
Plan; SNF recommending, patient wants to return home with [facility] and wound vac, ongoing discussion with patient
[2024-07-21 15:00] VITALS: BP 112/52
[2024-07-21] MEDS: COUMADIN 2 MG PO (17:23)
[2024-07-21] MEDS: HEPARIN 25000 UNITS/250 ML IV (22:27)
[2024-07-21 23:56] VITALS: BP 116/58
[2024-07-22] MEDS: SYNTHROID 88 MCG PO (05:57)
[2024-07-22 07:00] VITALS: BP 112/50
[2024-07-22 07:50] LABS: INR 2.34; PT 25.7 Sec (11.4-14.6)
[2024-07-22] MEDS: EFFEXOR XR 75 MG PO (08:54)
[2024-07-22] MEDS: DEMADEX 20 MG PO (08:54)
[2024-07-22] MEDS: COREG 3.125 MG PO (08:54)
[2024-07-22] MEDS: VITAMIN D3 (cholecalciferol) 50 MCG PO (08:54)
[2024-07-22] MEDS: OSCAL CAL 500 500 MG PO (08:54)
[2024-07-22] MEDS: PROTONIX 40 MG PO (08:54)
[2024-07-22] MEDS: PEPCID 40 MG PO (08:54)
[2024-07-22] MEDS: COLCHICINE 0.6 MG PO (08:54)
[2024-07-22] MEDS: DAKIN'S SOLUTION 0.125% 1/4 STRENGTH TOPICAL (08:58)
[2024-07-22] MEDS: FLOVENT 44 MCG INHALER INH (08:59)
[2024-07-22] MEDS: FLOVENT 44 MCG INHALER 2 PUFF INH ×2 (08:59→20:04)
[2024-07-22 09:40] VITALS: BP 112/50
[2024-07-22 11:00] VITALS: O2SAT 99
[2024-07-22 11:01] VITALS: O2SAT 99
[2024-07-22] MEDS: LANOXIN 125 MCG PO (11:16)
--- NOTE | 2024-07-22 11:31 | W.PN.HOSP.TC ---
Today's Communication/Plan
-
Assessment / Plan
Assessment / Plan
NAD
Scleral Anicteric
MMM
No JVD
CTABL
RRR, S1/S2, holosystolic murmur best heard at LLSB
Soft, NT, ND, BS+
Warm, Dry
Wound vac on and functioning over the left knee
AAOx3
Calm
Left knee hemarthrosis/leg hematoma
S/p arteriogram and embolization
Surgery following s/p wound vac placement along with irrigation and debridement left thigh wound
Surgery okay to continue heparin drip
Wound culture growing gram-negative bacilli and Enterococcus species, ESBL ecoli, Staph
Completed Zosyn on 07/20
ID following.
COVID-positive
Not requiring oxygen therefore no indication for steroids
Diarrhea
Could be related to COVID
[facility]'s mechanical mitral valve with last INR 2.3 on 07/22 porcine tricuspid valve replacement
Continue heparinization resume Coumadin per surgery. Continue 2mg Coumadin
Goal INR 2.5-3.5
Chronic heart failure with preserved EF -no evidence of acute exacerbation
Torsemide
Strict OTONIEL, daily weight
Depression/anxiety
Effexor continued
Permanent atrial fibrillation/atrial tachycardia with history of ablation 2011
- Coreg continued
- Digoxin continue
- dig level 0.5
GERD
- Famotidine, omeprazole continued
Restrictive lung disease
- continue Albuterol and Ellipta
Hypothyroidism
- continue levothyroxine
Gout
- continue colchicine
Obstructive sleep apnea
- on CPAP
Again today stated that she wanted to. Again had a discussion with her at bedside about being realistic about going home versus going to a SNF. She is very adamant about going home. I called her daughter as well about this and provided her with
an update in why I believe she would benefit from a fci facility. She stated that she will talk to her brother or sister in they will convince her to go to a SNF when ready for discharge.
Anticipated Discharge: 24 - 48 hours
Subjective/Interval History
-
Date of Service: July 22, 2024
seen and examined. no new complaints. no acute ovenright events
she states she owuld like to go home and not to a rehab
Objective Data
-
Labs:
Laboratory Results
07/22/24
07:05
PT 25.7 H
INR 2.34
Vital Signs:
Vital Signs
Temp Pulse Resp BP Pulse Ox
98.0 F 85 14 112/50 97
07/22/24 07:00 07/22/24 11:16 07/22/24 08:59 07/22/24 07:00 07/22/24 08:59
I&O
07/21/24 07/22/24 07/23/24
06:59 06:59 06:59
Intake Total 240 / 240
Balance 240 / 240
[2024-07-22 12:48] LABS: APTT 104.2 Sec (23.4-35.0)
[2024-07-22 15:00] VITALS: BP 135/55
[2024-07-22] MEDS: COUMADIN 2 MG PO (17:30)
[2024-07-22 23:18] VITALS: BP 111/41
[2024-07-23] MEDS: SYNTHROID 88 MCG PO (05:37)
[2024-07-23 06:00] VITALS: BMI 26.1
--- NOTE | 2024-07-23 06:28 | W.PN.HOSP.TC ---
Today's Communication/Plan
-
see a/p
Assessment / Plan
Assessment / Plan
Physical exam
General:NAD
HEENT: Scleral Anicteric MMM No JVD
Pulm: CTABL
Cardio: RRR, S1/S2, holosystolic murmur best heard at LLSB
Abd: Soft, NT, ND, BS+
Skin Warm, Dry
Ext Wound vac on and functioning over the left knee
Neuro AAOx3
Psych Calm
[facility]F afib pulm HTN HIRA Gout Hypothyroidism ILD here for Lt Leg Hematoma, wound infxn, and COVID
Left knee hemarthrosis/leg hematoma
S/p arteriogram and embolization
Surgery following s/p wound vac placement along with irrigation and debridement left thigh wound
Wound culture growing gram-negative bacilli and Enterococcus species, ESBL ecoli, Staph
Completed Zosyn on 07/20
ID eval appreciated
COVID-positive
Not requiring oxygen therefore no indication for steroids
completes quaratine after 07/23 as per ID
Diarrhea
Could be related to COVID
[facility]'s mechanical mitral valve Goal INR 2.5-3.5
completed hep coumadin bridge with therapeutic inr, hep gtt since discontinued
Continue 2mg Coumadin
Chronic heart failure with preserved EF -no evidence of acute exacerbation
Torsemide
Strict OTONIEL, daily weight
Depression/anxiety
Effexor continued
Permanent atrial fibrillation/atrial tachycardia with history of ablation 2011
- Coreg continued
- Digoxin continue
- dig level 0.5
GERD
- Famotidine, omeprazole continued
Restrictive lung disease
- continue Albuterol and Ellipta
Hypothyroidism
- continue levothyroxine
Gout
- continue colchicine
Obstructive sleep apnea
- on CPAP
Patient considering SNF rehab
I spent a total of 47 minutes with the patient or on the floor. More than 50% of this time involved counseling and coordination of care.
Anticipated Discharge: 24 - 48 hours
Subjective/Interval History
-
Date of Service: July 23, 2024
No acute distress sitting up comfortably in bed. wound vac in place. Denies significant pain at this time.
Objective Data
-
Labs:
Laboratory Results
07/23/24
06:00
WBC Pending
Hgb Pending
Hct Pending
Plt Count Pending
PT Pending
INR Pending
APTT Pending
Vital Signs:
Vital Signs
Temp Pulse Resp BP Pulse Ox
98.4 F 71 12 111/41 94
07/22/24 23:18 07/22/24 23:18 07/22/24 23:18 07/22/24 23:18 07/22/24 23:18
I&O
07/21/24 07/22/24 07/23/24
06:59 06:59 06:59
Intake Total 240 / 240 240 / 240
Balance 240 / 240 240 / 240
[2024-07-23] MEDS: FLOVENT 44 MCG INHALER 2 PUFF INH ×2 (07:27→19:51)
[2024-07-23 07:37] VITALS: BP 117/40
[2024-07-23 07:40] LABS: Hematocrit 28.9 % (37.0-47.0); Hemoglobin 9.5 g/dL (12.0-16.0); Mean Corp Hgb Conc. 32.9 g/dL (33.0-37.0); Mean Corpuscular Hgb 32.6 pg (27.0-31.0); Mean Corpuscular Volume 99.3 fL (81.0-99.0); Mean Platelet Volume 9.7 fL (7.4-10.4); Platelet Count 236 10^3/uL (130-400); Red Blood Cell Count 2.91 10^6/uL (4.20-5.40); Red Cell Dist. Width 16.2 % (11.5-14.5); White Blood Cell Count 4.7 10^3/uL (4.8-10.8)
[2024-07-23 07:45] LABS: INR 2.59; PT 27.7 Sec (11.4-14.6)
[2024-07-23 07:47] LABS: APTT 78.1 Sec (23.4-35.0)
[2024-07-23] MEDS: PROTONIX 40 MG PO (08:17)
[2024-07-23] MEDS: DEMADEX 20 MG PO (08:17)
[2024-07-23] MEDS: EFFEXOR XR 75 MG PO (08:17)
[2024-07-23] MEDS: PEPCID 40 MG PO (08:17)
[2024-07-23] MEDS: OSCAL CAL 500 500 MG PO (08:17)
[2024-07-23] MEDS: COREG 3.125 MG PO (08:17)
[2024-07-23] MEDS: COLCHICINE 0.6 MG PO (08:17)
[2024-07-23] MEDS: DAKIN'S SOLUTION 0.125% 1/4 STRENGTH TOPICAL (08:18)
[2024-07-23] MEDS: VITAMIN D3 (cholecalciferol) 50 MCG PO (08:19)
--- NOTE | 2024-07-23 09:18 | W.PN.ID1 ---
Date of Service
Date of Service: July 23, 2024
Today's Communication
- will continue to require contact precautions for recent ESBL infection; final day of isolation for covid
ID service will no longer actively follow this patient please recall for further questions
Assessment / Plan
Left knee Hemarthrosis and hematoma
Surgical Site infection of left thigh
Mechanical heart valve on warfarin
- completed a course of zosyn 07/20 and remains clinically well off of antibiotics
- will continue to require contact precautions for recent ESBL infection
- continue zosyn for 7 day course 07/14-07/20 - today is final day
COVID Infection - resolved
- final day of isolation for covid; x10 days from obtaining swab 07/13-07/23
ID service will no longer actively follow this patient please recall for further questions
Chief Complaint
-: Other (surgical site infection)
Subjective / Review of Systems
remains afebrile
bp stable
on room air
no events overnight
Vital Signs / Physical Exam
Vital Signs
Vital Signs
Temp Pulse Resp BP Pulse Ox
98.1 F 71 18 117/40 95
07/23/24 07:37 07/23/24 07:37 07/23/24 07:37 07/23/24 07:37 07/23/24 07:37
Physical Exam
Constitutional: No Acute Distress
Cardiovascular: Regular Rate
Pulmonary: Symmetric
Gastrointestinal: Non Distended
Skin: Dry; Negative Rash or Jaundice
Objective Data
Lab Data
Lab Results
07/23/24 07:02
07/16/24 05:23
PT 27.7 Sec (11.4-14.6) H 07/23/24 07:02
INR 2.59 07/23/24 07:02
APTT 78.1 Sec (23.4-35.0) H 07/23/24 07:02
Estimated Creat Clear 42 ml/min 07/16/24 05:23
Most recent labs reviewed.
Micro Results:
07/17/24 09:45 Blood Culture - Final
Blood/Venous No Growth - Final Report
07/17/24 08:46 Blood Culture - Final
Blood/Venous No Growth - Final Report
07/19/24 22:54 C. difficile GDH Antigen & Toxins - Final
Feces/Stool Negative for toxigenic C.difficile
07/14/24 13:49 Anaerobic Culture - Final
Leg - Left Clostridium perfringens
Bacteroides vulgatis
07/14/24 13:49 Wound Culture - Final
Leg - Left Escherichia coli - ESBL
Enterococcus faecalis
Pseudomonas aeruginosa
Staphylococcus intermedius
Gram Stain - Final
07/13/24 17:19 Influenza Types A & B ([facility]ELSEY) - Final
Nasal Swab Negative for Influenza A & B, NAAT
Negative results must be combined with clinical observations
and patient history.
Nucleic Acid Amplification test (NAAT)performed on the
[employer] platform.
--- NOTE | 2024-07-23 09:59 | WOUNDNOTE ---
[facility] RN note: Plan to change vac dressing around 1315. STARR Borrego stopped IV heparin at 0915 for planned vac dressing change as per nurse Anaya. Júnior texted STARR Borrego requesting she give patient pain med and turn vac pump off/clamp vac tubing
around 1245pm.
[2024-07-23] MEDS: DILAUDID 0.25 MG IV (12:48)
--- NOTE | 2024-07-23 14:06 | WOUNDNOTE ---
L THIGH (PROXIMAL UNDERMINING)
--- NOTE | 2024-07-23 14:06 | WOUNDNOTE ---
L THIGH (DISTAL UNDERMINING)
--- NOTE | 2024-07-23 14:08 | WOUNDNOTE ---
[facility] RN note: Patient's L thigh wound vac dressing changed. General surgeon SOFTWARE CONSULTANT Lulu Fuentes did some bedside debridement of loosened necrotic tissue. Patient tolerated well. [place] texted RN Salima re: vac dressing change completed if she needs to
restart patient's IV Heparin. Patient turns self in bed. Sacral and heel skin intact. Heels blanchable mild red and intact. Heels off bed with pillow. She is on a [employer] air bed with an air chair cushion. Next vac change due Wed. Dr. King plans
to see wound on Wed during vac change as per ELIAZAR Lawson.
--- NOTE | 2024-07-23 14:08 | W.PN.GS2 ---
Today's Communication / Plan
-
Wound vac
Assessment / Plan
-
78F developed a large hematoma of the proximal lateral left thigh. She underwent irrigation and debridement in the OR on 07/15 and 07/17
Doing well with wound vac
Small amount of necrotic sq fat gently debrided at bedside today with vac change. No bleeding.
-Continue wound vac
-Ok to continue anticoagulation as per primary team
-Will continue to follow
Subjective Data
-
Date of Service: July 23, 2024
Patient seen and examined at bedside with conductor yard. Denies pain to the left leg. Tolerating dressing changes.
Objective Data
-
Intake and Output
07/22/24 07/23/24 07/24/24
06:59 06:59 06:59
Intake Total 240 / 240 240 / 240
Balance 240 / 240 240 / 240
Intake:
Oral fluids 240 / 240 240 / 240
Other:
Number of approximated MODERATE 3 2
amounts of urine
Number of unmeasured liquid
stools
Rectum 1
Vital Signs
Temp Pulse Resp BP Pulse Ox
98.1 F 71 18 117/40 97
07/23/24 07:37 07/23/24 07:37 07/23/24 07:37 07/23/24 07:37 07/23/24 08:20
Lab Results
07/23/24 07:02
07/16/24 05:23
Calcium 7.9 mg/dl (8.4-10.2) L 07/16/24 05:23
Physical Exam
-
NAD
Left thigh wound with granulation tissue to majority of wound, wound base with minimal slough with undermining under skin. Medial wall of wound with exposed sq fat, preformed gentle debridement of necrotic sq fat.
[2024-07-23 15:04] VITALS: BP 116/43
[2024-07-23] MEDS: COUMADIN 2 MG PO (17:12)
[2024-07-23] MEDS: ANESTHETIC LOZENGE 1 LOZENGE PO (21:11)
[2024-07-23 23:02] VITALS: BP 107/44
[2024-07-24] MEDS: SYNTHROID 88 MCG PO (05:22)
[2024-07-24 06:00] VITALS: BMI 25.9
[2024-07-24 07:11] LABS: INR 3.05; PT 31.4 Sec (11.4-14.6)
[2024-07-24 07:32] VITALS: BP 98/65
[2024-07-24 07:35] LABS: Hematocrit 29.7 % (37.0-47.0); Hemoglobin 9.7 g/dL (12.0-16.0); Mean Corp Hgb Conc. 32.7 g/dL (33.0-37.0); Mean Platelet Volume 9.8 fL (7.4-10.4); Platelet Count 236 10^3/uL (130-400); Red Blood Cell Count 2.94 10^6/uL (4.20-5.40); Red Cell Dist. Width 16.3 % (11.5-14.5); White Blood Cell Count 5.1 10^3/uL (4.8-10.8)
[2024-07-24] MEDS: FLOVENT 44 MCG INHALER 2 PUFF INH ×2 (07:46→19:57)
[2024-07-24 07:59] LABS: Blood Urea Nitrogen 9 mg/dl (7-17); Carbon Dioxide 33 mmol/L (22-30); Chloride 103 mmol/L (98-107); Estimated Creatinine Clearance 40 ml/min; Glucose 89 mg/dl (70-99); Iron 54 ug/dl (37-170); Magnesium 1.7 mg/dl (1.6-2.3); Percent Saturation 25 % (20-50); Phosphorus 3.4 mg/dl (2.5-4.5); Potassium 2.7 mmol/L (3.5-5.1); Sodium 138 mmol/L (135-145); Total Iron Binding Capacity 208 ug/dl (265-497); eGFR > 60.00
[2024-07-24] MEDS: PROTONIX 40 MG PO (08:09)
[2024-07-24] MEDS: COREG 3.125 MG PO (08:09)
[2024-07-24] MEDS: EFFEXOR XR 75 MG PO (08:10)
[2024-07-24] MEDS: COLCHICINE 0.6 MG PO (08:10)
[2024-07-24] MEDS: OSCAL CAL 500 500 MG PO (08:10)
[2024-07-24] MEDS: VITAMIN D3 (cholecalciferol) 50 MCG PO (08:10)
[2024-07-24] MEDS: DEMADEX PO (08:11)
[2024-07-24] MEDS: DAKIN'S SOLUTION 0.125% 1/4 STRENGTH TOPICAL (08:11)
[2024-07-24] MEDS: PEPCID 20 MG PO (08:12)
[2024-07-24] MEDS: PEPCID PO (08:16)
[2024-07-24 08:37] LABS: Folate 6.6 ng/ml (2.76-20); Vitamin B12 963 pg/ml (239-931)
[2024-07-24] MEDS: KCL 40 MEQ PO (08:51)
[2024-07-24] MEDS: MAGNESIUM SULFATE 50 IV (08:52)
[2024-07-24] MEDS: KCL 270 MEQ IV (09:13)
--- NOTE | 2024-07-24 11:01 | CM ---
CM reviewed chart, patient seen bedside, discussed d/c planning for SNF vs VN. Patient reports she is reconsidering SNF now, reports it is difficult to ambulate with the wound vac. Patient tearful, reports she has been away from home for over two
months. Emotional support provided. Patient reports her daughter will be visiting today. Patient requesting referral back to [facility] and also to [facility], does not want a referral to [facility], reports [facility] is too far. SNFs reviewed in [facility],
patient reports she would like to stay in [facility]. CM will continue to follow for all discharge planning needs.
Plan; SNF pending accepting facility, will need auth, new wound vac.
[2024-07-24] MEDS: LANOXIN 125 MCG PO (11:21)
--- NOTE | 2024-07-24 11:35 | W.PN.HOSP.TC ---
Today's Communication/Plan
-
see a/p
Assessment / Plan
Assessment / Plan
Physical exam
General:NAD
HEENT: Scleral Anicteric MMM No JVD
Pulm: CTABL
Cardio: RRR, S1/S2, holosystolic murmur best heard at LLSB
Abd: Soft, NT, ND, BS+
Skin Warm, Dry
Ext Wound vac on and functioning over the left knee
Neuro AAOx3
Psych Calm
78F Mech Heart Valve on Coumadin CHF afib pulm HTN HIRA Gout Hypothyroidism ILD here for Lt Leg Hematoma, wound infxn, and COVID
Left knee hemarthrosis/leg hematoma
S/p arteriogram and embolization
Surgical Wound Site Infection
Surgery following s/p wound vac placement along with irrigation and debridement left thigh wound
Wound culture growing gram-negative bacilli and Enterococcus species, ESBL ecoli, Staph
Completed Zosyn on 07/20
ID eval appreciated
COVID-positive
Not requiring oxygen therefore no indication for steroids
completes quaratine after 07/23 as per ID
Diarrhea
Could be related to COVID
[facility] mechanical mitral valve Goal INR 2.5-3.5
completed hep coumadin bridge with therapeutic inr, hep gtt since discontinued
Continue 2mg Coumadin
Hypokalemia
Borderline low normal Mg
monitor and replete as necessary
Chronic heart failure with preserved EF -no evidence of acute exacerbation
Torsemide, hold for hypokalemia
Strict OTONIEL, daily weight
Depression/anxiety
Effexor continued
Permanent atrial fibrillation/atrial tachycardia with history of ablation 2011
- Coreg continued
- Digoxin continue
- dig level 0.5
GERD
- Famotidine, omeprazole continued
Restrictive lung disease
- continue Albuterol and Ellipta
Hypothyroidism
- continue levothyroxine
Gout
- continue colchicine
Obstructive sleep apnea
- on CPAP
Patient agreeable to SNF rehab at this time. Discharge planning accordingly
I spent a total of 45 minutes with the patient or on the floor. More than 50% of this time involved counseling and coordination of care.
Anticipated Discharge: Within 24 hours
Subjective/Interval History
-
Date of Service: July 24, 2024
No acute distress sitting up comfortable in bed. Reports overall feeling well. Denies new acute issues at this time.
Objective Data
-
Labs:
Laboratory Results
07/24/24 07/24/24
06:36 15:00
WBC 5.1
Hgb 9.7 L
Hct 29.7 L
Plt Count 236
PT 31.4 H
INR 3.05
Sodium 138 Pending
Potassium 2.7 L* Pending
Chloride 103 Pending
Carbon Dioxide 33 H Pending
BUN 9 Pending
Creatinine 0.9 Pending
Glucose 89 Pending
Calcium 8.0 L Pending
Vital Signs:
Vital Signs
Temp Pulse Resp BP Pulse Ox
99.8 F 78 16 98/65 98
07/24/24 07:32 07/24/24 11:21 07/24/24 07:49 07/24/24 07:32 07/24/24 08:10
I&O
07/23/24 07/24/24 07/25/24
06:59 06:59 06:59
Intake Total 240 / 240 720 / 720
Balance 240 / 240 720 / 720
--- NOTE | 2024-07-24 13:01 | PN.CDI ---
CDI
- -
CDI:
Physician Documentation Request
Admit Date: 07/13/24 17:53
Dear Doctor Miguelito,
Patient presented to ED with reports of intermittent bleeding from hematoma of left thigh. Patient was recently hospitalized for hemarthrosis of left knee and left thigh hematoma.
07/14 patient underwent irrigation and debridement of left thigh hematoma.
Wound cultures were positive for Escherichia coli-ESBL, Enterococcus faecalis, Pseudomonas aeruginosa and Staphylococcus intermedius. Anaerobic cultures Clostridium perfringens and Bacteroides valgatis.
07/16 ID consultation includes a diagnosis of surgical site infection
Patient currently on Zosyn. Earlier in admission had Vancomycin and Ancef.
Please indicate in your progress notes if you are in agreement that the above diagnosis is valid for this patient:
____ - Surgical site infection is a valid diagnosis for this hospitalization
____ - Surgical site infection is not a valid diagnosis for this patient
____ - Other
Use of terms such as suspected, likely, concern for, or probable are acceptable for a diagnosis that is being evaluated, monitored or treated as if it exists and can be coded in the inpatient setting, when documented at the time of discharge.
Thank you,
Suzie Whitfield RN, BSN
CDI Specialist
tiger text
Please use your independent medical judgment in providing your response.
[2024-07-24 13:07] VITALS: BMI 25.9
[2024-07-24 14:43] VITALS: BP 98/65; PULSE 81
[2024-07-24 15:02] VITALS: BP 87/50
[2024-07-24 15:42] LABS: Blood Urea Nitrogen 10 mg/dl (7-17); Calcium 8.5 mg/dl (8.4-10.2); Carbon Dioxide 33 mmol/L (22-30); Chloride 103 mmol/L (98-107); Estimated Creatinine Clearance 36 ml/min; Glucose 148 mg/dl (70-99); Potassium 3.9 mmol/L (3.5-5.1); Sodium 139 mmol/L (135-145); eGFR 57.66
[2024-07-24] MEDS: COUMADIN 2 MG PO (16:17)
[2024-07-24] MEDS: TYLENOL 650 MG PO (16:20)
[2024-07-24] MEDS: KCL 20 MEQ PO (20:04)
[2024-07-24] MEDS: ANESTHETIC LOZENGE 1 LOZENGE PO (20:14)
[2024-07-24 22:52] VITALS: BP 103/46
[2024-07-25] MEDS: SYNTHROID 88 MCG PO (05:07)
[2024-07-25 06:00] VITALS: BMI 27.5
[2024-07-25 07:22] VITALS: BP 104/71
[2024-07-25] MEDS: COREG 3.125 MG PO (07:59)
[2024-07-25] MEDS: EFFEXOR XR 75 MG PO (08:00)
[2024-07-25] MEDS: KCL 20 MEQ PO ×2 (08:00→20:07)
[2024-07-25] MEDS: DEMADEX 20 MG PO (08:00)
[2024-07-25] MEDS: COLCHICINE 0.6 MG PO (08:00)
[2024-07-25] MEDS: PROTONIX 40 MG PO (08:00)
[2024-07-25] MEDS: VITAMIN D3 (cholecalciferol) 50 MCG PO (08:00)
[2024-07-25] MEDS: PEPCID 20 MG PO (08:00)
[2024-07-25] MEDS: OSCAL CAL 500 500 MG PO (08:00)
[2024-07-25] MEDS: DAKIN'S SOLUTION 0.125% 1/4 STRENGTH TOPICAL (08:01)
[2024-07-25 08:12] LABS: INR 3.88; PT 38.3 Sec (11.4-14.6)
[2024-07-25] MEDS: FLOVENT 44 MCG INHALER 2 PUFF INH ×2 (08:23→19:42)
[2024-07-25 08:24] LABS: Hematocrit 29.3 % (37.0-47.0); Hemoglobin 9.7 g/dL (12.0-16.0); Mean Corp Hgb Conc. 33.1 g/dL (33.0-37.0); Mean Corpuscular Hgb 33.1 pg (27.0-31.0); Mean Platelet Volume 9.8 fL (7.4-10.4); Platelet Count 253 10^3/uL (130-400); Red Blood Cell Count 2.93 10^6/uL (4.20-5.40); Red Cell Dist. Width 16.3 % (11.5-14.5); White Blood Cell Count 5.3 10^3/uL (4.8-10.8)
[2024-07-25 09:05] LABS: Blood Urea Nitrogen 9 mg/dl (7-17); Calcium 8.2 mg/dl (8.4-10.2); Carbon Dioxide 32 mmol/L (22-30); Chloride 106 mmol/L (98-107); Estimated Creatinine Clearance 41 ml/min; Glucose 86 mg/dl (70-99); Magnesium 2.3 mg/dl (1.6-2.3); Phosphorus 3.1 mg/dl (2.5-4.5); Potassium 3.6 mmol/L (3.5-5.1); Sodium 139 mmol/L (135-145); eGFR > 60.00
--- NOTE | 2024-07-25 09:14 | W.PN.HOSP.TC ---
Today's Communication/Plan
-
Stable for discharge SNF rehab pending placement
Assessment / Plan
Assessment / Plan
Physical exam
General:NAD
HEENT: Scleral Anicteric MMM No JVD
Pulm: CTABL
Cardio: RRR, S1/S2, holosystolic murmur best heard at LLSB
Abd: Soft, NT, ND, BS+
Skin Warm, Dry
Ext Wound vac on and functioning over the left knee
Neuro AAOx3
Psych Calm
78F Mech Heart Valve on Coumadin CHF afib pulm HTN HIRA Gout Hypothyroidism ILD here for Lt Leg Hematoma, wound infxn, and COVID
Left knee hemarthrosis/leg hematoma
S/p arteriogram and embolization
Surgical Wound Site Infection
Surgery following s/p wound vac placement along with irrigation and debridement left thigh wound
Wound culture growing gram-negative bacilli and Enterococcus species, ESBL ecoli, Staph
Completed Zosyn on 07/20
ID eval appreciated
COVID-positive
Not requiring oxygen therefore no indication for steroids
completed quarantine
Diarrhea
Could be related to COVID
[facility] mechanical mitral valve Goal INR 2.5-3.5
completed hep coumadin bridge with therapeutic inr, hep gtt since discontinued
Continue 2mg Coumadin, hold for supratherapeutic INR
Hypokalemia
Borderline low normal Mg
monitor and replete as necessary
Chronic heart failure with preserved EF -no evidence of acute exacerbation
Torsemide, hold for hypokalemia
Strict OTONIEL, daily weight
Depression/anxiety
Effexor continued
Permanent atrial fibrillation/atrial tachycardia with history of ablation 2011
- Coreg continued
- Digoxin continue
- dig level 0.5
GERD
- Famotidine, omeprazole continued
Restrictive lung disease
- continue Albuterol and Ellipta
Hypothyroidism
- continue levothyroxine
Gout
- continue colchicine
Obstructive sleep apnea
- on CPAP
Medically stable for discharge SNF rehab pending placement
I spent a total of 40 minutes with the patient or on the floor. More than 50% of this time involved counseling and coordination of care.
Anticipated Discharge: Within 24 hours
Subjective/Interval History
-
Date of Service: July 25, 2024
No acute distress sitting up comfortably in bed. Overall reports feeling well. Denies new acute issues at this time.
Objective Data
-
Labs:
Laboratory Results
07/25/24 07/25/24
06:58 06:59
WBC 5.3
Hgb 9.7 L
Hct 29.3 L
Plt Count 253
PT 38.3 H
INR 3.88
Sodium 139
Potassium 3.6
Chloride 106
Carbon Dioxide 32 H
BUN 9
Creatinine 0.9
Glucose 86
Calcium 8.2 L
Vital Signs:
Vital Signs
Temp Pulse Resp BP Pulse Ox
98.8 F 74 16 104/71 97
07/25/24 07:22 07/25/24 08:25 07/25/24 08:25 07/25/24 07:22 07/25/24 08:25
I&O
07/24/24 07/25/24 07/26/24
06:59 06:59 06:59
Intake Total 720 / 720 1200 / 1200
Balance 720 / 720 1200 / 1200
[2024-07-25] MEDS: DILAUDID 0.25 MG IV (09:34)
--- NOTE | 2024-07-25 10:15 | WOUNDNOTE ---
L THIGH WOUND (PROXIMAL UNDERMINING)
--- NOTE | 2024-07-25 10:15 | WOUNDNOTE ---
L THIGH (DISTAL UNDERMINING)
--- NOTE | 2024-07-25 12:42 | WOUNDNOTE ---
[facility] RN note: Patient seen with Dr. King who did some bedside debridement of patient's L thigh wound. Dr. King requested to stop wound vac and start Santyl with saline Kerlix packing (Dakin's packing prn odor) BID. L thigh wound packed with
saline moistened Kerlix. Sacral and heel skin intact. Rental vac ulta vac pump placed in soiled utility room. Notified [employer] via [employer] portal (work order #[id number]) for rental stop billing date as of today and pick up man. Patient
turns self in bed. She has a [employer] air bed and air chair cushion. Heels off bed with pillow. Po intake fair. Updated RN Emily and NATHANAEL Lao re: vac stopped and BID packing ordered. Care plan and discharge instructions updated.
--- NOTE | 2024-07-25 13:40 | CM ---
CM reviewed chart, patient seen bedside, discussed no beds at [facility] or [facility] at this time. Patient provided with list of local SNFS to explore additional facilities, patient would like to stay in [place] area, discussed facilities in
[place] area. CM discussed need to send additional referrals, cannot hold patient in hospital until facility of choice has open bed. Patient inquiring about going home with services. CM discussed with Hospitalist, will continue to recommended
SNF, will continue to discuss additional facilities with patient.
Plan; ongoing SNF discussion, will need auth
[2024-07-25 15:01] VITALS: BP 115/58
[2024-07-25] MEDS: TYLENOL 650 MG PO (15:51)
--- NOTE | 2024-07-25 16:32 | W.PN.UPDATE ---
Update Note
Progress Note Update
Pt seen and evaluated together with wound care at bedside. Vac removed. Most of the wound is healthy and granulating well. An area of subcutaneous fat is noted at the superficial aspect of the wound and the fat looks poorly perfused but not frankly
necrotic. There is no odor. The wound was sharply debrided with scissors with removal of subcutaneous fat. Minimal bleeding was noted. The area appears soft and amenable to enzymatic debridement. Plan for transition to saline w2d with nicko and
inocencia prn if odor. Would have her f/u with wound care ctr, may be ready for vac re-application in 2 weeks.
[2024-07-25] MEDS: ANESTHETIC LOZENGE 1 LOZENGE PO (20:08)
[2024-07-25] MEDS: SANTYL OINTMENT 1 APPLIC TOPICAL (20:08)
[2024-07-25 23:07] VITALS: BP 99/64
[2024-07-26] MEDS: SYNTHROID 88 MCG PO (05:46)
[2024-07-26 06:00] VITALS: BMI 27.5
[2024-07-26 07:00] VITALS: BP 109/87
[2024-07-26 07:19] LABS: Hematocrit 31.3 % (37.0-47.0); Hemoglobin 10.2 g/dL (12.0-16.0); Mean Corp Hgb Conc. 32.6 g/dL (33.0-37.0); Mean Corpuscular Hgb 32.8 pg (27.0-31.0); Mean Corpuscular Volume 100.6 fL (81.0-99.0); Mean Platelet Volume 9.8 fL (7.4-10.4); Platelet Count 265 10^3/uL (130-400); Red Blood Cell Count 3.11 10^6/uL (4.20-5.40); Red Cell Dist. Width 16.4 % (11.5-14.5); White Blood Cell Count 5.7 10^3/uL (4.8-10.8)
[2024-07-26 07:42] LABS: INR 3.98; PT 38.5 Sec (11.4-14.6)
[2024-07-26] MEDS: FLOVENT 44 MCG INHALER 2 PUFF INH ×2 (07:47→20:20)
[2024-07-26] MEDS: COLCHICINE 0.6 MG PO (08:00)
[2024-07-26] MEDS: OSCAL CAL 500 500 MG PO (08:00)
[2024-07-26] MEDS: PROTONIX 40 MG PO (08:01)
[2024-07-26] MEDS: COREG 3.125 MG PO (08:01)
[2024-07-26] MEDS: EFFEXOR XR 75 MG PO (08:01)
[2024-07-26] MEDS: KCL 20 MEQ PO ×2 (08:01→20:06)
[2024-07-26] MEDS: PEPCID 20 MG PO (08:01)
[2024-07-26] MEDS: SANTYL OINTMENT 1 APPLIC TOPICAL ×2 (08:01→20:07)
[2024-07-26] MEDS: VITAMIN D3 (cholecalciferol) 50 MCG PO (08:01)
[2024-07-26] MEDS: DEMADEX 20 MG PO (08:01)
[2024-07-26 08:02] LABS: Blood Urea Nitrogen 10 mg/dl (7-17); Calcium 8.2 mg/dl (8.4-10.2); Carbon Dioxide 32 mmol/L (22-30); Chloride 104 mmol/L (98-107); Estimated Creatinine Clearance 37 ml/min; Glucose 87 mg/dl (70-99); Phosphorus 3.4 mg/dl (2.5-4.5); Potassium 3.9 mmol/L (3.5-5.1); Sodium 139 mmol/L (135-145); eGFR 57.66
[2024-07-26] MEDS: TYLENOL 650 MG PO ×2 (08:07→20:06)
--- NOTE | 2024-07-26 08:25 | W.PN.HOSP.TC ---
Today's Communication/Plan
-
Follow up INR in AM
wound care
Likely discharge home with home services tomorrow if INR improves and patient remains stable/continues to improve
Assessment / Plan
Assessment / Plan
Physical exam
General:NAD
HEENT: Scleral Anicteric MMM No JVD
Pulm: CTABL
Cardio: RRR, S1/S2, holosystolic murmur best heard at LLSB
Abd: Soft, NT, ND, BS+
Skin Warm, Dry
ExtL LLE wound dressing clean dry intact
Neuro AAOx3
Psych Calm
78F [facility] Heart Valve on Coumadin CHF afib pulm HTN HIRA Gout Hypothyroidism ILD here for Lt Leg Hematoma, wound infxn, and COVID
Left knee hemarthrosis/leg hematoma
S/p arteriogram and embolization
Surgical Wound Site Infection
Surgery following s/p wound vac placement along with irrigation and debridement left thigh wound, wound vac since completed as per surgery ok to follow up with outpt wnd care ctr
Wound culture growing gram-negative bacilli and Enterococcus species, ESBL ecoli, Staph
Completed Zosyn on 07/20
ID eval appreciated
COVID-positive
Not requiring oxygen therefore no indication for steroids
completed quarantine
Diarrhea
Could be related to COVID
[facility]'s mechanical mitral valve Goal INR 2.5-3.5
Supratherapeutic INR
completed hep coumadin bridge with therapeutic inr, hep gtt since discontinued
Continue 2mg Coumadin, currently on hold for supratherapeutic INR
Hypokalemia
Borderline low normal Mg
monitor and replete as necessary
Chronic heart failure with preserved EF -no evidence of acute exacerbation
Torsemide, hold for hypokalemia
Strict OTONIEL, daily weight
Depression/anxiety
Effexor continued
Permanent atrial fibrillation/atrial tachycardia with history of ablation 2011
- Coreg continued
- Digoxin continue
- dig level 0.5
GERD
- Famotidine, omeprazole continued
Restrictive lung disease
- continue Albuterol and Ellipta
Hypothyroidism
- continue levothyroxine
Gout
- continue colchicine
Obstructive sleep apnea
- on CPAP
PT/OT appreciated home services
DVT ppx Supratherapeutic/Therapeutic INR
I spent a total of 37 minutes with the patient or on the floor. More than 50% of this time involved counseling and coordination of care.
Anticipated Discharge: Within 24 hours
Subjective/Interval History
-
Date of Service: July 26, 2024
no acute distress, off wound vac, overall reports feeling well. Denies new acute issues.
Objective Data
-
Labs:
Laboratory Results
07/26/24
06:51
WBC 5.7
Hgb 10.2 L
Hct 31.3 L
Plt Count 265
PT 38.5 H
INR 3.98
Sodium 139
Potassium 3.9
Chloride 104
Carbon Dioxide 32 H
BUN 10
Creatinine 1.0
Glucose 87
Calcium 8.2 L
Vital Signs:
Vital Signs
Temp Pulse Resp BP Pulse Ox
98.3 F 72 18 99/64 95
07/25/24 23:07 07/26/24 07:49 07/26/24 07:49 07/25/24 23:07 07/26/24 07:49
I&O
07/25/24 07/26/24 07/27/24
06:59 06:59 06:59
Intake Total 1200 / 1200 1680 / 1680
Balance 1200 / 1200 1680 / 1680
[2024-07-26 09:30] LABS: ALT (SGPT) 11 U/L (0-35); AST (SGOT) 22 U/L (14-36); Albumin 3.1 g/dl (3.5-5.0); Alkaline Phosphatase 92 U/L (38-126); Direct Bilirubin 0.1 mg/dl (0.0-0.4); Total Bilirubin 0.6 mg/dl (0.2-1.3); Total Protein 5.6 g/dl (6.3-8.2)
[2024-07-26] MEDS: LANOXIN 125 MCG PO (11:12)
--- NOTE | 2024-07-26 15:34 | CM ---
CM reviewed chart, patient seen bedside, discussed need to send additional referrals to SNF as no beds at [place]/ [facility]. Patient hesitant to send additional referrals, would like to review list of facilities.
CM reviewed with PT/OT, patient did much better with ambulation and recommended VN. CM reviewed with Hospitalist, aware of recommendation of VN. CM discussed with [facility] liaison with referral, will need to discuss with patient wound care
recommendations/teachings as patient lives alone. CM will continue to follow for all discharge planning needs.
Plan; home with [facility] likely, liaison to discuss wound care needs
[2024-07-26 16:06] VITALS: BP 109/43
[2024-07-26 23:00] VITALS: BP 115/47
[2024-07-27] MEDS: SYNTHROID 88 MCG PO (05:21)
[2024-07-27 06:00] VITALS: BMI 26.5
[2024-07-27 06:38] LABS: INR 3.37; PT 33.9 Sec (11.4-14.6)
[2024-07-27 06:43] LABS: Hemoglobin 9.6 g/dL (12.0-16.0); Mean Corpuscular Hgb 32.5 pg (27.0-31.0); Mean Corpuscular Volume 101.7 fL (81.0-99.0); Mean Platelet Volume 10.1 fL (7.4-10.4); Platelet Count 260 10^3/uL (130-400); Red Blood Cell Count 2.95 10^6/uL (4.20-5.40); Red Cell Dist. Width 16.1 % (11.5-14.5); White Blood Cell Count 6.4 10^3/uL (4.8-10.8)
[2024-07-27 07:00] VITALS: BP 102/40
[2024-07-27] MEDS: FLOVENT 44 MCG INHALER 2 PUFF INH ×2 (07:18→20:09)
[2024-07-27 07:29] LABS: Blood Urea Nitrogen 12 mg/dl (7-17); Calcium 8.1 mg/dl (8.4-10.2); Carbon Dioxide 28 mmol/L (22-30); Chloride 105 mmol/L (98-107); Estimated Creatinine Clearance 36 ml/min; Glucose 85 mg/dl (70-99); Phosphorus 3.3 mg/dl (2.5-4.5); Potassium 4.5 mmol/L (3.5-5.1); Sodium 138 mmol/L (135-145); eGFR 57.66
--- NOTE | 2024-07-27 08:50 | W.PN.HOSP.TC ---
Today's Communication/Plan
-
observe
discharge tomorrow home with home services
Assessment / Plan
Assessment / Plan
Physical exam
General:NAD
HEENT: Scleral Anicteric MMM No JVD
Pulm: CTABL
Cardio: RRR, S1/S2, holosystolic murmur best heard at LLSB
Abd: Soft, NT, ND, BS+
Skin Warm, Dry
ExtL LLE wound dressing clean dry intact
Neuro AAOx3
Psych Calm
78F Mech Heart Valve on Coumadin CHF afib pulm HTN HIRA Gout Hypothyroidism ILD here for Lt Leg Hematoma, wound infxn, and COVID
Left knee hemarthrosis/leg hematoma
S/p arteriogram and embolization
Surgical Wound Site Infection
Surgery following s/p wound vac placement along with irrigation and debridement left thigh wound, wound vac since completed as per surgery ok to follow up with outpt wnd care ctr
Wound culture growing gram-negative bacilli and Enterococcus species, ESBL ecoli, Staph
Completed Zosyn on 07/20
ID eval appreciated
COVID-positive
Not requiring oxygen therefore no indication for steroids
completed quarantine
Diarrhea
Could be related to COVID
[facility]'s mechanical mitral valve Goal INR 2.5-3.5
Supratherapeutic INR
completed hep coumadin bridge with therapeutic inr, hep gtt since discontinued
Continue 2mg Coumadin, held for supratherapeutic INR, since resumed with INR back in therapeutic range
Hypokalemia resolved
Borderline low normal Mg resolved
Chronic heart failure with preserved EF -no evidence of acute exacerbation
cont Torsemide
Depression/anxiety
Effexor continued
Permanent atrial fibrillation/atrial tachycardia with history of ablation 2011
- Coreg continued
- Digoxin continue
- dig level 0.5
GERD
- Famotidine, omeprazole continued
Restrictive lung disease
- continue Albuterol and Ellipta
Hypothyroidism
- continue levothyroxine
Gout
- continue colchicine
Obstructive sleep apnea
- on CPAP
PT/OT appreciated home services
DVT ppx Therapeutic INR/coumadin
Discussed with patient and patient's daughter Obdulia
I spent a total of 36 minutes with the patient or on the floor. More than 50% of this time involved counseling and coordination of care.
Anticipated Discharge: Within 24 hours
Subjective/Interval History
-
Date of Service: July 27, 2024
no acute distress, reports overall feeling well. Reports concerns LLE tightness swelling pain discoloration around wound area. Otherwise ambulating well without need for assist device.
Objective Data
-
Labs:
Laboratory Results
07/27/24
05:51
WBC 6.4
Hgb 9.6 L
Hct 30.0 L
Plt Count 260
PT 33.9 H
INR 3.37
Sodium 138
Potassium 4.5
Chloride 105
Carbon Dioxide 28
BUN 12
Creatinine 1.0
Glucose 85
Calcium 8.1 L
Vital Signs:
Vital Signs
Temp Pulse Resp BP Pulse Ox
98.7 F 70 18 102/40 96
07/27/24 07:00 07/27/24 07:28 07/27/24 07:28 07/27/24 07:00 07/27/24 07:28
I&O
07/26/24 07/27/24 07/28/24
06:59 06:59 06:59
Intake Total 1680 / 1680 720 / 720
Balance 1680 / 1680 720 / 720
--- NOTE | 2024-07-27 08:53 | VNURNOTE ---
Late entry from meeting w/pt 07/26- [facility] reviewed current orders. Wound care is ordered for BID at home, hold on wound vac x approx 2 weeks. Patient 'really wants to go home.' Reviewed plan with patient. Inquired who would assist with BID
dressing changes at home. [facility] is happy to help, however, will not be see her 2x/day. Someone (patient or someone else) would need to perform drsg change once VN shows them. Patient stated she cannot do the dressing changes. She has two
friends/neighbors who are retired nurses who may help. Urged pt to call them today to confirm that they would be willing to help. Patient did not want CM to contact her daughter.
[2024-07-27] MEDS: EFFEXOR XR 75 MG PO (09:50)
[2024-07-27] MEDS: DEMADEX 20 MG PO (09:50)
[2024-07-27] MEDS: OSCAL CAL 500 500 MG PO (09:50)
[2024-07-27] MEDS: KCL 20 MEQ PO ×2 (09:50→20:34)
[2024-07-27] MEDS: PEPCID 20 MG PO (09:50)
[2024-07-27] MEDS: PROTONIX 40 MG PO (09:50)
[2024-07-27] MEDS: COLCHICINE 0.6 MG PO (09:50)
[2024-07-27] MEDS: COREG 3.125 MG PO (09:50)
[2024-07-27] MEDS: VITAMIN D3 (cholecalciferol) 50 MCG PO (09:51)
--- NOTE | 2024-07-27 10:22 | VNURNOTE ---
[facility] liaison met w/patient at bedside. She confirmed she spoke with her friend/neighbor Esdras Boen, who is agreeable to help when pt home. Patient is also now willing to learn wound care w/VN instruction. Patient has some wound care supplies to
take home. [facility]N referral accepted in [facility].
--- NOTE | 2024-07-27 11:45 | CM ---
CM reviewed chart, patient seen bedside. Patient confirms she spoke to her friend/neighbor who is a nurse, confirmed friend is able to assist with wound care, is home during the day. IMM reviewed verbally with patient, provided with copy, placed in
chart. Patient reports her daughter will provide transportation home when stable. CM will continue to follow for all discharge planning needs.
Plan; home with [facility] when stable.
[2024-07-27] MEDS: SANTYL OINTMENT 1 APPLIC TOPICAL ×2 (12:11→20:35)
[2024-07-27 15:16] VITALS: BP 117/41
--- NOTE | 2024-07-27 16:00 | W.PN.GS2 ---
Addendum entered and electronically signed by Star Goff MD 07/27/24 18:10:
Patient seen and examined. Agree with below.
Original Note:
Today's Communication / Plan
-
dispo planning
Assessment / Plan
-
78F developed a large hematoma of the proximal lateral left thigh. She underwent irrigation and debridement in the OR on 07/15 and 07/17
Some sq fat debrided at bedside on 07/25 and 07/23
AFVSS
Plan:
Doing well with BID dressing changes, wet to dry with Dakin's soaked Kerlix and Santyl to areas of slough
Home care arranged and pt has a friend who is an RN and is willing to assist her at home as well
Wound center follow up upon d/c
Ok for d/c from surgical standpoint once clear medically
Subjective Data
-
Date of Service: July 27, 2024
Patient seen and examined at bedside with Dr. Goff. Notes some increased edema to the BLLE from baseline. Intermittent discomfort to wound but otherwise no pain. Denies fevers/chills.
Objective Data
-
Intake and Output
07/26/24 07/27/24 07/28/24
06:59 06:59 06:59
Intake Total 1680 / 1680 720 / 720
Balance 1680 / 1680 720 / 720
Intake:
Oral fluids 1680 / 1680 720 / 720
Other:
Number of approximated MODERATE 3 2
amounts of urine
Number of approximated LARGE 1
amounts of urine
Vital Signs
Temp Pulse Resp BP Pulse Ox
98.1 F 71 14 117/41 98
07/27/24 15:16 07/27/24 15:16 07/27/24 15:16 07/27/24 15:16 07/27/24 15:16
Lab Results
07/27/24 05:51
07/27/24 05:51
Calcium 8.1 mg/dl (8.4-10.2) L 07/27/24 05:51
Phosphorus 3.3 mg/dl (2.5-4.5) 07/27/24 05:51
Magnesium 2.0 mg/dl (1.6-2.3) 07/27/24 05:51
Total Bilirubin 0.6 mg/dl (0.2-1.3) 07/26/24 06:51
Direct Bilirubin 0.1 mg/dl (0.0-0.4) 07/26/24 06:51
AST 22 U/L (14-36) 07/26/24 06:51
ALT 11 U/L (0-35) 07/26/24 06:51
Alkaline Phosphatase 92 U/L (38-126) 07/26/24 06:51
Total Protein 5.6 g/dl (6.3-8.2) L 07/26/24 06:51
Albumin 3.1 g/dl (3.5-5.0) L 07/26/24 06:51
Physical Exam
-
NAD
Left thigh wound with granulation tissue to majority of wound, wound base with minimal slough with undermining under skin. Medial wall of wound with exposed sq fat
3+BLLE dependent edema
--- NOTE | 2024-07-27 16:03 | VNURNOTE ---
This author spoke w/patient's pharmacy re: Santyl. They do not have Santyl in stock. If they receive the Rx today they will have it on Tuesday. Requested nursing to send her home w/ some extra. CM and Hospitalist notified. Hospitalist will send
e-Rx today.
[2024-07-27] MEDS: COUMADIN 2 MG PO (17:28)
[2024-07-27 23:25] VITALS: BP 126/58
[2024-07-28] MEDS: SYNTHROID 88 MCG PO (05:17)
[2024-07-28 06:00] VITALS: BMI 26.3
[2024-07-28 07:01] VITALS: BP 114/49
[2024-07-28] MEDS: FLOVENT 44 MCG INHALER 2 PUFF INH (08:32)
[2024-07-28 09:50] LABS: INR 2.78; PT 29.3 Sec (11.4-14.6)
[2024-07-28] MEDS: PROTONIX 40 MG PO (09:54)
[2024-07-28] MEDS: PEPCID 20 MG PO (09:54)
[2024-07-28] MEDS: VITAMIN D3 (cholecalciferol) 50 MCG PO (09:54)
[2024-07-28] MEDS: COLCHICINE 0.6 MG PO (09:54)
[2024-07-28] MEDS: OSCAL CAL 500 500 MG PO (09:54)
[2024-07-28] MEDS: DEMADEX 20 MG PO (09:54)
[2024-07-28] MEDS: EFFEXOR XR 75 MG PO (09:55)
[2024-07-28] MEDS: COREG 3.125 MG PO (09:55)
[2024-07-28] MEDS: KCL 20 MEQ PO (09:55)
[2024-07-28 12:31] VITALS: BP 106/35
[2024-07-28] MEDS: SANTYL OINTMENT 1 APPLIC TOPICAL (12:39)
[2024-07-28] MEDS: LANOXIN 125 MCG PO (12:39)
--- NOTE | 2024-07-28 14:14 | W.PN.HOSP.TC ---
Today's Communication/Plan
-
discharge
Assessment / Plan
Assessment / Plan
Physical exam
General:NAD
HEENT: Scleral Anicteric MMM No JVD
Pulm: CTABL
Cardio: RRR, S1/S2, holosystolic murmur
Abd: Soft, NT, ND, BS+
Skin Warm, Dry
ExtL LLE wound dressing clean dry intact
Neuro AOx3 conversant coherent
Psych Calm
78F [facility] Heart Valve on Coumadin CHF afib pulm HTN HIRA Gout Hypothyroidism ILD here for Lt Leg Hematoma, wound infxn, and COVID
Left knee hemarthrosis/leg hematoma
S/p arteriogram and embolization
Surgical Wound Site Infection
Surgery following s/p wound vac placement along with irrigation and debridement left thigh wound, wound vac since completed as per surgery ok to follow up with out wound care center
Wound culture growing gram-negative bacilli and Enterococcus species, ESBL ecoli, Staph
Completed Zosyn on 07/20
ID eval appreciated
COVID-positive
Not requiring oxygen therefore no indication for steroids
completed quarantine
Diarrhea
Could be related to COVID
since resolved
[facility] Arturo's mechanical mitral valve Goal INR 2.5-3.5
Supratherapeutic INR since resolved
completed hep Coumadin bridge with therapeutic INR, hep gtt since discontinued
Continue 2 mg Coumadin, held for supratherapeutic INR, since resumed with INR back in therapeutic range
Hypokalemia resolved
Borderline low normal Mg resolved
Chronic heart failure with preserved EF -no evidence of acute exacerbation
cont Torsemide
Depression/anxiety
Effexor continued
Permanent atrial fibrillation/atrial tachycardia with history of ablation 2011
- Coreg continued
- Digoxin continue
- dig level 0.5
GERD
- Famotidine, omeprazole continued
Restrictive lung disease
- continue Albuterol and Ellipta
Hypothyroidism
- continue levothyroxine
Gout
- continue colchicine
Obstructive sleep apnea
- on CPAP
PT/OT appreciated home services
DVT ppx Therapeutic INR/coumadin
Medically stable for discharge home with home services and outpatient follow up recommendations.
Discussed with patient and patient's daughter Obdulia
Total Time Preparing Discharge __40 minutes including examination of the patient, summary of the hospital stay, instructions for continuing care to all relevant caregivers; and preparation of discharge records, prescriptions, and referral
forms if necessary.
Anticipated Discharge: Today
Subjective/Interval History
-
Date of Service: July 28, 2024
No acute distress. Appears comfortable at this time. Looking forward to going home.
Objective Data
-
Labs:
Laboratory Results
07/28/24
08:45
PT 29.3 H
INR 2.78
Vital Signs:
Vital Signs
Temp Pulse Resp BP Pulse Ox
98.1 F 79 18 106/35 97
07/28/24 12:31 07/28/24 12:39 07/28/24 12:31 07/28/24 12:31 07/28/24 08:35
I&O
07/27/24 07/28/24 07/29/24
06:59 06:59 06:59
Intake Total 720 / 720 240 / 240
Balance 720 / 720 240 / 240
--- NOTE | 2024-07-28 14:55 | W.DCSUMMARY ---
Discharge Summary
Discharge Data
Date of Admission: 07/13/24
Date of Discharge: 07/28/24
-
Pending Results: No
Discharge Plan
-
Patient Disposition: Home with Home Care
Discharge Diagnosis/Procedures: Left knee hemarthrosis/leg hematoma status post arteriogram and embolization
Surgical Wound Site Infection completed antibiotics treatment
COVID-positive completed quarantine
[employer] Arturo's mechanical mitral valve
Chronic heart failure with preserved Ejection Fraction
Depression/anxiety
Permanent atrial fibrillation/atrial tachycardia with history of ablation 2011
GERD
Restrictive lung disease
Hypothyroidism
Gout
Obstructive sleep apnea
Condition: Fair
Diet: Regular
Activity: As tolerated
Driving Restrictions: Not until seen by your Dr
Blood Work: Follow up with your Coumadin clinic Tuesday following discharge- for INR testing and further Coumadin dosing recommendations.
Other Services: VN, PT and OT
Activity Restrictions/Additional Instructions:
Follow up with primary care provider and wound care center in 1 week of discharge.
Home famotidine reduced from 40 mg to 20 mg daily due to your kidney function/Creatine Clearance.
Potassium supplementation prescribed to prevent hypokalemia while on diuretics such as Torsemide. Hold when off diuretics.
Please take medications as prescribed/recommended and follow up with primary care provider and/or other healthcare provider involved in your care for refills and/or further adjustment to your medication regimen as necessary.
Wound Care Instructions
L thigh wound-clean with saline, Santyl ointment to necrotic tissue including necrotic tissue along underside of wound, pack with saline moistened Kerlix packing (pack with 1/4 strength Dakins moistened Kerlix prn odor), cover with ABD pads, secure
with Uriah wrap, change BID.
(Wound undermines proximally and distally).
Elevate heels off bed with pillow/s.
Pressure redistributing chair cushion (i.e. Air chair cushion).
Follow up at wound care center, call for an appointment or Follow up with wound healthcare customer service to evaluate for wound VAC when wound is clean.
Referrals:
Alberto Lou DO [Family Provider] - in one week
Prescriptions:
New
Santyl 250 unit/gram ointment
1 applic topical BID Qty: 90 0RF
Rx Instructions:
apply to areas of slough on left leg wound
Dakin's Solution 0.125 % solution
1 applic topical BID Qty: 473 1RF
Rx Instructions:
Moisten Kerlix in Dakins before packing wound
potassium chloride 20 mEq Tablet,Er Particles/Crystals
20 meq PO DAILY Qty: 30 0RF
Rx Instructions:
Hold if not taking diuretic (such as Torsemide).
famotidine 20 mg Tablet
20 mg PO DAILY Qty: 30 0RF
Continued
levothyroxine 88 MCG tablet
88 mcg PO DAILY
digoxin 0.125 MG tablet
0.125 mg PO SUTUTHSA@1200
albuterol sulfate [Ventolin HFA] 90 MCG/PUFF HFA aerosol inhaler
2 puff inhalation R Q6HPRN PRN (Reason: SOB)
omeprazole 40 MG capsule,delayed release(DR/EC)
40 mg PO DAILY
Arnuity Ellipta 100 MCG blister with device
1 inh inhalation R DAILY
calcium carbonate [Calcium 600] 600 mg calcium (1,500 mg) Tablet
600 mg PO DAILY
colchicine 0.6 mg Tablet
0.6 mg PO DAILY
cholecalciferol (vitamin D3) 50 mcg (2,000 unit) Tablet
50 mcg PO DAILY
torsemide 20 mg tablet
20 mg PO DAILY Qty: 0 0RF
carvedilol 3.125 mg Tablet
3.125 mg PO DAILY
acetaminophen [Tylenol] 325 mg Tablet
650 mg PO Q6HPRN PRN (Reason: mild pain)
venlafaxine [Effexor XR] 75 mg Capsule,Extended Release 24hr
75 mg PO DAILY
magnesium hydroxide [Milk of Magnesia] 400 mg/5 mL Suspension
2,400 mg PO HSPRN PRN (Reason: constipation)
bisacodyl [Dulcolax (bisacodyl)] 10 mg Suppository
10 mg AK [id number] PRN (Reason: if no bm aftr mom)
warfarin 2 mg Tablet
2 mg PO DAILY
Discontinued
famotidine 40 mg Tablet
40 mg PO DAILY
Discharge Orders:
Discharge Patient (As Directed); Ordered 07/28/24
Ordered By: Caitlin Farley
Discharge Date and Time
Print Language: DANISH
--- NOTE | 2024-07-28 15:08 | CM ---
Patient for d/c today. Per chart, [facility] accepted for services
Daughter will transport patient home
No other CM needs identified at this time
Plan: Home w/ [facility]
[2024-07-28 15:44] VITALS: BP 119/51
== END 2024-07-28 17:00 | disposition home health service (06) | DRG 856 ==
LOC: 4 WEST ACU 17:53
PROVIDERS: Hospitalist; Internal Medicine; Physician Assistant; Registered Nurse; ADMITTING PHYSICIAN Hospitalist; ATTENDING PHYSICIAN Internal Medicine; CONSULT PHYSICIAN Surgery; EMERGENCY PHYSICIAN Emergency Medicine; FAMILY PHYSICIAN Student in an Organized Health Care Education/Training Program; OTHER PHYSICIAN Student in an Organized Health Care Education/Training Program
PROC: 0JBM0ZZ Excision of Left Upper Leg Subcutaneous Tissue and Fascia, Open Approach (ICD-10-PCS; 2024-07-14)
PROC: 0JCM0ZZ Extirpation of Matter from Left Upper Leg Subcutaneous Tissue and Fascia, Open Approach (ICD-10-PCS; 2024-07-14)
PROC: 0HBJXZZ Excision of Left Upper Leg Skin, External Approach (ICD-10-PCS; 2024-07-17)
DX: T81.42XA Infection following a procedure, deep incisional surgical site, initial encounter (principal); U07.1 COVID-19; I48.21 Permanent atrial fibrillation; I50.32 Chronic diastolic (congestive) heart failure; J84.9 Interstitial pulmonary disease, unspecified; M25.062 Hemarthrosis, left knee; L76.32 Postprocedural hematoma of skin and subcutaneous tissue following other procedure; I96 Gangrene, not elsewhere classified; Z95.2 Presence of prosthetic heart valve; I27.20 Pulmonary hypertension, unspecified; G47.33 Obstructive sleep apnea (adult) (pediatric); M10.9 Gout, unspecified; E03.9 Hypothyroidism, unspecified; F32.A Depression, unspecified; I11.0 Hypertensive heart disease with heart failure; D63.8 Anemia in other chronic diseases classified elsewhere; F41.9 Anxiety disorder, unspecified; K21.9 Gastro-esophageal reflux disease without esophagitis; J98.4 Other disorders of lung; B96.5 Pseudomonas (aeruginosa) (mallei) (pseudomallei) as the cause of diseases classified elsewhere; Y83.8 Other surgical procedures as the cause of abnormal reaction of the patient, or of later complication, without mention of misadventure at the time of the procedure; E87.6 Hypokalemia; R19.7 Diarrhea, unspecified; E78.00 Pure hypercholesterolemia, unspecified; J43.9 Emphysema, unspecified; M81.0 Age-related osteoporosis without current pathological fracture; Z79.899 Other long term (current) drug therapy; Z86.711 Personal history of pulmonary embolism; Z86.718 Personal history of other venous thrombosis and embolism; Z95.0 Presence of cardiac pacemaker; Z90.49 Acquired absence of other specified parts of digestive tract
CPT/HCPCS: 36415; 71046; 80048; 80053; 80162; 82248; 82607; 82728; 82746; 83540; 83550; 83735; 84100; 85025; 85027; 85610; 85730; 87040; 87070; 87075; 87076; 87077; 87147; 87185; 87186; 87205; 87324; 87449; 87502; 87811; 93005; 94640; 97116; 97163; 97164; 97167; 97168; 97530; 97535; 99284

== ENCOUNTER → 2024-07-30 13:29 | Outpatient (REF) | payer OTHER, SELFPAY | LOC: WOUND 13:29 | PROVIDERS: ATTENDING PHYSICIAN Surgery; FAMILY PHYSICIAN Hospitalist | DX: L97.129 Non-pressure chronic ulcer of left thigh with unspecified severity (principal); S70.12XA Contusion of left thigh, initial encounter; I50.22 Chronic systolic (congestive) heart failure; I49.5 Sick sinus syndrome; I48.0 Paroxysmal atrial fibrillation; Z95.3 Presence of xenogenic heart valve; Z95.2 Presence of prosthetic heart valve; Z79.01 Long term (current) use of anticoagulants; Z95.828 Presence of other vascular implants and grafts; W54.1XXA Struck by dog, initial encounter | CPT/HCPCS: 99213 ==

== ENCOUNTER → 2024-08-10 11:20 | Outpatient (REF) | payer OTHER, SELFPAY | LOC: WOUND 11:20 | PROVIDERS: ATTENDING PHYSICIAN Surgery; FAMILY PHYSICIAN Hospitalist | DX: L97.129 Non-pressure chronic ulcer of left thigh with unspecified severity (principal); L02.419 Cutaneous abscess of limb, unspecified; S70.12XA Contusion of left thigh, initial encounter; I50.22 Chronic systolic (congestive) heart failure; I49.5 Sick sinus syndrome; I48.0 Paroxysmal atrial fibrillation; Z95.3 Presence of xenogenic heart valve; Z95.2 Presence of prosthetic heart valve; Z79.01 Long term (current) use of anticoagulants; W54.8XXA Other contact with dog, initial encounter | CPT/HCPCS: 87070; 87077; 87147; 87186; 87205; 99215 ==

== ENCOUNTER 2024-08-10 22:53 | Inpatient (IN) | payer OTHER, SELFPAY ==
[2024-08-10] VITALS (11 sets, daily range): BP systolic 103–140; BP diastolic 46–85; BMI 28.5
[2024-08-10 12:18] LABS: % Basophils 0.8 % (0-2); % Immature Granulocytes 0.5 % (0-0.5); % Lymphocytes 11.7 % (20.5-51.1); % Monocytes 9.3 % (1.7-9.3); % Neutrophils 73.7 % (42.2-75.2); Absolute Basophils 0.1 10^3/uL (0-0.2); Absolute Eosinophils 0.2 10^3/uL (0-0.7); Absolute Lymphocytes 0.7 10^3/uL (1.2-3.4); Absolute Monocytes 0.6 10^3/uL (0.1-0.6); Absolute Neutrophils 4.4 10^3/uL (1.4-6.5); Hematocrit 33.9 % (37.0-47.0); Hemoglobin 10.9 g/dL (12.0-16.0); Mean Corp Hgb Conc. 32.2 g/dL (33.0-37.0); Mean Corpuscular Hgb 33.4 pg (27.0-31.0); Mean Platelet Volume 9.4 fL (7.4-10.4); Nucleated Red Blood Cells % 0 %; Platelet Count 300 10^3/uL (130-400); Red Blood Cell Count 3.26 10^6/uL (4.20-5.40); Red Cell Dist. Width 15.7 % (11.5-14.5)
[2024-08-10 12:31] LABS: ALT (SGPT) 13 U/L (0-35); AST (SGOT) 26 U/L (14-36); Alkaline Phosphatase 81 U/L (38-126); Blood Urea Nitrogen 24 mg/dl (7-17); Carbon Dioxide 29 mmol/L (22-30); Chloride 106 mmol/L (98-107); Glucose 91 mg/dl (70-99); Potassium 3.9 mmol/L (3.5-5.1); Sodium 141 mmol/L (135-145); Total Bilirubin 0.5 mg/dl (0.2-1.3); Total Protein 7.1 g/dl (6.3-8.2); eGFR 57.31
[2024-08-10 19:16] LABS: INR 2.67; PT 28.4 Sec (11.4-14.6)
[2024-08-10 19:17] LABS: APTT 45.9 Sec (23.4-35.0)
--- NOTE | 2024-08-10 20:07 | ED.GENMED ---
History of Present Illness
General
Chief Complaint: Skin Problem
Source: patient
Exam Limitations: none
Time Seen by Provider: 08/10/24 15:29
Nursing documentation reviewed up to this point in time: agreed with
History of Present Illness
History of Present Illness:
Patient presents to ED from wound care center for evaluation with concern for complication from recent wound debridement of left thigh. Patient states that she noticed blister formation, with subsequent drainage, distal to the debridement site
couple days ago. Denies fever or chills. Denies nausea or vomiting. Denies new trauma. Denies loss of sensation or weakness.
Past History
Past History
ED Past Medical History: Arrthythmia (Atrial fib), Asthma, CHF, GERD, Seizures, Valvular disease, Hypothyroidism, Psychiatric (Depression) and Other (Migraines, pulmonary embolism, sleep apnea, PNA, Pul Hypertension, rheumatic heart disease,
H-pylori, renal calculus)
ED Past Surgical History: Cardiac (Pacemaker, Tricuspid and mitral replaced, Ablation for SVT), Cholecystectomy and Other (Abdominal wall abscess, IVC filter)
Social History
Tobacco: Non-smoker
Alcohol: None
Drug: None
Personal:
Living: alone
Employment: Retired
Family History
Family History: Other
Review of Systems
Review of Systems
Allergies reviewed?: Yes
All Other Systems: ROS reviewed and negative except as documented in HPI and ROS
Constitutional: Reports no symptoms
Musculoskeletal: Reports no symptoms
Skin: Reports other (Skin abscess)
Neurological: Reports no symptoms
Phy Exam
Physical Exam
Physical Exam:
Physical Exam
General: no apparent distress, not acutely ill. afebrile
Head: nc/at. eomi
Neck: supple. normal range of motion.
Abdomen: normal bowel sounds. not tender.
Neuro: alert and oriented x 3. no focal neurological deficits
Skin: an approx 1mm open lesion noted lateral to left knee, without active drainage. soft defect with packing noted over distal left lateral thigh, above knee without active drainage. no surrounding warmth/erythema
Psychiatric: well kept. interactive and cooperative
Extremities: no edema. no calf tenderness.
Course
Orders/Labs/Results
Orders:
Orders
08/10/24 11:58
CMP [Comprehensive Metabolic Panel] Urgent
Complete Blood Count/With Diff Urgent
08/10/24 18:44
CT Lower Ext W/iv Cont Lt Urgent
Comment:
Reason For Exam: Left thigh/knee open wound
08/10/24 19:00
PTT Urgent
Prothrombin Time Urgent
08/10/24 21:30
Meropenem [Merrem] 1,000 mg IV NOW STA
08/10/24 21:43
Sterile Water [Sterile Water For Injection] 20 ml .ROUTE .STK-MED
08/10/24 22:40
Admit/Transfer Patient As Directed
Co-Sign Provider:
Level of Care: Inpatient admission
Assign to:: Medical/Surgical
Physician / Group: Deep
Diagnosis: Left Thigh Abscess
Reason for Hospitalization: IV abx, OR incision and drainage
Expected length of stay greater than two midnights?: Yes
ELOS- Estimated Length of Stay in days: 3
I certify the patient meets the requirements for IP care: Yes
08/10/24 22:41
PRN Pain Medication Management As Directed
May give lesser potent ordered pain med per pt: Yes
preference::
Protocol:: Medication orders for pain may be administered in a
manner that supports deferring to patient preference
when the pt is:
- Requesting an ordered lesser potent pain medication.
Least to most potent pain medications are defined
as: acetaminophen < NSAID < tramadol < opioids
(morphine, oxycodone, hydromorphone).
- Requesting a lesser dose of the same medication IF
ORDERED.
- Requesting a less intrusive route of administration
if both routes are prescribed by the provider (PO <
IV).
08/10/24 22:43
Code Status As Directed
Resuscitation Status: Full Code
08/11/24 00:08
Acetaminophen [Tylenol] 650 mg PO Q6HPRN PRN mild pain
Albuterol Nebs [Ventolin Nebules] 2.5 mg INH R Q4HPRN PRN
Piperacillin/Tazo 3.375 Gram [Zosyn] 3.375 gram in 50 ml IV Q6H
08/11/24 00:08
SURGICAL CONSULT Routine
Consulting Provider: Chilango Kohli
Was physician already notified: Yes
Activity As Directed
Activity Level: Out of Bed-Early Mobility
With Assistance
Pneumatic Compression Sleeves As Directed
Type: Knee high
Vital Signs As Directed
Frequency: Per unit guidelines
Weight As Directed
Frequency: Daily
DX Deep Vein Thrombosis Video Routine
08/11/24 Breakfast
NPO
Allow oral meds: Yes
Allow clear liquids: 4hrs prior to procedure
Comment: may have unrestricted clear liquid up to 4 hrs prior to scheduled procedure
Levothyroxine [Synthroid] 88 mcg PO DAILY @ 0600
08/11/24 06:31
Basic Metabolic Panel IN AM
Complete Blood Count/No Diff IN AM
Magnesium IN AM
Prothrombin Time IN AM
08/11/24 08:00
FLUTICASONE PROPIONATE 44 mcg [Flovent 44 Mcg Inhaler] 2 puff INH R DAILY
Famotidine [Pepcid] 20 mg PO DAILY
Pantoprazole [Protonix] 40 mg PO DAILY
Potassium Chloride [KCl] 20 meq PO DAILY
Torsemide [Demadex] 20 mg PO DAILY
Venlafaxine Extended Release [Effexor Xr] 37.5 mg PO DAILY
08/11/24 12:00
Digoxin [Lanoxin] 125 mcg PO EDGARDOSA@1200
08/12/24 06:27
Prothrombin Time IN AM
Abnormal Lab Results
08/10/24 08/10/24
11:58 19:00
RBC 3.26 L 10^6/uL
(4.20-5.40)
Hgb 10.9 L g/dL
(12.0-16.0)
Hct 33.9 L %
(37.0-47.0)
MCV 104.0 H fL
(81.0-99.0)
MCH 33.4 H pg
(27.0-31.0)
MCHC 32.2 L g/dL
(33.0-37.0)
RDW 15.7 H %
(11.5-14.5)
Absolute Lymphs (auto) 0.7 L 10^3/uL
(1.2-3.4)
Lymphocytes % 11.7 L %
(20.5-51.1)
PT 28.4 H Sec
(11.4-14.6)
APTT 45.9 H Sec
(23.4-35.0)
BUN 24 H mg/dl
(7-17)
08/10/24 11:58
08/10/24 11:58
Vital Signs
Initial and Last Documented VS:
Initial Vital Signs
Temp Pulse Resp BP Pulse Ox
98.4 F 81 20 128/57 98
08/10/24 11:50 08/10/24 11:50 08/10/24 11:50 08/10/24 11:50 08/10/24 11:50
Last Documented Vital Signs
Temp Pulse Resp BP Pulse Ox
98.3 F 71 18 109/43 95
08/12/24 23:32 08/12/24 23:32 08/12/24 23:32 08/12/24 23:32 08/12/24 23:32
MDM/Problems Addressed
MDM/Problems Addressed:
Discussed with on-call surgeon, Dr. Kohli. Recommends obtaining CT with IV contrast of left leg at this time.
CT report reviewed. Dr. Kohli recommends admission to the hospitalist service on IV antibiotics, along with keep patient n.p.o. and holding off on Coumadin for potential or intervention tomorrow.
*Critical Care Note
Total Time (30-74mins, 75-104mins- exclusive of procedures): Not Applicable
ED Attending Note
-
Portions of this chart may have been created with voice recognition software.� Occasional wrong word or��sound alike� substitutions may have occurred due to the inherent limitations of voice recognition software.
Discharge Plan
Departure
Patient Disposition: Admit
Date of Disposition: 08/10/24
Time of Disposition: 21:40
Presentation/result/management discussed w/ accepting MD/DO: Hospitalist
Discharge Problem:
Abscess
Interventions
Interventions:
*General Assessment Last Done: 08/10/24 11:50
*Neglect/Abuse Screening Last Done: 08/10/24 23:50
*ED- Fall Risk Assessment Last Done: 08/10/24 16:52
*Nursing Disposition Last Done: 08/10/24 23:50
ED-Skin Assessment Last Done: 08/10/24 16:54
Discharge Date and Time
Discharge Date/Time: 08/10/24 23:55
[2024-08-10] MEDS: MERREM 1000 MG IV (21:44)
--- NOTE | 2024-08-10 22:34 | HPS.HSE ---
Family Physician
-
Family Physician: Geneva Angelo MD
Chief Complaint
-
Left Thigh Wound
History of Present Illness
Patient is a 79 y/o female past medical history of mechanical mitral valve on warfarin, chronic heart failure, atrial fibrillation / atrial tachycardia / SSS s/p pacemaker, restrictive lung disease, hypothyroidism, and GERD who presents with
drainage from left thigh wound. Patient was recently admitted to [facility] from July 13 to July 28 with an infected left thigh hematoma. Patient underwent irrigation and debridement of left thigh wound initially no July 14 and again on July 17.
Per Infectious Disease notes patient completed a coarse of Zosyn during her hospitalization. Patient reports shortly after discharge she started with what she describes a pimple distal the prior wound. She notes the pimple started draining and has
continued to drain purulent, sometime bloody drainage. She was seen at the wound care center today who referred her to the emergency department for evaluation. She denies any fevers, sweats or chills.
Medical History
Past Medical History
Past Medical History: Reports Other
Additional Past Medical History:
[facility] Arturo Mechanical Mitral Valve Replacement
Bioprosthetic Tricuspid Valve Replacement
Moderate/Severe Aortic Stenosis
HFpEF with RV dysfunction
Pulmonary Hypertension
Permanent Atrial fibrillation / Atrial tachycardia with history of ablation 2011
Sick Sinus Syndrome s/p Pacemaker
History of PE and IVC filter
Restrictive Lung Disease
Hypothyroidism
Gout
GERD
Anxiety / Depression
HIRA on CPAP
Lymphedema/Venous insufficiency/Varicose veins
History of rheumatic heart disease
Past Surgical History: Reports Other
Additional Past Surgical History:
Mechanical [facility] Arturo mitral valve replacement 2002
Bioprosthetic Tricuspid Valve Replacement
cardiac catheterization
cardiac pacemaker 2010 and 2015
laparoscopic cholecystectomy 2019
cataract surgery
vein stripping
tubal ligation
IVC filter placement
A. fib/A. tach ablation 2011
Social History
Tobacco: Non-smoker
Alcohol: None
Drug: None
Personal: Single
Living: With Family
Family History
Family History: Not pertinent
Allergies / Home Medications
Allergies reflects when Allergies were last updated in [facility].
Home Medications with original date entered in [facility]
Allergy/Medication List:
Allergies
Allergy/AdvReac Type Severity Reaction Status Date / Time
adhesive Allergy redness Verified 08/10/24 11:50
and itching
amiodarone Allergy pulmonary Verified 08/10/24 11:50
issues
dofetilide Allergy SEE BELOW Verified 08/10/24 11:50
enoxaparin (From Lovenox) Allergy excessive Verified 08/10/24 11:50
bleeding
sotalol (Sotalol) Allergy dizziness Verified 08/10/24 11:50
Home Medications
levothyroxine 88 mcg tablet 88 mcg PO DAILY Thyroid 05/18/12
digoxin 125 mcg (0.125 mg) tablet 0.125 mg PO SUTUTHSA@1200 Heart Failure 07/05/14
albuterol sulfate 90 mcg/actuation aerosol inhaler (Ventolin HFA) 2 puff inhalation R Q6HPRN PRN SOB 08/09/16
omeprazole 40 mg capsule,delayed release 40 mg PO DAILY Gastrointestinal issue 02/17/18
fluticasone furoate 100 mcg/actuation blister powder for inhalation (Arnuity Ellipta) 1 inh inhalation R DAILY Lung/breathing issues 04/13/19
cholecalciferol (vitamin D3) 50 mcg (2,000 unit) tablet 50 mcg PO DAILY Supplement 02/11/22
torsemide 20 mg tablet 20 mg PO DAILY Heart Failure #0 tabs 04/15/22
acetaminophen 325 mg tablet (Tylenol) 650 mg PO Q6HPRN PRN mild pain 07/13/24
famotidine 20 mg tablet 20 mg PO DAILY #30 tabs 07/28/24
potassium chloride 20 mEq tablet,extended release(part/cryst) 20 meq PO DAILY #30 tabs 07/28/24
venlafaxine 37.5 mg capsule,extended release 24 hr 37.5 mg PO DAILY 08/10/24
warfarin 1 mg tablet 1.5 mg PO DAILY 08/10/24
Review of Systems
-
History Source: Patient
A 12 point ROS was completed and negative except as noted: Yes
Constitutional: Denies Fever or Chills
Respiratory: Denies Cough or Trouble Breathing
Cardiac: Denies Chest Pain or Palpitations
Abdomen/GI: Denies Abdominal Pain, Nausea, Vomiting, Diarrhea or Constipated
Skin: Reports See HPI
Physical Exam
Vital Signs
Vital Signs
Temp Pulse Resp BP Pulse Ox
98.3 F 71 18 104/85 95
08/10/24 14:08 08/10/24 19:29 08/10/24 14:08 08/10/24 22:00 08/10/24 19:29
Physical Exam
General: Comfortable and Conversant
HEENT: Anicteric and Moist mucous membranes
Respiratory: Clear and Non Labored Respirations
Cardiac: S1/S2, Regular Rhythm and Murmur (Mechanical Click heard best at apex)
GI: Soft and Non Tender
Rectal: Deferred by Provider
Musculoskeletal: No Clubbing, No Cyanosis and Other (Chronic Lower extremity venous stasis changes)
Skin: Warm, Dry and Other (Left Thigh Wound with dressing in place; Purulent drainage from small wound distal to previous left thigh wound and superior to left knee)
Neuro: Awake, Alert, Oriented and Nonfocal/grossly intact
Psych: Calm
Laboratory Results
-
08/10/24 11:58
08/10/24 11:58
Laboratory Results
PT 28.4 Sec (11.4-14.6) H 08/10/24 19:00
INR 2.67 08/10/24 19:00
APTT 45.9 Sec (23.4-35.0) H 08/10/24 19:00
Total Bilirubin 0.5 mg/dl (0.2-1.3) 08/10/24 11:58
AST 26 U/L (14-36) 08/10/24 11:58
ALT 13 U/L (0-35) 08/10/24 11:58
Alkaline Phosphatase 81 U/L (38-126) 08/10/24 11:58
Data Reviewed
-
Lab Data: Labs Reviewed by me
Old Records: Reviewed
Impression/Plan
-
Left Thigh Abscess
-Consult Surgery - Tentative plan for OR tomorrow
-Reviewed previous culture data - Continue Vancomycin and Zosyn which will cover all prior organisms including ESBL E. coli, Pseudomonas, Enterococcus and Staph
-Await wound culture obtained today
[employer]. Arturo Mechanical Mitral Valve
-INR currently 2.67
-Hold Coumadin tonight for OR tomorrow
-Patient will require heparin bridge post-op
HFpEF with RV Dysfunction
Moderate / Severe Aortic Stenosis
-Continue torsemide
-Monitor Daily Weights
Permanent Atrial fibrillation / Atrial Tachycardia
Sick Sinus Syndrome s/p Pacemaker
-Continue Digoxin
Restrictive Lung Disease
-Continue Arnuity Ellipta
Hypothyroidism
-Continue levothyroxine
GERD
-Continue Protonix and Pepcid
Anxiety / Depression
-Continue venlafaxine
Obstructive Sleep Apnea
-Continue CPAP on 12 cm H20
DVT proph: Coumadin / Heparin Drip
Code Status: Full Code
--- NOTE | 2024-08-10 23:11 | W.PN.UPDATE ---
Update Note
Progress Note Update
This is an addendum to H&P written by Annamarie Smith on 08/10/2024.� Patient seen and examined independently with PA.
79-year-old female past medical history of mechanical mitral valve on Coumadin, permanent atrial fibrillation, atrial tachycardia, chronic HFpEF, pulm hypertension, obstructive sleep apnea, gout, hypothyroidism, anxiety/depression, ILD, GERD,
restrictive lung disease, presenting from wound care for concern for complication from recent wound debridement of left thigh.� She noticed blister formation with subsequent drainage, distal to the debridement site a few days ago.� No fevers or
chills.�
Patient was recently admitted for left knee hemarthrosis/leg hematoma status post arteriogram and embolization and debridement status post wound VAC removed today.� Wound culture grew gram-negative bacilli and Enterococcus, ESBL E. coli, staph
status post treatment with Zosyn on 07/20.
Labs unremarkable.� CT scan shows elongated abscess formation along the inferior aspect of the along the subcutaneous tissue of the left knee, distal left thigh lateral to the left knee joint.�
INR is 2.67.
N.p.o. past midnight for debridement tomorrow by general surgery.� Wound culture sent.� IV antibiotics vancomycin/Zosyn.� Hold Coumadin.� Recheck INR in the a.m.� Will need to be bridged with heparin drip after surgery in the a.m. Wound care
consulted.
[2024-08-11] VITALS: BP 116/38
[2024-08-11 00:14] VITALS: BMI 25.1
[2024-08-11 00:17] VITALS: BP 132/54
[2024-08-11 00:59] VITALS: BMI 25.1
[2024-08-11] MEDS: VANCOCIN 530 MG IV (01:13)
--- NOTE | 2024-08-11 02:01 | PTCARENOTE ---
Addendum entered by Chantelle Dennis RN 08/11/24 02:03:
Patient stated ' doesn't want to use hospital cpap machine'. Encouraged patient to bring her own machine.
Original Note:
Received patient from ER. stable vitals. AAOx3. Dressing on left lateral leg with moderate drainage. POC reviewed with patient.
[2024-08-11] MEDS: ZOSYN 50 IV ×4 (05:19→23:05)
[2024-08-11] MEDS: SYNTHROID 88 MCG PO (05:19)
[2024-08-11 07:23] LABS: INR 2.43; PT 26.5 Sec (11.4-14.6)
[2024-08-11 07:26] LABS: Hematocrit 29.5 % (37.0-47.0); Hemoglobin 9.4 g/dL (12.0-16.0); Mean Corp Hgb Conc. 31.9 g/dL (33.0-37.0); Mean Corpuscular Hgb 32.9 pg (27.0-31.0); Mean Corpuscular Volume 103.1 fL (81.0-99.0); Mean Platelet Volume 9.3 fL (7.4-10.4); Platelet Count 234 10^3/uL (130-400); Red Blood Cell Count 2.86 10^6/uL (4.20-5.40); Red Cell Dist. Width 15.7 % (11.5-14.5); White Blood Cell Count 5.1 10^3/uL (4.8-10.8)
[2024-08-11] MEDS: FLOVENT 44 MCG INHALER 2 PUFF INH (07:28)
[2024-08-11 07:44] LABS: Blood Urea Nitrogen 18 mg/dl (7-17); Calcium 8.2 mg/dl (8.4-10.2); Carbon Dioxide 28 mmol/L (22-30); Chloride 108 mmol/L (98-107); Estimated Creatinine Clearance 41 ml/min; Glucose 86 mg/dl (70-99); Magnesium 2.4 mg/dl (1.6-2.3); Potassium 3.5 mmol/L (3.5-5.1); Sodium 140 mmol/L (135-145); eGFR > 60.00
[2024-08-11 07:45] VITALS: BP 123/53
--- NOTE | 2024-08-11 08:02 | PHA.VAN.IN ---
Assessment
- Assessment
Renal Function: Appears similar to baseline
Concomitant Antimicrobials: piperacillin/tazobactam
AUC Dosing Plan
- Dosing Variables
Dosing Weight (kg): 58
Dosing CrCl (ml/min): 41
Vd coefficient (L/kg): 0.7
- Empiric Dosing
Initial / Loading Dose: 1500mg - 08/11 01:13
Maintenance Regimen: Vanc 750mg Q24H starting 08/12 0600
Estimated AUC (mcg*h/mL): 490
Estimated Peak (mcg*h/mL): 30.7
Estimated Trough (mcg/ml): 12.7
Estimated Half Life (H): 18
- Monitoring
No levels ordered at this time: consider levels in next few days
Pharmacokinetics Vancomycin I
- -
Patient Age: 79
Patient Sex: Female
Vancomycin Day #: 1
Indication: Skin And Soft Tissue
Requesting Provider: Rodney Field
Pertinent Antimicrobial Allergies:
no pertinent antibiotic allergies
Height / Weight:
Height 5 ft
Actual Weight 58.287 kg
Pertinent Past Medical History: RLD
- Vital Signs / Lab Results
Temp Pulse Resp BP Pulse Ox
98.2 F 74 16 123/53 94
08/11/24 07:45 08/11/24 07:45 08/11/24 07:45 08/11/24 07:45 08/11/24 07:45
Lab Results - Hematology
08/10/24 08/11/24
11:58 06:31
WBC 6.0 5.1
Lab Results - Chemistry
08/10/24 08/11/24
11:58 06:31
BUN 24 H 18 H
Creatinine 1.0 0.8
Estimated Creat Clear 41
Albumin 4.0
--- NOTE | 2024-08-11 08:47 | CON.GS ---
Addendum entered and electronically signed by Chilango Kohli MD 08/11/24 10:57:
I saw and examined the patient independently.
The Call Center Assistant's note was reviewed and I agree with the note, assessment and plan except where noted below.
Comment: This is a 79-year-old female with a history of mechanical valve and atrial fibrillation on warfarin with a recent admission for a left lower extremity abscess that underwent serial debridements in early July who was discharged home and now
back with an adjacent left lower extremity abscess identified on CT scan after a new sinus tract appeared during outpatient wound care follow-up. At bedside incision and drainage and Jatin drain placement was performed (see below)
Okay to DC from a surgery perspective
Okay to shower
Antibiotics x 4 days, follow-up wound cultures
Continue packing wet-to-dry
Patient to follow-up with Dr. Barraza in the wound care clinic, and with me in 2 to 3 weeks
Discharge instructions updated
Bedside [Incision and Drainage]
A team time-out was performed confirming the location/laterality of the procedure, consent and allergies reviewed.
Location: Left lateral knee
Dimensions: 4 x 4 cm
Local: [1% Lidocaine]
Stamp Collector: Lulu Fuentes
The skin was cleaned with alcohol and anesthetized with [lidocaine]. A cruciate incision was made over the lesion and dissection carried down through subcutaneous tissue. The abscess cavity was identified. The wound was irrigated with sterile
saline. Hemostasis was obtained. There was minimal blood loss. The cavity tracked superiorly to her main wound this was bridged with a looped quarter inch [place] drain, secured in 2 spots with 0 silk suture. About 5 cc of pus and infected
blood/fat was evacuated culture was sent. The patient tolerated the procedure well, discharge instructions reviewed and all questions were answered.
Original Note:
Consultation
-
Date/Time Consultation Performed: 08/11/24 0800
Medical History
-
History of Present Illness:
Ms Hanson is a 79 yo female on chronic warfarin d/t history of mechanical MVR and AF with additional history of HFpEF, pulmonary htn and hemarthrosis which developed spontaneously in her left knee in june requiring admission (06/23-07/04) with left
lower extremity arteriogram by IR with bleeding noted and embolization of the superior and inferior lateral lingular branches preformed. She was readmitted earlier this month (07/13-07/28) for management of an infected hematoma and underwent irrigation
and debridement in the OR on 07/15 and 07/[address] King with sq fat debrided at bedside on 07/25 and 07/23. Cultures from that admission grew multiple microbes. She was eventually able to be discharged back to home with home care and wound care
arrangements made. She has been following in the wound care clinic as an outpatient since that time but presents this admission with a draining small wound distal to her prior hematoma. The prior wound bed is clean with granulating tissue and
healing well via secondary intention with a distal pea sized opening with noted purulence/fluctuance just above the knee.
Past Medical History
Past Medical History: Arrhythmias (permanent AF, s/p ablation 2011, sss s/p ppm), CHF (hfpef, pulmonary htn), GERD, HTN, Hypercholesterolemia, Hypothyroidism, Valvular Disease (mod to severe : rheumatic heart dz) and Other (gout, yariel on cpap,
lymphedema/venous insufficiency/varicose veins)
Past Surgical History: Cardiac (mechanical st [facility] MVR, bioprothetic tricuspid valve), Cholecystectomy (2019), Gynecological (tubal ligation) and Other (ivc filter, abd wall abscess drainage secondary to retained gallstone (2021), vein stripping)
Social History
Tobacco: Non-Smoker
Alcohol: None
Living: With Family
Family History
Family History: Reviewed & Not Pertinent
Allergies / Home Medications
Allergy/AdvReac Type Severity Reaction Status Date / Time
adhesive Allergy redness Verified 08/10/24 11:50
and itching
amiodarone Allergy pulmonary Verified 08/10/24 11:50
issues
dofetilide Allergy SEE BELOW Verified 08/10/24 11:50
enoxaparin (From Lovenox) Allergy excessive Verified 08/10/24 11:50
bleeding
sotalol (Sotalol) Allergy dizziness Verified 08/10/24 11:50
�Medication �Instructions �Recorded �Confirmed �Type
levothyroxine 88 mcg tablet 88 mcg PO DAILY@06 Thyroid 05/18/12 08/11/24 History
digoxin 125 mcg (0.125 mg) tablet 0.125 mg PO SUTUTHSA@1200 Heart 07/05/14 08/10/24 History
Failure
albuterol sulfate 90 mcg/actuation 2 puff inhalation R Q6HPRN PRN SOB 08/09/16 08/10/24 History
aerosol inhaler (Ventolin HFA)
omeprazole 40 mg capsule,delayed 40 mg PO DAILY Gastrointestinal 02/17/18 08/10/24 History
release issue
fluticasone furoate 100 1 inh inhalation R DAILY 04/13/19 08/10/24 History
mcg/actuation blister powder for Lung/breathing issues
inhalation (Arnuity Ellipta)
cholecalciferol (vitamin D3) 50 50 mcg PO DAILY Supplement 02/11/22 08/10/24 History
mcg (2,000 unit) tablet
acetaminophen 325 mg tablet 650 mg PO Q6HPRN PRN mild pain 07/13/24 08/10/24 History
(Tylenol)
famotidine 20 mg tablet 20 mg PO DAILY #30 tabs 07/28/24 08/10/24 Rx
potassium chloride 20 mEq 20 meq PO DAILY #30 tabs 07/28/24 08/10/24 Rx
tablet,extended release(part/cryst)
venlafaxine 37.5 mg 37.5 mg PO DAILY Depression 08/10/24 08/10/24 History
capsule,extended release 24 hr
warfarin 1 mg tablet 1.5 mg PO DAILY Blood Clot 08/10/24 08/10/24 History
Prevention/Tx
torsemide 20 mg tablet 20 mg PO BID Fluid 08/11/24 08/11/24 History
Retention/Swelling
Review of Systems
-
History Source: Patient
All other systems: Negative unless noted
A 10 point review of systems was completed, and was negative except as per HPI.
Physical Exam
Vital Signs
Temp Pulse Resp BP Pulse Ox
98.2 F 74 16 123/53 94
08/11/24 07:45 08/11/24 07:45 08/11/24 07:45 08/11/24 07:45 08/11/24 07:45
08/10/24 08/11/24 08/12/24
06:59 06:59 06:59
Actual Weight 58.287 kg
Body Mass Index (BMI) 25.1
Lab Results
08/11/24 06:31
08/11/24 06:31
WBC 5.1 10^3/uL (4.8-10.8) 08/11/24 06:31
Hgb 9.4 g/dL (12.0-16.0) L 08/11/24 06:31
Hct 29.5 % (37.0-47.0) L 08/11/24 06:31
Plt Count 234 10^3/uL (130-400) D 08/11/24 06:31
Abs Immat Gran (auto) 0.0 10^3/uL (0-0.05) 08/10/24 11:58
Neutrophils % 73.7 % (42.2-75.2) 08/10/24 11:58
Physical Exam
General: Well Developed and Well Nourished
HEENT: Moist Mucous Membranes
Respiratory: Non Labored Respirations
Cardiac: Peripheral Edema (chronic lymphedema) and Other (DP/PT +1-2 BLLe)
GI: Soft, Non Tender and Non Distended
Skin: Warm and Other (Left thigh wound with clean granulating tissue, healing well via secondary intention with a distal pea sized opening with noted purulence/fluctuance just above the knee. )
Neuro: Awake and Alert
Psych: Calm
Data Reviewed
-
CT Scan: Image Personally Visualized and interpreted, Report Reviewed by me, Discussed with Physician and Discussed with Patient
Labs: Labs Reviewed by me, Discussed with Physician and Discussed with Patient
Old Records: Reviewed
Assessment / Plan
-
Ms Hanson is a 79 yo female on chronic warfarin d/t history of mechanical MVR and AF with additional history of HFpEF, pulmonary htn and hemarthrosis which developed spontaneously in her left knee in june requiring admission (06/23-07/04) with left
lower extremity arteriogram by IR with bleeding noted and embolization of the superior and inferior lateral lingular branches preformed. She was readmitted earlier this month (07/13-07/28) for management of an infected hematoma and underwent irrigation
and debridement in the OR on 07/15 and 07/[address] King with sq fat debrided at bedside on 07/25 and 07/23. Cultures from that admission grew multiple microbes including ESBL ecoli.
She presents this admission with a draining small wound distal to her prior infected hematoma. The prior wound bed is clean with granulating tissue and healing well via secondary intention with a distal pea sized opening with noted
purulence/fluctuance just above the knee. Ct imaging reviewed with elongated abscess along the left knee joint, approx 1.6 x1.7 x7 cm correlating with area of fluctuance on exam. No Leukocytosis present. INR 2.43 this am. AFVSS.
--Will plan bedside I&D, lidocain ordered to have at bedside
--Cx collected from new abscess site
--Continue ABX
--- NOTE | 2024-08-11 09:11 | W.PN.HOSP.TC ---
Today's Communication/Plan
-
Continue IV Zosyn and vancomycin
Follow wound cultures
Resume warfarin
Repeat CBC and INR in the morning
Assessment / Plan
Assessment / Plan
#Left thigh abscess
-S/p incision and drainage with surgery today, 08/11
-Currently on IV vancomycin and Zosyn that was started on arrival
-No leukocytosis on arrival; wound culture x 2 obtained
-Continue IV vancomycin and Zosyn for now
-Consider discharge on Bactrim to complete 5 days
#Subtherapeutic INR
-Currently on warfarin 1.5 mg daily with INR goal 2.5-3.5 with mechanical MVR
-INR this morning 2.43, just below goal; does have some bleeding post I&D today
-Will provide warfarin 2 mg this evening and recheck INR and CBC in the morning
#Atrial fibrillation
#Atrial tachycardia
-Home regimen includes warfarin, digoxin; not on AVN antagonists
-As of this morning heart rate within normal range
-Monitor on telemetry
#Severe aortic stenosis
-Last TTE in 11/2023 with YOLANDA 0.9, peak/mean gradient 34/21 mmHg
-On exam she does have a loud 'honking' murmur across the precordium
-No signs or symptoms of critical at this time, should have close follow-up for repeat TTE
#Chronic HFpEF/RVF
#H/O rheumatic heart disease
#S/p mechanical MVR
#S/p bioprosthetic TVR
#Group 2 pulmonary hypertension
-Last echo with LVEF 50 to 55%, RV hypokinesis; RHD -> pHTN -> HFpEF/RVF
-Last echo showed peak/mean gradient 18/ 6 mmHg across mitral valve
-Home regimen includes torsemide 20 mg twice daily; no SGLT2i or other GDMT
-Appears euvolemic at this time
#SSS s/p PPM
-No signs of pacemaker dysfunction at this time
-Continue on telemetry
#Restrictive lung disease
#Obstructive sleep apnea on CPAP
-Unclear cause of restrictive physiology; no known history of ILD or musculoskeletal disease
-Does utilize nightly CPAP with IPAP 12 mmHg for HIRA
-No signs of decompensated respiratory state
-Monitor pulse ox on RA
#Hypothyroidism
-Unclear cause, Home regimen includes levothyroxine
-No signs or symptoms of thyroid dysfunction here
#Chronic venous insufficiency
-Encouraged leg elevation and compression stockings
-Continue with torsemide
#H/O PE
#S/P IVC Filter
-Resuming home warfarin tonight as above
-Unclear provocation for previous PE
Diet: 2 g sodium restricted
DVT prophylaxis: Resume home warfarin
CODE STATUS: Full code
Anticipated Discharge: Within 24 hours
Subjective/Interval History
-
Date of Service: August 11, 2024
Seen and examined at the bedside. No acute events reported overnight. AFVSS this morning
INR this morning 2.43. Status post I&D with surgery
Patient feels well and denies any complaints
Objective Data
-
Labs:
Laboratory Results
08/11/24
06:31
WBC 5.1
Hgb 9.4 L
Hct 29.5 L
Plt Count 234 D
PT 26.5 H
INR 2.43
Sodium 140
Potassium 3.5
Chloride 108 H
Carbon Dioxide 28
BUN 18 H
Creatinine 0.8
Glucose 86
Calcium 8.2 L
Vital Signs:
Vital Signs
Temp Pulse Resp BP Pulse Ox
98.2 F 74 16 123/53 94
08/11/24 07:45 08/11/24 07:45 08/11/24 07:45 08/11/24 07:45 08/11/24 07:45
I&O
08/10/24 08/11/24 08/12/24
06:59 06:59 06:59
Intake Total 500 / 500
Balance 500 / 500
Review of Systems
-
History Source: Patient
All other systems: Reviewed and negative
Physical Exam
-
General: Well Developed, No Apparent Distress and Comfortable
HEENT: Normocephalic, Atraumatic, Moist Mucous Membranes and Anicteric
Respiratory: Clear to Auscultation and Non Labored Respirations
Cardiac: Regular Rhythm, S1/S2 and Murmur (Honking murmur across precordium); Negative Rub, JVD or Gallop
GI: Soft, Nontender, Nondistended and Normal Bowel Sounds
Musculoskeletal: No Clubbing, No Cyanosis and No Edema
Skin: Warm and Dry; Negative Rash
Neuro: AO x 3 and Nonfocal/Grossly Intact; Negative Tremors
Psych: Calm
Data Reviewed
-
Labs: Labs Reviewed by me and Discussed with Patient
[2024-08-11] MEDS: ZOFRAN 4 MG IV (09:53)
[2024-08-11] MEDS: PROTONIX 40 MG PO (09:53)
[2024-08-11] MEDS: PEPCID 20 MG PO (09:55)
[2024-08-11] MEDS: EFFEXOR XR 37.5 MG PO (09:55)
[2024-08-11] MEDS: KCL 20 MEQ PO (09:55)
[2024-08-11] MEDS: DEMADEX 20 MG PO (10:16)
[2024-08-11] MEDS: DILAUDID 0.5 MG IV (10:17)
[2024-08-11] MEDS: LANOXIN 125 MCG PO (11:56)
[2024-08-11 15:50] VITALS: BP 108/36
[2024-08-11] MEDS: COUMADIN 2 MG PO (17:04)
--- NOTE | 2024-08-11 20:25 | PTCARENOTE ---
Patient's Bp- 100/34, she is due to get her Torsemide 20mg PO. JIMENA Fonseca made aware. will hold tonight dose as per order.
[2024-08-11] MEDS: DEMADEX PO (20:28)
[2024-08-11 20:57] LABS: Hematocrit 30.6 % (37.0-47.0); Hemoglobin 10.4 g/dL (12.0-16.0)
[2024-08-11 23:00] VITALS: BP 97/38
[2024-08-12 04:52] VITALS: BMI 25.0
[2024-08-12 04:55] VITALS: BP 103/48
[2024-08-12] MEDS: ZOSYN 50 IV ×3 (04:59→17:14)
[2024-08-12] MEDS: SYNTHROID 88 MCG PO (04:59)
[2024-08-12] MEDS: VANCOCIN 150 IV (05:38)
[2024-08-12] MEDS: FLOVENT 44 MCG INHALER 2 PUFF INH (06:45)
[2024-08-12 06:51] LABS: % Basophils 0.4 % (0-2); % Eosinophils 7.7 % (0-6); % Immature Granulocytes 0.6 % (0-0.5); % Monocytes 5.2 % (1.7-9.3); % Neutrophils 82.1 % (42.2-75.2); Absolute Eosinophils 0.6 10^3/uL (0-0.7); Absolute Immature Granulocytes 0.1 10^3/uL (0-0.05); Absolute Lymphocytes 0.3 10^3/uL (1.2-3.4); Absolute Monocytes 0.4 10^3/uL (0.1-0.6); Absolute Neutrophils 6.8 10^3/uL (1.4-6.5); Hematocrit 27.5 % (37.0-47.0); Hemoglobin 9.2 g/dL (12.0-16.0); Mean Corp Hgb Conc. 33.5 g/dL (33.0-37.0); Mean Corpuscular Hgb 33.7 pg (27.0-31.0); Mean Corpuscular Volume 100.7 fL (81.0-99.0); Mean Platelet Volume 9.5 fL (7.4-10.4); Nucleated Red Blood Cells % 0 %; Platelet Count 229 10^3/uL (130-400); Red Blood Cell Count 2.73 10^6/uL (4.20-5.40); Red Cell Dist. Width 15.8 % (11.5-14.5); White Blood Cell Count 8.3 10^3/uL (4.8-10.8)
[2024-08-12 07:02] LABS: INR 2.82; PT 29.6 Sec (11.4-14.6)
[2024-08-12 07:10] LABS: Blood Urea Nitrogen 16 mg/dl (7-17); Calcium 7.9 mg/dl (8.4-10.2); Carbon Dioxide 25 mmol/L (22-30); Chloride 108 mmol/L (98-107); Estimated Creatinine Clearance 27 ml/min; Glucose 120 mg/dl (70-99); Potassium 4.1 mmol/L (3.5-5.1); Sodium 136 mmol/L (135-145); eGFR 46.05
--- NOTE | 2024-08-12 07:23 | PHA.VAN.FU ---
Vancomycin Assessment / Plan
- Assessment
Renal Function: SCR Increasing
WBC's are: WNL
In the past 24 hrs, patient has been: Afebrile
Concomitant Antimicrobials: piperacillin/tazobactam
- Dosing Plan
Adjust Regimen to: dosing by level
Dosing Comments: received 750mg today at 05:38 & 1500mg yesterday
- Monitoring Plan
Random Level: random 08/13 06
- Follow Up
Pharmacy will continue to follow.
Vancomycin Follow UP
- -
Patient Age: 79
Patient Sex: Female
Vancomycin Day #: 2
Indication: Skin And Soft Tissue
Requesting Provider: Rodney Field
Pertinent Antimicrobial Allergies:
no pertinent antibiotic allergies
Height / Weight:
Height 5 ft
Actual Weight 58.06 kg
Pertinent Past Medical History: RLD
- Vital Signs / Lab Results
Temp Pulse Resp BP Pulse Ox
98.1 F 76 16 103/48 91
08/11/24 23:00 08/12/24 06:47 08/12/24 06:47 08/12/24 04:55 08/11/24 23:00
Lab Results - Hematology
08/10/24 08/11/24 08/12/24
11:58 06:31 06:27
WBC 6.0 5.1 8.3
Lab Results - Chemistry
08/10/24 08/11/24 08/12/24
11:58 06:31 06:27
BUN 24 H 18 H 16
Creatinine 1.0 0.8 1.2 H
Estimated Creat Clear 41 27
Albumin 4.0
[2024-08-12 07:40] VITALS: BP 104/37
[2024-08-12 09:06] VITALS: BP 106/44; BP 106/47; PULSE 77; O2SAT 92
[2024-08-12] MEDS: PEPCID 20 MG PO (09:19)
[2024-08-12] MEDS: EFFEXOR XR 37.5 MG PO (09:19)
[2024-08-12] MEDS: DEMADEX 20 MG PO (09:19)
[2024-08-12] MEDS: PROTONIX 40 MG PO (09:19)
[2024-08-12] MEDS: KCL 20 MEQ PO (09:19)
--- NOTE | 2024-08-12 10:00 | W.PN.SURGUPD ---
Surgical Update
Surgical Update
Bedside wound care
A team time-out was performed confirming the location/laterality of the procedure, consent and allergies reviewed.
Location: Left lower extremity
Dimensions: N/A
Local: None
Digital Marketing Program Manager: Lulu
Surgery team was called regarding ongoing bleeding from her wound after her incision and drainage procedure yesterday in the setting of therapeutic anticoagulation. Her dressing was removed, though there was no active bleeding the abscess cavity
was packed with Surgicel cut into 2 pieces and placed through both the incision and counterincision points. The proximal superficial wound was covered with alginate dressing and then 4 x 4's. This was then wrapped with Kerlix followed by a tight
Uriah wrap.
The patient tolerated the procedure well, discharge instructions reviewed and all questions were answered.
--- NOTE | 2024-08-12 10:01 | W.PN.GS2 ---
Today's Communication / Plan
-
Local wound care
ABX
Assessment / Plan
-
79 yo female with a history of mechanical valve and atrial fibrillation on warfarin (therapeutic) with a recent admission for a left lower extremity abscess that underwent serial debridements in early July who was discharged home and now back with an
adjacent left lower extremity abscess identified on CT scan after a new sinus tract appeared during outpatient wound care follow-up.
PPD #1 bedside incision and drainage and Huma drain placement
Some oozing around drain noted by nursing with previous dressing changes. Some blood on dressing with change but not saturated, no active bleeding noted.
See separate note: Surgicel packing placed to incision/counterincision with alginate to wound bed. LEW wrap for light compression today.
H/H stable @ 9.2 (9.4 yesteray am), INR therapeutic
--ABX as per primary team, wound cx sent on 08/10 and pending
--Resume previous local wound care orders with wet to dry dressings once again starting tomorrow
--Huma to remain in place with tentative removal in clinic in 2-3 weeks
--Patient to follow-up with Dr. Barraza
Subjective Data
-
Date of Service: August 12, 2024
Patient seen and examined at bedside with Dr. Kohli. Some discomfort with dressing change, but otherwise denies pain to LLE. No fevers/chills.
Objective Data
-
Intake and Output
08/11/24 08/12/24 08/13/24
06:59 06:59 06:59
Intake Total 500 / 500 930 / 930
Balance 500 / 500 930 / 930
Intake:
Oral fluids 680 / 680
IV fluids (Total) 500 / 500 250 / 250
Other:
Number of approximated MODERATE 2
amounts of urine
Number of approximated LARGE 1 2
amounts of urine
Vital Signs
Temp Pulse Resp BP Pulse Ox
98.2 F 71 20 104/37 93
08/12/24 07:40 08/12/24 09:19 08/12/24 07:40 08/12/24 09:19 08/12/24 07:40
Lab Results
08/12/24 06:27
08/12/24 06:27
Calcium 7.9 mg/dl (8.4-10.2) L 08/12/24 06:27
Magnesium 2.4 mg/dl (1.6-2.3) H 08/11/24 06:31
Total Bilirubin 0.5 mg/dl (0.2-1.3) 08/10/24 11:58
AST 26 U/L (14-36) 08/10/24 11:58
ALT 13 U/L (0-35) 08/10/24 11:58
Alkaline Phosphatase 81 U/L (38-126) 08/10/24 11:58
Total Protein 7.1 g/dl (6.3-8.2) 08/10/24 11:58
Albumin 4.0 g/dl (3.5-5.0) 08/10/24 11:58
Physical Exam
-
NAD
Left thigh wound bed with clean, granulating tissue. Abbot in place, some fresh blood noted on dressing from around recent counterincision for huma. No active bleeding noted. No purulence
[2024-08-12] MEDS: LANOXIN 125 MCG PO (11:39)
[2024-08-12 12:05] VITALS: BP 106/45; PULSE 72
--- NOTE | 2024-08-12 13:28 | W.PN.HOSP.TC ---
Today's Communication/Plan
-
see A/P
Assessment / Plan
Assessment / Plan
A/P:
# Left thigh abscess
S/p incision and drainage with surgery 08/11
Currently on IV vancomycin and Zosyn that was started on arrival
Follow wound culture, currently growing E coli from 08/11
# CORI
SCr 1.2 from baseline 0.8
Holding ASSOCIATE ACCOUNT EXECUTIVE torsemide
Monitor SCr
# Subtherapeutic INR, resolved
INR goal 2.5-3.5 with mechanical MVR
INR today 2.82,
cont monitor daily INR
Cont ASSOCIATE ACCOUNT EXECUTIVE Coumadin
# Atrial fibrillation
# Atrial tachycardia
Home regimen includes warfarin, digoxin; not on AVN antagonists
rate controlled
Monitor on telemetry
# Severe aortic stenosis
Last TTE in 11/2023 with YOLANDA 0.9, peak/mean gradient 34/21 mmHg
No signs or symptoms of critical at this time, should have close follow-up for repeat TTE
# Chronic HFpEF/RVF
# H/O rheumatic heart disease
# S/p mechanical MVR
# S/p bioprosthetic TVR
# Group 2 pulmonary hypertension
Last echo with LVEF 50 to 55%, RV hypokinesis, peak/mean gradient 18/ 6 mmHg across mitral valve
Home regimen includes torsemide 20 mg twice daily; no SGLT2i or other GDMT
Holding ASSOCIATE ACCOUNT EXECUTIVE torsemide with new CORI
Appears euvolemic at this time
# SSS s/p PPM
No signs of pacemaker dysfunction at this time
Continue on telemetry
# Restrictive lung disease
# Obstructive sleep apnea on CPAP
Unclear cause of restrictive physiology; no known history of ILD or musculoskeletal disease
Does utilize nightly CPAP with IPAP 12 mmHg for HIRA
No signs of decompensated respiratory state
Monitor pulse ox on RA
# Hypothyroidism
Home regimen includes levothyroxine
# Chronic venous insufficiency
Encouraged leg elevation and compression stockings
Continue with torsemide
# H/O PE
# S/P IVC Filter
cont home Coumadin
Diet: 2 g sodium restricted
DVT prophylaxis: Resumed home warfarin
CODE STATUS: Full code
Dispo: PT OT recc HH
Anticipated Discharge: 24 - 48 hours
Subjective/Interval History
-
Date of Service: August 12, 2024
Objective Data
-
Labs:
Laboratory Results
08/12/24
06:27
WBC 8.3
Hgb 9.2 L
Hct 27.5 L
Plt Count 229
PT 29.6 H
INR 2.82
Sodium 136
Potassium 4.1
Chloride 108 H
Carbon Dioxide 25
BUN 16
Creatinine 1.2 H
Glucose 120 H
Calcium 7.9 L
Vital Signs:
Vital Signs
Temp Pulse Resp BP Pulse Ox
36.8 C 71 20 104/37 93
08/12/24 07:40 08/12/24 11:39 08/12/24 07:40 08/12/24 09:19 08/12/24 08:15
I&O
08/11/24 08/12/24 08/13/24
06:59 06:59 06:59
Intake Total 500 / 500 930 / 930
Balance 500 / 500 930 / 930
Review of Systems
-
History Source: Patient
All other systems: Reviewed and negative
Physical Exam
-
General: Well Developed, No Apparent Distress, Comfortable and Conversant
HEENT: Normocephalic, Atraumatic, Moist Mucous Membranes and Anicteric
Respiratory: Clear to Auscultation and Non Labored Respirations
Cardiac: Regular Rhythm, S1/S2 and Murmur (systolic murmur across precordium); Negative Rub, JVD or Gallop
GI: Soft, Nontender, Nondistended and Normal Bowel Sounds
Musculoskeletal: No Clubbing, No Cyanosis and No Edema
Skin: Warm and Dry; Negative Rash
Neuro: Awake, Alert and Nonfocal/Grossly Intact; Negative Tremors
Psych: Calm and Intact Judgement/Insight
Data Reviewed
-
Labs: Labs Reviewed by me and Discussed with Patient
[2024-08-12 15:20] VITALS: BP 106/35
[2024-08-12] MEDS: IMODIUM LIQUID 4 MG PO (19:12)
[2024-08-12 23:32] VITALS: BP 109/43
[2024-08-13] MEDS: ZOSYN 50 IV ×5 (00:35→23:46)
[2024-08-13 06:00] VITALS: BMI 25.1
[2024-08-13] MEDS: SYNTHROID 88 MCG PO (06:08)
[2024-08-13 06:22] LABS: Hematocrit 26.4 % (37.0-47.0); Hemoglobin 8.5 g/dL (12.0-16.0); Mean Corp Hgb Conc. 32.2 g/dL (33.0-37.0); Mean Corpuscular Hgb 33.3 pg (27.0-31.0); Mean Corpuscular Volume 103.5 fL (81.0-99.0); Mean Platelet Volume 9.4 fL (7.4-10.4); Platelet Count 211 10^3/uL (130-400); Red Blood Cell Count 2.55 10^6/uL (4.20-5.40); Red Cell Dist. Width 15.5 % (11.5-14.5)
[2024-08-13 06:35] LABS: INR 2.46; PT 26.7 Sec (11.4-14.6)
[2024-08-13 06:47] LABS: Blood Urea Nitrogen 13 mg/dl (7-17); Carbon Dioxide 27 mmol/L (22-30); Chloride 107 mmol/L (98-107); Estimated Creatinine Clearance 27 ml/min; Glucose 94 mg/dl (70-99); Magnesium 2.4 mg/dl (1.6-2.3); Potassium 3.6 mmol/L (3.5-5.1); Sodium 138 mmol/L (135-145); eGFR 46.05
[2024-08-13 06:55] LABS: Vancomycin Random 12.1 ug/ml
[2024-08-13 07:33] VITALS: BP 106/40
[2024-08-13] MEDS: FLOVENT 44 MCG INHALER INH (07:59)
--- NOTE | 2024-08-13 08:31 | VNURNOTE ---
Chart reviewed. [facility], PT, OT, ASSISTANT TERMINAL MANAGER, TOOLS AND PARTS ATTENDANT. Will continue to follow hospital course and DC plans.
--- NOTE | 2024-08-13 08:32 | PHA.VAN.FU ---
Vancomycin Assessment / Plan
- Assessment
Renal Function: Stable
WBC's are: WNL
In the past 24 hrs, patient has been: Afebrile
Concomitant Antimicrobials: Zosyn 3.375 gram IV q6h
- Assessment - Therapeutic Drug Monitoring
Random Level: 12.1 (08/13 at 6:09 AM)
- Dosing Plan
Adjust Regimen to: Dose by level (CORI on CKD)
Dosing by Level: Re-dose today (Vancomycin 750 mg (~15 mg/kg) x 1 dose)
- Monitoring Plan
Random Level: Vancomycin random level 63 AM labs
- Follow Up
Pharmacy will continue to follow.
Vancomycin Follow UP
- -
Patient Age: 79
Patient Sex: Female
Vancomycin Day #: 3
Indication: Skin And Soft Tissue
Requesting Provider: Rodney Field
Pertinent Antimicrobial Allergies:
no pertinent antibiotic allergies
Height / Weight:
Height 5 ft
Actual Weight 58.377 kg
Pertinent Past Medical History: RLD
- Vital Signs / Lab Results
Temp Pulse Resp BP Pulse Ox
98.1 F 71 16 106/40 95
08/13/24 07:33 08/13/24 07:33 08/13/24 07:33 08/13/24 07:33 08/13/24 07:33
Lab Results - Hematology
08/10/24 08/11/24 08/12/24
11:58 06:31 06:27
WBC 6.0 5.1 8.3
08/13/24
06:09
WBC 5.0
Lab Results - Chemistry
08/10/24 08/11/24 08/12/24
11:58 06:31 06:27
BUN 24 H 18 H 16
Creatinine 1.0 0.8 1.2 H
Estimated Creat Clear 41 27
Albumin 4.0
08/13/24
06:09
BUN 13
Creatinine 1.2 H
Estimated Creat Clear 27
Albumin
Microbiology Results
08/11/24 10:39 Wound Culture - Preliminary
Abscess Escherichia coli
Gram Stain - Preliminary
08/11/24 00:43 MRSA Screen - Final
Nose No Methicillin Resistant Staphylococcus aureus isolated.
Therapeutic Drug Monitoring
Random Vancomycin 12.1 ug/ml 08/13/24 06:09
[2024-08-13] MEDS: PROTONIX 40 MG PO (08:45)
[2024-08-13] MEDS: EFFEXOR XR 37.5 MG PO (08:45)
[2024-08-13] MEDS: PEPCID 20 MG PO (08:45)
[2024-08-13] MEDS: DILAUDID 0.25 MG IV (09:17)
--- NOTE | 2024-08-13 10:24 | W.PN.GS2 ---
Today's Communication / Plan
-
--ABX as per primary team, wound cx sent on 08/10 with E. coli
--Resume previous local wound care orders with wet to dry dressings once again. If patient continues to bleed despite Surgiflo application may need to bring her to the operating room for definitive hemostasis.
--Lillian to remain in place with tentative removal in clinic in 2-[address] Kohli
--Patient to follow-up with Dr. Barraza
Assessment / Plan
-
79 yo female with a history of mechanical valve and atrial fibrillation on warfarin (therapeutic) with a recent admission for a left lower extremity abscess that underwent serial debridements in early July who was discharged home and now back with an
adjacent left lower extremity abscess identified on CT scan after a new sinus tract appeared during outpatient wound care follow-up.
PPD #2 bedside incision and drainage and Jatin drain placement with continued bloody drainage which is expected in the setting of therapeutic anticoagulation. Surgiflo applied today
--ABX as per primary team, wound cx sent on 08/10 with E. coli
--Resume previous local wound care orders with wet to dry dressings once again. If patient continues to bleed despite Surgiflo application may need to bring her to the operating room for definitive hemostasis.
--Lillian to remain in place with tentative removal in clinic in 2-[address] Kohli
--Patient to follow-up with Dr. Barraza
Time Spent
Total Time Spent with Patient (in minutes): 20
Subjective Data
-
Date of Service: August 13, 2024
Patient noted to have continued bleeding from her incision and drainage wound in the setting of continued therapeutic anticoagulation.
Objective Data
-
Intake and Output
08/12/24 08/13/24 08/14/24
06:59 06:59 06:59
Intake Total 930 / 930 820 / 820
Balance 930 / 930 820 / 820
Intake:
Oral fluids 680 / 680 720 / 720
IV fluids (Total) 250 / 250
IV piggybacks 100 / 100
Other:
Number of approximated MODERATE 2 2
amounts of urine
Number of approximated LARGE 2
amounts of urine
Vital Signs
Temp Pulse Resp BP Pulse Ox
98.1 F 71 16 106/40 95
08/13/24 07:33 08/13/24 07:33 08/13/24 07:33 08/13/24 07:33 08/13/24 10:11
Lab Results
08/13/24 06:09
08/13/24 06:09
Calcium 8.0 mg/dl (8.4-10.2) L 08/13/24 06:09
Magnesium 2.4 mg/dl (1.6-2.3) H 08/13/24 06:09
Total Bilirubin 0.5 mg/dl (0.2-1.3) 08/10/24 11:58
AST 26 U/L (14-36) 08/10/24 11:58
ALT 13 U/L (0-35) 08/10/24 11:58
Alkaline Phosphatase 81 U/L (38-126) 08/10/24 11:58
Total Protein 7.1 g/dl (6.3-8.2) 08/10/24 11:58
Albumin 4.0 g/dl (3.5-5.0) 08/10/24 11:58
Physical Exam
-
GENERAL/NEURO: Awake, Alert, no distress
CHEST: Unlabored breathing on RA
Left thigh wound bed clean, granulation tissue noted, Lillian in place with some thin oozing blood noted coming from the wound this was irrigated and gently debrided. The old Surgicel was removed and Surgiflo was instilled into the wound. A
wet-to-dry dressing was placed in the original wound bed and gauze placed over the rest of the wounds and a compression dressing was formed using Kerlix wrap followed by an Uriah wrap. Everything appeared to be hemostatic at the end of the dressing
change.
Patient has a buenrostro catheter: No
Patient has a central line: No
--- NOTE | 2024-08-13 10:36 | WOUNDNOTE ---
[facility] RN note: Surgeon changed L thigh dressing today and is D+I. Sacral and heel skin intact. Patient moves self in bed. Heels off bed with pillow. Instructed patient pressure injury prevention measures. Júnior texted Lulu Fuentes, general surgery [employer]URAL ENGINEER
who stated no need to see today but eventually would like wound RN involved. Will ask WON STARR Loyola to touch base with surgeon tomorrow.
[2024-08-13] MEDS: COMPAZINE 10 MG IV (10:54)
[2024-08-13] MEDS: VANCOCIN 150 IV (12:47)
--- NOTE | 2024-08-13 12:48 | W.PN.HOSP.TC ---
Today's Communication/Plan
-
see A/P
Assessment / Plan
Assessment / Plan
A/P:
# Left thigh abscess
superficial wound culture polymicrobial with Pseudomonas, E coli, Staph aureus; follow S/S
S/p incision and drainage with surgery 08/11
Wound culture from 08/11 growing E coli, follow S/S
Cont current IV vancomycin and Zosyn
# CORI
SCr 1.2 from baseline 0.8
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
Monitor SCr
# Subtherapeutic INR, resolved
INR goal 2.5-3.5 with mechanical MVR
INR today 2.46
cont monitor daily INR
Cont ELECTR[employer] ENGINEERING [employer]N Coumadin
# Atrial fibrillation
# Atrial tachycardia
Home regimen includes warfarin, digoxin; not on AVN antagonists
rate controlled
Monitor on telemetry
# Severe aortic stenosis
Last TTE in 11/2023 with YOLANDA 0.9, peak/mean gradient 34/21 mmHg
No signs or symptoms of critical at this time, should have close follow-up for repeat TTE
# Chronic HFpEF/RVF
# H/O rheumatic heart disease
# S/p mechanical MVR
# S/p bioprosthetic TVR
# Group 2 pulmonary hypertension
Last echo with LVEF 50 to 55%, RV hypokinesis, peak/mean gradient 18/ 6 mmHg across mitral valve
Home regimen includes torsemide 20 mg twice daily; no SGLT2i or other GDMT
Holding ELECTRICAL ENGINEERING INTERN torsemide with new CORI
Appears euvolemic at this time
# SSS s/p PPM
No signs of pacemaker dysfunction at this time
Continue on telemetry
# Restrictive lung disease
# Obstructive sleep apnea on CPAP
Unclear cause of restrictive physiology; no known history of ILD or musculoskeletal disease
Does utilize nightly CPAP with IPAP 12 mmHg for HIRA
No signs of decompensated respiratory state
Monitor pulse ox on RA
# Hypothyroidism
Home regimen includes levothyroxine
# Chronic venous insufficiency
Encouraged leg elevation and compression stockings
Continue with torsemide
# H/O PE
# S/P IVC Filter
cont home Coumadin
Diet: 2 g sodium restricted
DVT prophylaxis: Resumed home warfarin
CODE STATUS: Full code
Dispo: PT OT recc HH
Anticipated Discharge: 24 - 48 hours
Subjective/Interval History
-
Date of Service: August 13, 2024
Objective Data
-
Labs:
Laboratory Results
08/13/24
06:09
WBC 5.0
Hgb 8.5 L
Hct 26.4 L
Plt Count 211
PT 26.7 H
INR 2.46
Sodium 138
Potassium 3.6
Chloride 107
Carbon Dioxide 27
BUN 13
Creatinine 1.2 H
Glucose 94
Calcium 8.0 L
Vital Signs:
Vital Signs
Temp Pulse Resp BP Pulse Ox
36.7 C 71 16 106/40 95
08/13/24 07:33 08/13/24 07:33 08/13/24 07:33 08/13/24 07:33 08/13/24 10:11
I&O
08/12/24 08/13/24 08/14/24
06:59 06:59 06:59
Intake Total 930 / 930 820 / 820
Balance 930 / 930 820 / 820
Review of Systems
-
History Source: Patient
All other systems: Reviewed and negative
Physical Exam
-
General: Well Developed, No Apparent Distress, Comfortable and Conversant
HEENT: Normocephalic, Atraumatic, Moist Mucous Membranes and Anicteric
Respiratory: Clear to Auscultation and Non Labored Respirations
Cardiac: Regular Rhythm, S1/S2 and Murmur (systolic murmur across precordium); Negative Rub, JVD or Gallop
GI: Soft, Nontender, Nondistended and Normal Bowel Sounds
Musculoskeletal: No Clubbing, No Cyanosis and No Edema
Skin: Warm and Dry; Negative Rash
Neuro: Awake, Alert and Nonfocal/Grossly Intact; Negative Tremors
Psych: Calm and Intact Judgement/Insight
Data Reviewed
-
Labs: Labs Reviewed by me and Discussed with Patient
--- NOTE | 2024-08-13 13:12 | CM ---
Reviewed the chart notes and spoke with the patient at the beside. The patient resides alone in a first floor apartment with one step to enter. The patient is current with VN. The patient has a rolling walker and shower rails. The patient has
been to [facility] in the past. The patient confirmed her pharmacy of choice is [facility] [address] [place]. CM continues to be available to patient/family and is monitoring medical plan for needs at discharge.
Plan: Discharge back to home when medically stable with resumption of VN services.
--- NOTE | 2024-08-13 15:49 | VNURNOTE ---
[facility] liaison spoke with patient regarding resuming [facility] upon DC. She is agreeable. As of now, she has daily wound care ordered upon DC. She thinks her friend Sheila can assist the days [facility] not visiting her. Advised her to reach out to Sheila to
confirm. [facility] will assist approx 3x/week and pt also plans on resuming with wound center upon DC. Resumption referral accepted in [facility].
[2024-08-13 15:55] VITALS: BP 102/40
[2024-08-13] MEDS: COUMADIN 1.5 MG PO (17:39)
[2024-08-13 23:00] VITALS: BP 114/42
[2024-08-14] MEDS: ZOSYN 50 IV ×2 (05:09→13:45)
[2024-08-14] MEDS: SYNTHROID 88 MCG PO (05:09)
[2024-08-14 05:53] VITALS: BMI 25.1
[2024-08-14 06:10] LABS: Hematocrit 24.1 % (37.0-47.0); Hemoglobin 7.8 g/dL (12.0-16.0); Mean Corp Hgb Conc. 32.4 g/dL (33.0-37.0); Mean Corpuscular Hgb 33.3 pg (27.0-31.0); Mean Platelet Volume 9.7 fL (7.4-10.4); Platelet Count 208 10^3/uL (130-400); Red Blood Cell Count 2.34 10^6/uL (4.20-5.40); Red Cell Dist. Width 15.3 % (11.5-14.5); White Blood Cell Count 4.3 10^3/uL (4.8-10.8)
[2024-08-14 06:15] LABS: PT 22.8 Sec (11.4-14.6)
[2024-08-14 06:31] LABS: Blood Urea Nitrogen 10 mg/dl (7-17); Calcium 7.9 mg/dl (8.4-10.2); Carbon Dioxide 28 mmol/L (22-30); Chloride 108 mmol/L (98-107); Estimated Creatinine Clearance 33 ml/min; Glucose 88 mg/dl (70-99); Potassium 3.3 mmol/L (3.5-5.1); Sodium 139 mmol/L (135-145); eGFR 57.31
[2024-08-14 08:02] VITALS: BP 101/52
--- NOTE | 2024-08-14 08:17 | W.PN.HOSP.TC ---
Addendum entered and electronically signed by Kristyn Lugo MD 08/14/24 18:26:
I saw and evaluated the patient independently. I reviewed the resident�s note and agree with findings and plan as documented by Dr. Akers.
GENERAL: well developed, well nourished, female in no apparent distress
HEENT: NC/AT
HEART: regular rate and rhythm, +S1, +S2, JABARI, click
LUNGS : clear to auscultation bilaterally
ABDOM: soft, nontender, nondistended, + bowel sounds
EXT: no cyanosis, clubbing--2-3+ LE edema bilaterally, left leg debra wrapped
NEUROLOGIC: grossly intact
L thigh abscess-- LLE CT: New findings suggesting an elongated abscess formation along the inferior aspect of the elbow bone wound in the subcutaneous tissues of the distal left thigh lateral to the left knee joint - wound cx: ESBL E. coli,
Pseudomonas 08/10--08/11 ESBL E. coli, Enterococcus- s/p I&D 08/11--consult ID--currently on vanco/zosyn--changed to meropenem per ID--apprec input
CORI--possibly due to diuretics but could be ABX, infection, etc-- baseline Cr 0.8, peak 1.2--restart torsemide
Diarrhea--likely antibiotic associated--cont probiotics
Supratherapeutic INR--pt with mechanical mitral valve and bioprosthetic tricuspid valve--hx of rheumatic heart disease--on coumadin--goal INR 2.5-3.5--INR 2.0, will give extra dose of 1 mg tonight--daily INR
paroxysmal Afib/Atrial tachycardia-- cont home warfarin, digoxin
Severe -- Echo 11/2023: YOLANDA 0.9, peak/mean gradient 34/21 mmHg
Hypothyroidism- cont home levothyroxine
Chronic venous insufficiency---pt swelling increased--restart torsemide as Cr allows- leg elevation, compression stockings
H/O PE--S/P IVC Filter--also on coumadin chronically
Chronic HFpEF/RVF/Group 2 pulmonary hypertension/SSS s/p PPM
Restrictive lung disease with Obstructive sleep apnea on CPAP
DVT proph--home warfarin
CODE STATUS-- Full code
Original Note:
Today's Communication/Plan
-
- start probiotics
- ID consult
Assessment / Plan
Assessment / Plan
Assessment:
79yo F h mechanical MV on warfarin, CHF, afib/SSS s/p pacemaker, RLD, hypothyroidism, GERD who presented to [facility] ED w drainage from a L thigh wound. Recently admitted July 13- for infected L thigh hematoma, underwent irrigation and debridement
twice and completed a course of zosyn during her hospitalization - wound cx grew ESBL, Pseudomonas, Staph, and E faecalis.
L thigh abscess
- LLE CT: New findings suggesting an elongated abscess formation along the inferior aspect of the elbow bone wound in the subcutaneous tissues of the distal left thigh lateral to the left knee joint as described above.
- wound cx: ESBL, Pseudomonas
- s/p I&D 08/11
- cont IV vancomycin and zosyn
- appreciate ID input
CORI
- baseline Cr 0.8, peak 1.2
- holding torsemide
- monitor
Diarrhea
- probiotics
- if changes, consider stool cx
Supratherapeutic INR
- resolved
- INR goal 2.5-3.5 w mechanical MVR
- daily INR monitor
- cont coumadin
Afib
Atrial tachycardia
- cont home warfarin, digoxin
- tele
Severe
- Echo 11/2023: YOLANDA 0.9, peak/mean gradient 34/21 mmHg
Hypothyroidism
- cont home levothyroxine
Chronic venous insufficiency
- torsemide as Cr allows
- leg elevation, compression stockings
H/O PE
S/P IVC Filter
Chronic HFpEF/RVF
H/O rheumatic heart disease
S/p mechanical MVR
S/p bioprosthetic TVR
Group 2 pulmonary hypertension
SSS s/p PPM
Restrictive lung disease
Obstructive sleep apnea on CPAP
Diet: 2 g sodium
DVT prophylaxis: home warfarin
CODE STATUS: Full code
Anticipated Discharge: 24 - 48 hours
Subjective/Interval History
-
Date of Service: August 14, 2024
Pt with some diarrhea this AM, no foul odor.
Objective Data
-
Labs:
Laboratory Results
08/14/24
05:49
WBC 4.3 L
Hgb 7.8 L
Hct 24.1 L
Plt Count 208
PT 22.8 H
INR 2.00
Sodium 139
Potassium 3.3 L
Chloride 108 H
Carbon Dioxide 28
BUN 10
Creatinine 1.0
Glucose 88
Calcium 7.9 L
Vital Signs:
Vital Signs
Temp Pulse Resp BP Pulse Ox
98.0 F 72 16 101/52 95
08/14/24 08:02 08/14/24 08:02 08/14/24 08:02 08/14/24 08:02 08/14/24 08:02
I&O
08/13/24 08/14/24 08/15/24
06:59 06:59 06:59
Intake Total 820 / 820 1260 / 1260
Balance 820 / 820 1260 / 1260
Review of Systems
-
History Source: Patient
Constitutional: Reports No Symptoms
Respiratory: Reports No Symptoms
Cardiac: Reports No Symptoms
Abdomen/GI: Reports Diarrhea
Musculoskeletal: Reports No Symptoms
Skin: Reports Other (L thigh wounds)
Neuro: Reports No Symptoms
Physical Exam
-
General: Well Developed
HEENT: Normocephalic and Atraumatic
Respiratory: Clear to Auscultation and Non Labored Respirations
Cardiac: S1/S2, Irregular Rhythm and Murmur
GI: Soft, Nontender, Nondistended and Normal Bowel Sounds
Musculoskeletal: No Clubbing, No Cyanosis and No Edema
Skin: Warm, Dry and Other (L thigh wounds covered by bandage)
Neuro: Awake, Alert and Oriented
Psych: Calm
--- NOTE | 2024-08-14 08:20 | PHA.VAN.FU ---
Vancomycin Assessment / Plan
- Assessment
Renal Function: Stable
WBC's are: WNL
In the past 24 hrs, patient has been: Afebrile
Concomitant Antimicrobials: Zosyn 3.375 gram IV q6h
- Assessment - Therapeutic Drug Monitoring
Random Level: 14 - 08/14 at 5:49 AM (~18 hour level)
- Dosing Plan
Continue: Dose by level (CORI on CKD)
Dosing by Level: Re-dose today
Dosing Comments: Vancomycin 750 (~15 mg/kg) x 1 dose
- Monitoring Plan
Random Level: Vancomycin random level for 6/4 AM labs
- Follow Up
Pharmacy will continue to follow.
Vancomycin Follow UP
- -
Patient Age: 79
Patient Sex: Female
Vancomycin Day #: 4
Indication: Skin And Soft Tissue
Requesting Provider: Rodney Field
Pertinent Antimicrobial Allergies:
no pertinent antibiotic allergies
Height / Weight:
Height 5 ft
Actual Weight 58.287 kg
Pertinent Past Medical History: RLD
- Vital Signs / Lab Results
Temp Pulse Resp BP Pulse Ox
98.0 F 72 16 101/52 95
08/14/24 08:02 08/14/24 08:02 08/14/24 08:02 08/14/24 08:02 08/14/24 08:02
Lab Results - Hematology
08/12/24 08/13/24 08/14/24
06:27 06:09 05:49
WBC 8.3 5.0 4.3 L
Lab Results - Chemistry
08/12/24 08/13/24 08/14/24
06:27 06:09 05:49
BUN 16 13 10
Creatinine 1.2 H 1.2 H 1.0
Estimated Creat Clear 27 27 33
Microbiology Results
08/11/24 10:39 Wound Culture - Preliminary
Abscess Gram negative bacilli
Enterococcus species
Gram Stain - Preliminary
08/11/24 00:43 MRSA Screen - Final
Nose No Methicillin Resistant Staphylococcus aureus isolated.
Therapeutic Drug Monitoring
Random Vancomycin 14.0 ug/ml 08/14/24 05:49
[2024-08-14] MEDS: PEPCID 20 MG PO (08:43)
[2024-08-14] MEDS: EFFEXOR XR 37.5 MG PO (08:43)
[2024-08-14] MEDS: PROTONIX 40 MG PO (08:43)
[2024-08-14] MEDS: KCL 40 MEQ PO ×2 (08:44→13:44)
--- NOTE | 2024-08-14 09:00 | WOUNDNOTE ---
[facility] RN NOTE: Followed up with Dr. Goff who changed dressing this morning and confirmed wound looks good. Will assist as needed.
[2024-08-14 09:03] LABS: Magnesium 2.4 mg/dl (1.6-2.3)
[2024-08-14] MEDS: FLOVENT 44 MCG INHALER 2 PUFF INH (09:09)
--- NOTE | 2024-08-14 10:10 | W.PN.GS2 ---
Today's Communication / Plan
-
-- Resume previous local wound care orders with wet to dry dressings once again. If patient continues to bleed despite Surgiflo application may need to bring her to the operating room for definitive hemostasis
-- Recheck Hb tomorrow, OK to continue with current anticoagulation
-- Dispo planning, would plan on DC tomorrow with [facility]NA tomorrow if no further bleeding
Assessment / Plan
-
79 yo female with a history of mechanical valve and atrial fibrillation on warfarin (therapeutic) with a recent admission for a left lower extremity abscess that underwent serial debridement in early July who was discharged home and now back with an
adjacent left lower extremity abscess identified on CT scan after a new sinus tract appeared during outpatient wound care follow-up.
BP soft but stable, no tachycardia, afebrile
Labs notable for leukopenia, anemia with slight drift in Hb to 7.8 from 8.5, hypokalemia, INR 2
PPD #3 bedside incision and drainage and Bunola drain placement with continued bloody drainage which is expected in the setting of therapeutic anticoagulation. Surgiflo applied on 08/13.
No bleeding appreciated with dressing change today. Larger wound healthy with granulation tissue and no signs of infection, inferior I&D site, without worsening erythema or drainage.
Anemia on labs likely related to equilibration, no signs of active bleeding at this time, trend and transfuse as needed
-- Resume previous local wound care orders with wet to dry dressings once again. If patient continues to bleed despite Surgiflo application may need to bring her to the operating room for definitive hemostasis
-- ABX as per primary team, wound cx sent on 08/10 with E. coli
-- Recheck Hb tomorrow, OK to continue with current anticoagulation
-- Dispo planning, would plan on DC tomorrow with VNA tomorrow if no further bleeding
-- Jatin to remain in place with tentative removal in clinic in 2-[address] Kohli
-- Patient to follow-up with Dr. Barraza
Subjective Data
-
Date of Service: August 14, 2024
No new complaints or issues. Denies worsening pain. No reports of bloody drainage or soaking dressings.
Objective Data
-
Intake and Output
08/13/24 08/14/24 08/15/24
06:59 06:59 06:59
Intake Total 820 / 820 1260 / 1260
Balance 820 / 820 1260 / 1260
Intake:
Oral fluids 720 / 720 1080 / 1080
IV fluids (Total)
IV piggybacks 100 / 100 150 / 150
Other:
Number of approximated MODERATE 2 2
amounts of urine
Vital Signs
Temp Pulse Resp BP Pulse Ox
98.0 F 74 16 101/52 95
08/14/24 08:02 08/14/24 09:12 08/14/24 09:12 08/14/24 08:02 08/14/24 09:12
Lab Results
08/14/24 05:49
08/14/24 05:49
Calcium 7.9 mg/dl (8.4-10.2) L 08/14/24 05:49
Magnesium 2.4 mg/dl (1.6-2.3) H 08/14/24 05:49
Total Bilirubin 0.5 mg/dl (0.2-1.3) 08/10/24 11:58
AST 26 U/L (14-36) 08/10/24 11:58
ALT 13 U/L (0-35) 08/10/24 11:58
Alkaline Phosphatase 81 U/L (38-126) 08/10/24 11:58
Total Protein 7.1 g/dl (6.3-8.2) 08/10/24 11:58
Albumin 4.0 g/dl (3.5-5.0) 08/10/24 11:58
Physical Exam
-
Gen: NAD
LLE: dressing c/d/i, changed at bedside, larger wound 9 x 2 cm with healthy granulation tissue, separate I&D site inferiorly with Bunola in place, no active drainage, no erythema or induration, no bleeding appreciated with dressing change, pain
well controlled and tolerated change
Patient has a buenrostro catheter: No
Patient has a central line: No
[2024-08-14] MEDS: VISBIOME 1 CAP PO (11:31)
[2024-08-14] MEDS: VANCOCIN 150 IV (13:45)
[2024-08-14] MEDS: LANOXIN 125 MCG PO (13:46)
--- NOTE | 2024-08-14 14:58 | CON.ID ---
Consultation
-
Date/Time Consultation Requested: August 14, 2024 1430
Date/Time Consultation Performed: August 14, 2024 1500
Requesting Provider: Dr. Riana Akers
Performing Provider: Dr. Mayi Sarabia
Reason for Consultation: Leg abscess with Pseudomonas and ESBL E. coli
Chief Complaint / Past History
Chief Complaint
Leg abscess
History of Present Illness
Ms Hanson is a 78 year old female with a history of mechanical heart valve on Coumadin, bioprosthetic tricuspid valve replacement, CHF, and atrial fibrillation, ppm , pulmonary hypertension/fibrosis, gout, who presented to ED on 08/10 due to
draining knee wound. Patient with recent history of hemarthrosis of the L knee and a L thigh hematoma s/p embolization of the superior and inferior lateral lingular branches. She was discharged on 07/04/24 to [facility]. However she was
hospitalized 07/13 -07/28 due to left thigh wound, +COVID19. July 16, she underwent I AND D of the left thigh wound with wound VAC placement. Culture grew ESBL, Pseudomonas, E faecalis, Bacteroides, Clostridium perfringens. She completed 7-day course
of Zosyn. While at home she developed initially a small pimple-like lesion on top of her knee. It continued to get larger and started draining. She presented back to the ER August 10 from the wound care center as sinus tract noted from the left
thigh wound to the knee wound. CT scan showed new finding of an elongated abscess from the subcutaneous tissue of the left knee up to the distal left thigh wound. August 11, a bedside incision and drainage performed with Jatin drain placement.
Bedside I&D culture grew ESBL E. coli, Enterococcus faecalis. August 10 wound swab culture Pseudomonas and ESBL E. coli. She is currently on vancomycin and Zosyn Day #5. She reports she is feeling better. The wound has stopped bleeding. No fevers
or chills.
Past History
Additional Past Medical History:
[employer] Mechanical Mitral Valve Replacement
Bioprosthetic Tricuspid Valve Replacement
Sick Sinus Syndrome s/p Pacemaker
Moderate/Severe Aortic Stenosis
HFpEF with RV dysfunction
Pulmonary Hypertension
Permanent Atrial fibrillation / Atrial tachycardia with history of ablation 2011
History of PE s/p IVC filter
Restrictive Lung Disease
Hypothyroidism
Gout
GERD
Anxiety / Depression
HIRA on CPAP
Lymphedema/Venous insufficiency/Varicose veins
History of rheumatic heart disease
Laparoscopic cholecystectomy
Additional Past Surgical History:
Tubularization, varicose vein stripping, mitral valve replacement, cataract surgery, pacemaker, cholecystectomy, gallstone removal, tricuspid valve cardiothoracic surgery,
Allergy History:
adhesive Allergy (Verified 08/10/24 11:50)
redness and itching
amiodarone Allergy (Verified 08/10/24 11:50)
pulmonary issues
dofetilide Allergy (Verified 08/10/24 11:50)
SEE BELOW
enoxaparin (From Lovenox) Allergy (Verified 08/10/24 11:50)
excessive bleeding
sotalol (Sotalol) Allergy (Verified 08/10/24 11:50)
dizziness
Medications Reviewed: Yes
Current Antibiotics:
Vancomycin day 5
Zosyn day 5
Social History
Tobacco: Non-Smoker
Alcohol: None
Drug: None
Family History
Family History: Not Pertinent
Review of Systems
Review of Systems
General: Negative Fever, Chills or Change in Appetite
HEENT: Negative Sinus Problems
Cardiovascular: Negative Chest Pain or Edema
Respiratory: Negative Dyspnea or Cough
Gasteroenterology: Negative Nausea, Vomiting or Diarrhea
Genital / Urological: Negative Dysuria or Flank Pain
Endocrine: Negative Weakness
All systems: All other systems were reviewed and were negative
Vital Signs
Temp Pulse Resp BP Pulse Ox
98.0 F 84 16 101/52 95
08/14/24 08:02 08/14/24 13:46 08/14/24 09:12 08/14/24 08:02 08/14/24 09:12
Physical Exam
Physical Exam
Constitutional: No Acute Distress and Comfortable
Eyes: No Conjunctival Hemorrhage and Sclera Anicteric
Cardiovascular: Regular Rate and S1/S2
Pulmonary: Clear
Gastrointestinal: Soft, Non Tender, Non Distended and Normal Bowel Sounds
Genito-Urinary: Negative CVA Tenderness
Extremities: Edema (Bilateral extremity)
Wound: Other (Reviewed wound photos; large left thigh wound with granulating tissue, knee wound dressing in place with Jatin)
Neurological: AO x 3
Lab / Diagnostic Study Results
08/14/24 05:49
08/14/24 05:49
Abs Immat Gran (auto) 0.1 10^3/uL (0-0.05) H 08/12/24 06:27
Absolute Neuts (auto) 6.8 10^3/uL (1.4-6.5) H 08/12/24 06:27
Absolute Lymphs (auto) 0.3 10^3/uL (1.2-3.4) L 08/12/24 06:27
Absolute Monos (auto) 0.4 10^3/uL (0.1-0.6) 08/12/24 06:27
Absolute Basos (auto) 0.0 10^3/uL (0-0.2) 08/12/24 06:27
Immature Gran % 0.6 % (0-0.5) H 08/12/24 06:27
Neutrophils % 82.1 % (42.2-75.2) H 08/12/24 06:27
Lymphocytes % 4.0 % (20.5-51.1) L 08/12/24 06:27
Monocytes % 5.2 % (1.7-9.3) 08/12/24 06:27
Eosinophils % 7.7 % (0-6) H 08/12/24 06:27
Basophils % 0.4 % (0-2) 08/12/24 06:27
PT 22.8 Sec (11.4-14.6) H 08/14/24 05:49
INR 2.00 08/14/24 05:49
Microbiology Results
Micro:
08/11/24 10:39 Wound Culture - Final
Abscess Escherichia coli - ESBL
Enterococcus faecalis
Gram Stain - Final
08/11/24 00:43 MRSA Screen - Final
Nose No Methicillin Resistant Staphylococcus aureus isolated.
08/10/24 CT LLE: New findings of small focal fluid collection with rim enhancement in the soft tissues about the lateral left knee seen best on image 83 series 201. This measures 1.6 x 1.7 cm x 7.0 cm in length. It contains several small associated
pockets of air centrally. Superiorly this leads to the large open wound along the lateral mid left thigh. This is in the subcutaneous tissues, superficial to the fascia and musculature in this region. There is moderate surrounding stranding
suggesting inflammation.
Assessment / Plan
# Left thigh abscess
- Recent left thigh hematoma which got infected with polymicrobial organism status post I&D and 7 days of Zosyn completed July 20.
- Developed second abscess distal thigh with sinus tract from the left thigh wound status post bedside I&D with drain placement August 11
- Wound cultures with ESBL E. coli, Pseudomonas, Enterococcus faecalis as previous
- Discontinue vancomycin and Zosyn.
- Start meropenem 500 mg IV every 8 hours x [address] weeks[address]
- Place midline
- Infusion sheet submitted to case work aide.
- Continue contact isolation.
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
[employer] Mechanical Mitral Valve Replacement
Bioprosthetic Tricuspid Valve Replacement
Sick Sinus Syndrome s/p Pacemaker
Moderate/Severe Aortic Stenosis
HFpEF with RV dysfunction
Pulmonary Hypertension
Permanent Atrial fibrillation / Atrial tachycardia with history of ablation 2011
History of PE s/p IVC filter
Restrictive Lung Disease
Hypothyroidism
Gout
GERD
Anxiety / Depression
HIRA on CPAP
Lymphedema/Venous insufficiency/Varicose veins
History of rheumatic heart disease
Laparoscopic cholecystectomy
[2024-08-14 15:23] VITALS: BP 109/41
--- NOTE | 2024-08-14 16:01 | CM ---
Patient seen at bedside with physicians on . Patient plan is home with [facility], pending ID assessment which doctor recommended. CM will continue to follow for discharge planning needs.
Plan; home with [facility] watch for possible IV antibiotics.
[2024-08-14] MEDS: STERILE WATER FOR INJECTION 10 ML IV ×2 (16:18→23:33)
[2024-08-14] MEDS: MERREM 500 MG IV ×2 (16:19→23:33)
[2024-08-14] MEDS: COUMADIN 1 MG PO (17:47)
[2024-08-14] MEDS: COUMADIN 1.5 MG PO (17:47)
[2024-08-14] MEDS: DEMADEX 20 MG PO (20:04)
[2024-08-14 23:45] VITALS: BP 123/47
[2024-08-15 06:00] VITALS: BMI 25.3
[2024-08-15] MEDS: SYNTHROID 88 MCG PO (06:10)
[2024-08-15 07:23] VITALS: BP 118/43
[2024-08-15 07:45] LABS: Hematocrit 26.4 % (37.0-47.0); Hemoglobin 8.3 g/dL (12.0-16.0); Mean Corp Hgb Conc. 31.4 g/dL (33.0-37.0); Mean Corpuscular Hgb 32.8 pg (27.0-31.0); Mean Corpuscular Volume 104.3 fL (81.0-99.0); Mean Platelet Volume 9.7 fL (7.4-10.4); Platelet Count 226 10^3/uL (130-400); Red Blood Cell Count 2.53 10^6/uL (4.20-5.40); Red Cell Dist. Width 15.3 % (11.5-14.5); White Blood Cell Count 5.3 10^3/uL (4.8-10.8)
[2024-08-15 07:52] LABS: INR 2.01; PT 23.3 Sec (11.4-14.6)
[2024-08-15] MEDS: FLOVENT 44 MCG INHALER 2 PUFF INH (07:52)
--- NOTE | 2024-08-15 07:55 | W.PN.HOSP.TC ---
Addendum entered and electronically signed by Kristyn Lugo MD 08/15/24 15:24:
I saw and evaluated the patient independently. I reviewed the resident�s note and agree with findings and plan as documented by Dr. Akers.
GENERAL: well developed, well nourished, female in no apparent distress
HEENT: NC/AT
HEART: regular rate and rhythm, +S1, +S2, JABARI, click
LUNGS : clear to auscultation bilaterally
ABDOM: soft, nontender, nondistended, + bowel sounds
EXT: no cyanosis, clubbing--2-3+ LE edema bilaterally, left leg debra wrapped
NEUROLOGIC: grossly intact
L thigh abscess-- LLE CT: New findings suggesting an elongated abscess formation along the inferior aspect of the wound in the subcutaneous tissues of the distal left thigh lateral to the left knee joint - wound cx: ESBL E. coli, Pseudomonas
08/10--08/11 ESBL E. coli, Enterococcus- s/p I&D 08/11--apprec ID--currently on vanco/zosyn--changed to meropenem per ID, cont for 2 weeks through 08/28/24--apprec input--OK for D/C
CORI--resolved--possibly due to diuretics but could be ABX, infection, etc-- baseline Cr 0.8, peak 1.2--restarted torsemide
Diarrhea--likely antibiotic associated--cont probiotics
Supratherapeutic INR--pt with mechanical mitral valve and bioprosthetic tricuspid valve--hx of rheumatic heart disease--on coumadin--goal INR 2.5-3.5--INR 2.0, will give extra dose of 1 mg tonight--daily INR
paroxysmal Afib/Atrial tachycardia-- cont home warfarin, digoxin
Severe -- Echo 11/2023: YOLANDA 0.9, peak/mean gradient 34/21 mmHg
Hypothyroidism- cont home levothyroxine
Chronic venous insufficiency---pt swelling increased--restart torsemide as Cr allows- leg elevation, compression stockings
H/O PE--S/P IVC Filter--also on coumadin chronically
Chronic HFpEF/RVF/Group 2 pulmonary hypertension/SSS s/p PPM
Restrictive lung disease with Obstructive sleep apnea on CPAP
DVT proph--home warfarin
CODE STATUS-- Full code
Original Note:
Today's Communication/Plan
-
- midline
- dc
Assessment / Plan
Assessment / Plan
Assessment:
79yo F h mechanical MV on warfarin, CHF, afib/SSS s/p pacemaker, RLD, hypothyroidism, GERD who presented to [facility] ED w drainage from a L thigh wound. Recently admitted July 13- for infected L thigh hematoma, underwent irrigation and debridement
twice and completed a course of zosyn during her hospitalization - wound cx grew ESBL, Pseudomonas, Staph, and E faecalis.
L thigh abscess
- LLE CT: New findings suggesting an elongated abscess formation along the inferior aspect of the elbow bone wound in the subcutaneous tissues of the distal left thigh lateral to the left knee joint as described above.
- wound cx: ESBL, Pseudomonas
- s/p I&D 08/11
- was on IV vancomycin and zosyn
- transitioned to 2 week course of meropenem
- appreciate ID input
CORI
- baseline Cr 0.8, peak 1.2
- holding torsemide
- monitor
Diarrhea
- probiotics
- if changes, consider stool cx
Supratherapeutic INR
- resolved
- INR goal 2.5-3.5 w mechanical MVR
- daily INR monitor
- cont coumadin
Afib
Atrial tachycardia
- cont home warfarin, digoxin
- tele
Severe
- Echo 11/2023: YOLANDA 0.9, peak/mean gradient 34/21 mmHg
Hypothyroidism
- cont home levothyroxine
Chronic venous insufficiency
- torsemide as Cr allows
- leg elevation, compression stockings
H/O PE
S/P IVC Filter
Chronic HFpEF/RVF
H/O rheumatic heart disease
S/p mechanical MVR
S/p bioprosthetic TVR
Group 2 pulmonary hypertension
SSS s/p PPM
Restrictive lung disease
Obstructive sleep apnea on CPAP
Diet: 2 g sodium
DVT prophylaxis: home warfarin
CODE STATUS: Full code
Anticipated Discharge: Today
Subjective/Interval History
-
Date of Service: August 15, 2024
Abx transitioned to a 2 week course of meropenem.
Objective Data
-
Labs:
Laboratory Results
08/15/24
07:09
WBC 5.3
Hgb 8.3 L
Hct 26.4 L
Plt Count 226
PT Pending
INR Pending
Sodium Pending
Potassium Pending
Chloride Pending
Carbon Dioxide Pending
BUN Pending
Creatinine Pending
Glucose Pending
Calcium Pending
Total Bilirubin Pending
AST Pending
ALT Pending
Alkaline Phosphatase Pending
Vital Signs:
Vital Signs
Temp Pulse Resp BP Pulse Ox
98.1 F 71 16 118/43 98
08/15/24 07:23 08/15/24 07:23 08/15/24 07:23 08/15/24 07:23 08/15/24 07:23
I&O
08/14/24 08/15/24 08/16/24
06:59 06:59 06:59
Intake Total 1260 / 1260
Balance 1260 / 1260
Review of Systems
-
History Source: Patient
Constitutional: Reports No Symptoms
Respiratory: Reports No Symptoms
Cardiac: Reports No Symptoms
Abdomen/GI: Reports No Symptoms
Neuro: Reports No Symptoms
Physical Exam
-
General: Cachectic
HEENT: Normocephalic and Atraumatic
Respiratory: Clear to Auscultation and Non Labored Respirations
Cardiac: Regular Rhythm and S1/S2
GI: Soft, Nontender, Nondistended and Normal Bowel Sounds
Musculoskeletal: No Clubbing, No Cyanosis and No Edema
Skin: Warm and Dry
Neuro: Awake, Alert and Oriented
Psych: Calm
[2024-08-15 08:32] LABS: ALT (SGPT) 14 U/L (0-35); AST (SGOT) 22 U/L (14-36); Albumin 3.3 g/dl (3.5-5.0); Alkaline Phosphatase 89 U/L (38-126); Blood Urea Nitrogen 12 mg/dl (7-17); Calcium 8.2 mg/dl (8.4-10.2); Carbon Dioxide 26 mmol/L (22-30); Chloride 109 mmol/L (98-107); Estimated Creatinine Clearance 36 ml/min; Glucose 87 mg/dl (70-99); Magnesium 2.2 mg/dl (1.6-2.3); Potassium 3.8 mmol/L (3.5-5.1); Sodium 139 mmol/L (135-145); Total Bilirubin 0.4 mg/dl (0.2-1.3); Total Protein 5.8 g/dl (6.3-8.2); eGFR > 60.00
[2024-08-15] MEDS: DEMADEX 20 MG PO (08:36)
[2024-08-15] MEDS: VISBIOME 1 CAP PO (08:36)
[2024-08-15] MEDS: EFFEXOR XR 37.5 MG PO (08:36)
[2024-08-15] MEDS: PROTONIX 40 MG PO (08:37)
[2024-08-15] MEDS: STERILE WATER FOR INJECTION 10 ML IV ×2 (08:37→16:11)
[2024-08-15] MEDS: MERREM 500 MG IV ×2 (08:37→16:11)
[2024-08-15] MEDS: PEPCID 20 MG PO (08:38)
--- NOTE | 2024-08-15 10:30 | WOUNDNOTE ---
WOC RN note: Patient sitting in recliner chair. L lateral thigh dressing/packing changed. Wound pink/granular, [place] drain in place. Skin on heels and sacrum intact. Mame/coccyx skin mild red from moisture. Air chair cushion given. Patient stood
with walker during sacral skin assessment. Instructed patient pressure injury prevention measures and to follow up at [facility]. Patient stated she is current with [facility]. She is aware to call [facility] to let them know her home wound vac is on hold. Will
follow as needed.
--- NOTE | 2024-08-15 12:39 | W.PN.ID1 ---
Date of Service
Date of Service: August 15, 2024
Today's Communication
Continue meropenem 500 mg IV every 8 hours x 2 weeks through 08/28/24
Assessment / Plan
# Left thigh abscess
- Recent left thigh hematoma which got infected with polymicrobial organism status post I&D and 7 days of Zosyn completed July 20.
- Developed second abscess distal thigh with sinus tract from the left thigh wound status post bedside I&D with drain placement August 11
- Wound cultures with ESBL E. coli, Pseudomonas, Enterococcus faecalis as previous
- Discontinue vancomycin and Zosyn.
- Continue meropenem 500 mg IV every 8 hours x 2 weeks through 08/28/24
- Place midline
- Infusion sheet submitted to medical case worker 08/14
- Continue contact isolation.
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
[employer] Mechanical Mitral Valve Replacement
Bioprosthetic Tricuspid Valve Replacement
Sick Sinus Syndrome s/p Pacemaker
Moderate/Severe Aortic Stenosis
HFpEF with RV dysfunction
Pulmonary Hypertension
Permanent Atrial fibrillation / Atrial tachycardia with history of ablation 2011
History of PE s/p IVC filter
Restrictive Lung Disease
Hypothyroidism
Gout
GERD
Anxiety / Depression
HIRA on CPAP
Lymphedema/Venous insufficiency/Varicose veins
History of rheumatic heart disease
Laparoscopic cholecystectomy
Chief Complaint
-: Cellulitis
Subjective / Review of Systems
No complaints today.
Vital Signs / Physical Exam
Vital Signs
Vital Signs
Temp Pulse Resp BP Pulse Ox
98.1 F 71 16 118/43 98
08/15/24 07:23 08/15/24 08:36 08/15/24 07:56 08/15/24 08:36 08/15/24 07:23
Physical Exam
Constitutional: No Acute Distress and Comfortable
Cardiovascular: Regular Rate and S1/S2
Pulmonary: Clear
Gastrointestinal: Soft, Non Tender and Non Distended
Extremities: Edema
Wound: Other (Left thigh dressing dry.)
Neurological: AO x 3
Objective Data
Lab Data
Lab Results
08/15/24 07:09
08/15/24 07:09
PT 23.3 Sec (11.4-14.6) H 08/15/24 07:09
INR 2.01 08/15/24 07:09
APTT 45.9 Sec (23.4-35.0) H 08/10/24 19:00
Estimated Creat Clear 36 ml/min 08/15/24 07:09
Total Bilirubin 0.4 mg/dl (0.2-1.3) 08/15/24 07:09
AST 22 U/L (14-36) 08/15/24 07:09
ALT 14 U/L (0-35) 08/15/24 07:09
Alkaline Phosphatase 89 U/L (38-126) 08/15/24 07:09
Most recent labs reviewed.
Micro Results:
08/11/24 10:39 Wound Culture - Final
Abscess Escherichia coli - ESBL
Enterococcus faecalis
Gram Stain - Final
08/11/24 00:43 MRSA Screen - Final
Nose No Methicillin Resistant Staphylococcus aureus isolated.
08/10/24 CT LLE: New findings of small focal fluid collection with rim enhancement in the soft tissues about the lateral left knee seen best on image 83 series 201. This measures 1.6 x 1.7 cm x 7.0 cm in length. It contains several small associated
pockets of air centrally. Superiorly this leads to the large open wound along the lateral mid left thigh. This is in the subcutaneous tissues, superficial to the fascia and musculature in this region. There is moderate surrounding stranding
suggesting inflammation.
--- NOTE | 2024-08-15 13:48 | W.DCSUMMARY ---
Addendum entered and electronically signed by Kristyn Lugo MD 08/15/24 15:27:
Read, reviewed, and agree. See same day progress note for additional details. Time spent coordinating care, DC planning, review of DC plan of care with resident, transition of care, review of records in EMR, med rec, consults, notes, d/w
consultants, nursing, family, and CM = 33 minutes
Original Note:
Discharge Summary
Discharge Data
Date of Admission: 08/10/24
Date of Discharge: 08/15/24
-
Pending Results: No
Hospital Course
Discharging Physician : Dr. Riana Akers, Dr. Kristyn Lugo
Disposition : home
Primary care physician : Geneva Angelo MD
Principal Discharge diagnosis : L thigh abscess, CORI, diarrhea, supratherapeutic INR
Chronic Discharge diagnosis : mechanical MV on warfarin, CHF, afib/SSS s/p pacemaker, RLD, hypothyroidism, GERD
Hospital Course : 79yo F [facility] mechanical MV on warfarin, CHF, afib/SSS s/p pacemaker, RLD, hypothyroidism, GERD who presented to [facility] ED w drainage from a L thigh wound. Recently admitted July 13- for infected L thigh hematoma, underwent irrigation
and debridement twice and completed a course of zosyn during her hospitalization - wound cx grew ESBL, Pseudomonas, Staph, and E faecalis. A new spot on her knee started draining and she was admitted 08/10. Started on vancomycin and zosyn. Wound cx
grew ESBL, Pseudomonas, E faecalis. General surgery consulted, s/p debridement 08/11. ID consulted, abx transitioned to meropenem 500mg IV q8h z1iplml. Midline inserted. Pt instructed on abx administration. Pt afebrile throughout stay,
hemodynamically stable.
Important imaging findings :
LLE CT:
New findings suggesting an elongated abscess formation along the inferior aspect of the elbow bone wound in the subcutaneous tissues of the distal left thigh lateral to the left knee joint as described above.
Small suprapatellar joint effusion. Improved.
Osteoarthritis. Stable
Procedure findings :
08/11 - incision and drainage and [place] drain placement was performed
Discharge Plan
-
Patient Disposition: Home (Routine Discharge)
Discharge Diagnosis/Procedures: abscess, acute kidney injury, diarrhea, supratherapeutic INR
Condition: Fair
Diet: 2 Gram Sodium
Activity: As tolerated
Driving Restrictions: As prior to admission
Bathing Restrictions: After seen by
Other Services: [facility]
Wound Care: Pack open portion of wound with saline moistened gauze and cover with silicone dressing. Cover huma drain with dry gauze and silicone dressing. Change daily and prn. Follow as you were previously in the wound care center.
Instructions: Meropenem, Warfarin, Prothrombin time and INR (PT/INR), Skin Abscess
Referrals:
Geneva Angelo MD [Family Provider, Internal Medicine] - in one week
Chilango Kohli MD [Active, Surgical] - in two weeks
[facility] [Active Community]
Referral Note: continue following routinely in the wound center
Prescriptions:
New
meropenem 500 mg Recon Soln
500 mg IV Q8H 13 Days Qty: 25 0RF
Continued
levothyroxine 88 MCG tablet
88 mcg PO DAILY@06
digoxin 0.125 MG tablet
0.125 mg PO SUTUTHSA@1200
albuterol sulfate [Ventolin HFA] 90 MCG/PUFF HFA aerosol inhaler
2 puff inhalation R Q6HPRN PRN (Reason: SOB)
omeprazole 40 MG capsule,delayed release(DR/EC)
40 mg PO DAILY
Arnuity Ellipta 100 MCG blister with device
1 inh inhalation R DAILY
cholecalciferol (vitamin D3) 50 mcg (2,000 unit) Tablet
50 mcg PO DAILY
acetaminophen [Tylenol] 325 mg Tablet
650 mg PO Q6HPRN PRN (Reason: mild pain)
potassium chloride 20 mEq Tablet,Er Particles/Crystals
20 meq PO DAILY Qty: 30 0RF
Rx Instructions:
Hold if not taking diuretic (such as Torsemide).
famotidine 20 mg Tablet
20 mg PO DAILY Qty: 30 0RF
venlafaxine 37.5 mg Capsule,Extended Release 24hr
37.5 mg PO DAILY
warfarin 1 mg Tablet
1.5 mg PO QPM
torsemide 20 mg Tablet
20 mg PO BID
Discharge Orders:
Discharge Patient (As Directed); Ordered 08/15/24
Ordered By: Riana Akers
Discharge Date and Time
Print Language: PUERTO RICAN
--- NOTE | 2024-08-15 14:25 | CM ---
Patient seen at bedside in [address] [place] [address] with [facility] to follow and [facility] to provide Antibiotics and teaching. Patient updated with cost and patient in agreement with plan for discharge. Patient daughter working today but plan for transportation home.
CM provided IMM and signed form placed on chart. CM will continue to follow for discharge planning needs.
Plan; home with [facility] to follow for wound care and [facility] to provide IV antibiotics
[2024-08-15 15:49] VITALS: BP 126/53
[2024-08-15] MEDS: COUMADIN 1.5 MG PO (16:11)
--- NOTE | 2024-08-15 16:51 | CM ---
Faxed PICC line information to [facility] at [phone].
== END 2024-08-15 17:16 | disposition home health service (06) | DRG 603 ==
LOC: 2 NORTH 22:53
PROVIDERS: Emergency Medicine; Internal Medicine; Nurse Practitioner Family; Physician Assistant Medical; ADMITTING PHYSICIAN Hospitalist; ATTENDING PHYSICIAN Internal Medicine; CONSULT PHYSICIAN Internal Medicine Infectious Disease; CONSULT PHYSICIAN Surgery; EMERGENCY PHYSICIAN Emergency Medicine; FAMILY PHYSICIAN Hospitalist
DX: L02.416 Cutaneous abscess of left lower limb (principal); I50.32 Chronic diastolic (congestive) heart failure; I47.19 Other supraventricular tachycardia; N17.9 Acute kidney failure, unspecified; I48.21 Permanent atrial fibrillation; Z16.12 Extended spectrum beta lactamase (ESBL) resistance; E03.9 Hypothyroidism, unspecified; F32.A Depression, unspecified; G43.909 Migraine, unspecified, not intractable, without status migrainosus; G47.33 Obstructive sleep apnea (adult) (pediatric); K21.9 Gastro-esophageal reflux disease without esophagitis; J45.909 Unspecified asthma, uncomplicated; J98.4 Other disorders of lung; I35.0 Nonrheumatic aortic (valve) stenosis; M10.9 Gout, unspecified; I89.0 Lymphedema, not elsewhere classified; I87.2 Venous insufficiency (chronic) (peripheral); I83.90 Asymptomatic varicose veins of unspecified lower extremity; R79.1 Abnormal coagulation profile; F41.9 Anxiety disorder, unspecified; E78.00 Pure hypercholesterolemia, unspecified; I27.22 Pulmonary hypertension due to left heart disease; M19.90 Unspecified osteoarthritis, unspecified site; R19.7 Diarrhea, unspecified; I48.0 Paroxysmal atrial fibrillation; B96.20 Unspecified Escherichia coli [E. coli] as the cause of diseases classified elsewhere; B96.5 Pseudomonas (aeruginosa) (mallei) (pseudomallei) as the cause of diseases classified elsewhere; Z60.2 Problems related to living alone; Z95.0 Presence of cardiac pacemaker; Z86.711 Personal history of pulmonary embolism; Z87.442 Personal history of urinary calculi; Z87.01 Personal history of pneumonia (recurrent); Z86.19 Personal history of other infectious and parasitic diseases; Z90.49 Acquired absence of other specified parts of digestive tract; Z95.828 Presence of other vascular implants and grafts; Z79.890 Hormone replacement therapy; Z79.51 Long term (current) use of inhaled steroids; Z95.2 Presence of prosthetic heart valve; Z79.01 Long term (current) use of anticoagulants; Z98.51 Tubal ligation status; Z88.8 Allergy status to other drugs, medicaments and biological substances; Z91.048 Other nonmedicinal substance allergy status
CPT/HCPCS: 73701; 80048; 80053; 80202; 83735; 85014; 85018; 85025; 85027; 85610; 85730; 87070; 87077; 87147; 87186; 87205; 94640; 96374; 97116; 97163; 97165; 99284; J2185; Q9967

== ENCOUNTER → 2024-08-21 09:16 | Outpatient (REF) | payer OTHER, SELFPAY | LOC: WOUND 09:16 | PROVIDERS: ATTENDING PHYSICIAN Surgery | DX: L97.129 Non-pressure chronic ulcer of left thigh with unspecified severity (principal); L02.419 Cutaneous abscess of limb, unspecified; S70.12XA Contusion of left thigh, initial encounter; I50.22 Chronic systolic (congestive) heart failure; I49.5 Sick sinus syndrome; I48.0 Paroxysmal atrial fibrillation; Z95.3 Presence of xenogenic heart valve; Z95.2 Presence of prosthetic heart valve; Z79.01 Long term (current) use of anticoagulants; Z95.828 Presence of other vascular implants and grafts; W54.1XXA Struck by dog, initial encounter | CPT/HCPCS: 99213 ==

== ENCOUNTER → 2024-09-10 09:27 | Outpatient (REF) | payer OTHER, SELFPAY | LOC: WOUND 09:27 | PROVIDERS: ATTENDING PHYSICIAN Surgery; FAMILY PHYSICIAN Hospitalist | DX: L97.129 Non-pressure chronic ulcer of left thigh with unspecified severity (principal); L02.419 Cutaneous abscess of limb, unspecified; I50.22 Chronic systolic (congestive) heart failure; I49.5 Sick sinus syndrome; I48.0 Paroxysmal atrial fibrillation; Z95.3 Presence of xenogenic heart valve; Z95.2 Presence of prosthetic heart valve; Z95.828 Presence of other vascular implants and grafts; Z79.01 Long term (current) use of anticoagulants | CPT/HCPCS: 99213 ==

== ENCOUNTER → 2024-09-24 09:51 | Outpatient (REF) | payer OTHER, SELFPAY | LOC: WOUND 09:51 | PROVIDERS: ATTENDING PHYSICIAN Surgery; FAMILY PHYSICIAN Hospitalist | DX: L97.129 Non-pressure chronic ulcer of left thigh with unspecified severity (principal); L02.416 Cutaneous abscess of left lower limb; S70.12XA Contusion of left thigh, initial encounter; I50.22 Chronic systolic (congestive) heart failure; I49.5 Sick sinus syndrome; I48.0 Paroxysmal atrial fibrillation; Z95.3 Presence of xenogenic heart valve; Z95.2 Presence of prosthetic heart valve; Z79.01 Long term (current) use of anticoagulants; Z95.828 Presence of other vascular implants and grafts; X58.XXXA Exposure to other specified factors, initial encounter | CPT/HCPCS: 99213 ==

== ENCOUNTER → 2024-10-09 14:20 | Outpatient (REF) | payer OTHER, SELFPAY | LOC: WOUND 14:20 | PROVIDERS: ATTENDING PHYSICIAN Surgery; FAMILY PHYSICIAN Hospitalist | DX: L97.129 Non-pressure chronic ulcer of left thigh with unspecified severity (principal); S70.12XA Contusion of left thigh, initial encounter; Z79.01 Long term (current) use of anticoagulants; Z95.2 Presence of prosthetic heart valve; Z95.828 Presence of other vascular implants and grafts; I50.22 Chronic systolic (congestive) heart failure; I49.5 Sick sinus syndrome; I48.0 Paroxysmal atrial fibrillation; Z95.3 Presence of xenogenic heart valve; X58.XXXA Exposure to other specified factors, initial encounter | CPT/HCPCS: 99212 ==

== ENCOUNTER → 2024-11-07 09:55 | Outpatient (REF) | payer OTHER, SELFPAY | LOC: HWRCS 09:55 | PROVIDERS: ATTENDING PHYSICIAN Internal Medicine Cardiovascular Disease; FAMILY PHYSICIAN Hospitalist | DX: Z98.890 Other specified postprocedural states (principal); I48.21 Permanent atrial fibrillation | CPT/HCPCS: 93306 ==

== ENCOUNTER → 2024-12-20 12:08 | Outpatient (REF) | payer OTHER, SELFPAY | LOC: RAD 12:08 | PROVIDERS: ATTENDING PHYSICIAN Hospitalist | DX: M25.561 Pain in right knee (principal) | CPT/HCPCS: 73560 ==

== ENCOUNTER → 2025-01-05 10:24 | Outpatient (REF) | payer OTHER, SELFPAY | LOC: RAD 10:24 | PROVIDERS: ATTENDING PHYSICIAN Nurse Practitioner; FAMILY PHYSICIAN Hospitalist | DX: J40 Bronchitis, not specified as acute or chronic (principal) | CPT/HCPCS: 71046 ==

== ENCOUNTER → 2025-01-18 14:35 | Outpatient (REF) | payer OTHER, SELFPAY | LOC: WDC 14:35 | PROVIDERS: ATTENDING PHYSICIAN Hospitalist | DX: Z12.31 Encounter for screening mammogram for malignant neoplasm of breast (principal) | CPT/HCPCS: 77063; 77067 ==